=== PATIENT | female | born 1965 | race Caucasian/White ===

== ENCOUNTER 2018-08-14 12:36 | Outpatient (CLI) | payer OTHER, SELFPAY ==
[2018-08-14 14:06] LABS: Anion Gap 11.2 mmol/L (3-11); BUN 19 mg/dL (7-18); CO2 26.8 mmol/L (21.0-32.0); CREATININE 0.87 mg/dL (0.55-1.02); Calcium 9.3 mg/dL (8.5-10.1); Chloride 103 mmol/L (98-107); Glucose 132 mg/dL (70-100); Potassium 4.4 mmol/L (3.5-5.1); Sodium 141 mmol/L (136-145)
[2018-08-15 13:55] LABS: Tacrolimus 8.7 ng/ml
== END 2018-08-14 12:56 ==
PROVIDERS: PCP Family Medicine; Visit Provider Nurse Practitioner Adult Health
DX: Z94.1 Heart transplant status (principal)
CPT/HCPCS: 36415; 80048; 80197

== ENCOUNTER 2018-08-14 12:54 | Outpatient (REF) | payer OTHER, SELFPAY ==
--- NOTE | 2018-08-14 11:50 | PAPFT_PTH ---
PATIENT: Saman Segura LOC: [facility] U#:[id number] AGE/SX: 53/F ROOM: RE08/14/[address]: Zenaida Petersen : 1965 BED: DIS: 08/14/2018 SPEC #: [id number] RECD: 08/14/18 17:50 STATUS: YOSEF STALLWORTH #: [id number] JAMES: 08/14/18 11:[address]: Zenaida Petersen DEPT: REPLACED BY [facility] Cytology RECD BY: Gretchen Wolf ENTERED: 08/14/18 17:51 SP TYPE: PAPFT OTHR DR: Oswaldo Marquez MD Tissues: 1 - CX/ENDOCX FOR PAP SMEARS Procedures: PAP THIN PREP/UVM Screening HPV DNA PROBE Comments: [id number]
== END 2018-08-14 13:14 ==
LOC: LBN 12:54
PROVIDERS: PCP Family Medicine; Visit Provider Obstetrics & Gynecology
DX: Z12.4 Encounter for screening for malignant neoplasm of cervix (principal); Z11.51 Encounter for screening for human papillomavirus (HPV)
CPT/HCPCS: 88142; 87624

== ENCOUNTER 2018-08-20 01:32 | Outpatient (CLI) | payer OTHER, SELFPAY ==
--- NOTE | 2018-08-20 12:22 | DI.MAMMO_ITS ---
SYMPTOMS/DIAGNOSIS: SCREENING, Z12.31 MAMMOGRAM: Mammograms were interpreted according to the usual protocol including computer analysis with CAD system, tomosynthesis and C view imaging. The breasts are of moderate density with fairly symmetrical distribution of fibroglandular tissue. No dominant mass or clumped microcalcification is identified in either breast. Current examination is compared with the previous examinations including April 2017 and there has been no gross interval change in appearance in comparison with the previous studies. CONCLUSION: No specific evidence of malignancy at this time. Routine screening examinations are suggested at yearly intervals in this age group according to the ACS/ACR guidelines. Category 1, breast density category B. MQSA ASSESSMENT OF FINDINGS: Negative. Category 1. Patient will receive a letter notifying them of these results. BI-RADS category B. There are scattered areas of fibroglandular density.
== END 2018-08-20 01:52 ==
PROVIDERS: PCP Family Medicine; Visit Provider Obstetrics & Gynecology
DX: Z12.31 Encounter for screening mammogram for malignant neoplasm of breast (principal)
CPT/HCPCS: 77063; 77067

== ENCOUNTER 2018-08-26 00:37 | Outpatient (CLI) | payer OTHER, SELFPAY ==
--- NOTE | 2018-08-26 14:17 | DI.RAD_ITS ---
SYMPTOM/DIAGNOSIS: Z13.820, SCREENING FOR OSTEOPOROSIS DEXA SCAN: Routine examination was performed. Comparison 2011. Evaluation of the lateral view of the spine shows no compression deformities. Evaluation of the left hip shows a total T-score of 0.9 and a Z-score of 1.6. This compares with a total T-score of 1.0 from 2011. Evaluation of the lumbar spine shows a total T-score of 2 and Z-score of 3. This compares with a total T-score of 2.3 from 2011. These are within normal limits. No evidence of osteoporosis is present.
== END 2018-08-26 00:57 ==
PROVIDERS: PCP Family Medicine; Visit Provider Family Medicine
DX: Z13.820 Encounter for screening for osteoporosis (principal)
CPT/HCPCS: 77080

== ENCOUNTER 2019-01-09 10:30 | Outpatient (CLI) | payer OTHER, SELFPAY ==
[2019-01-09 10:59] LABS: Bilirubin Negative (Negative); Blood Trace-intact (Negative); Clarity Sl Cloudy; Glucose Negative (Negative); Ketones Negative (Negative); Leukocyte Esterase Small (Negative); Nitrite Positive (Negative); Urobilinogen 0.2 EU/dL (Up TO 0.2); pH 6.5 (5-8)
[2019-01-09 11:09] LABS: Epithelial Cells Few HPF (Negative); Other Cells Negative (Negative); WBC 20-50 HPF (0-5)
[2019-01-09 11:10] LABS: Bacteria Many HPF (Negative); C & S Indicated? C&S Done As Ordered; Casts Negative LPF (Negative); Crystals Negative HPF (Negative); Mucus Negative (Negative)
== END 2019-01-09 10:50 ==
PROVIDERS: PCP Family Medicine; Visit Provider Nurse Practitioner Adult Health
DX: Z94.1 Heart transplant status (principal)
CPT/HCPCS: 87077; 81003; 81015; 87086; 87186

== ENCOUNTER 2019-01-23 08:51 | Outpatient (CLI) | payer OTHER, SELFPAY ==
[2019-01-23 10:31] LABS: ALT 64 U/L (12-78); AST 32 U/L (15-37); Albumin 3.6 g/dL (3.4-5.0); Alkaline Phosphatase 79 U/L (46-116); BUN 17 mg/dL (7-18); Bilirubin, Total 0.3 mg/dL (0.2-1.0); CREATININE 1.05 mg/dL (0.55-1.02); Calcium 8.6 mg/dL (8.5-10.1); Chloride 102 mmol/L (98-107); Creatine Kinase 41 U/L (26-192); Estimated GFR 54.61 (mL/min/1.73m2); Glucose 161 mg/dL (70-100); Potassium 4.1 mmol/L (3.5-5.1); Sodium 140 mmol/L (136-145); Total Protein 6.9 g/dL (6.4-8.2)
== END 2019-01-23 09:11 ==
PROVIDERS: PCP Family Medicine; Visit Provider Nurse Practitioner Adult Health
DX: Z94.1 Heart transplant status (principal)
CPT/HCPCS: 36415; 80053; 82550

== ENCOUNTER 2019-02-06 10:29 | Outpatient (CLI) | payer OTHER, SELFPAY ==
[2019-02-06 12:02] LABS: Bilirubin Negative (Negative); Blood Negative (Negative); Clarity Clear; Glucose Negative (Negative); Ketones Negative (Negative); Leukocyte Esterase Negative (Negative); Nitrite Negative (Negative); Specific Gravity >= 1.030 (1.005-1.025); Urobilinogen 0.2 EU/dL (Up TO 0.2); pH 5.5 (5-8)
== END 2019-02-06 10:49 ==
PROVIDERS: PCP Family Medicine; Visit Provider Nurse Practitioner Adult Health
DX: Z94.1 Heart transplant status (principal)
CPT/HCPCS: 81003

== ENCOUNTER 2019-02-16 10:18 | Day surgery (SDC) | payer OTHER, SELFPAY ==
--- NOTE | 2019-02-16 08:02 | ENDO_ITS ---
Date of service: 02/16/19 Time of Service: 11:40 Endoscopy Report DATE OF PROCEDURE: 02/16/19 PRE-OP DIAGNOSIS: Hx of gastric ulcers POST-OP DIAGNOSIS: same PROCEDURE: EGD with biopsies SURGEON: Maggie Leger ANESTHESIA: other (general/ ASA 3/ Loretta Carbajal, RESEARCH NEUROPSYCHOLOGIST) ESTIMATED BLOOD LOSS: 3 PATHOLOGY: other (antrum bx and GE junction bx) COMPLICATIONS: None DISPOSITION: same day INDICATIONS: Mrs. Segura is a 53 year old female with chronic ulcers and history of cardiac transplant who came to the office for repeat EGD to follow her ulcers. This was requested by GI at [facility] in [place]. Risks, benefits and complications have been reviewed. Complications include but are not limited to bleeding, pain, perforation, sore throat, aspiration, and adverse reaction to the medications. Questions were entertained and answered to their satisfaction and they wished to proceed. No guarantees were given or implied. PROCEDURE START TIME: 11:40 PROCEDURE END TIME: 11:47 FINDINGS: Multiple shallow ulcers in the antrum and body of the stomach PROCEDURE DESCRIPTION: After informed consent was obtained the patient was take to the procedure room and placed in a supine position. Monitors were applied and a time out was done. The patients name, date of , procedure type, allergies to medications and metal in their body was reviewed. A bite block was placed and the patient was sedated. Once sedated and comfortable the gastroscope was advanced through the oropharynx which was grossly normal into the esophagus. The proximal and mid- esophagus were normal. In the distal esophagus there was mild inflammation noted. The scope was advanced into the stomach and through the pylorus into the 3rd portion of the duodenum. The duodenum was noted to be normal. The scope was retracted back into the stomach and biopsies were done to rule out H. pylori. There were again noted multiple shallow ulcers throughout the antrum and body. Biopsies were done. No acute bleeding was noted. The scope was retroflexed. The cardia and fundus were noted to be normal. There was again n oted a hiatal hernia. The scope was retracted back into the esophagus and biopsies were done of the GE junction to rule out Otero's. The Z line was regular. The GE junction was at 30 cm. The scope was removed and the patient was woken up and taken back to [facility] in stable condition. Follow up: with GI at [facility] and her transplant surgeon.
--- NOTE | 2019-02-16 08:02 | W.PM.DSUDISC ---
Discharge Plan Disposition Patient Disposition: HOME Condition: Good Discharge Details Reason For Visit: Follow up EGD Attending Provider: Maggie Leger Primary Care Provider: Oswaldo Marquez Home Meds and New Rx's Prescriptions: Continued zolpidem [Ambien] 5 MG tablet 5 mg PO HS PRNRF: 0 propranolol 20 MG tablet 40 mg PO BID Qty: 180 RF: 4 losartan 25 MG tablet 25 mg PO BID Qty: 60 RF: 11 prednisone 5 MG tablet 1.5 tab PO DAILY Qty: 135 RF: 0 meclizine 12.5 MG tablet 1 - 2 tab PO Q6H PRN Qty: 50 RF: 1 fsiqazn-mbfipvydf-fdrhkqppufsx 1 EACH capsule 2 tab-cap PO ONCE PRNQty: 30 RF: 5 mycophenolate sodium [Myfortic] 360 MG tablet,delayed release (DR/EC) 3 tab PO TID Qty: 270 RF: 0 tacrolimus 0.5 MG capsule 2.5 mg PO BID Qty: 180 RF: 4 acetaminophen [Tylenol] 325 MG tablet 500 mg PO PRN RF: 0 loperamide 2 MG capsule 2 mg PO PRN RF: 0 promethazine 12.5 MG tablet 12.5 mg PO PRN RF: 0 uctubrphgl-moqmbgnkatwst-hvhl 1 EACH tablet 1 ea PO PRN RF: 0 medroxyprogesterone [Provera] 10 MG tablet 10 mg PO PRN PRNRF: 0 baclofen 10 MG tablet 10 mg PO TID PRNQty: 30 RF: 2 ranitidine HCl [Zantac Maximum Strength] 150 MG tablet 150 mg PO HS Qty: 30 RF: 1 omeprazole magnesium 20 MG capsule,delayed release(DR/EC) 20 mg PO DAILY Qty: 30 RF: 1 amoxicillin 500 mg tablet 2,000 mg PO prior to dental wk Qty: 4 RF: 2 levothyroxine 75 mcg tablet 75 mcg PO DAILY Qty: 90 RF: 4 lorazepam 0.5 mg tablet 1 mg PO DAILY PRN (Reason: anxiety) Qty: 30 RF: 1 pravastatin 40 MG tablet 40 mg PO .QHS RF: 0 magnesium oxide 400 MG tablet 400 mg PO BID Qty: 30 RF: 0 cyclobenzaprine 10 MG tablet 10 mg PO Q8H PRN PRN (Reason: Pain) Qty: 14 RF: 0 Discharge Instructions Instructions: Upper Endoscopy (DC) Additional Instructions: Findings: small shallow ulcers Follow up: with GI at [facility] Please call if you develop: fevers >101.5 Nausea or Vomiting Abdominal pain that is not transient DAY SURGERY UNIT POST COLONOSCOPY INSTRUCTIONS 1. Because there will be medication in your system for the next 24 hours, you may feel a little sleepy. Your coordination will be affected. Therefore: a. Do not drive or operate dangerous equipment for 24 hours. b. Do not drink alcohol beverages for 24 hours (not even beer). c. Plan to go home and rest for the day. 2. Generally there are no restrictions on your activity after a day or so has gone by, but you may feel a bit fatigued for a few days. 3 After you arrive home you may have a light meal and return to a normal diet as you can tolerate it without feeling sick to your stomach. 4. After surgery, you may feel pain or discomfort. This should be only transient, but if it persists please contact your doctor. 5. If there are any questions regarding the findings of your procedure, please feel free to contact your doctor. 6. If you are unable to contact your doctor with a problem, contact the hospital at [phone]. 7. Continue all your regular medications unless directed otherwise. I understand the above instructions and have no questions. Signature of Patient or Responsible Adult Escort Date/Time Name of Responsible Adult Escort Signature of Nurse Date/Time Activity:: Activity as Tolerated Diet:: As Tolerated Discharge Orders Discharge Orders: Discharge Order (Routine); Ordered 02/16/19 Ordered By: Maggie Leger DS: Diagnosis Discharge Diagnosis (1) Gastroesophageal reflux disease: Status: Chronic (2) H/O esophagogastroduodenoscopy: Status: Chronic (3) Chronic gastric ulcer: Status: Acute
[2019-02-16 10:49] VITALS: BP 135/94; PULSE 83; RESP 18; TEMP 36.9; O2SAT 97
[2019-02-16] MEDS: Lactated Ringers 1,000 ML 80 ML IV (11:16)
--- NOTE | 2019-02-16 11:44 | BOWEL_PTH ---
PATIENT: Saman Segura LOC: [facility] U#:[id number] AGE/SX: 53/F ROOM: RE02/16/[address]: Maggie Leger MD : 1965 BED: DIS: 02/16/2019 SPEC #: [id number] RECD: 02/16/19 12:42 STATUS: YOSEF REQ #: [id number] JAMES: 02/16/19 11:[address]: Maggie Leger DEPT: Surgical Specimen RECD BY: Mai Vu ENTERED: 02/16/19 12:44 SP TYPE: Bowel OTHR DR: Oswaldo Marquez MD Tissues: 1 - BIOPSY BOWEL 2 - BIOPSY BOWEL Procedures: GROSS AND MICRO LEVEL 4 Comments: [id number]
[2019-02-16 14:15] VITALS: BP 120/79; PULSE 85; RESP 16; TEMP 36.9; O2SAT 97
== END 2019-02-16 12:45 | disposition home or self-care (01) ==
PROVIDERS: PCP Family Medicine; Visit Provider Surgery
PROC: 0DJ68ZZ Inspection of Stomach, Via Natural or Artificial Opening Endoscopic (ICD-10-PCS; CPT 43235; principal; 2019-02-16 11:00)
DX: K21.9 Gastro-esophageal reflux disease without esophagitis (principal); Z87.11 Personal history of peptic ulcer disease; Z95.812 Presence of fully implantable artificial heart; K44.9 Diaphragmatic hernia without obstruction or gangrene; K31.9 Disease of stomach and duodenum, unspecified; K25.3 Acute gastric ulcer without hemorrhage or perforation
CPT/HCPCS: 43239; 81025; 88305

== ENCOUNTER 2019-02-19 02:26 | Outpatient (CLI) | payer OTHER, SELFPAY ==
[2019-02-19 14:55] LABS: ALT 57 U/L (12-78); AST 32 U/L (15-37); Albumin 3.7 g/dL (3.4-5.0); Alkaline Phosphatase 85 U/L (46-116); Anion Gap 8.4 mmol/L (3-11); BUN 21 mg/dL (7-18); Bilirubin, Total 0.4 mg/dL (0.2-1.0); CO2 28.6 mmol/L (21.0-32.0); CREATININE 0.91 mg/dL (0.55-1.02); Chloride 102 mmol/L (98-107); Cholesterol 185 mg/dL (50-200); Glucose 215 mg/dL (70-100); HDL Cholesterol 48 mg/dL (40-60); LDL CHOLESTEROL 108 mg/dL (<100); Potassium 4.2 mmol/L (3.5-5.1); Sodium 139 mmol/L (136-145); Total Protein 6.8 g/dL (6.4-8.2); Triglyceride 334 mg/dL (30-150)
== END 2019-02-19 02:46 ==
PROVIDERS: PCP Family Medicine; Visit Provider Nurse Practitioner Adult Health
DX: Z94.1 Heart transplant status (principal)
CPT/HCPCS: 36415; 80053; 80061; 83721

== ENCOUNTER 2019-05-13 08:03 | Outpatient (CLI) | payer OTHER, SELFPAY ==
[2019-05-13 09:07] LABS: Bilirubin Negative (Negative); Blood Negative (Negative); Clarity Sl Cloudy; Glucose Negative (Negative); Ketones Negative (Negative); Leukocyte Esterase Negative (Negative); Nitrite Negative (Negative); Specific Gravity >= 1.030 (1.005-1.025); Urobilinogen 0.2 EU/dL (Up TO 0.2); pH 5.5 (5-8)
== END 2019-05-13 08:23 ==
PROVIDERS: PCP Family Medicine; Visit Provider Nurse Practitioner Adult Health
DX: Z94.1 Heart transplant status (principal)
CPT/HCPCS: 81003; 87086

== ENCOUNTER 2019-05-19 08:35 | Outpatient (CLI) | payer OTHER, SELFPAY ==
[2019-05-19 10:26] LABS: ALT 64 U/L (12-78); AST 31 U/L (15-37); Albumin 3.6 g/dL (3.4-5.0); Alkaline Phosphatase 67 U/L (46-116); Bilirubin, Total 0.4 mg/dL (0.2-1.0); Total Protein 6.5 g/dL (6.4-8.2)
[2019-05-19 10:44] LABS: Calculated LDL 119; Cholesterol 209 mg/dL (50-200); HDL Cholesterol 43 mg/dL (40-60); Triglyceride 236 mg/dL (30-150)
== END 2019-05-19 08:55 ==
PROVIDERS: PCP Family Medicine; Visit Provider Nurse Practitioner Adult Health
DX: Z94.1 Heart transplant status (principal)
CPT/HCPCS: 36415; 80061; 80076; 83721

== ENCOUNTER 2019-06-16 07:22 | Outpatient (CLI) | payer OTHER, SELFPAY ==
[2019-06-16 08:47] LABS: ALT 56 U/L (12-78); AST 29 U/L (15-37); Albumin 3.8 g/dL (3.4-5.0); Alkaline Phosphatase 67 U/L (46-116); Anion Gap 12.8 mmol/L (3-11); BUN 22 mg/dL (7-18); Bilirubin, Direct 0.12 mg/dL (0.00-0.20); Bilirubin, Total 0.5 mg/dL (0.2-1.0); CO2 24.2 mmol/L (21.0-32.0); Calcium 9.1 mg/dL (8.5-10.1); Chloride 106 mmol/L (98-107); Creatine Kinase 59 U/L (26-192); Glucose 128 mg/dL (70-100); Sodium 143 mmol/L (136-145); Total Protein 6.7 g/dL (6.4-8.2)
[2019-06-16 09:01] LABS: Calculated LDL 98 mg/dL; Cholesterol 190 mg/dL (50-200); HDL Cholesterol 46 mg/dL (40-60); Triglyceride 232 mg/dL (30-150)
== END 2019-06-16 07:42 ==
PROVIDERS: PCP Family Medicine; Visit Provider Nurse Practitioner Adult Health
DX: Z94.1 Heart transplant status (principal)
CPT/HCPCS: 36415; 80053; 80061; 80076; 82550; 83721

== ENCOUNTER 2019-07-03 07:50 | Outpatient (CLI) | payer OTHER, SELFPAY ==
--- NOTE | 2019-07-06 15:54 | HOLTER_ITS ---
DATE OF DICTATION: July 06, 2019 48-HOUR STUDY Baseline rhythm sinus. No supraventricular ectopy. No ventricular ectopy. No bradycardia. No symptoms. Average heart rate 91 bpm, range 81-116 bpm.
== END 2019-07-03 08:10 ==
PROVIDERS: PCP Family Medicine; Visit Provider Family Medicine
DX: Z94.1 Heart transplant status (principal)
CPT/HCPCS: 93225

== ENCOUNTER 2019-07-03 11:57 | Outpatient (CLI) | payer OTHER, SELFPAY ==
[2019-07-03 13:07] LABS: Abs Immature Grans 0.02 k/cumm (0.0-0.09); Absolute Basophil Count 0.02 k/cumm (0.0-0.2); Absolute Eosinophil Count 0.34 k/cumm (0.0-0.7); Absolute Lymphocyte Count 1.54 k/cumm (1.2-3.4); Absolute Monocyte Count 0.61 k/cumm (0.11-0.7); Absolute Neutrophil Count 4.45 k/cumm (1.2-6.7); Basophils % 0.3; Eosinophils % 4.9; HCT 40.3 % (36.0-46.0); HGB 13.4 g/dL (12.0-15.5); Immature Grans % 0.3; Lymphocytes % 22.1; Mean Corp. HGB Concentration 33.3 g/dL (32.0-36.0); Mean Corpuscular Hemoglobin 29.7 pg (27.0-33.0); Mean Corpuscular Volume 89.4 fL (80-95); Monocytes % 8.7; Neutrophils % 63.7; Platelet Count 287 x1000/uL (130-400); RBC 4.51 m/cumm (4.00-5.20); RBC Distribution Width 13.5 % (11.7-14.6); White Blood Cell Count 6.98 k/cumm (4.4-10.8)
[2019-07-03 13:33] LABS: Hemoglobin A1C 7.2 % (4.5-6.2)
[2019-07-03 13:40] LABS: ALT 70 U/L (12-78); AST 33 U/L (15-37); Albumin 3.9 g/dL (3.4-5.0); Alkaline Phosphatase 70 U/L (46-116); Anion Gap 10.7 mmol/L (3-11); BUN 17 mg/dL (7-18); Bilirubin, Total 0.4 mg/dL (0.2-1.0); C-Reactive Protein 0.62 mg/dL (0.0-0.3); CO2 25.3 mmol/L (21.0-32.0); CREATININE 0.88 mg/dL (0.55-1.02); Chloride 105 mmol/L (98-107); Glucose 141 mg/dL (70-100); Potassium 4.1 mmol/L (3.5-5.1); Sodium 141 mmol/L (136-145)
[2019-07-03 13:57] LABS: ESR 8 mm/hr (0-30)
== END 2019-07-03 12:17 ==
PROVIDERS: PCP Family Medicine; Visit Provider Emergency Medicine
DX: E11.9 Type 2 diabetes mellitus without complications (principal); E03.9 Hypothyroidism, unspecified; Z94.1 Heart transplant status
CPT/HCPCS: 36415; 80053; 85652; 83036; 84443; 85025; 86140

== ENCOUNTER 2019-07-06 12:38 | Outpatient (CLI) | payer OTHER, SELFPAY | END 2019-07-06 12:58 | PROVIDERS: PCP Family Medicine; Visit Provider Family Medicine | DX: Z94.1 Heart transplant status (principal) | CPT/HCPCS: 93226 ==

== ENCOUNTER 2019-07-13 07:45 | Outpatient (CLI) | payer OTHER, SELFPAY ==
[2019-07-13 09:17] LABS: ALT 68 U/L (12-78); AST 28 U/L (15-37); Albumin 3.8 g/dL (3.4-5.0); Alkaline Phosphatase 67 U/L (46-116); Bilirubin, Direct 0.11 mg/dL (0.00-0.20); Bilirubin, Total 0.4 mg/dL (0.2-1.0); Creatine Kinase 55 U/L (26-192); Total Protein 6.8 g/dL (6.4-8.2)
[2019-07-13 09:28] LABS: Calculated LDL 114 mg/dL; Cholesterol 194 mg/dL (50-200); HDL Cholesterol 44 mg/dL (40-60); Triglyceride 184 mg/dL (30-150)
== END 2019-07-13 08:05 ==
PROVIDERS: PCP Family Medicine; Visit Provider Nurse Practitioner Adult Health
DX: Z94.1 Heart transplant status (principal)
CPT/HCPCS: 36415; 80061; 80076; 82550; 83721

== ENCOUNTER 2019-09-03 01:22 | Outpatient (CLI) | payer OTHER, SELFPAY ==
[2019-09-03 10:47] LABS: ALT 50 U/L (14-59); AST 20 U/L (15-37); Albumin 3.8 g/dL (3.4-5.0); Alkaline Phosphatase 72 U/L (46-116); Anion Gap 9.2 mmol/L (3-11); BUN 22 mg/dL (7-18); Bilirubin, Total 0.4 mg/dL (0.2-1.0); CO2 28.8 mmol/L (21.0-32.0); CREATININE 0.99 mg/dL (0.55-1.02); Calcium 9.5 mg/dL (8.5-10.1); Calculated LDL 83 mg/dL; Chloride 104 mmol/L (98-107); Cholesterol 167 mg/dL (50-200); Estimated GFR 58.24 (mL/min/1.73m2); Glucose 119 mg/dL (70-100); HDL Cholesterol 55 mg/dL (40-60); Potassium 4.2 mmol/L (3.5-5.1); Sodium 142 mmol/L (136-145); Total Protein 6.8 g/dL (6.4-8.2); Triglyceride 149 mg/dL (30-150)
[2019-09-03 11:03] LABS: Creatine Kinase 58 U/L (26-192)
[2019-09-03 11:08] LABS: NT-proBNP 429 pg/mL
== END 2019-09-03 01:42 ==
PROVIDERS: Emergency Medicine; PCP Family Medicine; Visit Provider Nurse Practitioner Adult Health
DX: I50.9 Heart failure, unspecified (principal); Z94.1 Heart transplant status
CPT/HCPCS: 36415; 80053; 80061; 82550; 83880

== ENCOUNTER 2019-09-07 06:11 | Day surgery (SDC) | payer OTHER, SELFPAY ==
[2019-09-07 06:17] VITALS: BP 132/89; PULSE 83; RESP 16; TEMP 36.7; O2SAT 96
--- NOTE | 2019-09-07 06:33 | W.PM.HP.N ---
Date of service: 09/07/19 Time of Service: 06:33 Assessment and Plan Assessment and plan (1) Chronic gastric ulcer: Status: Acute Assessment and plan: A\\Chronic Gastric ulcers currently on Omeprazole 40 mg BID for 8 weeks per her School Occupational Therapist. P\\ EGD in Early September when she has finished an 8 week treatment of BID PPI If no ulcers or less ulcers will try to switch to Ranitidine 300 mg BID for 2 weeks and then do fasting blood work for pepsin. After lab work is done will try to either keep on BID Ranitidine or go back to PPI in the am and Ranitidine in the PM Risks, benefits and complications have been reviewed. Complications include but are not limited to bleeding, pain, perforation, sore throat, aspiration, and adverse reaction to the medications. Questions were entertained and answered to their satisfaction and they wished to proceed. No guarantees were given or implied. Qualifiers: Gastric ulcer complication status: without hemorrhage or perforation Qualified Code(s): K25.7 - Chronic gastric ulcer without hemorrhage or perforation History of Present Illness Narrative: Saman is back to see me today to discuss an EGD and possible Colonoscopy. She has been in contact with her School Occupational Therapist in [place] and he has placed her on Omeprazole 40 mg BID for 8 weeks to see if we can get the ulcers in her stomach to heal. He would like an EGD after that. He also would like to do a pepsin lab test off PPI if at all possible. There was also a questions as to whether she needs another colonoscopy. Her father had benign polyps on his first colonoscopy and then had 2 normal colonoscopies subsequently. There is one paternal aunt that was diagnosed with rectal cancer at age 90. Saman had a normal colonoscopy in 2013. She has had no bleeding or other worrisome symptoms. I don't think she needs another colonoscopy at this time. Saman continuous to work on trying to loose weight. Gastric bypass has been discussed and she has been approved for it but she is worried about absorption of her immunosupressant drugs for her heart. She has switched to a mostly vegan diet. She is working on not eating any dairy. We discussed cutting back on carbs but also not making her diet so restrictive that she will get discouraged and stop trying to loose weight. She walks 1.5 miles a day. We also discussed portion control and using a desert plate instead of a dinner plate. NO changes in her health since I last saw her in the office. Review of Systems Constitutional Constitutional: Denies fever(s) Cardiovascular Cardiovascular: Denies chest pain, Denies chest pain at rest, Denies chest pain with activity, Denies palpitations, Denies dyspnea and Denies dyspnea on exertion Respiratory Respiratory: Denies cough, Denies dyspnea and Denies dyspnea on exertion Endocrine Endocrine: Denies palpitations [facility] Medical History Cardiomyopathy (Resolved) cardiac transplant 01/04/12 - [facility] (Chronic) Right eye Chronic gastric ulcer (Acute ~02/16/19) Dizziness (Acute) GERD (gastroesophageal reflux disease) (Chronic) Hx of gastric ulcer (Acute) patient originally followed by [facility] for hx of gastric ulcers, EGD 08/28/2017 with CD showed erosive gastritis. 02/04/[address] Leger showed mild esophagitis. Dr Simmons referred to [facility] [place] C[place]RDE[place]S, done 03/28/[address] and [address] reflux[address] Arredondo, [facility] and [facility] surgery recommeds weight loss/possible gastric surgery. Dr Kevin from [facility] recommends repeat EGD, Dr Leger has agreed to repeat EGD. Hypothyroidism Migraine Surgical History cardiac transplant (01/04/12) Colonoscopy - [facility] 04/23/14; [facility] EGD - [facility] (08/28/17) [facility] EGD - [facility] (02/04/18) Dr Leger, mild esophagits H/O esophagogastroduodenoscopy (Chronic ~02/16/19) History of intraocular lens implant (Acute) Right eye S/P ear surgery (Acute) Family History Other Cancer Diabetes Social History Smoking/Tobacco Use Status: Never Alcohol Intake: never Drug use: Never Substance use type: does not use Seatbelt use: always Do you feel safe at home: Yes Do you feel safe in your relationship?: Yes Female Reproductive History Menstrual control method: other ( vasectomy) History History 3 Para Hx # Term Pregnancies 1 Multiple births Hx # Pregnancies Ectopic pregnancies AB induced Hx Number of Living Children AB spontaneous Meds Home Medications and Allergies Home Medications Medication Instructions Recorded Confirmed Type propranolol 40 mg PO BID #180 tab-cap 06/29/14 09/02/19 History prednisone 1.5 tab PO DAILY #135 tab-cap 12/22/14 09/02/19 History sqdntqy-qgvnbgvdw-gztkigympaux 2 tab-cap PO ONCE PRN #30 tab-cap 07/12/15 09/02/19 History meclizine 1 - 2 tab PO Q6H PRN #50 tab 07/12/15 09/02/19 History magnesium oxide 400 mg PO BID #30 tab 11/22/15 09/02/19 Rx mycophenolate sodium [Myfortic] 3 tab PO TID #270 tab 07/03/16 09/02/19 History tacrolimus 2.5 mg PO BID #180 cap 11/20/16 07/17/19 History acetaminophen [Tylenol] 500 mg PO PRN 03/28/17 09/02/19 History nbokqsrsod-dpyyqplzbnmwj-vaon 1 ea PO PRN 03/28/17 09/02/19 History loperamide 2 mg PO PRN 03/28/17 09/02/19 History promethazine 12.5 mg PO PRN 03/28/17 09/02/19 History cyclobenzaprine 10 mg PO Q8H PRN PRN #14 tab 07/15/17 09/02/19 Rx baclofen 10 mg PO TID PRN #30 tab-cap 07/18/17 09/02/19 History omeprazole magnesium 20 mg PO DAILY #30 cap 03/17/18 09/02/19 Rx amoxicillin 500 mg tablet 2,000 mg PO prior to dental wk #4 09/29/18 09/02/19 Rx tab-cap levothyroxine 75 mcg tablet 75 mcg PO DAILY #90 tab-cap 02/04/19 09/02/19 Rx lorazepam 0.5 mg tablet 1 mg PO DAILY PRN #30 tab-cap 02/06/19 09/02/19 History losartan 25 mg tablet 25 mg PO DAILY #60 tab-cap 07/17/19 09/02/19 History rosuvastatin 5 mg tablet 5 mg PO HS tab 07/17/19 09/02/19 History Allergies Allergy/AdvReac Type Severity Reaction Status Date / Time quinidine Allergy Intermediate Skin Rash Verified 09/02/19 12:42 chlorhexidine AdvReac Severe chemical Verified 09/02/19 12:42 burn azithromycin AdvReac Intermediate Can't take Verified 09/02/19 12:42 due to heart transplant patient lisinopril AdvReac Intermediate cough Verified 09/02/19 12:42 Exam HENMT Head: normocephalic and atraumatic Eyes Pupils: PERRL Resp Effort & Inspection: normal respiratory effort Auscultation: clear to auscultation bilaterally Cardio Rate: regular rate Rhythm: regular rhythm Results Last Vital Signs Temp 98.1 F 09/07/19 06:17 Pulse 83 09/07/19 06:17 Resp 16 09/07/19 06:17 BP 132/89 09/07/19 06:17 Pulse Ox 96 09/07/19 06:17
--- NOTE | 2019-09-07 06:37 | W.PM.ENDDOP ---
Date of service: 09/07/19 Time of Service: 07:43 Endoscopy Report DATE OF PROCEDURE: 09/07/19 PRE-OP DIAGNOSIS: Chronic ulcers POST-OP DIAGNOSIS: same PROCEDURE: EGD with bx SURGEON: Maggie Leger ANESTHESIA: other (General/ ASA 3/Gene Peterson, ROAD CROSSING GUARD) ESTIMATED BLOOD LOSS: 3 PATHOLOGY: other (Gastric Ulcer bx, GE junction bx) COMPLICATIONS: None DISPOSITION: same day INDICATIONS: Mrs. Segura is a pleasant 54 year old with a history of chronic Gastric ulcers treated with high doses of PPI therapy. She has had a Cardiac transplant and is seen at [facility] in [place]. Risks, benefits and complications have been reviewed. Complications include but are not limited to bleeding, pain, perforation, sore throat, aspiration, and adverse reaction to the medications. Questions were entertained and answered to their satisfaction and they wished to proceed. No guarantees were given or implied. PROCEDURE START TIME: 07:28 PROCEDURE END TIME: 07:34 FINDINGS: Continued shallow ulcers in the antrum Normal duodenum and slight inflammation of the esophagus PROCEDURE DESCRIPTION: After informed consent was obtained the patient was take to the procedure room and placed in a supine position. Monitors were applied and a time out was done. The patients name, date of , procedure type, allergies to medications and metal in their body was reviewed. A bite block was placed and the patient was sedated. Once sedated and comfortable the gastroscope was advanced through the oropharynx which was grossly normal into the esophagus. The proximal and mid-esophagus were normal. In the distal esophagus there was mild inflammation noted. The scope was advanced into the stomach and through the pylorus into the 3rd portion of the duodenum. The duodenum was noted to be normal. The scope was retracted back into the stomach and biopsies were done of a couple of the ulcers to rule out H. pylori. There were shallow small ulcers like before. The scope was retro-flexed. The cardia and fundus were noted to be normal. There was a very small hiatal hernia noted. The scope was retracted back into the esophagus and biopsies were done of the GE junction to rule out Otero's. The Z line was regular. The GE junction was at 33 cm. The scope was removed and the patient was woken up and taken back to [facility] in stable condition. Follow up: 1 year or earlier if you develop worsening symptoms.
--- NOTE | 2019-09-07 06:39 | W.PM.DSUDISC ---
Discharge Plan Disposition Patient Disposition: HOME Condition: Good Discharge Details Reason For Visit: Chronic Gastric Ulcers Attending Provider: Maggie Leger Primary Care Provider: Oswaldo Marquez Home Meds and New Rx's Prescriptions: Continued rosuvastatin [Crestor] 5 mg tablet 5 mg PO HS RF: 0 propranolol 20 MG tablet 40 mg PO BID Qty: 180 RF: 4 prednisone 5 MG tablet 1.5 tab PO DAILY Qty: 135 RF: 0 meclizine 12.5 MG tablet 1 - 2 tab PO Q6H PRN Qty: 50 RF: 1 yitlkpa-tfmrmtywo-xqjrqnmibotb 1 EACH capsule 2 tab-cap PO ONCE PRNQty: 30 RF: 5 mycophenolate sodium [Myfortic] 360 MG tablet,delayed release (DR/EC) 3 tab PO TID Qty: 270 RF: 0 tacrolimus [Prograf] 0.5 MG capsule 2.5 mg PO BID Qty: 180 RF: 4 acetaminophen [Tylenol] 325 MG tablet 500 mg PO PRN RF: 0 loperamide [Imodium A-D] 2 MG capsule 2 mg PO PRN RF: 0 promethazine 12.5 MG tablet 12.5 mg PO PRN RF: 0 crmiqvpbzg-llubnpopuphpk-rlnl 1 EACH tablet 1 ea PO PRN RF: 0 baclofen 10 MG tablet 10 mg PO TID PRNQty: 30 RF: 2 omeprazole magnesium 20 MG capsule,delayed release(DR/EC) 20 mg PO DAILY Qty: 30 RF: 1 amoxicillin 500 mg tablet 2,000 mg PO prior to dental wk Qty: 4 RF: 2 levothyroxine 75 mcg tablet 75 mcg PO DAILY Qty: 90 RF: 4 lorazepam 0.5 mg tablet 1 mg PO DAILY PRN (Reason: anxiety) Qty: 30 RF: 1 losartan 25 mg tablet 25 mg PO DAILY Qty: 60 RF: 11 magnesium oxide 400 MG tablet 400 mg PO BID Qty: 30 RF: 0 cyclobenzaprine 10 MG tablet 10 mg PO Q8H PRN PRN (Reason: Pain) Qty: 14 RF: 0 venlafaxine [Effexor XR] 37.5 mg Capsule,Extended Release 24hr 37.5 mg PO DAILY RF: 0 Discharge Instructions Instructions: Upper Endoscopy (DC) Additional Instructions: Findings: small small shallow ulcers. Biopsies done of a few Follow up: 1 year ? Please call if you develop: fevers >101.5 Nausea or Vomiting Abdominal pain that is not transient DAY SURGERY UNIT POST ENDOSCOPY INSTRUCTIONS 1. Because there will be medication in your system for the next 24 hours, you may feel a little sleepy. Your coordination will be affected. Therefore: a. Do not drive or operate dangerous equipment for 24 hours. b. Do not drink alcohol beverages for 24 hours (not even beer). c. Plan to go home and rest for the day. 2. Generally there are no restrictions on your activity after a day or so has gone by, but you may feel a bit fatigued for a few days. 3 After you arrive home you may have a light meal and return to a normal diet as you can tolerate it without feeling sick to your stomach. 4. After surgery, you may feel pain or discomfort. This should be only transient, but if it persists please contact your doctor. 5. If there are any questions regarding the findings of your procedure, please feel free to contact your doctor. 6. If you are unable to contact your doctor with a problem, contact the hospital at [phone]. 7. Continue all your regular medications unless directed otherwise. I understand the above instructions and have no questions. Signature of Patient or Responsible Adult Escort Date/Time Name of Responsible Adult Escort Signature of Nurse Date/Time Activity:: Activity as Tolerated Diet:: As Tolerated Discharge Orders Discharge Orders: Discharge Order (Routine); Ordered 09/07/19 Ordered By: Maggie Leger DS: Diagnosis Discharge Diagnosis (1) Chronic gastric ulcer: Status: Acute
[2019-09-07] MEDS: Lactated Ringers 1,000 ML 80 ML IV (06:49)
--- NOTE | 2019-09-07 07:33 | STOM_PTH ---
PATIENT: Saman Segura LOC: [facility] U#:[id number] AGE/SX: 54/F ROOM: RE09/07/[address]: Maggie Leger MD : 1965 BED: DIS: 09/07/2019 SPEC #: [id number] RECD: 09/07/19 12:38 STATUS: YOSEF RE #: [id number] JAMES: 09/07/19 07:[address]: Maggie Leger DEPT: Surgical Specimen RECD BY: Gretchen Wolf ENTERED: 09/07/19 12:39 SP TYPE: STOMACH OTHR DR: Oswaldo Marquez MD Tissues: 1 - STOMACH BIOPSY 2 - ESOPHAGUS BIOPSY Procedures: GROSS AND MICRO LEVEL 4 Comments: [id number]
[2019-09-07 08:15] VITALS: BP 118/86; PULSE 82; RESP 16; TEMP 36.5; O2SAT 96
== END 2019-09-07 08:20 | disposition home or self-care (01) ==
PROVIDERS: PCP Family Medicine; Visit Provider Surgery
PROC: 0DJ68ZZ Inspection of Stomach, Via Natural or Artificial Opening Endoscopic (ICD-10-PCS; CPT 43235; principal; 2019-09-07 07:30)
DX: K31.89 Other diseases of stomach and duodenum (principal); K21.0 Gastro-esophageal reflux disease with esophagitis; K25.7 Chronic gastric ulcer without hemorrhage or perforation; K44.9 Diaphragmatic hernia without obstruction or gangrene; Z94.1 Heart transplant status
CPT/HCPCS: 43239; 81025; 88305; NC; J2250; J3010

== ENCOUNTER 2019-09-11 09:43 | Outpatient (CLI) | payer OTHER, SELFPAY ==
[2019-09-11 13:15] LABS: Anion Gap 12.5 mmol/L (3-11); BUN 17 mg/dL (7-18); CO2 24.5 mmol/L (21.0-32.0); CREATININE 0.97 mg/dL (0.55-1.02); Calcium 9.3 mg/dL (8.5-10.1); Chloride 105 mmol/L (98-107); Estimated GFR 59.62 (mL/min/1.73m2); Glucose 127 mg/dL (70-100); Potassium 4.2 mmol/L (3.5-5.1); Sodium 142 mmol/L (136-145)
[2019-09-11 14:05] LABS: Hemoglobin A1C 6.8 % (4.5-6.2)
== END 2019-09-11 10:03 ==
PROVIDERS: PCP Family Medicine; Visit Provider Emergency Medicine
DX: E11.9 Type 2 diabetes mellitus without complications (principal)
CPT/HCPCS: 36415; 80048; 83036

== ENCOUNTER 2019-10-08 00:40 | Outpatient (CLI) | payer OTHER, SELFPAY ==
[2019-10-09 18:55] LABS: Gastrin 92 pg/mL
== END 2019-10-08 01:00 ==
PROVIDERS: PCP Family Medicine
DX: K27.9 Peptic ulcer, site unspecified, unspecified as acute or chronic, without hemorrhage or perforation (principal)
CPT/HCPCS: 36415; 82941

== ENCOUNTER 2019-12-22 07:00 | Outpatient (CLI) | payer OTHER, SELFPAY ==
[2019-12-22 14:11] LABS: Hemoglobin A1C 7.5 % (3.8-5.6)
== END 2019-12-22 07:20 ==
PROVIDERS: PCP Family Medicine; Visit Provider Emergency Medicine
DX: E03.9 Hypothyroidism, unspecified (principal); E11.9 Type 2 diabetes mellitus without complications
CPT/HCPCS: 36415; 83036; 84443

== ENCOUNTER 2020-01-13 01:20 | Outpatient (CLI) | payer OTHER, SELFPAY ==
[2020-01-13 07:26] LABS: BUN 18 mg/dL (7-18); CREATININE 0.89 mg/dL (0.55-1.02)
[2020-01-13] MEDS: Omnipaque 350 MG/ML 100 ML BTL IJ (08:23)
[2020-01-13] MEDS: Omnipaque 350 MG/ML 50 ML BTL PO (08:24)
--- NOTE | 2020-01-13 08:24 | DI.CT_ITS ---
EXAM: CT ABDOMEN PELVIS W CLINICAL HISTORY: LLQ ABD PAIN, CHRONIC ULCERS, R10.9 TECHNIQUE: Post IV and oral contrast. COMPARISON: No exams were available for comparison FINDINGS: The lung bases are clear. There are sternal wires. The heart is mildly enlarged. The liver shows mild fatty infiltration. There is a question of a gallstone. There is no gallbladder wall thickening or b iliary dilatation. The spleen, pancreas, adrenals and kidneys are unremarkable. No bowel dilatation o r inflammatory changes are seen. There is a moderate quantity of stool. The appendix appears normal. The uterus, ovaries and bladder appear normal. The aorta is normal in diameter. There are mild degene rative changes in the spine. There is thinning of the anterior abdominal wall above the level of the umbilicus. There is a tiny amount of fat at the umbilicus. IMPRESSION: No acute abnormality.
== END 2020-01-13 01:40 ==
PROVIDERS: PCP Family Medicine; Visit Provider Surgery
DX: R10.32 Left lower quadrant pain (principal); I51.7 Cardiomegaly; K76.0 Fatty (change of) liver, not elsewhere classified; K25.7 Chronic gastric ulcer without hemorrhage or perforation; Z13.89 Encounter for screening for other disorder
CPT/HCPCS: 84520; 74177; 82565; J3490; Q9967

== ENCOUNTER 2020-07-26 08:08 | Outpatient (CLI) | payer OTHER, SELFPAY ==
[2020-07-28 02:32] LABS: COVID-19 RT-PCR Result NEGATIVE (Negative)
== END 2020-07-26 08:28 ==
PROVIDERS: PCP Emergency Medicine; Visit Provider Emergency Medicine
DX: Z11.59 Encounter for screening for other viral diseases (principal); Z01.818 Encounter for other preprocedural examination
CPT/HCPCS: U0003

== ENCOUNTER 2020-09-02 22:02 | Outpatient (REF) | payer OTHER, SELFPAY ==
[2020-09-02 21:16] LABS: Anion Gap 12.4 mmol/L (3-11); BUN 27 mg/dL (7-18); CO2 24.6 mmol/L (21.0-32.0); CREATININE 1.09 mg/dL (0.55-1.02); Calcium 9.5 mg/dL (8.5-10.1); Chloride 102 mmol/L (98-107); Estimated GFR 51.92 (mL/min/1.73m2); Glucose 171 mg/dL (74-106); Potassium 3.8 mmol/L (3.5-5.1); Sodium 139 mmol/L (136-145)
[2020-09-02 21:26] LABS: Hemoglobin A1C 7.4 % (<5.7)
== END 2020-09-02 22:22 ==
LOC: LBN 22:02
PROVIDERS: PCP Emergency Medicine; Visit Provider Emergency Medicine
DX: E11.9 Type 2 diabetes mellitus without complications (principal); I10 Essential (primary) hypertension
CPT/HCPCS: 80048; 83036

== ENCOUNTER 2021-02-01 23:16 | Emergency (ER) | payer OTHER, SELFPAY ==
--- NOTE | 2021-02-01 01:27 | DI.RAD_ITS ---
EXAM: XR PORTABLE CHEST AP CLINICAL HISTORY: palpitations/SOB TECHNIQUE: 2D digital imaging was performed. COMPARISON: CR PORTABLE CHEST ONE VIEW from 10/03/2016 FINDINGS: MEDIASTINUM: Normal. HEART: Normal. PULMONARY VASCULATURE: Normal. LUNGS: Clear. PLEURAL SPACE: No pleural effusion or pneumothorax. BONE:Within normal limits for the patient's age. Sternal wires are in place. OTHER FINDINGS:Normal. IMPRESSION: No acute pulmonary findings. DATA REPOSITORY: RADIATION DOSE DELIVERED:
--- NOTE | 2021-02-01 23:15 | RT.EKG_ITS ---
APPROVED REPORT Exam: Resting ECG Patient Location: E HR:92 bpm ECG Measurements Heart Rate 92 AXIS OR 187 P 37 QRSd 86 QRS -26 QT 386 T 95 QTc 477 Conclusion Sinus rhythm...normal P axis, V-rate 60- 99 Inferior infarct, old...Q >35mS, II III aVF Nonspecific ST-T changes
[2021-02-01 23:22] VITALS: BP 166/108; PULSE 92; RESP 18; TEMP 35.7; O2SAT 98
--- NOTE | 2021-02-01 23:32 | W.ED.GENAD ---
Discharge Plan Disposition Patient Disposition: HOME Condition: Good Discharge Details Clinical Impression: Palpitations, Hyperglycemia due to type 2 diabetes mellitus Primary Care Provider: Rigoberto Styles ED Provider: Davonte Max [place] Meds and New Rx's Prescriptions: Continued rosuvastatin [Crestor] 5 mg tablet 5 mg PO HS RF: 0 propranolol 20 MG tablet 40 mg PO BID Qty: 180 RF: 4 prednisone 5 MG tablet 1.5 tab PO DAILY Qty: 135 RF: 0 meclizine 12.5 MG tablet 1 - 2 tab PO Q6H PRN Qty: 50 RF: 1 ztplszr-vionyttzd-ftecpkngsfml 1 EACH capsule 2 tab-cap PO ONCE PRNQty: 30 RF: 5 mycophenolate sodium [Myfortic] 360 MG tablet,delayed release (DR/EC) 3 tab PO BID Qty: 270 RF: 0 tacrolimus [Prograf] 0.5 MG capsule 1.5 mg PO BID Qty: 180 RF: 4 acetaminophen [Tylenol] 325 MG tablet 500 mg PO PRN RF: 0 loperamide [Imodium A-D] 2 MG capsule 2 mg PO PRN RF: 0 baclofen 10 MG tablet 10 mg PO TID PRNQty: 30 RF: 2 omeprazole magnesium 20 MG capsule,delayed release(DR/EC) 20 mg PO DAILY Qty: 30 RF: 1 lorazepam 0.5 mg tablet 1 mg PO DAILY PRN (Reason: anxiety) Qty: 30 RF: 1 losartan 25 mg tablet 25 mg PO DAILY Qty: 60 RF: 11 levothyroxine 75 mcg tablet 75 mcg PO DAILY Qty: 90 RF: 4 (DME) blood-glucose meter [OneTouch Verio Flex meter] Misc See Rx Instructions .ROUTE .MEDSUPPLY Qty: 1 RF: 0 (DME) OneTouch Verio test strips Strip See Rx Instructions .ROUTE .MEDSUPPLY Qty: 100 RF: 3 (DME) lancets [OneTouch Delica Plus Lancet] 33 gauge misc See Rx Instructions .ROUTE .MEDSUPPLY Qty: 100 RF: 3 ajbedsedml-elajyqyxwyadu-zffq 50-325-40 mg tablet 1 tab PO PRN Qty: 60 RF: 0 promethazine 12.5 mg tablet 12.5 mg PO PRN Qty: 60 RF: 0 amoxicillin 500 mg tablet 2,000 mg PO prior to dental wk Qty: 4 RF: 2 magnesium oxide 400 MG tablet 400 mg PO BID Qty: 30 RF: 0 cyclobenzaprine 10 MG tablet 10 mg PO Q8H PRN PRN (Reason: Pain) Qty: 14 RF: 0 medroxyprogesterone 10 mg Tablet 10 mg PO DAILY PRNRF: 0 prednisone 5 mg tablet 5 mg PO DAILY RF: 0 prednisone 2.5 mg tablet 2.5 mg PO DAILY RF: 0 ranitidine HCl 150 mg Tablet 150 mg PO HS RF: 0 calcium carbonate 500 mg calcium (1,250 mg) Tablet,Chewable 500 mg PO DAILY RF: 0 Discharge Instructions Instructions: Heart Palpitations (ED), Diabetic Hyperglycemia (ED) Additional Instructions: Laboratory studies other than glucose and magnesium look good. Your hemoglobin 1 AC is going higher as opposed to lower. You will need to follow-up with primary care for further management of your diabetes. EKG and cardiac enzymes look fine. Screening test for blood clot negative. Recommend rest and staying hydrated. Follow-up with primary care. Return to ED for any new or worsening symptoms especially fainting, shortness of breath, fever, chest pain. Referrals: Rigoberto Styles DO [Primary Care Provider] - Discharge Data Discharge Date/Time-TO BE ENTERED AT DEPARTURE: 02/02/21 04:36 Medical Decision Making Patient presenting to ED with fleeting episodes of palpitations, nausea, lightheadedness, need to take a deep breath as well as elevated blood sugar. Initial vital signs here show elevated blood pressure but normal saturations, afebrile with heart rate in the 90s. Her exam is unremarkable. Triage EKG is sinus rhythm with nonspecific ST changes present no old to compare. She is a cardiac transplant patient and therefore would not have chest pain if having ischemia but her symptoms are fleeting, she reports seconds only, and do not seem likely related to ischemia. Currently no shortness of breath, pleuritic chest pain with normal saturations so unlikely to be related to PE. Sugars at home reported above 350. Fingerstick here closer to 50. Plan is to place IV and give fluids, check labs, obtain portable chest x-ray. Patient laboratory studies significant for magnesium of 1.4 and glucose of 266 with a hemoglobin A1c of 8.9. Troponin negative. Age-adjusted D-dimer negative. Patient with normal vital signs and no evidence of arrhythmia on the monitor. A repeat EKG and troponin at 3 hours remain unchanged. Patient remains asymptomatic and feels fine after a liter of fluid as well as 2 g of magnesium. She will need follow-up with primary care due to her rising hemoglobin A1c. Return to ED for increasing shortness of breath, fever, chest pain, other concerns. Medical Records Medical records reviewed: Yes I reviewed the patient's medical records. Lab Data Lab results reviewed: Yes I reviewed the patient's lab results. ECG Data Attestation: I personally reviewed and interpreted this ECG (s) as follows: Prior ECG tracings: not available for review Interpretation: see EKG HPI General Mode of arrival: ambulatory. Date/Time Provider Initiated Documentation: 02/01/21 23:31. Limitations to Documentation: no limitations. Information obtained by: patient, RN notes reviewed and old records reviewed. HPI Narrative: Patient presents to the ED with palpitations and elevated blood sugar. Patient is status post cardiac transplant almost 10 years ago now. She is on daily prednisone as well as other immunosuppressive. She is diabetic but does not really tolerate Metformin all that well. Her last hemoglobin A1c was down around 7 so they were going to try to control it with diet and exercise. She had been doing relatively well overall except for the last month or so. Her blood sugars have been fluctuating quite a bit. Tonight she had 2 fleeting episodes of palpitations with associated lightheadedness and the feeling that she needed to take a deep breath. She had some nausea. She denies having any fever, cough, chest pain. She denies any GI symptoms. She denies any urinary symptoms. She does have hot flashes and is going through menopause. She last saw her transplant surgeon a little over a year ago. She has received her first Covid vaccination. Her blood sugar at home was up over 350. She decided to come in to be checked. Related Data Home Medications Medication Instructions Recorded Confirmed propranolol 40 mg PO BID #180 tab-cap 06/29/14 02/01/21 prednisone 1.5 tab PO DAILY #135 tab-cap 12/22/14 09/02/20 whxfsuq-epocpvxdj-kkppxhhvotki 2 tab-cap PO ONCE PRN #30 tab-cap 07/12/15 02/01/21 meclizine 1 - 2 tab PO Q6H PRN #50 tab 07/12/15 02/01/21 magnesium oxide 400 mg PO BID #30 tab 11/22/15 02/01/21 mycophenolate sodium [Myfortic] 3 tab PO BID #270 tab 07/03/16 02/01/21 tacrolimus [Prograf] 1.5 mg PO BID #180 cap 11/20/16 02/01/21 acetaminophen [Tylenol] 500 mg PO PRN 03/28/17 02/01/21 loperamide [Imodium A-D] 2 mg PO PRN 03/28/17 02/01/21 cyclobenzaprine 10 mg PO Q8H PRN PRN #14 tab 07/15/17 02/01/21 baclofen 10 mg PO TID PRN #30 tab-cap 07/18/17 02/01/21 omeprazole magnesium 20 mg PO DAILY #30 cap 03/17/18 02/01/21 lorazepam 0.5 mg tablet 1 mg PO DAILY PRN #30 tab-cap 02/06/19 02/01/21 losartan 25 mg tablet 25 mg PO DAILY #60 tab-cap 07/17/19 02/01/21 rosuvastatin 5 mg tablet 5 mg PO HS tab 07/17/19 02/01/21 levothyroxine 75 mcg tablet 75 mcg PO DAILY #90 tab-cap 03/29/20 02/01/21 blood-glucose meter #1 each 04/04/20 09/02/20 blood sugar diagnostic #100 each 06/15/20 09/02/20 lancets 33 gauge #100 each 06/15/20 09/02/20 ckwtkdnrio-tuiwqhpxpgacq-iejnroab 1 tab PO PRN #60 tab 11/29/20 02/01/21 50 mg-325 mg-40 mg tablet promethazine 12.5 mg tablet 12.5 mg PO PRN #60 tab 11/29/20 02/01/21 amoxicillin 500 mg tablet 2,000 mg PO prior to dental wk #4 01/31/21 02/01/21 tab-cap calcium carbonate 500 mg PO DAILY 02/01/21 02/01/21 medroxyprogesterone 10 mg PO DAILY PRN 02/01/21 02/01/21 prednisone 2.5 mg PO DAILY 02/01/21 02/01/21 prednisone 5 mg PO DAILY 02/01/21 02/01/21 ranitidine HCl 150 mg PO HS 02/01/21 02/01/21 Previous Rx's Medication Instructions Recorded magnesium oxide 400 mg PO BID #30 tab 11/22/15 cyclobenzaprine 10 mg PO Q8H PRN PRN #14 tab 07/15/17 omeprazole magnesium 20 mg PO DAILY #30 cap 03/17/18 levothyroxine 75 mcg tablet 75 mcg PO DAILY #90 tab-cap 03/29/20 blood-glucose meter #1 each 04/04/20 blood sugar diagnostic #100 each 06/15/20 lancets 33 gauge #100 each 06/15/20 paehxdbpmc-rylabkwglulnd-pfvnteur 1 tab PO PRN #60 tab 11/29/20 50 mg-325 mg-40 mg tablet promethazine 12.5 mg tablet 12.5 mg PO PRN #60 tab 11/29/20 amoxicillin 500 mg tablet 2,000 mg PO prior to dental wk #4 01/31/21 tab-cap Allergies Allergy/AdvReac Type Severity Reaction Status Date / Time quinidine Allergy Intermediate Skin Rash Verified 09/02/20 10:51 chlorhexidine AdvReac Severe chemical Verified 09/02/20 10:51 burn azithromycin AdvReac Intermediate Can't take Verified 09/02/20 10:51 due to heart transplant patient lisinopril AdvReac Intermediate cough Verified 09/02/20 10:51 General Stated Complaint: GenMedical ANNE: 3 Review of Systems Narrative: 09/14 Review of Systems completed and is negative except as stated above in HPI (Systems reviewed: Const, Eyes, ENT, Resp, CV, GI, , MSK, Skin, Neuro) [facility] Medical History (Updated 02/02/21 @ 03:44 by Davonte Max MD) Cardiomyopathy cardiac transplant 01/04/12 - [facility] Cataract Right eye Chronic gastric ulcer (~02/16/19) Diabetes mellitus Dizziness GERD (gastroesophageal reflux disease) Hx of gastric ulcer patient originally followed by [facility] for hx of gastric ulcers, EGD 08/28/2017 with CD showed erosive gastritis. 02/04/[address] Leger showed mild esophagitis. Dr Simmons referred to [facility] for CÁRDENAS, done 03/28/[address] and [address] reflux[address] Arredondo, [facility] surgery recommeds weight loss/possible gastric surgery. Dr Kevin from [facility] recommends repeat EGD, Dr Leger has agreed to repeat EGD. Hypothyroidism Migraine Surgical History (Updated 09/07/19 @ 06:41 by Maggie Leger MD) cardiac transplant (01/04/12) Colonoscopy - MAC 04/23/14; [facility] EGD - MAC (08/28/17) [facility] - [facility] (09/07/19) 2018-Dr Leger, mild esophagits 01/2019- chronic gastric ulcers History of intraocular lens implant Right eye S/P ear surgery Family History Other Cancer Diabetes Social History Smoking/Tobacco Use Status: Never Smoking risk assessment performed?: Yes Alcohol Intake: never Drug use: Never Substance use type: does not use Seatbelt use: always Do you feel safe at home: Yes Do you feel safe in your relationship?: Yes Female Reproductive History Menstrual control method: other ( vasectomy) History History 3 Para Hx # Term Pregnancies 1 Multiple births Hx # Pregnancies Ectopic pregnancies AB induced Hx Number of Living Children AB spontaneous Exam Narrative Exam Narrative: Const: Obese female in NAD. HEENT: NC/AT. Normal facial exam. Eyes: Normal conjunctiva and sclera. Neck: Supple. Trachea midline. Lungs: Normal respiratory effort. Lungs are clear. Cor: RRR without murmur/gallop. Good radial pulses. GI: Soft. NT/ND. No guarding or rebound. Neuro: A+O x 3. Normal speech, mentation, gait. Cranial nerves II - XII grossly intact. No gross motor or sensory deficit. Ext: No C/C/E. No calf tenderness. Skin: Warm and dry. Course Vital Signs Vital signs: Vital Signs Temperature 96.2 F L 02/01/21 23:22 Pulse 92 H 02/01/21 23:22 Respiratory Rate 18 02/01/21 23:22 Blood Pressure 166/108 H 02/01/21 23:22 Pulse Oximetry 98 02/01/21 23:22 Temperature 96.2 F L 02/01/21 23:22 Pulse 92 H 02/01/21 23:22 Respiratory Rate 18 02/01/21 23:22 Respiratory Effort Non-Labored 02/01/21 23:27 Blood Pressure 166/108 H 02/01/21 23:22 Blood Pressure Position Supine 02/01/21 23:22 Pulse Oximetry 98 02/01/21 23:22 Oxygen Delivery Method Room Air 02/01/21 23:22 Oxygen Flow Rate 0 02/01/21 23:22 Pain Level 0 02/01/21 23:22
[2021-02-01 23:39] VITALS: RESP 16
[2021-02-02] VITALS (38 sets, daily range): BP systolic 112–151; BP diastolic 71–94; PULSE 77–89; RESP 14–26; O2SAT 94–98
[2021-02-02 00:20] LABS: Abs Immature Grans 0.02 10^3/uL (0.0-0.06); Absolute Basophil Count 0.02 10^3/uL (0.0-0.2); Absolute Eosinophil Count 0.16 10^3/uL (0.0-0.7); Absolute Lymphocyte Count 1.75 10^3/uL (1.2-3.4); Absolute Monocyte Count 0.53 10^3/uL (0.1-0.8); Absolute Neutrophil Count 3.38 10^3/uL (1.2-6.7); Basophils % 0.3; Eosinophils % 2.7; HGB 12.3 g/dL (11.2-15.7); Immature Grans % 0.3; Lymphocytes % 29.9; MCH 29.3 pg (27.0-33.0); MCHC 33.2 % (32.0-36.0); MCV 88.1 fL (80-95); MPV 10.3 fL (8.0-11.0); Neutrophils % 57.8; Nucleated RBC 0 %; Platelet Count 248 10^3/uL (130-400); RDW-SD 41.9 fL; WBC 5.86 10^3/uL (4.4-10.8)
[2021-02-02] MEDS: Lactated Ringers 1,000 ML 1000 ML IV (00:30)
[2021-02-02 00:31] LABS: ALT 41 U/L (14-59); AST 25 U/L (15-37); Albumin 3.5 g/dL (3.4-5.0); Alkaline Phosphatase 95 U/L (46-116); Anion Gap 10.5 mmol/L (3-11); BUN 26 mg/dL (7-18); Bilirubin, Total 0.3 mg/dL (0.2-1.0); CO2 25.5 mmol/L (21.0-32.0); CREATININE 0.9 mg/dL (0.55-1.02); Calcium 9.2 mg/dL (8.5-10.1); Chloride 104 mmol/L (98-107); Glucose 266 mg/dL (74-106); Magnesium 1.4 mg/dL (1.8-2.4); Potassium 4.2 mmol/L (3.5-5.1); Sodium 140 mmol/L (136-145); Total Protein 6.9 g/dL (6.4-8.2)
[2021-02-02 00:32] LABS: Troponin I < 0.05 ng/mL (<0.06)
[2021-02-02 00:34] LABS: Bilirubin Negative (Negative); Blood Negative (Negative); Clarity Sl Cloudy (Clear); Glucose 500 mg/dL (Negative); Ketones Negative (Negative); Leukocyte Esterase Trace (Negative); Nitrite Negative (Negative); Specific Gravity >= 1.030 (1.005-1.025); Urobilinogen 0.2 EU/dL (Up TO 0.2); pH 5.5 (5-8)
[2021-02-02 00:36] LABS: Hemoglobin A1C 8.9 % (<5.7)
[2021-02-02 00:43] LABS: RBC 0-2 HPF (0-2)
[2021-02-02 00:44] LABS: Bacteria Few HPF (Negative); C & S Indicated? Yes; Casts Negative LPF (Negative); Crystals Negative HPF (Negative); Epithelial Cells Few HPF (Negative); Mucus Trace (Negative)
[2021-02-02] MEDS: MAGNESIUM SULFATE 2 GM/50 ML BAG IVPB (00:45)
[2021-02-02 00:47] LABS: D-Dimer 542 ng/mlFEU (<500)
--- NOTE | 2021-02-02 01:45 | DI.VRAD_ITS ---
PROCEDURE INFORMATION: Exam: XR Chest Exam date and time: 02/01/2021 11:58 PM Age: 55 years old Clinical indication: Shortness of breath TECHNIQUE: Imaging protocol: XR of the chest Views: 1 view. COMPARISON: CT CHEST FOR PULMONARY EMBOLUS 10/03/2016 12:45 PM FINDINGS: Lungs: Unremarkable. No consolidation. Pleural spaces: Unremarkable. No pleural effusion. No pneumothorax. Heart/Mediastinum: Unremarkable. No cardiomegaly. Bones/joints: Unremarkable. IMPRESSION: No acute findings. Dictated and Authenticated by: Jamie Hayes MD. Ordering:ALICE Arauz MD
--- NOTE | 2021-02-02 02:45 | RT.EKG_ITS ---
APPROVED REPORT Exam: Resting ECG Patient Location: E HR:78 bpm ECG Measurements Heart Rate 78 AXIS TN 182 P 36 QRSd 92 QRS -12 QT 386 T 96 QTc 440 Conclusion Sinus rhythm...normal P axis, V-rate 60- 99 Nonspecific T abnrm, anterolateral leads...T <-0.10mV, I aVL V2-V6 There are no significant changes compared to prior EKG performed on 02/01/2021 at 23:27.
[2021-02-02 03:38] LABS: Troponin I < 0.05 ng/mL (<0.06)
== END 2021-02-02 04:36 | disposition home or self-care (01) ==
PROVIDERS: Emergency Provider Emergency Medicine; PCP Emergency Medicine
DX: R00.2 Palpitations (principal); E11.65 Type 2 diabetes mellitus with hyperglycemia; E83.42 Hypomagnesemia
CPT/HCPCS: 36415; 36416; 80053; 82962; 87077; 93005; 96361; 96365; 96366; 99285; 71045; 81003; 81015; 83036; 83735; 84484; 85025; 85379; 87086; 87186; 93010

== ENCOUNTER 2021-02-03 11:23 | Outpatient (RCR) | payer OTHER, SELFPAY ==
--- NOTE | 2021-02-03 11:30 | HOLTER_ITS ---
APPROVED REPORT Exam Type: HOLTER MONITOR APPLICATION Reason for Test: palpita. heart transplant Patient Location: O Conclusion This is a 48-hour Holter monitor ordered for indication of palpitations. Patient was in normal sinus rhythm for the majority of the recording with an average heart rate of 89 bpm. There were no episodes of ectopy during the recording period. There were no episodes of atrial fibrillation, no pauses greater than 3 seconds and no evidence of hi gh degree heart block. There was 1 patient triggered event associated with sinus rhythm.
== END 2021-03-01 23:59 | disposition home or self-care (01) ==
LOC: RT 11:23
PROVIDERS: PCP Emergency Medicine; Visit Provider Emergency Medicine
DX: R00.2 Palpitations (principal); Z94.1 Heart transplant status
CPT/HCPCS: 93225; 93226

== ENCOUNTER 2021-02-03 14:01 | Outpatient (REF) | payer OTHER, SELFPAY ==
[2021-02-03 20:17] LABS: C-Reactive Protein 0.44 mg/dL (0.0-0.3); TSH 1.19 uIU/mL (0.36-3.74)
== END 2021-02-03 14:02 | disposition home or self-care (01) ==
LOC: LBN 14:01
PROVIDERS: PCP Emergency Medicine; Visit Provider Emergency Medicine
DX: E03.9 Hypothyroidism, unspecified (principal); R00.2 Palpitations
CPT/HCPCS: 84443; 86140

== ENCOUNTER 2021-04-17 02:04 | Outpatient (CLI) | payer OTHER, SELFPAY ==
--- NOTE | 2021-04-17 07:30 | DI.MAMMO_ITS ---
Exam(s) MAMMO SCREENING EXAM: MAMMO SCREENING CLINICAL HISTORY: screening,z12.39. TECHNIQUE: Bilateral full field digital CC and MLO mammographic images were obtained with 3D tomosyn thesis and utilizing computer aided detection (CAD). COMPARISON: Prior mammograms dating back to 2012, the most recent being August 2018. FINDINGS: Small benign-appearing nodular densities again noted in both breast as are benign microcalcifications in both breasts. There are no new spiculated masses nor malignant appearing microcalcification groups. There is no significant architectural distortion nor skin thickening-retraction. IMPRESSION: Benign findings. No radiographic evidence of malignancy. BI-RADS Category 2 - Benign Findings Breast Density - Category B - Scattered areas of fibroglandular density Breast density Category C or D implies that the patient has dense breast tissue. Dense breast tissue can make it harder to find cancer on a mammogram. Dense breast tissue is also associated with an incr eased risk of breast cancer. This information about the result of the mammogram report was provided to the patient to raise their awareness. Use this report when you speak with the patient about their risks for breast cancer, which includes their family history. At that time, you may recommend additional screening tests (Ultrasoun d or MRI) as these tests may add significant information. A negative radiographic report should not delay biopsy if a dominant or clinically suspicious mass is present. Up to ten percent of cancers are not identified on mammography. A negative report may reinforce clinical impression. Adenosis and dense breasts may obscure an underlying neoplasm. False positive reports average 6 to 10%. Patient will receive a letter notifying them of these results.
== END 2021-04-17 02:24 ==
PROVIDERS: PCP Emergency Medicine; Visit Provider Emergency Medicine
DX: Z12.31 Encounter for screening mammogram for malignant neoplasm of breast (principal)
CPT/HCPCS: 77063; 77067

== ENCOUNTER 2021-05-18 02:57 | Outpatient (CLI) | payer OTHER, SELFPAY ==
[2021-05-18 12:02] LABS: Calculated LDL 105 mg/dL (<100); Cholesterol 192 mg/dL (<200); HDL Cholesterol 50 mg/dL (40-60); Triglyceride 187 mg/dL (<150)
[2021-05-18 12:21] LABS: Anion Gap 10.6 mmol/L (3-11); BUN 19 mg/dL (7-18); CO2 26.4 mmol/L (21.0-32.0); Calcium 9.1 mg/dL (8.5-10.1); Chloride 107 mmol/L (98-107); Estimated GFR 57.35 (mL/min/1.73m2); Glucose 124 mg/dL (74-106); Potassium 4.2 mmol/L (3.5-5.1); Sodium 144 mmol/L (136-145); Vitamin B12 527 pg/mL (193-986)
== END 2021-05-18 02:58 | disposition home or self-care (01) ==
LOC: LBO 02:57
PROVIDERS: Nurse Practitioner Adult Health; PCP Emergency Medicine; Visit Provider Emergency Medicine
DX: I10 Essential (primary) hypertension (principal); E11.9 Type 2 diabetes mellitus without complications; E63.8 Other specified nutritional deficiencies
CPT/HCPCS: 36415; 80048; 80061; 82607; 83036

== ENCOUNTER 2021-06-30 11:06 | Outpatient (REF) | payer OTHER, SELFPAY ==
[2021-06-30 12:58] LABS: Bilirubin Negative (Negative); Blood Negative (Negative); Clarity Clear (Clear); Glucose Negative (Negative); Ketones Negative (Negative); Leukocyte Esterase Moderate (Negative); Nitrite Negative (Negative); Urobilinogen 0.2 EU/dL (Up TO 0.2); pH 5.5 (5-8)
[2021-06-30 13:05] LABS: Epithelial Cells Moderate HPF (Negative); RBC Negative HPF (0-2)
[2021-06-30 13:06] LABS: Bacteria Rare HPF (Negative); C & S Indicated? C&S Done As Ordered; Casts Negative LPF (Negative); Crystals Negative HPF (Negative); Mucus Negative (Negative); Other Cells Mod Transitional (Negative)
== END 2021-06-30 11:07 | disposition home or self-care (01) ==
LOC: LBN 11:06
PROVIDERS: PCP Emergency Medicine; Visit Provider Emergency Medicine
DX: R30.0 Dysuria (principal)
CPT/HCPCS: 81003; 81015; 87086

== ENCOUNTER 2021-07-18 03:32 | Outpatient (CLI) | payer OTHER, SELFPAY ==
[2021-07-18 09:50] LABS: Calculated LDL 72 mg/dL (<100); Cholesterol 163 mg/dL (<200); HDL Cholesterol 58 mg/dL (40-60); Triglyceride 168 mg/dL (<150)
== END 2021-07-18 03:33 | disposition home or self-care (01) ==
LOC: LBO 03:32
PROVIDERS: PCP Emergency Medicine; Visit Provider Nurse Practitioner Adult Health
DX: Z94.1 Heart transplant status (principal)
CPT/HCPCS: 36415; 80061

== ENCOUNTER 2021-09-29 01:27 | Outpatient (CLI) | payer OTHER, SELFPAY ==
[2021-09-29 13:06] LABS: Source Nasal/Nares
[2021-09-29 15:52] LABS: COVID-19 PCR Negative (Negative)
== END 2021-09-29 01:28 | disposition home or self-care (01) ==
LOC: LBO 01:27
PROVIDERS: PCP Emergency Medicine; Visit Provider Ophthalmology
DX: Z20.822 Contact with and (suspected) exposure to COVID-19 (principal); Z01.818 Encounter for other preprocedural examination
CPT/HCPCS: 87635

== ENCOUNTER 2021-10-02 08:03 | Day surgery (SDC) | payer OTHER, SELFPAY ==
[2021-10-02 08:20] VITALS: BP 136/104; PULSE 103; RESP 16; TEMP 36.4; O2SAT 98
[2021-10-02] MEDS: Tropicam./Phenyleph. (1/2.5%) 5 ML BTL OS ×3 (08:27→08:37)
--- NOTE | 2021-10-02 09:04 | ANES.PREOP_ITS ---
General Info Date of Service Date Performed: 10/02/21 Height: 5 ft 9 in Weight: 103.8 kg Body Mass Index (BMI): 33.7 Surgical Procedure: Operation Date: 10/02/21 10:40 Proposed Procedures Side Surgeon p Cataract Extraction with IOL Implant Left Anish Morales MD Meds Allergies and Home Medications Allergies Allergy/AdvReac Type Severity Reaction Status Date / Time quinidine Allergy Intermediate Skin Rash Verified 10/02/21 08:16 chlorhexidine AdvReac Severe chemical Verified 10/02/21 08:16 burn azithromycin AdvReac Intermediate Can't take Verified 10/02/21 08:16 due to heart transplant patient lisinopril AdvReac Intermediate cough Verified 10/02/21 08:16 metformin AdvReac Intermediate GI Verified 10/02/21 08:16 complaints pravastatin AdvReac Intermediate Myalgias Verified 10/02/21 08:16 Home Medication Medication Instructions Recorded propranolol 40 mg PO BID #180 tab-cap 06/29/14 gxuwhgz-aragfgafe-lmwdercbdabl 2 tab-cap PO ONCE PRN #30 tab-cap 07/12/15 meclizine 1 - 2 tab PO Q6H PRN #50 tab 07/12/15 magnesium oxide 400 mg PO BID #30 tab 11/22/15 mycophenolate sodium [Myfortic] 3 tab PO BID #270 tab 07/03/16 tacrolimus [Prograf] 1.5 mg PO BID #180 cap 11/20/16 acetaminophen [Tylenol] 500 mg PO PRN 03/28/17 omeprazole magnesium 20 mg PO DAILY #30 cap 03/17/18 blood-glucose meter #1 each 04/04/20 uibryfzcxw-vcnilfaresvyw-kapggavb 1 tab PO PRN #60 tab 11/29/20 50 mg-325 mg-40 mg tablet promethazine 12.5 mg tablet 12.5 mg PO PRN #60 tab 11/29/20 amoxicillin 500 mg tablet 2,000 mg PO prior to dental wk #4 01/31/21 tab-cap prednisone 2.5 mg PO DAILY 02/01/21 prednisone 5 mg PO DAILY 02/01/21 famotidine 10 mg tablet 10 mg PO DAILY 04/11/21 lorazepam 0.5 mg tablet 0.5 mg PO DAILY PRN #60 tab 04/11/21 losartan 25 mg tablet 25 mg PO DAILY #90 tab 04/11/21 rosuvastatin 5 mg tablet 2.5 mg PO HS tab 04/11/21 lancets 33 gauge #100 each 04/18/21 levothyroxine 75 mcg tablet 75 mcg PO DAILY #90 tab-cap 04/19/21 blood sugar diagnostic #100 each 05/12/21 semaglutide 0.25 mg SUBCUT QWEEK 09/07/21 Current Visit Medications: Current Medications Generic Name Dose Route Start Last Admin Trade Name Freq PRN Reason Stop Dose Admin Acetaminophen 1,000 mg 10/02/21 06:00 Acetaminophen 500 Mg Tab PO Q4H PRN PRN Miscellaneous Medication 0 ml 10/02/21 06:00 Prednisolone 1%, Moxifloxacin 0.5%, Nepafenac 0.1% 5ml Btl OS DIRECTED CLAUDETTE Miscellaneous Medication 0 ml 10/02/21 06:00 10/02/21 08:37 Tropicam./Phenyleph. (1/2.5%) 5 Ml Btl OS 1 drp DIRECTED CLAUDETTE Administration Tetracaine HCl 0 ml 10/02/21 06:00 Tetracaine 0.5% 4 Ml Btl OS DIRECTED CLAUDETTE PFSH Active Problems Active Problems: Problem Status Onset Code Gastroesophageal reflux disease K21.9 Primary cardiomyopathy I42.8 Panic attack F41.0 Obesity E66.9 Migraine 07/12/15 G43.909 Hypokalemia 04/13/09 E87.6 Hot flashes 02/21/16 R23.2 Heart transplant status 09/11/12 Z94.1 Depressive disorder F32.9 Congestive heart failure I50.9 Cardiomyopathy 03/26/13 I42.9 Cardiac arrhythmia I49.9 Anxiety F41.9 Acquired hypothyroidism 01/12/17 E03.9 H/O esophagogastroduodenoscopy ~02/16/19 Z98.890 Hyperglycemia due to type 2 diabetes mellitus E11.65 Cataract H26.9 Hypertension I10 Nuclear sclerotic cataract of left eye H25.12 Cortical cataract of left eye H26.9 Vegan diet Z78.9 Blurring of visual image of both eyes H53.8 Diabetes mellitus E11.9 Dizziness R42 Chronic gastric ulcer ~02/16/19 K25.7 Medical History Medical History Blurring of visual image of both eyes Cardiomyopathy cardiac transplant 01/04/12 - [facility] with PCP Jensen monson, last seen by wet process assistant head miller 01/2021 Cataract Right eye Chronic gastric ulcer (~02/16/19) Diabetes mellitus Dizziness GERD (gastroesophageal reflux disease) Hx of gastric ulcer patient originally followed by [facility] for hx of gastric ulcers, EGD 08/28/2017 with CD showed erosive gastritis. 02/04/[address] Leger showed mild esophagitis. Dr Simmons referred to [facility] for C[place]RDENAS, done 03/28/[address] and showed [address] reflux[address] Dr Arredondo, [facility] recommeds weight loss/possible gastric surgery. Dr Kevin from [facility] recommends repeat EGD, Dr Leger has agreed to repeat EGD. Hypothyroidism Migraine Palpitations while on trulicity Perforation of tympanic membrane (03/26/13) right, surgically repaired [facility] Vegan diet Surgical History Surgical History cardiac transplant (01/04/12) Colonoscopy - MAC 04/23/14; [facility] EGD - MAC (08/28/17) [facility] - [facility] (09/07/19) 2018-Dr Leger, mild esophagits 01/2019- chronic gastric ulcers History of intraocular lens implant Right eye S/P ear surgery Tobacco Smoking/Tobacco Use Status: Never Passive smoking exposure: Yes Second hand exposure: Yes Alcohol Alcohol Intake: never Substance Use Substance use: Never Substance use type: does not use Prental History History 3 Para Hx # Term Pregnancies 1 Multiple births Hx # Pregnancies Ectopic pregnancies AB induced Hx Number of Living Children AB spontaneous Vital Signs and Lab Results Vital Signs Most Recent Vital Signs in EMR: Most Recent Vital Signs Temp Pulse Resp BP Pulse Ox 36.4 C L 103 H 16 136/104 H 98 10/02/21 08:20 10/02/21 08:20 10/02/21 08:20 10/02/21 08:20 10/02/21 08:20 Lab Results Blood Type / Crossmatch: No Data to Display Complete Blood Count: No Data to Display Complete Metabolic Panel: No Data to Display Liver Function Panel: No Data to Display Coagulation Panel: No Data to Display Cardiac Panel: No Data to Display Arterial Blood Gas: No Data to Display Venous Blood Gas: No Data to Display Pancreas Panel: No Data to Display Thyroid Panel: No Data to Display Infectious Disease: Coronavirus (COVID-19)(PCR) Negative (Negative) 09/29/21 10:45 09/29/21 Coronavirus 2019 Source Nasal/Nares 09/29/21 10:45 09/29/21 Blood Cultures: No Data to Display Toxicology Panel: No Data to Display Imaging and Studies Imaging and Studies EKG Summary: Conclusion Sinus rhythm...normal P axis, V-rate 60- 99 Nonspecific T abnrm, anterolateral leads...T <-0.10mV, I aVL V2-V6 There are no significant changes compared to prior EKG performed on 02/01/2021 at 23:27. 02/02/21 Anesthesia Assessment and Plan Anesthesia History Personal History: No History of Anesthesia Complications Family History: No Family History of Anesthesia Complications Exercise Tolerance Exercise Tolerance: Metabolic Equivalents>4 Pertinent Negatives Pertinent Negatives: No Symptoms of GERD (Well controlled), No Major Cardiovascular Symptoms or Complaints, No Major Pulmonary Symptoms or Complaints and No History of CVA/TIA Cardiac & Pulmonary Exam Cardiac Exam: Normal S1/S2 Heart Sounds Pulmonary Exam: Clear Bilateral Breath Sounds Cardiac and Pulmonary Comment:: Heart transplant 2011, no issues since Airway Exam Known Difficult Airway: No Mallampati Class: 1 Mouth Opening: Normal (> 3cm) Thyromental Distance: Greater than 3 cm Neck Range of Motion: Full ROM Neck Circumference: Normal Teeth Condition: Normal Dentition ASA Classification ASA Score: ASA 2 Emergency Case?: No NPO Status NPO Status: NPO Clears >2 hours, Solids >8 hours Anesthesia Plan Resuscitation Status: Full Code Anesthesia Technique: MAC Anesthesia Airway Planned: Asleep Fiberoptic Monitors Used: Standard Monitors Preoperative Comments:: Plan MKO
[2021-10-02 09:07] VITALS: BMI 33.7
[2021-10-02] MEDS: Tetracaine 0.5% 4 ML BTL OS (09:31)
[2021-10-02] MEDS: Lidocaine 2% Jelly 6 ML SYR (09:32)
[2021-10-02] MEDS: Lidocaine 1% Pres-Free 5 ML VIAL (09:33)
[2021-10-02] MEDS: Balanced Salt Soln.-PLUS 500 ML BAG (09:34)
[2021-10-02] MEDS: Duovisc Viscoelastic System EACH 1 EACH (09:35)
[2021-10-02] MEDS: Povidone-Iodine Ophth 30 ML BTL (09:36)
[2021-10-02 09:56] VITALS: BP 120/89; PULSE 103; RESP 16; TEMP 36.4; O2SAT 97
--- NOTE | 2021-10-02 09:56 | W.PM.DSUDISC ---
Discharge Plan Disposition Patient Disposition: HOME Condition: Good Discharge Details Attending Provider: Anish Morales Primary Care Provider: Rigoberto Styles Home Meds and New Rx's Prescriptions: No Action famotidine 10 mg tablet 10 mg PO DAILY RF: 0 rosuvastatin [Crestor] 5 mg tablet 2.5 mg PO HS RF: 0 losartan 25 mg tablet 25 mg PO DAILY Qty: 90 RF: 3 lorazepam 0.5 mg tablet 0.5 mg PO DAILY PRN (Reason: anxiety) Qty: 60 RF: 2 Ozempic 0.25 mg or 0.5 mg(2 mg/1.5 mL) pen injector 0.25 mg subcut QWEEK RF: 0 propranolol 20 MG tablet 40 mg PO BID Qty: 180 RF: 4 meclizine 12.5 MG tablet 1 - 2 tab PO Q6H PRN Qty: 50 RF: 1 kssqtfd-vexwvhojl-dtzfgjevexos 1 EACH capsule 2 tab-cap PO ONCE PRNQty: 30 RF: 5 mycophenolate sodium [Myfortic] 360 MG tablet,delayed release (DR/EC) 3 tab PO BID Qty: 270 RF: 0 tacrolimus [Prograf] 0.5 MG capsule 1.5 mg PO BID Qty: 180 RF: 4 acetaminophen [Tylenol] 325 MG tablet 500 mg PO PRN RF: 0 omeprazole magnesium 20 MG capsule,delayed release(DR/EC) 20 mg PO DAILY Qty: 30 RF: 1 (DME) blood-glucose meter [OneTouch Verio Flex meter] Misc See Rx Instructions .ROUTE .MEDSUPPLY Qty: 1 RF: 0 brlwszqgif-lolpahikafcuk-mred 50-325-40 mg tablet 1 tab PO PRN Qty: 60 RF: 0 promethazine 12.5 mg tablet 12.5 mg PO PRN Qty: 60 RF: 0 amoxicillin 500 mg tablet 2,000 mg PO prior to dental wk Qty: 4 RF: 2 (DME) lancets [OneTouch Delica Plus Lancet] 33 gauge misc See Rx Instructions .ROUTE .MEDSUPPLY Qty: 100 RF: 3 levothyroxine 75 mcg tablet 75 mcg PO DAILY Qty: 90 RF: 4 (DME) OneTouch Verio test strips Strip See Rx Instructions .ROUTE .MEDSUPPLY Qty: 100 RF: 8 magnesium oxide 400 MG tablet 400 mg PO BID Qty: 30 RF: 0 prednisone 5 mg tablet 5 mg PO DAILY RF: 0 prednisone 2.5 mg tablet 2.5 mg PO DAILY RF: 0 Discharge Instructions Stand Alone Forms: Post-op Topical Cataract, Judson De La O (DSU) Discharge Orders Discharge Orders: Discharge Order (Routine); Ordered 10/02/21 Ordered By: Anish Morales DS: Diagnosis Discharge Diagnosis (1) Nuclear sclerotic cataract of left eye: Status: Resolved (2) Cortical cataract of left eye: Status: Resolved (3) Posterior subcapsular age-related cataract of left eye: Status: Resolved
--- NOTE | 2021-10-02 09:59 | W.PM.OP ---
Date of service: 10/02/21 Time of Service: 09:59 Operative Note Operative Note DATE OF PROCEDURE: 10/02/21 PRE-OP DIAGNOSIS: Nuclear/cortical/posterior subcapsular cataract, left eye POST-OP DIAGNOSIS: same PROCEDURE: Cataract extraction using phacoemulsification with intraocular lens implant, left eye SURGEON: Anish Morales ANESTHESIA TYPE: Local By Surgeon and MAC Refer to Anesthesia Record PATHOLOGY: none sent COMPLICATIONS: None Patient was transported to: same day Patient's condition: stable Implants: Sean [employer] Sean / [employer] Tecnis [id number] Indications: Progressive decreased vision due to cataract, left eye Procedure Description: CATARACT SURGERY OPERATIVE REPORT PREOPERATIVE DIAGNOSIS: 1. Nuclear/cortical/posterior subcapsular cataract, left eye POSTOPERATIVE DIAGNOSIS: Same OPERATION: 1. Cataract extraction using phacoemulsification with posterior chamber intraocular lens implant, left eye. IOL: IOL Navigation Officer/Model: Sean & Sean / JUAN R [employer]ecnis [id number] IOL Power: + 18.0 diopters IOL Serial Number: [id number] Optic Diameter: 6.0 mm Haptic/Overall Diameter: 13.0 mm PHACO INFO: [employer] Vision System with OZil and Active Fluidics Cumulative Dispersed Energy (CDE): 2.94 seconds SURGEON: Anish Morales MD, SYLWIA ANESTHESIA: Monitored A [facility] (MAC), with local sub-tenon's anesthetic infiltration COMPLICATIONS: None SPECIMENS: None INDICATIONS FOR PROCEDURE: The patient is a 56-year-old lady with history of diminished visual acuity in both eyes secondary to the development of nuclear/cortical/posterior subcapsular cataract in the left eye. She has previously undergone cataract surgery in the right eye. She is significantly symptomatic in her left eye that she desires cataract surgery and attempt to improve and maximize her vision. PROCEDURE: The correct surgical eye was identified and marked as the left eye and the pupil was dilated in the preoperative area using mydriatics and cycloplegics. The dilated pupil size was 8.0 mm. Oral sedation was administered in the form of an Imprimis MKO Melt (midazolam 3mg/ketamine 25mg/ondansetron 2mg). The patient was brought to the operating room where cardiopulmonary monitoring was instituted and surgical time-out was performed, confirming the correct operative eye and IOL power. Topical anesthesia was administered and ophthalmic povidone-iodine 5% was instilled into the conjunctival fornices. Lidocaine gel was applied to the cornea and the zahraa-ocular area was prepped with Betadine 10% solution and draped in the usual sterile fashion for intraocular surgery, including an aperture drape. A Tegaderm transparent film dressing was cut in half and used to cover the lashes and lid margins. Care was taken to sequester the lashes and lid margins under the Tegaderm dressing. A lid speculum was placed between the lids of the operative eye and the Nikolas-Wong operating microscope was maneuvered into position. Shaheen scissors were then used to make a conjunctival buttonhole approximately 6mm posterior to the limbus in the inferonasal quadrant. Blunt dissection was carried out to expose bare sclera, and a blunt-tipped sub-tenon?s anesthesia cannula was introduced and passed posteriorly along the globe where non-preserved plain lidocaine was injected into posterior sub-Tenon?s space. A sideport knife was used to make a paracentesis port superiorly/superiortemporally. Intraocular phenylephrine/lidocaine was injected int the anterior chamber.. The anterior chamber was filled with viscoelastic. A 2.4mm keratome knife was used to create a half-thickness groove at the limbus and then to construct a three-plane near-clear corneal tunnel extending 2.0mm into clear cornea at the 3:00 position. A flap was raised on the anterior capsule and capsulorhexis forceps were used to complete a continuous curvilinear capsulorhexis of 6.0 mm. Balanced salt solution was then used to perform cortical cleaving hydrodissection and nuclear hydrodelineation until the lens could be freely rotated within the capsular bag. The lens nucleus was then disassembled and removed within the capsular bag and iris plane using phacoemulsification. Residual cortical material was removed using the 45-degree angled silicone I/A tip with 0.3mm port. The posterior capsule was carefully polished to remove as much residual lens epithelial cells as safely possible. The capsular bag was then inflated and the anterior chamber deepened with viscoelastic. The lens implant described above was inserted into the capsular bag using the JUAN R [place] Injector. A Kuglen hook was used to dial the IOL into position. Residual viscoelastic was then removed first from posterior to the IOL, then from the anterior chamber using the I/A handpiece. The lens implant was noted to center nicely within the capsular bag. The incisions were stromally hydrated, and the anterior chamber was reformed using BSS. Then 0.5cc of moxifloxacin 1.0mg/ml were injected into the capsular bag and anterior chamber. The incisions were checked with a Weck spear and found to be secure. Several drops of ophthalmic povidone-iodine 5% were then applied to the eye followed by two drops of Imprimis combination prednisolone/moxifloxacin/nepafenac solution. The drapes were removed and a clear plastic protective eye shield was placed over the eye. The patient was then returned to Same Day Surgery in stable condition.
--- NOTE | 2021-10-02 10:12 | W.ANESPOSTOP ---
Postoperative Evaluation Date, Time and Location Date Performed: 10/02/21 Time Performed: 09:56 Patient Location: Day Surgery Unit Vital Signs Most Recent Imported Vital Signs: Most Recent Vital Signs Temp Pulse Resp BP Pulse Ox 36.4 C L 103 H 16 120/89 97 10/02/21 09:56 10/02/21 09:56 10/02/21 09:56 10/02/21 09:56 10/02/21 09:56 Pain Score Most Recent Pain Score: Most Recent Pain Score Pain Level 0 10/02/21 09:56 Assessment Mental Status: Awake (Alert & Oriented to Patient Baseline) Airway and Respiratory Function: Patent airway with normal (patient baseline) respiratory exam Cardiovascular Function: Hemodynamically Stable Hydration Status: Adequately Hydrated Nausea & Vomiting: No Nausea or Vomiting Pain: Pt. Denies Any Pain Peripheral Nerve Block: Patient did not receive a nerve block
[2021-10-02 10:22] VITALS: BP 125/93; PULSE 99; RESP 16; TEMP 36.6; O2SAT 99
== END 2021-10-02 10:27 | disposition home or self-care (01) ==
PROVIDERS: PCP Emergency Medicine; Visit Provider Ophthalmology
PROC: (CPT 66984; principal; 2021-10-02 10:30)
DX: H25.042 Posterior subcapsular polar age-related cataract, left eye (principal); E11.9 Type 2 diabetes mellitus without complications; I42.9 Cardiomyopathy, unspecified
CPT/HCPCS: 66984; V2632

== ENCOUNTER 2021-11-15 01:37 | Outpatient (CLI) | payer OTHER, SELFPAY ==
[2021-11-15 11:51] LABS: Anion Gap 8.6 mmol/L (3-11); BUN 22 mg/dL (7-18); CO2 29.4 mmol/L (21.0-32.0); CREATININE 1.1 mg/dL (0.55-1.02); Calcium 9.7 mg/dL (8.5-10.1); Chloride 105 mmol/L (98-107); Glucose 115 mg/dL (74-106); Potassium 4.1 mmol/L (3.5-5.1); Sodium 143 mmol/L (136-145)
[2021-11-15 11:59] LABS: Microalb ug/mg Crea 5.7 ug/mg Cr
== END 2021-11-15 01:38 | disposition home or self-care (01) ==
LOC: LBO 01:37
PROVIDERS: PCP Emergency Medicine; Visit Provider Emergency Medicine
DX: I10 Essential (primary) hypertension (principal); E11.65 Type 2 diabetes mellitus with hyperglycemia
CPT/HCPCS: 36415; 80048; 82043; 82570; 83036

== ENCOUNTER 2021-11-20 00:56 | Outpatient (CLI) | payer OTHER, SELFPAY ==
--- NOTE | 2021-11-20 07:30 | DI.RAD_ITS ---
Exam(s) XR LUMBAR SPINE COMPLETE EXAM: XR LUMBAR SPINE COMPLETE CLINICAL HISTORY: low back pain,M54.50. TECHNIQUE: 2D digital imaging was performed. COMPARISON: No exams were available for comparison FINDINGS: BONES: No fracture or destructive lesion. Vertebral bodies are unremarkable. Mild to moderate facet h ypertrophy L5-S1. Bilateral acetabular spurring. Mild spurring inferior SI joints. DISKS: Intervertebral disc spaces are maintained. Small endplate osteophytes. ALIGNMENT: Lumbar spinal alignment is within normal limits. SOFT TISSUE: Normal. IMPRESSION: Facet degenerative changes at L5-S1. Minimal degenerative disc changes. DATA REPOSITORY: RADIATION DOSE DELIVERED:
== END 2021-11-20 01:16 ==
PROVIDERS: PCP Emergency Medicine; Visit Provider Emergency Medicine
DX: M54.59 Other low back pain (principal); M47.812 Spondylosis without myelopathy or radiculopathy, cervical region; M53.3 Sacrococcygeal disorders, not elsewhere classified
CPT/HCPCS: 72110

== ENCOUNTER 2022-04-02 22:02 | Emergency (ER) | payer OTHER, SELFPAY ==
[2022-04-02] VITALS (25 sets, daily range): BP systolic 141–151; BP diastolic 92–104; PULSE 122–127; RESP 16; TEMP 37.7; O2SAT 95–100
--- NOTE | 2022-04-02 22:15 | RT.EKG_ITS ---
APPROVED REPORT Exam: Resting ECG Reason for Exam: chest pain Patient Location: E HR:126 bpm ECG Measurements Heart Rate 126 AXIS MN 177 P 39 QRSd 93 QRS -34 QT 286 T 123 QTc 415 Conclusion Sinus tachycardia...rate> 99 Probable LVH with secondary repol abnrm...multiple LVH criteria Inferior infarct, old...Q >35mS, II III aVF PHysician: Sinus tachycardia, no significant ST elevation. There is an inverted T wave in V2, as wel l as aVL, and slight less than a millimeter ST elevation in lead III. No depression. Comparison of EKG from 10/03/2016 demonstrates near identical findings. No evidence of STEMI.
--- NOTE | 2022-04-02 22:15 | DI.RAD_ITS ---
Exam(s) XR PORTABLE CHEST AP EXAM: XR PORTABLE CHEST AP CLINICAL HISTORY: covid +, heart transplant. TECHNIQUE: 2D digital imaging was performed. COMPARISON: CR,XR XR PORTABLE CHEST AP from 02/02/2021 FINDINGS: Single AP portable view. Sternotomy wires again noted. Heart size is upper normal. The mediastinum is not widened. Lungs are clear. No infiltrates nor obvious pleural effusions. Surgical clips are again noted the lateral left lung field. No obvious mass at this level. IMPRESSION: No acute pulmonary findings on this single AP portable view of the chest. Sternum I 1 DATA REPOSITORY: RADIATION DOSE DELIVERED: All CT scans at this facility use at least one of these dose optimization techniques: automated exposure control; mA and/or kV adjustment per patient size (includes targeted e xams where dose is matched to clinical indication); or iterative reconstruction.
--- NOTE | 2022-04-02 22:26 | ED.GENADUL_ITS ---
Discharge Plan Disposition Patient Disposition: STILL A PATIENT Condition: Stable Discharge Details Chief Complaint: GenMedical Clinical Impression: COVID-19, Myalgia Primary Care Provider: Yadira Holly ED Provider: Gregorio Shea Home Meds and New Rx's Prescriptions: No Action cyclobenzaprine 10 mg tablet 10 mg PO TID PRN (Reason: muscle spasm) Qty: 25 1RF famotidine 10 mg tablet 10 mg PO DAILY 0RF rosuvastatin [Crestor] 5 mg tablet 2.5 mg PO HS 0RF Ozempic 0.25 mg or 0.5 mg(2 mg/1.5 mL) pen injector 0.25 mg subcut QWEEK 0RF Rx Instructions: for 4 doses propranolol 20 MG tablet 40 mg PO BID Qty: 180 4RF meclizine 12.5 MG tablet 1 - 2 tab PO Q6H PRN Qty: 50 1RF dewaluy-wbnrrivcw-ikconlmelikq 1 EACH capsule 2 tab-cap PO ONCE PRNQty: 30 5RF Label Comments: makes her heart race Rx Instructions: MIDRIN 2 TABS ONSET OF GUIDO & 1 TAB EVERY HR UNTIL RELIEF MAX 5 CAP IN 12HR mycophenolate sodium [Myfortic] 360 MG tablet,delayed release (DR/EC) 3 tab PO BID Qty: 270 0RF tacrolimus [Prograf] 0.5 MG capsule 1.5 mg PO BID Qty: 180 4RF acetaminophen [Tylenol] 325 MG tablet 500 mg PO PRN 0RF omeprazole magnesium 20 MG capsule,delayed release(DR/EC) 20 mg PO DAILY Qty: 30 1RF (DME) blood-glucose meter [OneTouch Verio Flex meter] Misc See Rx Instructions .ROUTE .MEDSUPPLY Qty: 1 0RF Rx Instructions: As directed utvsoyqstm-vwxskppcesggk-aqwo 50-325-40 mg tablet 1 tab PO PRN Qty: 60 0RF promethazine 12.5 mg tablet 12.5 mg PO PRN Qty: 60 0RF amoxicillin 500 mg tablet 2,000 mg PO prior to dental wk Qty: 4 2RF levothyroxine 75 mcg tablet 75 mcg PO DAILY Qty: 90 4RF (DME) OneTouch Verio test strips Strip See Rx Instructions .ROUTE .MEDSUPPLY Qty: 100 8RF Rx Instructions: Now testing BID losartan 50 mg tablet 50 mg PO DAILY Qty: 90 3RF lorazepam 0.5 mg tablet 0.5 mg PO DAILY PRN (Reason: anxiety) Qty: 60 2RF (DME) lancets [OneTouch Delica Plus Lancet] 33 gauge misc See Rx Instructions .ROUTE .MEDSUPPLY Qty: 100 3RF Rx Instructions: As directed once daily magnesium oxide 400 MG tablet 400 mg PO BID Qty: 30 0RF prednisone 5 mg tablet 5 mg PO DAILY 0RF prednisone 2.5 mg tablet 2.5 mg PO DAILY 0RF Medical Decision Making Patient 56-year-old female with a past medical history of heart transplant surgery in 2011 (who is [facility]) (on tacrolimus, Myfortic, and prednisone daily), type 2 diabetes,GERD, hypothyroidism, presents today for evaluation of cough, chest pain, who is COVID-positive. Patient states that about 2 to 3 days ago her began getting sinus infection-like symptoms. And then 24 hours ago on Saturday afternoon/evening she began getting sinus-like infections, followed by a mild tightness in her chest. This evening she had chills, myalgias in all of her joints, continued mild dry cough, and feeling horrible. She has been taking Tylenol nuwblz-iud-kvwwj for her symptoms, but has been avoiding ibuprofen secondary to a contraindication after her transplant. She denies any hemoptysis, numbness or tingling, weakness, severe neck pain, tearing or ripping sensation in her chest. She denies any other complaints at this time. She was scheduled to receive the monoclonal antibody Infusion tomorrow, but felt that she needed to be evaluated before hand secondary to her symptoms. She has received the flu vaccine this past fall, she has received 4 COVID shots in total, including her 2 boosters. Physical exam demonstrates very minimal crackles in the bases. Mild tachycardia. Patient states that her heart rate is normally 100. Oxygenation excellent. No evidence of hypoxemia. Patient is certainly high risk secondary to her multiple comorbidities is being immunosuppressed and transplantation. However she does look notably well otherwise. We will rehydrate, give Ofirmev, confirm her COVID status, and start the monoclonal antibody infusion here tonight. We will give Bebtelovimab has this appears to be the most effective monoclonal antibody infusion at this point of the omicron surge. Will monitor closely and reassess. The patient will be signed out to my colleague Dr. Angel Philip for follow-up on labs, imaging, reassessment after infusion discussion of disposition. EKG 22: 38 Sinus tachycardia, no significant ST elevation. There is an inverted T wave in V2, as well as aVL, and slight less than a millimeter ST elevation in lead III. No depression. Comparison of EKG from 10/03/2016 demonstrates near identical findings. No evidence of STEMI. HPI General Date/Time Provider Initiated Documentation: 04/02/22 22:04 . HPI Narrative: Patient 56-year-old female with a past medical history of heart transplant surgery (who is [facility]) (on tacrolimus, Myfortic, and prednisone daily), type 2 diabetes,GERD, hypoth yroidism, presents today for evaluation of cough, chest pain, who is COVID- positive. Patient states that about 2 to 3 days ago her began getting sinus infection-like symptoms. And then 24 hours ago on Saturday afternoon/evening she began getting sinus-like infections, followed by a mild tightness in her chest. This evening she had chills, myalgias in all of her joints, continued mild dry cough, and feeling horrible. She has been taking Tylenol bumxps-rpo-pdbfp for her symptoms, but has been avoiding ibuprofen secondary to a contraindication after her transplant. She denies any hem optysis, numbness or tingling, weakness, severe neck pain, tearing or ripping sensation in her chest. She denies any other complaints at this time. She was scheduled to receive the monoclonal antibody infusion tomorrow, but felt that she needed to be evaluated before hand secondary to her symptoms. She has received the flu vaccine this past fall, she has received 4 COVID shots in total, including her 2 boosters. Related Data Home Medications Medication Instructions Recorded Confirmed propranolol 20 mg tablet 40 mg PO BID #180 tab-cap 06/29/14 12/26/21 gtlecdljhtktm-bhytyevrayvjt-kdrblemkonlra 2 tab-cap PO ONCE PRN #30 tab-cap 07/12/15 12/26/21 65 mg-100 mg-325 mg capsule meclizine 12.5 mg tablet 1 - 2 tab PO Q6H PRN #50 tab 07/12/15 12/26/21 magnesium oxide 400 mg (241.3 mg 400 mg PO BID #30 tab 11/22/15 12/26/21 magnesium) tablet mycophenolate sodium 360 mg 3 tab PO BID #270 tab 07/03/16 12/26/21 tablet,delayed release (Myfortic) tacrolimus 0.5 mg capsule, 1.5 mg PO BID #180 cap 11/20/16 12/26/21 immediate-release (Prograf) acetaminophen 325 mg tablet 500 mg PO PRN 03/28/17 12/26/21 (Tylenol) omeprazole magnesium 20 mg 20 mg PO DAILY #30 cap 03/17/18 12/26/21 capsule,delayed release blood-glucose meter (OneTouch #1 each 04/04/20 12/26/21 Verio Flex meter) suyxefcbtx-ydoifzmgwylxk-sasjzfem 1 tab PO PRN #60 tab 11/29/20 12/26/21 50 mg-325 mg-40 mg tablet promethazine 12.5 mg tablet 12.5 mg PO PRN #60 tab 11/29/20 12/26/21 amoxicillin 500 mg tablet 2,000 mg PO prior to dental wk #4 01/31/21 12/26/21 tab-cap prednisone 2.5 mg tablet 2.5 mg PO DAILY 02/01/21 12/26/21 prednisone 5 mg tablet 5 mg PO DAILY 02/01/21 12/26/21 famotidine 10 mg tablet 10 mg PO DAILY 04/11/21 12/26/21 rosuvastatin 5 mg tablet (Crestor) 2.5 mg PO HS tab 04/11/21 12/26/21 levothyroxine 75 mcg tablet 75 mcg PO DAILY #90 tab-cap 04/19/21 12/26/21 blood sugar diagnostic (OneTouch #100 each 05/12/21 12/26/21 Verio test strips) semaglutide (Ozempic) 0.25 mg SUBCUT QWEEK 09/07/21 12/26/21 cyclobenzaprine 10 mg tablet 10 mg PO TID PRN #25 tab 12/26/21 12/26/21 losartan 50 mg tablet 50 mg PO DAILY #90 tab 02/20/22 lorazepam 0.5 mg tablet 0.5 mg PO DAILY PRN #60 tab 02/27/22 lancets 33 gauge (OneTouch Delica #100 each 03/30/22 Plus Lancet) Previous Rx's Medication Instructions Recorded magnesium oxide 400 mg (241.3 mg 400 mg PO BID #30 tab 11/22/15 magnesium) tablet omeprazole magnesium 20 mg 20 mg PO DAILY #30 cap 03/17/18 capsule,delayed release blood-glucose meter (OneTouch #1 each 04/04/20 Verio Flex meter) xxppxwpsrn-zjezdquuhksod-onfuzmvk 1 tab PO PRN #60 tab 11/29/20 50 mg-325 mg-40 mg tablet promethazine 12.5 mg tablet 12.5 mg PO PRN #60 tab 11/29/20 amoxicillin 500 mg tablet 2,000 mg PO prior to dental wk #4 01/31/21 tab-cap levothyroxine 75 mcg tablet 75 mcg PO DAILY #90 tab-cap 04/19/21 blood sugar diagnostic (OneTouch #100 each 05/12/21 Verio test strips) cyclobenzaprine 10 mg tablet 10 mg PO TID PRN #25 tab 12/26/21 losartan 50 mg tablet 50 mg PO DAILY #90 tab 02/20/22 lorazepam 0.5 mg tablet 0.5 mg PO DAILY PRN #60 tab 02/27/22 lancets 33 gauge (OneTouch Delica #100 each 03/30/22 Plus Lancet) Allergies Allergy/AdvReac Type Severity Reaction Status Date / Time quinidine Allergy Intermediate Skin Rash Verified 12/26/21 10:41 chlorhexidine AdvReac Severe chemical Verified 12/26/21 10:41 burn azithromycin AdvReac Intermediate Can't take Verified 12/26/21 10:41 due to heart transplant patient lisinopril AdvReac Intermediate cough Verified 12/26/21 10:41 metformin AdvReac Intermediate GI Verified 12/26/21 10:41 complaints pravastatin AdvReac Intermediate Myalgias Verified 12/26/21 10:41 General Stated Complaint: GenMedical ANNE: 2 Review of Systems All systems reviewed & are unremarkable except as noted in HPI and below PFSH All Active Problems (Updated 04/02/22 @ 22:45 by Gregorio Shea DO) COVID-19 (Acute) Myalgia (Acute) Low back pain (Acute) Gastroesophageal reflux disease (Chronic) Primary cardiomyopathy (Acute) heart transplant 2011 [facility] Panic attack (Acute) Obesity (Acute) Migraine (Acute 07/12/15) Hypokalemia (Acute 04/13/09) Hot flashes (Acute 02/21/16) Heart transplant status (Acute 09/11/12) L-VAD IN PLACE Depressive disorder (Acute) Congestive heart failure (Acute) Cardiomyopathy (Acute 03/26/13) s/p heart transplant Cardiac arrhythmia (Acute) Anxiety (Acute) Acquired hypothyroidism (Acute 01/12/17) H/O esophagogastroduodenoscopy (Chronic ~02/16/19) Hyperglycemia due to type 2 diabetes mellitus (Acute) Cataract (Chronic) Hypertension (Chronic) Vegan diet (Acute) Blurring of visual image of both eyes (Acute) Diabetes mellitus (Chronic) Dizziness (Acute) Chronic gastric ulcer (Acute ~02/16/19) Medical History Cardiomyopathy cardiac transplant 01/04/12 - [facility] F/U with PCP Jensen monson, last seen by embedded systems designer 01/2021 Cataract Right eye GERD (gastroesophageal reflux disease) Hx of gastric ulcer patient originally followed by [facility] for hx of gastric ulcers, EGD 08/28/2017 with CD showed erosive gastritis. 02/04/[address] Leger showed mild esophagitis. Dr Simmons referred to [facility] [place] for CÁRDENAS, done 03/28/[address] Arredondo, [facility] General and GI surgery recommeds weight loss/possible gastric surgery. Dr Kevin from [facility] recommends repeat EGD, Dr Leger has agreed to repeat EGD. Hypothyroidism Migraine Palpitations while on trulicity Perforation of tympanic membrane (03/26/13) right, surgically repaired [facility] Surgical History cardiac transplant (01/04/12) Colonoscopy - [facility] 04/23/14; [facility] EGD - [facility] (08/28/17) [facility] EGD - [facility] (09/07/19) 2018-Dr Leger, mild esophagits 01/2019- chronic gastric ulcers History of intraocular lens implant Right eye S/P ear surgery Family History Other Cancer Diabetes Social History Smoking/Tobacco Use Status: Never Second Hand Exposure: Yes Smoking risk assessment performed?: Yes Alcohol Intake: never Drug use: Never Substance use type: does not use Caregiver/Support person: No Household members: spouse Housing: house Communication Needs: None Do you need help understanding health information?: Rarely Pets and animals: No Sexually active: Yes Do you think of yourself as: straight/heterosexual Current gender identity: female What is your relationship status?: How often do you talk on the phone with friends or family?: three or more times per week How often do you get together with friends or relatives?: three or more times per week Do you belong to any clubs or organized social groups?: no Panel score (0-1 are the most socially isolated patients): 2 What type of physical activity do you participate in: walking Duration: 30-45 minutes/day Frequency: 5-6 times per week Ly/Episcopal: Restorationist Seatbelt use: always Helmet use: Yes Helmet use: always Drive intox or ride w/intox cmv driver: No Do you feel safe at home: Yes Do you feel safe in your relationship?: Yes Female Reproductive History Menstrual control method: other ( vasectomy) History History 3 Para Hx # Term Pregnancies 1 Multiple births Hx # Pregnancies Ectopic pregnancies AB induced Hx Number of Living Children AB spontaneous Exam Narrative Exam Narrative: 1.Const: Well-nourished, Well-developed, appearing stated age 2.Eyes: PERRL, no conjunctival injection, and symmetrical lids. 3.ENT: Atraumatic external nose and ears. Moist MM. Neck: Symmetric, trachea midline, No thyromegaly. 4.CVS: +S1/S2, No murmurs or gallops. Peripheral pulses 2+ and equal in all extremities. Brisk capillary refill in all extremities. 5.RESP: Unlabored respiratory effort. Minimal crackles in the bases. No rhonchi 6.GI: Soft, Nontender/Nondistended, No hepatosplenomegaly. No guarding or rebound. 7.MSK: Normocephalic/Atraumatic, Extremities w/o deformity or ttp No cyanosis or clubbing, Normal movement of all extremities, no calf tenderness. 8.Skin: Warm, Dry. No rashes or lesions. 9.Neuro: belt sander II-XII grossly intact. Sensation grossly intact, no focal neurologic deficits. 10.Psych: (AAO) x3. Appropriate mood and affect Course Vital Signs Vital signs: Vital Signs Temperature 37.7 C H 04/02/22 22:11 Pulse 123 H 04/02/22 22:11 Respiratory Rate 16 04/02/22 22:11 Blood Pressure 151/102 H 04/02/22 22:11 Pulse Oximetry 99 04/02/22 22:11 Temperature 37.7 C H 04/02/22 22:11 Temperature Source Temporal Artery Scan 04/02/22 22:11 Pulse 123 H 04/02/22 22:11 Respiratory Rate 16 04/02/22 22:19 Respiratory Effort 04/02/22 22:19 Respiratory Depth Normal 04/02/22 22:19 Respiratory Pattern Normal 04/02/22 22:19 Blood Pressure 151/102 H 04/02/22 22:11 Pulse Oximetry 99 04/02/22 22:11 Oxygen Delivery Method Room Air 04/02/22 22:11 Oxygen Flow Rate 0 04/02/22 22:11 Pain Level 7 04/02/22 22:11 Lab/Test Results Lab/Test Results: 04/02/22 22:20 Blood Blood Culture - Pending 04/02/22 22:20 Blood Blood Culture - Pending
[2022-04-02 23:02] LABS: BE (Venous) 3 mmol/L (-2-3); HCO3 (Venous) 27 mmol/L (23-28); O2 Sat (Venous) 56 %; TCO2 (Venous) 25 mmol/L (24-29); pCO2 (Venous) 42 mmHg (41-51); pH (Venous) 7.42 (7.31-7.41); pO2 (Venous) 28 mmHg
[2022-04-02 23:14] LABS: Abs Immature Grans 0.02 10^3/uL (0.0-0.06); Absolute Basophil Count 0.01 10^3/uL (0.0-0.2); Absolute Eosinophil Count 0.13 10^3/uL (0.0-0.7); Absolute Lymphocyte Count 0.71 10^3/uL (1.2-3.4); Absolute Monocyte Count 0.71 10^3/uL (0.1-0.8); Basophils % 0.2; Eosinophils % 2.3; HCT 38.5 % (36.0-46.0); HGB 12.6 g/dL (11.2-15.7); Immature Grans % 0.4; Lymphocytes % 12.7; MCHC 32.7 % (32.0-36.0); MCV 89 fL (80-95); MPV 10.2 fL (8.0-11.0); Monocytes % 12.7; Neutrophils % 71.7; Platelet Count 220 10^3/uL (130-400); RBC 4.35 10^6/uL (3.93-5.22); RDW 13.2 % (11.7-14.6); RDW-SD 43.2 fL; WBC 5.58 10^3/uL (4.4-10.8)
[2022-04-02 23:21] LABS: ALT 38 U/L (14-59); AST 24 U/L (15-37); Alkaline Phosphatase 71 U/L (46-116); Anion Gap 11.5 mmol/L (3-11); BUN 13 mg/dL (7-18); Bilirubin, Total 0.4 mg/dL (0.2-1.0); CO2 26.5 mmol/L (21.0-32.0); Calcium 9.3 mg/dL (8.5-10.1); Chloride 103 mmol/L (98-107); Estimated GFR 57.15 (mL/min/1.73m2); Glucose 114 mg/dL (74-106); Lipase 110 U/L (73-393); Potassium 3.5 mmol/L (3.5-5.1); Sodium 141 mmol/L (136-145); Total Protein 7.3 g/dL (6.4-8.2); Troponin I < 50 ng/L (<or=60)
[2022-04-02 23:24] LABS: Source Nasopharynx
--- NOTE | 2022-04-02 23:33 | DI.VRAD_ITS ---
PROCEDURE INFORMATION: Exam: XR Chest Exam date and time: 04/02/2022 10:23 PM Age: 56 years old Clinical indication: Prior surgery; Patient HX: Covid positive, heart transplant 6+ months ago, TECHNIQUE: Imaging protocol: XR of the chest. Views: 1 view. COMPARISON: XR PORTABLE CHEST AP 02/02/2021 1:10 AM FINDINGS: Lungs: The lungs are clear and well aerated bilaterally. No consolidation or pulmonary edema. Pleural spaces: Unremarkable. No pleural effusion or pneumothorax. Heart/Mediastinum: Heart size is normal. The thoracic aorta is mildly tortuous. Cardiomediastinal contours are stable. Bones/joints: No suspicious osseous lesions. Previous median sternotomy. The IMPRESSION: No active disease in the chest. Dictated and Authenticated by: Dinah Avery MD. Ordering:DARRELL Perkins MD
[2022-04-02 23:41] LABS: NT-proBNP 349 pg/mL (<300)
[2022-04-02] MEDS: Normal Saline 1,000 ML 1000 ML IV (23:44)
[2022-04-02] MEDS: Ondansetron 4 MG/2 ML VIAL IVP (23:45)
[2022-04-02] MEDS: ACETAMINOPHEN 1,000 MG/100 ML BTL 400 MG IVPB (23:45)
[2022-04-03] VITALS (99 sets, daily range): BP systolic 124–144; BP diastolic 83–92; PULSE 115–122; O2SAT 93–98
[2022-04-03] LABS: Influenza A PCR Negative (Negative); Influenza B PCR Negative (Negative); RSV PCR Negative (Negative)
[2022-04-03 00:10] LABS: COVID-19 PCR Positive (Negative)
[2022-04-03 01:34] LABS: Troponin I < 50 ng/L (<or=60)
--- NOTE | 2022-04-03 01:36 | W.EDPROG ---
Date of service: 04/03/22 Time of Service: 01:37 Medical Decision Making Received signout from Dr. Shea. Please see his note regarding details of initial presentation, exam and plan of care. Patient's chest x-ray without focal infiltrate. Her laboratories showed a reassuring CBC and chemistries. Troponin negative x2. BNP of 349. Patient was positive for SARS-CoV-2 PCR. She is improved and feeling better. Will discharge to home Sign Out Sign Out Data: Sign Out Comment: COVID-positive, cardiac transplant patient, mild crackles in bases. Pending labs, troponin, monoclonal antibody infusion, and reassessment. Last updated by Gregorio Shea DO at 04/02/22 22:46 Discharge Plan Disposition Patient Disposition: HOME Condition: Stable Discharge Details Clinical Impression: COVID-19, Myalgia Primary Care Provider: Yadira Holly ED Provider: Angel Philip Home Meds and New Rx's Prescriptions: Continued cyclobenzaprine 10 mg tablet 10 mg PO TID PRN (Reason: muscle spasm) Qty: 25 1RF famotidine 10 mg tablet 10 mg PO DAILY 0RF rosuvastatin [Crestor] 5 mg tablet 2.5 mg PO HS 0RF Ozempic 0.25 mg or 0.5 mg(2 mg/1.5 mL) pen injector 0.25 mg subcut QWEEK 0RF Rx Instructions: for 4 doses propranolol 20 MG tablet 40 mg PO BID Qty: 180 4RF meclizine 12.5 MG tablet 1 - 2 tab PO Q6H PRN Qty: 50 1RF utwxipp-jzkdanxwa-yzhsdvbrqfah 1 EACH capsule 2 tab-cap PO ONCE PRNQty: 30 5RF Label Comments: makes her heart race Rx Instructions: MIDRIN 2 TABS ONSET OF GUIDO & 1 TAB EVERY HR UNTIL RELIEF MAX 5 CAP IN 12HR mycophenolate sodium [Myfortic] 360 MG tablet,delayed release (DR/EC) 3 tab PO BID Qty: 270 0RF tacrolimus [Prograf] 0.5 MG capsule 1.5 mg PO BID Qty: 180 4RF acetaminophen [Tylenol] 325 MG tablet 500 mg PO PRN 0RF omeprazole magnesium 20 MG capsule,delayed release(DR/EC) 20 mg PO DAILY Qty: 30 1RF (DME) blood-glucose meter [OneTouch Verio Flex meter] [facility] [place] See Rx Instructions .ROUTE .MEDSUPPLY Qty: 1 0RF Rx Instructions: As directed fwnybhepdr-jifmjpfudveiw-zlsp 50-325-40 mg tablet 1 tab PO PRN Qty: 60 0RF promethazine 12.5 mg tablet 12.5 mg PO PRN Qty: 60 0RF amoxicillin 500 mg tablet 2,000 mg PO prior to dental wk Qty: 4 2RF levothyroxine 75 mcg tablet 75 mcg PO DAILY Qty: 90 4RF (DME) OneTouch Verio test strips Strip See Rx Instructions .ROUTE .MEDSUPPLY Qty: 100 8RF Rx Instructions: Now testing BID losartan 50 mg tablet 50 mg PO DAILY Qty: 90 3RF lorazepam 0.5 mg tablet 0.5 mg PO DAILY PRN (Reason: anxiety) Qty: 60 2RF (DME) lancets [OneTouch Delica Plus Lancet] [facility] See Rx Instructions .ROUTE .MEDSUPPLY Qty: 100 3RF Rx Instructions: As directed once daily magnesium oxide 400 MG tablet 400 mg PO BID Qty: 30 0RF prednisone 5 mg tablet 5 mg PO DAILY 0RF prednisone 2.5 mg tablet 2.5 mg PO DAILY 0RF Discharge Instructions Instructions: Viral Syndrome (ED) Additional Instructions: Home to rest today. Please follow-up with your regular doctor in clinic for recheck. Resume all normal medications. Stand Alone Forms: COVID-19 Antibody Therapy
[2022-04-04 14:09] LABS: Tacrolimus 7.2 ng/mL (See Note)
== END 2022-04-03 01:58 | disposition home or self-care (01) ==
PROVIDERS: Student in an Organized Health Care Education/Training Program; Emergency Provider Emergency Medicine; PCP Family Medicine
DX: U07.1 COVID-19 (principal); M79.10 Myalgia, unspecified site; Z79.899 Other long term (current) drug therapy; R00.0 Tachycardia, unspecified
CPT/HCPCS: 80053; 82805; 83690; 87040; 87637; 93005; 96361; 96374; 96375; 99284; Q0222; 71045; 80197; 83880; 84484; 85025; 93010; J0131; J2405

== ENCOUNTER 2022-04-03 01:35 | Outpatient (CLI) | payer OTHER, SELFPAY | END 2022-04-03 01:36 | disposition home or self-care (01) | PROVIDERS: PCP Family Medicine; Visit Provider Family Medicine ==

== ENCOUNTER 2022-04-20 19:36 | Outpatient (REF) | payer OTHER, SELFPAY ==
[2022-04-22 14:34] LABS: COVID-19 RT-PCR UVMMC Result Positive (Negative)
== END 2022-04-20 19:37 | disposition home or self-care (01) ==
LOC: LBN 19:36
PROVIDERS: PCP Family Medicine; Visit Provider Family Medicine
DX: U07.1 COVID-19 (principal)
CPT/HCPCS: U0003

== ENCOUNTER → 2022-05-11 00:48 | Outpatient (CLI) | payer OTHER, SELFPAY ==
--- NOTE | 2022-05-11 07:15 | DI.DEXA_ITS ---
Exam(s) XR DEXA BONE DENSITY W/WO NICHOLAS EXAM: XR DEXA BONE DENSITY W/WO NICHOLAS CLINICAL HISTORY: screening for osteoporosis,menopausal disorder,n95.9,n95.1 TECHNIQUE: COMPARISON: Comparison examination is 08/26/2018. FINDINGS: Lateral Spine Image: Unremarkable. No compression deformities identified. Left hip: Total T-Score: 0.7. This compares to 0.9 on the prior examination. Total Z-Score: 1.5 T- and Z-scores: Within normal limits. Lumbar Spine: Total T-Score: 2.0. This is unchanged compared to the prior examination. Total Z-Score: 3.3 T- and Z-scores: Within normal limits. IMPRESSION: No evidence of osteoporosis.
== END ==
PROVIDERS: PCP Family Medicine; Visit Provider Family Medicine
DX: N95.1 Menopausal and female climacteric states (principal); N95.8 Other specified menopausal and perimenopausal disorders; Z13.820 Encounter for screening for osteoporosis
CPT/HCPCS: 77080

== ENCOUNTER 2022-06-01 02:04 | Outpatient (RCR) | payer OTHER, SELFPAY | END 2022-07-01 23:59 | disposition home or self-care (01) | LOC: INF 02:04 | PROVIDERS: PCP Family Medicine; Visit Provider Family Medicine | DX: Z29.8 Encounter for other specified prophylactic measures (principal); Z94.1 Heart transplant status | CPT/HCPCS: 96372; Q0221 ==

== ENCOUNTER 2022-06-21 01:37 | Outpatient (CLI) | payer OTHER, SELFPAY | END 2022-06-21 01:38 | disposition home or self-care (01) | LOC: LBO 01:37 | PROVIDERS: PCP Family Medicine; Visit Provider Nurse Practitioner Adult Health ==

== ENCOUNTER 2022-06-22 02:34 | Outpatient (CLI) | payer OTHER, SELFPAY | END 2022-06-22 02:35 | disposition home or self-care (01) | LOC: LBO 02:34 | PROVIDERS: PCP Family Medicine; Visit Provider Nurse Practitioner Adult Health ==

== ENCOUNTER 2022-06-25 04:12 | Outpatient (CLI) | payer OTHER, SELFPAY ==
[2022-06-25 16:59] LABS: Anion Gap 9.6 mmol/L (3-11); BUN 26 mg/dL (7-18); CO2 27.4 mmol/L (21.0-32.0); Calcium 9.9 mg/dL (8.5-10.1); Chloride 104 mmol/L (98-107); Estimated GFR 57.15 (mL/min/1.73m2); Glucose 128 mg/dL (74-106); Potassium 4.4 mmol/L (3.5-5.1); Sodium 141 mmol/L (136-145)
[2022-06-26 13:45] LABS: Tacrolimus 5.9 ng/mL (See Note)
== END 2022-06-25 04:13 | disposition home or self-care (01) ==
LOC: LBO 04:12
PROVIDERS: PCP Family Medicine; Visit Provider Nurse Practitioner Adult Health
DX: Z94.1 Heart transplant status (principal); Z51.81 Encounter for therapeutic drug level monitoring
CPT/HCPCS: 36415; 80048; 80197

== ENCOUNTER 2023-01-18 00:51 | Outpatient (CLI) | payer OTHER, SELFPAY ==
[2023-01-18 12:40] LABS: Calculated LDL 6 mg/dL (<100); Cholesterol 104 mg/dL (<200); HDL Cholesterol 66 mg/dL (40-60); Triglyceride 164 mg/dL (<150)
== END 2023-01-18 00:52 | disposition home or self-care (01) ==
LOC: LOS 00:51
PROVIDERS: PCP Family Medicine; Visit Provider Nurse Practitioner
DX: E78.5 Hyperlipidemia, unspecified (principal)
CPT/HCPCS: 36415; 80061

== ENCOUNTER 2023-04-11 02:46 | Outpatient (CLI) | payer OTHER, SELFPAY ==
[2023-04-11 12:26] LABS: Hemoglobin A1C 6.8 % (<5.7)
[2023-04-11 12:51] LABS: TSH (W/Ref FT4) 1.36 uIU/mL (0.36-3.74)
[2023-04-11 12:55] LABS: COMMENT (LAB VIEW ONLY) 287.77 mg/dL; Microalb ug/mg Crea 8.1 ug/mg Cr
== END 2023-04-11 02:47 | disposition home or self-care (01) ==
LOC: LOS 02:46
PROVIDERS: PCP Family Medicine; Visit Provider Family Medicine
DX: E11.65 Type 2 diabetes mellitus with hyperglycemia (principal); E03.9 Hypothyroidism, unspecified
CPT/HCPCS: 36415; 82043; 82570; 83036; 84443

== ENCOUNTER 2023-04-30 14:47 | Outpatient (REF) | payer OTHER, SELFPAY ==
--- NOTE | 2023-04-30 14:35 | PAPFT_PTH ---
PATIENT: Saman Segura LOC: [facility] U#:[id number] AGE/SX: 57/F ROOM: RE04/30/[address]: Yadira Holly : 1965 BED: DIS: 04/30/2023 SPEC #: [id number] RECD: 05/01/23 12:48 STATUS: YOSEF STALLWORTH #: [id number] JAMES: 04/30/23 14:[address]: Yadira Holly DEPT: [facility] Cytology RECD BY: Gretchen Wolf Tissues: 1 - CX/ENDOCX FOR PAP SMEARS Procedures: PAP THIN PREP/UVM Screening HPV DNA PROBE Comments: [id number]
== END 2023-04-30 14:48 | disposition home or self-care (01) ==
LOC: LBN 14:47
PROVIDERS: PCP Family Medicine; Visit Provider Family Medicine
DX: Z12.4 Encounter for screening for malignant neoplasm of cervix (principal); Z11.51 Encounter for screening for human papillomavirus (HPV)
CPT/HCPCS: 88142; 87624

== ENCOUNTER 2023-05-16 00:38 | Outpatient (CLI) | payer OTHER, SELFPAY ==
--- NOTE | 2023-05-16 10:26 | DI.MAMMO_ITS ---
Exam(s) MAMMO SCREENING EXAM: MAMMO SCREENING CLINICAL HISTORY: screening Z12.39 FOR BREAST CANCER. TECHNIQUE: Bilateral full field digital CC and MLO mammographic images were obtained with 3D tomosyn thesis and utilizing computer aided detection (CAD). COMPARISON: Prior mammograms were reviewed. FINDINGS: There has been no significant change in the appearance and distribution of the fibroglandular tissue. Small benign-appearing densities both breasts are unchanged prior studies There are no new spiculated masses nor malignant appearing microcalcification groups. There is no significant architectural distortion nor skin thickening-retraction. IMPRESSION: No radiographic evidence of malignancy. Stable benign findings. BI-RADS Category 2 - Benign Findings Breast Density - Category A - Almost entirely fatty Breast density Category C or D implies that the patient has dense breast tissue. Dense breast tissue can make it harder to find cancer on a mammogram. Dense breast tissue is also associated with an incr eased risk of breast cancer. This information about the result of the mammogram report was provided to the patient to raise their awareness. Use this report when you speak with the patient about their risks for breast cancer, which includes their family history. At that time, you may recommend additional screening tests (Ultrasoun d or MRI) as these tests may add significant information. A negative radiographic report should not delay biopsy if a dominant or clinically suspicious mass is present. Up to ten percent of cancers are not identified on mammography. A negative report may reinforce clinical impression. Adenosis and dense breasts may obscure an underlying neoplasm. False positive reports average 6 to 10%. Patient will receive a letter notifying them of these results.
== END 2023-05-16 00:58 ==
LOC: DI 00:38
PROVIDERS: PCP Family Medicine; Visit Provider Family Medicine
DX: Z12.31 Encounter for screening mammogram for malignant neoplasm of breast (principal)
CPT/HCPCS: 77063; 77067

== ENCOUNTER 2023-05-16 10:14 | Outpatient (REF) | payer OTHER, SELFPAY ==
[2023-05-16 11:08] LABS: Bilirubin Small (Negative); Blood Negative (Negative); Clarity Sl Cloudy (Clear); Glucose Negative (Negative); Ketones Negative (Negative); Leukocyte Esterase Trace (Negative); Nitrite Positive (Negative); Specific Gravity >= 1.030 (1.005-1.025); Urobilinogen 0.2 mg/dL (Up to 0.2)
[2023-05-16 11:16] LABS: Bacteria Many HPF (Negative); C & S Indicated? Yes; Casts 0-2 Hyaline LPF (Negative); Crystals Negative HPF (Negative); Epithelial Cells Few HPF (Negative); Mucus Negative (Negative); RBC Negative HPF (0-2)
== END 2023-05-16 10:15 | disposition home or self-care (01) ==
LOC: LBN 10:14
PROVIDERS: PCP Family Medicine; Visit Provider Nurse Practitioner Adult Health
DX: R82.998 Other abnormal findings in urine (principal); Z94.1 Heart transplant status
CPT/HCPCS: 87077; 81003; 81015; 87086; 87186

== ENCOUNTER 2023-07-23 14:21 | Outpatient (REF) | payer OTHER, SELFPAY ==
[2023-07-23 15:01] LABS: Bilirubin Negative (Negative); Blood Negative (Negative); Clarity Clear (Clear); Glucose Negative (Negative); Ketones Negative (Negative); Leukocyte Esterase Moderate (Negative); Nitrite Negative (Negative); Specific Gravity 1.015 (1.005-1.025); Urobilinogen 0.2 mg/dL (Up to 0.2); pH 5.5 (5-8)
[2023-07-23 15:08] LABS: Bacteria Moderate HPF (Negative); C & S Indicated? Yes; Casts Negative LPF (Negative); Crystals Negative HPF (Negative); Epithelial Cells Few HPF (Negative); Mucus Negative (Negative); RBC Negative HPF (0-2); WBC 20-50 HPF (0-5)
== END 2023-07-23 14:22 | disposition home or self-care (01) ==
LOC: LBN 14:21
PROVIDERS: PCP Family Medicine
DX: N39.0 Urinary tract infection, site not specified (principal); Z94.1 Heart transplant status
CPT/HCPCS: 87077; 81003; 81015; 87086; 87186

== ENCOUNTER 2023-08-16 03:02 | Outpatient (CLI) | payer OTHER, SELFPAY ==
[2023-08-16 09:58] LABS: Calculated LDL 39 mg/dL (<100); Cholesterol 137 mg/dL (<200); HDL Cholesterol 72 mg/dL (40-60); LDL CHOLESTEROL 52 mg/dL (<100); Triglyceride 133 mg/dL (<150)
== END 2023-08-16 03:03 | disposition home or self-care (01) ==
LOC: LBO 03:02
PROVIDERS: PCP Family Medicine
DX: E78.5 Hyperlipidemia, unspecified (principal)
CPT/HCPCS: 36415; 80061; 83721

== ENCOUNTER 2023-10-14 17:20 | Emergency (ER) | payer OTHER, SELFPAY ==
[2023-10-14] VITALS (31 sets, daily range): BP systolic 110–142; BP diastolic 80–121; PULSE 104–136; RESP 7–29; TEMP 36.6; O2SAT 94–99
--- NOTE | 2023-10-14 17:15 | RT.EKG_ITS ---
APPROVED REPORT Exam: Resting ECG Reason for Exam: high heart rate Patient Location: E HR:131 bpm ECG Measurements Heart Rate 131 AXIS IA [id number] P [id number] QRSd 89 QRS -22 QT 324 T 102 QTc 478 Conclusion Junctional tachycardia...absent P waves, rapid V-rate Inferior infarct, old...Q >35mS, II III aVF Nonspecific T abnormalities, lateral leads...T <-0.10mV, I aVL V5 V6
--- NOTE | 2023-10-14 17:28 | W.ED.GENAD ---
Discharge Plan Disposition Patient Disposition: Home Condition: Good Discharge Details Clinical Impression: Junctional rhythm, Palpitations, Chest pain Primary Care Provider: Yadira Holly ED Provider: Rodriguez Colon Home Meds and New Rx's Prescriptions: New diltiazem HCl 120 mg capsule,extended release 24hr 120 mg PO DAILY Qty: 30 0RF No Action famotidine 10 mg tablet 10 mg PO DAILY rosuvastatin [Crestor] 5 mg tablet 2.5 mg PO HS Repatha SureClick 140 mg/mL pen injector 140 mg subcut Q2W levothyroxine 75 mcg tablet 75 mcg PO DAILY Qty: 90 4RF propranolol 20 MG tablet 40 mg PO BID Qty: 180 jygwdug-vmxkripmt-xdxzyoxmrvxb 1 EACH capsule 2 tab-cap PO ONCE PRNQty: 30 Patient Comments: makes her heart race Rx Instructions: MIDRIN 2 TABS ONSET OF GUIDO & 1 TAB EVERY HR UNTIL RELIEF MAX 5 CAP IN 12HR mycophenolate sodium [Myfortic] 360 MG tablet,delayed release (DR/EC) 3 tab PO BID Qty: 270 tacrolimus [Prograf] 0.5 MG capsule 1.5 mg PO BID Qty: 180 acetaminophen [Tylenol] 325 MG tablet 500 mg PO PRN omeprazole magnesium 20 MG capsule,delayed release(DR/EC) 20 mg PO DAILY Qty: 30 1RF pasjulxdyc-wkaqdecukukca-vmmc 50-325-40 mg tablet 1 tab PO PRN Qty: 60 0RF promethazine 12.5 mg tablet 12.5 mg PO PRN Qty: 60 0RF amoxicillin 500 mg tablet 2,000 mg PO prior to dental wk Qty: 4 2RF losartan 50 mg tablet 50 mg PO DAILY Qty: 90 3RF (DME) lancets [OneTouch Delica Plus Lancet] 33 gauge misc See Rx Instructions .ROUTE .MEDSUPPLY Qty: 100 3RF Rx Instructions: As directed once daily (DME) blood-glucose meter [OneTouch Verio Flex meter] Misc See Rx Instructions .ROUTE .MEDSUPPLY Qty: 1 0RF Rx Instructions: As directed - check daily tirzepatide 7.5 mg/0.5 mL pen injector 7.5 mg subcut QWEEK Qty: 6 3RF (DME) OneTouch Verio test strips Strip See Rx Instructions .ROUTE .COMPLEX Qty: 100 6RF Dose Instruction: USE TO TEST TWICE A DAY Rx Instructions: USE TO TEST TWICE A DAY lorazepam 0.5 mg tablet 0.5 mg PO DAILY PRN (Reason: anxiety) Qty: 60 2RF magnesium oxide 400 MG tablet 400 mg PO BID Qty: 30 0RF prednisone 5 mg tablet 5 mg PO DAILY prednisone 2.5 mg tablet 2.5 mg PO DAILY Discharge Instructions Instructions: Heart Palpitations (ED) Additional Instructions: You were seen in the emergency department for a fast heart rate and palpitations or feeling her heartbeat. We performed labs and a chest x-ray as well as ultrasound of your heart at bedside that were unremarkable. You were originally in a abnormal heart rhythm with a very fast heart rate called a junctional rhythm. This did not get better with fluids and we gave you a medication called diltiazem and your heart went back into a more normal rhythm. We spoke to one of your still operator batch or continuous with the transplant team Dr. Coffey at [facility]. You are symptom-free and he recommended that we start you on diltiazem daily and to follow-up with them. They will call you tomorrow for follow-up appointment. This medication will help control your heart rate but it can affect your tacrolimus level so this may need to be adjusted which is why it is important for you to follow-up with your transplant team. Please return to the emergency department if you develop any recurrent symptoms that do not get better within a short period of time. Return to the emergency department if you have any other concerns. Follow-up with your primary care doctor additionally. Medical Decision Making 58-year-old female with above history is now presenting with fast heart rate. Had a heart transplant and says she is still taking all of her medications with no recent medication changes. Initial EKG is showing junctional tachycardia consistent with priors. Some ST segment changes in 2 3 and aVF but consistent with prior EKGs. Will send cardiac enzymes to evaluate for ACS. Will send broad labs look for electrolyte or metabolic derangements that could be contributing. Does not appear to be in acute heart failure at present but we will follow-up the chest x-ray and also send a proBNP. No focal signs of infection on exam but will get x-ray to look for pneumonia. No other focal signs of infection on this immunocompromise patient. Could have some mild dehydration and will get some IV fluids to see if this helps with her high heart rate. We will send levels of her tacrolimus and mycophenolate but will not get the results of these for days as they are send out. Will await initial testing and response to IV fluids and reevaluate. 845pm Labs and chest x-ray unremarkable. Ampom-fg-dqir bedside ultrasound of the heart unremarkable. Was originally in a junctional tachycardia. Tachycardia did not improve with IV fluids. Gave 2 doses of IV diltiazem and 1 oral dose and now consistently in sinus tachycardia between [address] Coffey with cardiology and cardiac transplant team at [facility]. Recommending starting the patient on 90 or 120 mg of diltiazem daily and having him follow-up tomorrow as this will affect her tacrolimus level. Patient is symptom-free now. Labs and work-up otherwise unremarkable. Will discharge with return precautions. Medical Records Medical records reviewed: Yes I reviewed the patient's medical records. Imaging Data Radiologic Study: Attestation: I personally reviewed and interpreted this imaging study as follows: Imaging: X-Ray (chest) Radiologist's impression: Chest x-ray unremarkable Lab Data Lab results reviewed: Yes I reviewed the patient's lab results. Labs: Labs grossly unremarkable ECG Data Attestation: I personally reviewed and interpreted this ECG (s) as follows: Prior ECG tracings: available for review Interpretation: Initial EKG with a junctional rhythm with a rate of 130. Some ST segment changes in the inferolateral leads but consistent with prior EKGs. After diltiazem the patient looks to be in a sinus tachycardia. Otherwise unremarkable EKG. HPI General Mode of arrival: ambulatory. Date/Time Provider Initiated Documentation: 10/14/23 17:25. Limitations to Documentation: no limitations. Information obtained by: patient. HPI Narrative: 58 year-old female with a past medical history of heart transplant surgery in 2011 (who is managed by the [facility] team) (on tacrolimus, Mycophenelate, and prednisone daily), type 2 diabetes,GERD, hypothyroidism, presents with fast heart rate. Says she had a dentist appointment today. She only takes 1 dose of oxygen amoxicillin before dental work. Took it and went to her dental appointment without complications and had a routine cleaning with no injections or medications administered. Went home and was well for a few hours. In the afternoon and around 2 or 230 he started to develop fluttering in her chest as if her heart was beating fast. Started develop some lightheadedness and dizziness with this. Subsequently developed some shortness of breath and chest pressure. Called her heart surgeon at [facility] and woman who referred her here. Says some of the symptoms have improved but says her heart still going really fast. Usually gets better if she lays down. Does not feel particularly dehydrated. No weight gain or weight loss. No leg pain, swelling, redness. No cough or fever. Related Data Home Medications Medication Instructions Recorded Confirmed propranolol 20 mg tablet 40 mg PO BID #180 tab-caps 06/29/14 10/14/23 ynyekbbopprzx-fnfdtkmxotpzi-bkdixfgiyxoyu 2 tab-cap PO ONCE PRN #30 tab-caps 07/12/15 10/14/23 65 mg-100 mg-325 mg capsule magnesium oxide 400 mg (241.3 mg 400 mg PO BID #30 tabs 11/22/15 10/14/23 magnesium) tablet mycophenolate sodium 360 mg 3 tab PO BID #270 tabs 07/03/16 10/14/23 tablet,delayed release (Myfortic) tacrolimus 0.5 mg capsule, 1.5 mg PO BID #180 caps 11/20/16 10/14/23 immediate-release (Prograf) acetaminophen 325 mg tablet 500 mg PO PRN 03/28/17 10/14/23 (Tylenol) omeprazole magnesium 20 mg 20 mg PO DAILY #30 caps 03/17/18 10/14/23 capsule,delayed release zpjcnawkhm-utmjuwsnvyskk-qeqjitvw 1 tab PO PRN #60 tabs 11/29/20 10/14/23 50 mg-325 mg-40 mg tablet promethazine 12.5 mg tablet 12.5 mg PO PRN #60 tabs 11/29/20 10/14/23 prednisone 2.5 mg tablet 2.5 mg PO DAILY 02/01/21 10/14/23 prednisone 5 mg tablet 5 mg PO DAILY 02/01/21 10/14/23 famotidine 10 mg tablet 10 mg PO DAILY 04/11/21 10/14/23 rosuvastatin 5 mg tablet (Crestor) 2.5 mg PO HS 04/11/21 10/14/23 amoxicillin 500 mg tablet 2,000 mg (4 x 500 mg) PO prior to 04/03/23 10/14/23 dental wk #4 tab-caps losartan 50 mg tablet 50 mg PO DAILY #90 tabs 04/22/23 10/14/23 evolocumab 140 mg/mL subcutaneous 140 mg subcut Q2W High cholesterol 04/30/23 10/14/23 pen injector (Hanna Calvin) levothyroxine 75 mcg tablet 75 mcg PO DAILY #90 tab-caps 04/30/23 10/14/23 lancets 33 gauge (OneTouch Delica #100 ea 05/23/23 Plus Lancet) blood-glucose meter (OneTouch #1 ea 06/10/23 Verio Flex Meter) tirzepatide 7.5 mg/0.5 mL 7.5 mg (0.5 mL) subcut QWEEK #6 mL 07/22/23 10/14/23 subcutaneous pen injector blood sugar diagnostic (OneTouch #100 strips 08/28/23 Verio test strips) lorazepam 0.5 mg tablet 0.5 mg PO DAILY PRN anxiety #60 09/30/23 10/14/23 tabs diltiazem HCl 120 mg 120 mg PO DAILY #30 caps 10/14/23 capsule,extended release 24 hr Previous Rx's Medication Instructions Recorded magnesium oxide 400 mg (241.3 mg 400 mg PO BID #30 tabs 11/22/15 magnesium) tablet omeprazole magnesium 20 mg 20 mg PO DAILY #30 caps 03/17/18 capsule,delayed release cjhgcpkgvq-gjjhwzdpkjhon-grfqxviq 1 tab PO PRN #60 tabs 11/29/20 50 mg-325 mg-40 mg tablet promethazine 12.5 mg tablet 12.5 mg PO PRN #60 tabs 11/29/20 amoxicillin 500 mg tablet 2,000 mg (4 x 500 mg) PO prior to 04/03/23 dental wk #4 tab-caps losartan 50 mg tablet 50 mg PO DAILY #90 tabs 04/22/23 levothyroxine 75 mcg tablet 75 mcg PO DAILY #90 tab-caps 04/30/23 lancets 33 gauge (OneTouch Delica #100 ea 05/23/23 Plus Lancet) blood-glucose meter (OneTouch #1 ea 06/10/23 Verio Flex Meter) tirzepatide 7.5 mg/0.5 mL 7.5 mg (0.5 mL) subcut QWEEK #6 mL 07/22/23 subcutaneous pen injector blood sugar diagnostic (OneTouch #100 strips 08/28/23 Verio test strips) lorazepam 0.5 mg tablet 0.5 mg PO DAILY PRN anxiety #60 09/30/23 tabs diltiazem HCl 120 mg 120 mg PO DAILY #30 caps 10/14/23 capsule,extended release 24 hr Allergies Allergy/AdvReac Type Severity Reaction Status Date / Time quinidine Allergy Intermediate Skin Rash Verified 04/30/23 13:57 chlorhexidine AdvReac Severe chemical Verified 04/30/23 13:57 burn azithromycin AdvReac Intermediate Can't take Verified 04/30/23 13:57 due to heart transplant patient lisinopril AdvReac Intermediate cough Verified 04/30/23 13:57 metformin AdvReac Intermediate GI Verified 04/30/23 13:57 complaints pravastatin AdvReac Intermediate Myalgias Verified 04/30/23 13:57 General Stated Complaint: Palpitatns ANNE: 2 Review of Systems Constitutional Constitutional: Denies chills, Denies fever(s) and Denies headache(s) Eyes Eyes: Denies change in vision ENT Ears, Nose, Mouth, and Throat: Denies headache(s) and Denies odynophagia Cardiovascular Cardiovascular: Reports chest pain, Reports rapid heart rate and Reports dyspnea Comments: dizzY Respiratory Respiratory: Reports dyspnea Gastrointestinal Gastrointestinal: Denies abdominal pain, Denies diarrhea, Reports nausea, Denies odynophagia and Denies vomiting Genitourinary Genitourinary: Denies dysuria Musculoskeletal Musculoskeletal: Denies myalgias Integumentary/Breasts Skin/Breast: Denies changing lesions Neurologic Neurologic: Denies behavioral changes and Denies headache(s) Psychiatric Psychiatric: Denies behavioral changes Endocrine Endocrine: Denies heat intolerance Hematologic/Lymphatic Hematologic/Lymphatic: Denies lymphadenopathy PFSH All Active Problems (Updated 10/14/23 @ 20:49 by Rodriguez Colon MD) Chest pain (Acute) Palpitations (Acute) Junctional rhythm (Acute) 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 Heart transplant status (Chronic 09/11/12) Managed at [facility] Hot flashes (Chronic 02/21/16) Managed by [facility]; side effects from venlafaxine, unable to use HRT. Migraine (Chronic 07/12/15) Obesity (Acute) Gastroesophageal reflux disease (Chronic) Medical History COVID-19 treated with [facility]AB through ER. Palpitations while on trulicity Perforation of tympanic membrane (03/26/13) right, surgically repaired [facility] Hx of gastric ulcer patient originally followed by [facility] for hx of gastric ulcers, EGD 08/28/2017 with CD showed erosive gastritis. 02/04/[address] Leger showed mild esophagitis. Dr Simmons referred to [facility] for CÁRDENAS, done 03/28/[address] Arredondo, [facility] General and GI surgery recommeds weight loss/possible gastric surgery. Dr Kevin from [facility] recommends repeat EGD, Dr Leger has agreed to repeat EGD. MAintained on omeprazole and famotidine. Cardiomyopathy cardiac transplant 01/04/12 - [facility] cardiomyopathy Surgical History Status post heart transplant (~2011) S/P ear surgery History of intraocular lens implant Both eyes EGD - [facility] (09/07/19) 2017-Dr Leger, mild esophagits 01/2019- chronic gastric ulcers Colonoscopy - [facility] 04/23/14; [facility] Family History Other Cancer Diabetes Social History Smoking/Tobacco Use Status: Never Second Hand Exposure: No Smoking risk assessment performed?: Yes Alcohol Intake: current Alcohol Intake frequency: holidays/special occasions only Drug use: Never Substance use type: does not use Caregiver/Support person: No Household members: spouse Housing: house Number of Children: 2 Communication Needs: None Do you need help understanding health information?: Rarely current occupation: disabled Pets and animals: No Sexually active: Yes Do you think of yourself as: straight/heterosexual Current gender identity: female What is your relationship status?: How often do you talk on the phone with friends or family?: three or more times per week How often do you get together with friends or relatives?: once per week How often do you attend adventism or jew services?: 1-3 times per year Do you belong to any clubs or organized social groups?: no Panel score (0-1 are the most socially isolated patients): 2 What type of physical activity do you participate in: walking Duration: 30-45 minutes/day Frequency: 3-4 times per week Ly/Lutheran: Jainism Seatbelt use: always Helmet use: Yes Helmet use: always Drive intox or ride w/intox delivery driver/customer service: No Do you feel safe at home: Yes Do you feel safe in your relationship?: Yes Additional Social history: Enjoys most things - tries to enjoy each day, spending time with family. Female Reproductive History Menstrual control method: other ( vasectomy) History History 3 Para Hx # Term Pregnancies 1 Multiple births Hx # Pregnancies Ectopic pregnancies AB induced Hx Number of Living Children AB spontaneous Exam Const General: cooperative Nutritional Appearance: average body habitus Orientation: alert, awake and oriented x3 HENMT Head: normal to inspection Ears: external ears normal Mouth: moist mucous membranes Eyes Pupils: PERRL EOM: EOM intact bilaterally and No nystagmus Neck Neck: full ROM and no tracheal deviation Chest Chest: normal inspection of the chest Resp Auscultation: clear to auscultation bilaterally Cardio Rate: tachycardic Rhythm: regular rhythm GI Inspection: normal to inspection Palpation: soft, no guarding, not rigid and nontender Back/Spine/Pelvis Back: No no CVA tenderness Thoracic/Lumbar Spine: thoracic and lumbar spine normal to inspection Skin General skin exam: no rashes or lesions noted Neuro General: patient alert, patient awake and patient oriented x3 Cranial Nerves: CN's II-XI intact bilaterally, PERRL and no nystagmus Cognition: normal cognition Motor: muscle tone normal throughout and strength 5/5 throughout Sensory Exam: no sensory deficits noted Extrem General: normal to inspection Course Vital Signs Vital signs: Vital Signs Temperature 36.6 C 10/14/23 17:23 Pulse 136 H 11/13/23 17:23 Respiratory Rate 20 10/14/23 17:23 Blood Pressure 134/106 H 10/14/23 17:23 Pulse Oximetry 98 10/14/23 17:23 Temperature 36.6 C 10/14/23 17:23 Temperature Source Skin 10/14/23 17:23 Pulse 136 H 10/14/23 17:23 Respiratory Rate 20 10/14/23 17:23 Blood Pressure 134/106 H 10/14/23 17:23 Blood Pressure Position Sitting 10/14/23 17:23 Pulse Oximetry 98 10/14/23 17:23 Oxygen Delivery Method Room Air 10/14/23 17:23 Oxygen Flow Rate 0 10/14/23 17:23 Pain Level 2 10/14/23 17:23 Critical Care Time Critical Care Time Critical Care Time: Yes Total Critical Care Time: 30 Attestation: IRodriguez, performed 30 minutes of critical care time exclusive of procedure time. Multiple doses of IV diltiazem given for rate control//arrhythmia. POCUS Exam (ED) Limited Cardiac Exam DATE OF EXAM: 10/14/23 TIME OF EXAM: 19:29 PROVIDER THAT PERFORMED THE STUDY: Rodriguez Colon IS THIS A REPEAT EXAM DURING THIS ENCOUNTER: no REASON FOR EXAM: Chest pain VISUALIZED STRUCTURES: Four Chambers VIEW OBTAINED: Apical 4-Chamber, Parasternal long-axis, Parasternal short-axis and Subxiphoid PERTINENT FINDINGS/IMPRESSION: No apparent abnormalities; no IVC inspiratory collapsability, No LV dysfunction, No pericardial effusion, No plethoric IVC, No RV dilation and No RV dysfunction Exam complete
--- NOTE | 2023-10-14 17:30 | DI.RAD_ITS ---
Exam(s) XR PORTABLE CHEST AP EXAM: XR PORTABLE CHEST AP CLINICAL HISTORY: chest pain TECHNIQUE: 2D digital imaging was performed. COMPARISON: CR,XR XR PORTABLE CHEST AP from 04/02/2022 FINDINGS: Leads overlie the chest. LUNGS: Clear. No pleural abnormality seen. HEART: Normal size. AORTA: Normal diameter. Mildly tortuous. BONES: Sternal wires. Soft tissues: Surgical clips over left chest. IMPRESSION: No acute findings. DATA REPOSITORY: RADIATION DOSE DELIVERED:
[2023-10-14] MEDS: Normal Saline 1,000 ML 1000 ML IV (17:45)
[2023-10-14 17:53] LABS: Abs Immature Grans 0.04 10^3/uL (0.0-0.06); Absolute Basophil Count 0.05 10^3/uL (0.0-0.2); Absolute Eosinophil Count 0.29 10^3/uL (0.0-0.7); Absolute Lymphocyte Count 2.04 10^3/uL (1.2-3.4); Absolute Monocyte Count 0.77 10^3/uL (0.1-0.8); Absolute Neutrophil Count 8.13 10^3/uL (1.2-6.7); Basophils % 0.4; Eosinophils % 2.6; HCT 42.2 % (36.0-46.0); HGB 13.6 g/dL (11.2-15.7); Immature Grans % 0.4; MCHC 32.2 % (32.0-36.0); MCV 87 fL (80-95); MPV 9.6 fL (8.0-11.0); Monocytes % 6.8; Neutrophils % 71.8; Platelet Count 330 10^3/uL (130-400); RBC 4.85 10^6/uL (3.93-5.22); RDW 13.8 % (11.7-14.6); RDW-SD 43.1 fL; WBC 11.32 10^3/uL (4.4-10.8)
[2023-10-14 18:07] LABS: Prothrombin Time 10.4 sec (9.1-11.1)
[2023-10-14 18:09] LABS: PHOSPHORUS 3.4 mg/dL (2.6-4.7)
[2023-10-14 18:16] LABS: ALT 27 U/L (14-59); AST 15 U/L (15-37); Albumin 4.1 g/dL (3.4-5.0); Alkaline Phosphatase 69 U/L (46-116); Anion Gap 9.9 mmol/L (3-11); BUN 26 mg/dL (7-18); Bilirubin, Total 0.5 mg/dL (0.2-1.0); CO2 27.1 mmol/L (21.0-32.0); CREATININE 1.1 mg/dL (0.55-1.02); Chloride 102 mmol/L (98-107); Estimated GFR 57.88 (mL/min/1.73m2); Glucose 120 mg/dL (74-106); Lipase 36 U/L (16-77); Magnesium 1.9 mg/dL (1.8-2.4); NT-proBNP 497 pg/mL (<300); Potassium 3.8 mmol/L (3.5-5.1); Sodium 139 mmol/L (136-145); Total Protein 7.7 g/dL (6.4-8.2); Troponin I < 50 ng/L (<or=60)
[2023-10-14] MEDS: dilTIAZem 25 MG/5 ML VIAL 20 MG IVP ×2 (18:30→19:22)
[2023-10-14 18:51] LABS: COVID-19 PCR Negative (Negative); Influenza A PCR Negative (Negative); Influenza B PCR Negative (Negative); RSV PCR Negative (Negative)
[2023-10-14 18:52] LABS: Source Nasopharynx
[2023-10-14] MEDS: dilTIAZem 30 MG TAB PO ×2 (19:22→20:55)
--- NOTE | 2023-10-14 20:00 | RT.EKG_ITS ---
APPROVED REPORT Exam: Resting ECG Reason for Exam: arrythmia Patient Location: E HR:106 bpm ECG Measurements Heart Rate 106 AXIS GA 87 P 30 QRSd 84 QRS -22 QT 419 T 143 QTc 558 Conclusion Sinus tachycardia...rate> 99 Inferior infarct, old...Q >35mS, II III aVF Abnrm T, consider ischemia, anterolateral lds...T <-0.20mV, I aVL V2-V6 Prolonged QT interval...QTc >510mS
[2023-10-14 20:50] LABS: Troponin I < 50 ng/L (<or=60)
[2023-10-16 13:40] LABS: Tacrolimus 6.4 ng/mL (See Note)
[2023-10-17 14:23] LABS: MPA Glucuronide 76 mcg/mL (35 - 100); Mycophenolic Acid 2.2 mcg/mL (1.0 - 3.5)
== END 2023-10-14 20:58 | disposition home or self-care (01) ==
PROVIDERS: Emergency Provider Student in an Organized Health Care Education/Training Program; PCP Family Medicine
DX: R07.9 Chest pain, unspecified (principal); R00.2 Palpitations; E11.9 Type 2 diabetes mellitus without complications; Z79.84 Long term (current) use of oral hypoglycemic drugs; I10 Essential (primary) hypertension; E03.9 Hypothyroidism, unspecified
CPT/HCPCS: 36415; 80053; 83690; 87637; 93005; 93308; 96361; 96374; 96376; 99284; 71045; 80180; 80197; 83735; 83880; 84100; 84484; 85025; 85610; 85730; 93010

== ENCOUNTER 2023-10-18 03:15 | Outpatient (CLI) | payer OTHER, SELFPAY ==
[2023-10-18 11:49] LABS: Calculated LDL 25 mg/dL (<100); Cholesterol 115 mg/dL (<200); HDL Cholesterol 62 mg/dL (40-60); Triglyceride 142 mg/dL (<150)
== END 2023-10-18 03:16 | disposition home or self-care (01) ==
PROVIDERS: PCP Family Medicine; Visit Provider Nurse Practitioner Adult Health
DX: E78.5 Hyperlipidemia, unspecified (principal)
CPT/HCPCS: 36415; 80061

== ENCOUNTER → 2024-05-14 00:11 | Outpatient (CLI) | payer OTHER, SELFPAY ==
--- NOTE | 2024-05-14 12:21 | DI.DEXA_ITS ---
Exam(s) XR DEXA BONE DENSITY W/WO NICHOLAS EXAM: XR DEXA BONE DENSITY W/WO NICHOLAS CLINICAL HISTORY: screening f/u Z78.0 MENOPAUSAL TECHNIQUE: COMPARISON: CR XR DEXA BONE DENSITY W/WO NICHOLAS from 05/11/2022 FINDINGS: Lateral Spine Image: Unremarkable. No compression deformities identified. Left hip: Total T-Score: 0.8. This compares to 0.7 on the prior examination. Total Z-Score: 1.7 T- and Z-scores: Within normal limits. Lumbar Spine: Total T-Score: 2.4. This compares to 2.0 on the prior examination. Total Z-Score: 3.8 T- and Z-scores: Within normal limits. IMPRESSION: No evidence of osteoporosis.
--- NOTE | 2024-05-14 12:21 | DI.RAD_ITS ---
Exam(s) XR HIP PELVIS ADULT BL EXAM: XR HIP PELVIS ADULT BL CLINICAL HISTORY: pelvis pain - SI joint M54.50 LOW BACK PAIN. TECHNIQUE: 2D digital imaging was performed of the pelvis and bilateral hips. Three images were obt ained. AP pelvis and lateral views of both hips were obtained. COMPARISON: No exams were available for comparison FINDINGS: BONES: No acute fracture is present. No bony destructive lesion is seen. JOINTS: No dislocation present. There are mild degenerative changes seen in the hips bilaterally glenny acterized by joint space narrowing and acetabular osteophytes. There are mild degenerative changes s een at the right sacroiliac joint. The symphysis pubis is unremarkable.. SOFT TISSUE: Normal. IMPRESSION: Degenerative changes of the hips bilaterally. DATA REPOSITORY: RADIATION DOSE DELIVERED:
== END ==
PROVIDERS: PCP Family Medicine; Visit Provider Family Medicine
DX: Z13.820 Encounter for screening for osteoporosis (principal); Z78.0 Asymptomatic menopausal state; M16.0 Bilateral primary osteoarthritis of hip
CPT/HCPCS: 73521; 77080

== ENCOUNTER 2024-05-28 22:41 | Emergency (ER) | payer OTHER, SELFPAY ==
[2024-05-28 23:19] VITALS: BP 171/131; PULSE 109; RESP 20; TEMP 36.3; O2SAT 97
[2024-05-28 23:29] VITALS: BP 128/95; O2SAT 99
--- NOTE | 2024-05-28 23:30 | RT.EKG_ITS ---
APPROVED REPORT Exam: Resting ECG Reason for Exam: pain Patient Location: E HR:104 bpm ECG Measurements Heart Rate 104 AXIS NM 189 P 23 QRSd 79 QRS -19 QT 354 T 73 QTc 466 Conclusion Sinus tachycardia...rate> 99 Inferior infarct, old...Q >35mS, II III aVF no ST segment or T wave abnormalities to suggest occlusive MD
[2024-05-28 23:52] LABS: Abs Immature Grans 0.03 10^3/uL (0.0-0.06); Absolute Basophil Count 0.02 10^3/uL (0.0-0.2); Absolute Eosinophil Count 0.22 10^3/uL (0.0-0.7); Absolute Lymphocyte Count 2.26 10^3/uL (1.2-3.4); Absolute Monocyte Count 0.72 10^3/uL (0.1-0.8); Absolute Neutrophil Count 5.09 10^3/uL (1.2-6.7); Basophils % 0.2 %; Eosinophils % 2.6 %; HCT 38.7 % (36.0-46.0); HGB 12.9 g/dL (11.2-15.7); Immature Grans % 0.4 %; Lymphocytes % 27.1 %; MCH 29.4 pg (27.0-33.0); MCHC 33.3 % (32.0-36.0); MCV 88 fL (80-95); MPV 9.6 fL (8.0-11.0); Monocytes % 8.6 %; Neutrophils % 61.1 %; Platelet Count 252 10^3/uL (130-400); RBC 4.39 10^6/uL (3.93-5.22); RDW 13.2 % (11.7-14.6); RDW-SD 42.3 fL; WBC 8.34 10^3/uL (4.4-10.8)
[2024-05-28 23:59] VITALS: PULSE 103; RESP 13; O2SAT 96
[2024-05-29] VITALS (26 sets, daily range): BP systolic 109–114; BP diastolic 82–86; PULSE 97–110; RESP 10–28; O2SAT 95–99
--- NOTE | 2024-05-29 00:05 | DI.CT_ITS ---
Exam(s) CT THORAX CTA EXAM: CT THORAX CTA CLINICAL HISTORY: right sided abd/chest pain radiating to back, HTN. TECHNIQUE: Imaging Protocol: Axial CT angiography was performed with multi-slice acquisition and mu lti-planar and/or 3D reconstructions. CONTRAST MATERIAL: Intravenous: Omnipaque 350 contrast volume:100 mL COMPARISON: CT CHEST FOR PULMONARY EMBOLUS from 10/03/[address] ABDOMEN PELVIS W from 01/13/2020 FINDINGS: Tracheobronchial tree: Patent where visualized. Pulmonary parenchyma: No consolidation or dominant measurable mass. Calcified granuloma are present. Pulmonary Arteries: Due to the timing of the bolus, the pulmonary arteries are inadequately opacified for pulmonary emboli evaluation. No large central pulmonary embolus is seen. Mediastinum and Tigist: No dominant adenopathy or fluid collection. The esophagus is unremarkable. Visualized thyroid gland: Unremarkable. Pleura: No effusion or pneumothorax. Heart: The heart is not dilated. No coronary artery calcifications are seen. No pericardial effusion. Aorta: Thoracic aorta non-dilated. No evidence of dissection. Upper abdomen: The gallbladder is distended. There is a small amount of pericholecystic fluid. Soft tissues: Unremarkable. Bones: Within normal limits for the patient's age.Sternal wires are in place. IMPRESSION: 1. No evidence of a thoracic aortic dissection or aneurysm. 2. No acute pulmonary process. 3. Distended gallbladder and mild pericholecystic fluid. Gallbladder ultrasound should be considered for further evaluation. RADIATION DOSE DELIVERED: 1,739.63mGy.cm Total DLP 1,739.63mGy.cm Total DLP DATA REPOSITORY: All CT scans at this facility are submitted to the National Radiology Data Registry (NRDR) Dose Index Registry (DIR) with the [employer] (ACR). RADIATION OPTIMIZATION: All CT scans at this facility use at least one of these dose optimization te chniques: automated exposure control; mA and/or kV adjustment per patient size (includes targeted exa ms where dose is matched to clinical indication); or iterative reconstruction.
--- NOTE | 2024-05-29 00:05 | DI.CT_ITS ---
Exam(s) CT ABDOMEN PELVIS W EXAM: CT ABDOMEN PELVIS W CLINICAL HISTORY: RUQ pain radiating to back TECHNIQUE: Imaging Protocol: Axial computed tomography images with coronal and sagittal reformatted images were created and reviewed. CONTRAST MATERIAL: Intravenous: Omnipaque 350 Contrast volume:100 mL Oral: No COMPARISON: CT CT ABDOMEN PELVIS W from 01/13/[address] [facility]AX CTA from 05/29/2024 FINDINGS: ABDOMEN: Liver: Normal density. No measurable mass. Portal, Superior Mesenteric, and Splenic Veins: Unremarkable. Gallbladder and Biliary Tract: The gallbladder is distended measuring 7 cm in diameter. There is gal lbladder wall thickening versus pericholecystic fluid present. No gallstones are present. There is no biliary ductal dilatation. Pancreas: Normal density, no abnormal calcifications or inflammatory process. Spleen: Normal. Adrenals: No masses seen. Kidneys: Normal size, contour and axis. No radiodense stones or obstructive uropathy. No masses seen. Abdominal Aorta: Abdominal portion non-dilated. Atherosclerotic calcification is present. Bowel: There is diverticulosis of the colon but no evidence of acute diverticulitis. Appendix is unr emarkable. No evidence of bowel obstruction or bowel wall thickening. Peritoneal Cavity: No ascites, collection or mesenteric inflammatory response. No free air. Lymph Nodes: Within normal limits. Bones: Within normal limits for the patient's age. Soft Tissues: There is a small fat containing umbilical hernia. There is a midline fat containing eid praumbilical hernia. PELVIS: Bladder: Symmetric distention, no gross wall thickening. Reproductive Organs: Unremarkable as visualized. Lymph Nodes: Within normal limits. Bones: Within normal limits for the patient's age. IMPRESSION: Hydropic gallbladder with gallbladder wall edema versus pericholecystic fluid. Gallbladder ultrasoun d is recommended for further evaluation. No cholelithiasis is seen. There is no biliary ductal dila tation. RADIATION DOSE DELIVERED: 1,739.63mGy.cm Total DLP DATA REPOSITORY: All CT scans at this facility are submitted to the National Radiology Data Registry (NRDR) Dose Index Registry (DIR) with the [employer] ([employer]). RADIATION OPTIMIZATION: All CT scans at this facility use at least one of these dose optimization te chniques: automated exposure control; mA and/or kV adjustment per patient size (includes targeted exa ms where dose is matched to clinical indication); or iterative reconstruction.
[2024-05-29] MEDS: Normal Saline - Diluent 50 ML VIAL IJ (00:17)
[2024-05-29] MEDS: Omnipaque 350 MG/ML 100 ML BTL IJ (00:18)
[2024-05-29 00:20] LABS: ALT 28 U/L (14-59); AST 13 U/L (15-37); Alkaline Phosphatase 69 U/L (46-116); BUN 28 mg/dL (7-18); CREATININE 1.2 mg/dL (0.55-1.02); Calcium 9.2 mg/dL (8.5-10.1); Chloride 106 mmol/L (98-107); Estimated GFR 52.14 (mL/min/1.73m2); Glucose 143 mg/dL (74-106); Magnesium 1.6 mg/dL (1.8-2.4); NT-proBNP 164 pg/mL (<300); Sodium 141 mmol/L (136-145); Total Protein 7.2 g/dL (6.4-8.2); Troponin I < 50 ng/L (< or =60)
[2024-05-29] MEDS: Acetaminophen 500 MG TAB 1000 MG PO (00:48)
[2024-05-29] MEDS: Cyclobenzaprine 10 MG TAB PO (00:49)
[2024-05-29] MEDS: Magnesium Gluconate 500 MG TAB PO (00:55)
[2024-05-29 01:01] LABS: Bilirubin Negative (Negative); Blood Negative (Negative); Clarity Sl Cloudy (Clear); Glucose Negative (Negative); Ketones Negative (Negative); Leukocyte Esterase Negative (Negative); Nitrite Positive (Negative); Urobilinogen 0.2 mg/dL (Up to 0.2); pH 5.5 (5-8)
[2024-05-29 01:06] LABS: Bacteria Few HPF (Negative); C & S Indicated? No/Sq. Contamination; Casts Negative LPF (Negative); Crystals Negative HPF (Negative); Epithelial Cells Many HPF (Negative); Mucus Negative (Negative); RBC Negative HPF (0-2)
--- NOTE | 2024-05-29 01:19 | DI.VRAD_ITS ---
PROCEDURE INFORMATION: Exam: CT Abdomen And Pelvis With Contrast Exam date and time: 05/29/2024 12:14 AM Age: 58 years old Clinical indication: Other: Ruq pain radiating to back TECHNIQUE: Imaging protocol: Computed tomography of the abdomen and pelvis with contrast. Contrast material: OMNI 350; Contrast volume: 100 ml; Contrast route: INTRAVENOUS (IV); COMPARISON: CT ABDOMEN PELVIS W 01/13/2020 8:24 AM FINDINGS: Liver: Normal. No mass. Gallbladder and biliary ducts: Distended gallbladder with gallbladder wall edema versus trace pericholecystic fluid. Pancreas: Normal. No ductal dilation. Spleen: Normal. No splenomegaly. Adrenal glands: Normal. No mass. Kidneys and ureters: Normal. No hydronephrosis. Stomach and bowel: Unremarkable. No obstruction. No mucosal thickening. Appendix: No evidence of appendicitis. Intraperitoneal space: Unremarkable. No free air. No significant fluid collection. Vasculature: Unremarkable. No abdominal aortic aneurysm. Lymph nodes: Unremarkable. No enlarged lymph nodes. Urinary bladder: Unremarkable as visualized. Reproductive: Unremarkable as visualized. Bones/joints: Unremarkable. No acute fracture. Soft tissues: Fat containing midline ventral hernia. IMPRESSION: Distended gallbladder with gallbladder wall edema versus trace pericholecystic fluid. Sonogram can be obtained for further evaluation if clinically warranted. Dictated and Authenticated by: Tiago Gold MD. Ordering:KARLO Feliz MD
--- NOTE | 2024-05-29 01:21 | DI.VRAD_ITS ---
PROCEDURE INFORMATION: Exam: CTA Chest With Contrast Exam date and time: 05/29/2024 12:14 AM Age: 58 years old Clinical indication: Pain; Right-sided; Additional info: Right sided abd/chest pain radiating to back, HTN TECHNIQUE: Imaging protocol: Computed tomographic angiography of the chest with contrast. Exam focused on the arteries. 3D rendering (Not supervised by radiologist): MIP and/or 3D reconstructed images were created by the technologist. Contrast material: OMNI 350; Contrast volume: 100 ml; Contrast route: INTRAVENOUS (IV); COMPARISON: CR XR PORTABLE CHEST AP 10/14/2023 6:42 PM FINDINGS: Pulmonary arteries: Normal. No pulmonary emboli. Aorta: Unremarkable. No aortic aneurysm. No aortic dissection. Lungs: Unremarkable. No consolidation. No masses. Pleural spaces: Unremarkable. No pneumothorax. No pleural effusion. Heart: Unremarkable. No cardiomegaly. No pericardial effusion. Lymph nodes: Unremarkable. No enlarged lymph nodes. Gallbladder and biliary ducts: Distended gallbladder with pericholecystic fluid versus gallbladder wall edema. Bones/joints: Status post median sternotomy. Soft tissues: Unremarkable. IMPRESSION: Distended gallbladder with pericholecystic fluid versus gallbladder wall edema. Dictated and Authenticated by: Tiago Gold MD. Ordering:KARLO Feliz MD
[2024-05-29] MEDS: Normal Saline 500 ML IV (01:30)
[2024-05-29 02:50] LABS: Lactate 1.5 mmol/L (0.6-1.4)
[2024-05-29 03:02] LABS: Lipase 46 U/L (16-77)
[2024-05-29 03:07] LABS: ALT 25 U/L (14-59); AST 13 U/L (15-37); Albumin 3.6 g/dL (3.4-5.0); Alkaline Phosphatase 64 U/L (46-116); Anion Gap 8.2 mmol/L (3-11); BUN 26 mg/dL (7-18); Bilirubin, Total 0.35 mg/dL (0.2-1.0); CO2 26.8 mmol/L (21.0-32.0); CREATININE 1.1 mg/dL (0.55-1.02); Calcium 8.8 mg/dL (8.5-10.1); Chloride 107 mmol/L (98-107); Estimated GFR 57.88 (mL/min/1.73m2); Glucose 99 mg/dL (74-106); Sodium 142 mmol/L (136-145); Total Protein 6.4 g/dL (6.4-8.2)
[2024-05-29 03:09] LABS: Troponin I < 50 ng/L (< or =60)
--- NOTE | 2024-05-29 03:25 | ED.GENADUL_ITS ---
Discharge Plan Disposition Patient Disposition: Home Condition: Good Discharge Details Clinical Impression: Back pain Primary Care Provider: Yadira Holly ED Provider: Trini Dominguez Home Meds and New Rx's Prescriptions: New cyclobenzaprine 5 mg tablet 5 mg PO TID PRNQty: 14 0RF Continued polyethylene glycol 3350 [Miralax] 17 gram/dose powder 17 g PO DAILY coenzyme Q10 [CoQ-10] 100 mg capsule 100 mg PO DAILY famotidine 10 mg tablet 10 mg PO DAILY Repatha SureClick 140 mg/mL pen injector 140 mg subcut Q2W aspirin 81 mg tablet,delayed release (DR/EC) 81 mg PO DAILY nystatin 100,000 unit/gram powder 1 applic topical BID Qty: 60 1RF propranolol 20 MG tablet 40 mg PO BID Qty: 180 ntqndcx-rjqmajqcs-ruvtjpigoebh 1 EACH capsule 2 tab-cap PO ONCE PRNQty: 30 Patient Comments: makes her heart race Rx Instructions: MIDRIN 2 TABS ONSET OF GUIDO & 1 TAB EVERY HR UNTIL RELIEF MAX 5 CAP IN 12HR mycophenolate sodium [Myfortic] 360 MG tablet,delayed release (DR/EC) 3 tab PO BID Qty: 270 tacrolimus [Prograf] 0.5 MG capsule 1.5 mg PO BID Qty: 180 acetaminophen [Tylenol] 325 MG tablet 500 mg PO PRN omeprazole magnesium 20 MG capsule,delayed release(DR/EC) 20 mg PO DAILY Qty: 30 1RF gbyvwclguc-fmxkisusgpvej-sxtk 50-325-40 mg tablet 1 tab PO PRN Qty: 60 0RF promethazine 12.5 mg tablet 12.5 mg PO PRN Qty: 60 0RF (DME) lancets [OneTouch Delica Plus Lancet] 33 gauge misc See Rx Instructions .ROUTE .MEDSUPPLY Qty: 100 3RF Rx Instructions: As directed once daily (DME) blood-glucose meter [OneTouch Verio Flex meter] Misc See Rx Instructions .ROUTE .MEDSUPPLY Qty: 1 0RF Rx Instructions: As directed - check daily (DME) OneTouch Verio test strips Strip See Rx Instructions .ROUTE .COMPLEX Qty: 100 6RF Dose Instruction: USE TO TEST TWICE A DAY Rx Instructions: USE TO TEST TWICE A DAY lorazepam 0.5 mg tablet 0.5 mg PO DAILY PRN (Reason: anxiety) Qty: 60 2RF cyclobenzaprine 10 mg tablet 10 mg PO TID PRN (Reason: muscle spasm) Qty: 25 1RF levothyroxine 75 mcg tablet 75 mcg PO DAILY Qty: 90 4RF tirzepatide 10 mg/0.5 mL pen injector 10 mg subcut QWEEK Qty: 2 5RF losartan 50 mg tablet 50 mg PO DAILY Qty: 90 3RF estradiol [Vivelle-Dot] 0.05 mg/24 hr patch semiweekly 1 patch transdermal .2xw Qty: 24 3RF progesterone micronized 200 mg capsule 200 mg PO QHS Qty: 14 12RF Rx Instructions: Take for 14 days each month. magnesium oxide 400 MG tablet 400 mg PO BID Qty: 30 0RF diltiazem HCl 120 mg capsule,extended release 24hr 120 mg PO DAILY Qty: 30 0RF prednisone 5 mg tablet 5 mg PO DAILY prednisone 2.5 mg tablet 2.5 mg PO DAILY tacrolimus 1 mg capsule 2 mg PO BID Discharge Instructions Instructions: Upper Back Pain ED Additional Instructions: Cyclobenzaprine up to eveyr 8 hours as needed for pain/spasm. Call your primary care doctor today to schedule an appointment for within the next 72 hours to follow up on your visit here. IT IS VERY IMPORTANT THAT YOU RETURN TO THE EMERGENCY DEPARTMENT IF YOUR PAIN WORSENS, YOU BEGIN VOMITING, OR GET A FEVER. Or if you have any other concerns. Referrals: Yadira Holly MD [Primary Care Provider] - [facility] General Mode of arrival: ambulatory . Date/Time Provider Initiated Documentation: 05/28/24 23:36 . Limitations to Documentation: no limitations . Information obtained by: patient . HPI Narrative: 58yo F with hx HTN, GERD, IBS, back pain, T2DM, and heart transplant (2/t congenital/genetic abnormality per pt) presenting for upper right abd/lower chest pain which radiates into her back. Pain started this evening after dinner and has been worsening. Pain is sharp, crampy, and feels like it starts in the back and radiates to her ribs and then to the substernal region. Some nausea, no vomiting. Did have diarrhea earlier this week, none since Saturday. No bowel movement in the last three days. She is otherwise in her usual state of health with no fevers, chills, rash, dysuria, hematuria, shortness of breath, LE edema, or other concerns. Related Data Home Medications Medication Instructions Recorded Confirmed propranolol 20 mg tablet 40 mg PO BID #180 tab-caps 06/29/14 05/29/24 vtuepbxojhykk-fzguvmlsinjbu-vryqzweuvhmrg 2 tab-cap PO ONCE PRN #30 tab-caps 07/12/15 05/29/24 65 mg-100 mg-325 mg capsule magnesium oxide 400 mg (241.3 mg 400 mg PO BID #30 tabs 11/22/15 05/29/24 magnesium) tablet mycophenolate sodium 360 mg 3 tab PO BID #270 tabs 07/03/16 05/29/24 tablet,delayed release (Myfortic) tacrolimus 0.5 mg capsule, 1.5 mg PO BID #180 caps 11/20/16 05/29/24 immediate-release (Prograf) acetaminophen 325 mg tablet 500 mg PO PRN 03/28/17 05/29/24 (Tylenol) omeprazole magnesium 20 mg 20 mg PO DAILY #30 caps 03/17/18 05/29/24 capsule,delayed release kqauzfbppv-gznnvwiadyndf-cqdsuwfv 1 tab PO PRN #60 tabs 11/29/20 05/29/24 50 mg-325 mg-40 mg tablet promethazine 12.5 mg tablet 12.5 mg PO PRN #60 tabs 11/29/20 05/29/24 prednisone 2.5 mg tablet 2.5 mg PO DAILY 02/01/21 05/29/24 prednisone 5 mg tablet 5 mg PO DAILY 02/01/21 05/29/24 famotidine 10 mg tablet 10 mg PO DAILY 04/11/21 05/29/24 evolocumab 140 mg/mL subcutaneous 140 mg subcut Q2W High cholesterol 04/30/23 05/29/24 pen injector (Hanna Calvin) lancets 33 gauge (OneTouch Delica #100 ea 05/23/23 05/06/24 Plus Lancet) blood-glucose meter (OneTouch #1 ea 06/10/23 05/06/24 Verio Flex Meter) blood sugar diagnostic (OneTouch #100 strips 08/28/23 05/29/24 Verio test strips) lorazepam 0.5 mg tablet 0.5 mg PO DAILY PRN anxiety #60 09/30/23 05/29/24 tabs diltiazem HCl 120 mg 120 mg PO DAILY #30 caps 10/14/23 05/29/24 capsule,extended release 24 hr cyclobenzaprine 10 mg tablet 10 mg PO TID PRN muscle spasm #25 10/22/23 05/29/24 tabs levothyroxine 75 mcg tablet 75 mcg PO DAILY #90 tab-caps 10/25/23 05/29/24 aspirin 81 mg tablet,delayed 81 mg PO DAILY 11/06/23 05/29/24 release nystatin 100,000 unit/gram topical 1 applic topical BID #60 grams 11/06/23 05/29/24 powder tirzepatide 10 mg/0.5 mL 10 mg (0.5 mL) subcut QWEEK #2 mL 03/16/24 05/29/24 subcutaneous pen injector losartan 50 mg tablet 50 mg PO DAILY #90 tabs 03/30/24 05/29/24 coenzyme Q10 100 mg capsule 100 mg PO DAILY 05/06/24 05/29/24 (CoQ-10) polyethylene glycol 3350 17 17 g PO DAILY 05/06/24 05/29/24 gram/dose oral powder (Miralax) estradiol 0.05 mg/24 hr semiweekly 1 patch transdermal .2xw #24 ea 05/13/24 05/29/24 transdermal patch (Vivelle-Dot) progesterone micronized 200 mg 200 mg PO QHS #14 caps 05/20/24 05/29/24 capsule cyclobenzaprine 5 mg tablet 5 mg PO TID PRN #14 tabs 05/29/24 tacrolimus 1 mg capsule, 2 mg PO BID 05/29/24 05/29/24 immediate-release Previous Rx's Medication Instructions Recorded magnesium oxide 400 mg (241.3 mg 400 mg PO BID #30 tabs 11/22/15 magnesium) tablet omeprazole magnesium 20 mg 20 mg PO DAILY #30 caps 03/17/18 capsule,delayed release witkarnmtl-paokgsafakcyj-obdrgwkm 1 tab PO PRN #60 tabs 11/29/20 50 mg-325 mg-40 mg tablet promethazine 12.5 mg tablet 12.5 mg PO PRN #60 tabs 11/29/20 lancets 33 gauge (OneBaldemaruch Delalexandria #100 ea 05/23/23 Plus Lancet) blood-glucose meter (OneTouch #1 ea 06/10/23 Verio Flex Meter) blood sugar diagnostic (OneTouch #100 strips 08/28/23 Verio test strips) lorazepam 0.5 mg tablet 0.5 mg PO DAILY PRN anxiety #60 09/30/23 tabs diltiazem HCl 120 mg 120 mg PO DAILY #30 caps 10/14/23 capsule,extended release 24 hr cyclobenzaprine 10 mg tablet 10 mg PO TID PRN muscle spasm #25 10/22/23 tabs levothyroxine 75 mcg tablet 75 mcg PO DAILY #90 tab-caps 10/25/23 nystatin 100,000 unit/gram topical 1 applic topical BID #60 grams 11/06/23 powder tirzepatide 10 mg/0.5 mL 10 mg (0.5 mL) subcut QWEEK #2 mL 03/16/24 subcutaneous pen injector losartan 50 mg tablet 50 mg PO DAILY #90 tabs 03/30/24 estradiol 0.05 mg/24 hr semiweekly 1 patch transdermal .2xw #24 ea 05/13/24 transdermal patch (Vivelle-Dot) progesterone micronized 200 mg 200 mg PO QHS #14 caps 05/20/24 capsule cyclobenzaprine 5 mg tablet 5 mg PO TID PRN #14 tabs 05/29/24 Allergies Allergy/AdvReac Type Severity Reaction Status Date / Time quinidine Allergy Intermediate Skin Rash Verified 05/29/24 00:32 chlorhexidine AdvReac Severe chemical Verified 05/29/24 00:32 burn azithromycin AdvReac Intermediate Can't take Verified 05/29/24 00:32 due to heart transplant patient lisinopril AdvReac Intermediate cough Verified 05/29/24 00:32 metformin AdvReac Intermediate GI Verified 05/29/24 00:32 complaints pravastatin AdvReac Intermediate Myalgias Verified 05/29/24 00:32 General Stated Complaint: Abd Prob ANNE: 3 Review of Systems Narrative: see HPI Exam Narrative Exam Narrative: General: Alert, well appearing, well nourished, in no acute distress. Head: Normocephalic, atraumatic Neck: Trachea midline, ?Neck supple. Cardiac: ?RRR, no murmurs appreciated Resp: No respiratory distress. CTAB. Back: Right mid- upper thoracic paraspinal muscle spasm, TTP. No midline tenderness. Chest: Right posterior/lateral ribs TTP. Abd: ?Soft, non-distended, nontender. negative Hines's. : ?No suprapubic tenderness. No CVA tenderness. Extremities: ?No deformities.? No peripheral edema. Neurologic: GCS 15. ? Moves all extremities freely against gravity Course Vital Signs Vital signs: Vital Signs Temperature 36.3 C L 05/28/24 23:19 Pulse 109 H 05/28/24 23:19 Respiratory Rate 20 05/28/24 23:19 Blood Pressure 171/131 H 05/28/24 23:19 Pulse Oximetry 97 05/28/24 23:19 Temperature 36.3 C L 05/28/24 23:19 Temperature Source Temporal Artery Scan 05/28/24 23:19 Pulse 109 H 05/28/24 23:19 Respiratory Rate 20 05/28/24 23:19 Respiratory Effort Normal 05/28/24 23:29 Blood Pressure 128/95 H 05/28/24 23:29 Blood Pressure Position Sitting 05/28/24 23:19 Pulse Oximetry 99 05/28/24 23:29 Oxygen Delivery Method Room Air 05/28/24 23:29 Oxygen Flow Rate 0 05/28/24 23:19 Pain Level 3 05/28/24 23:29 Lab/Test Results Lab/Test Results: Laboratory Tests Range/Units 05/28/24 05/29/24 05/29/24 23:44 00:50 02:45 WBC (4.4-10.8) 10^3/uL 8.34 RBC (3.93-5.22) 10^6/uL 4.39 Hgb (11.2-15.7) g/dL 12.9 Hct (36.0-46.0) % 38.7 MCV (80-95) fL 88 MCH (27.0-33.0) pg 29.4 MCHC (32.0-36.0) % 33.3 RDW (11.7-14.6) % 13.2 Plt Count (130-400) 10^3/uL 252 MPV (8.0-11.0) fL 9.6 Immature Gran % % 0.4 Neutrophils % % 61.1 Lymphocytes % % 27.1 Monocytes % % 8.6 Eosinophils % % 2.6 Basophils % % 0.2 Nucleated RBC % (0.0-0.3) % 0.0 Absolute Neutrophils (1.2-6.7) 10^3/uL 5.09 Absolute Lymphocytes (1.2-3.4) 10^3/uL 2.26 Absolute Monocytes (0.1-0.8) 10^3/uL 0.72 Absolute Eosinophils (0.0-0.7) 10^3/uL 0.22 Absolute Basophils (0.0-0.2) 10^3/uL 0.02 VBG Lactate (0.6-1.4) mmol/L 2.0 H 1.5 H Sodium (136-145) mmol/L 141 142 Potassium (3.5-5.1) mmol/L 4.0 4.0 Chloride (98-107) mmol/L 106 107 Carbon Dioxide (21.0-32.0) mmol/L 24.0 26.8 Anion Gap (3-11) mmol/L 11.0 8.2 BUN (7-18) mg/dL 28 H 26 H Creatinine (0.55-1.02) mg/dL 1.2 H 1.1 H Est GFR (CKD-EPI 2020) (mL/min/1.73m2) 52.14 57.88 Glucose (74-106) mg/dL 143 H 99 Calcium (8.5-10.1) mg/dL 9.2 8.8 Magnesium (1.8-2.4) mg/dL 1.6 L Total Bilirubin (0.2-1.0) mg/dL 0.40 0.35 AST (15-37) U/L 13 L 13 L ALT (14-59) U/L 28 25 Alkaline Phosphatase (46-116) U/L 69 64 Troponin I (< or =60) ng/L < 50 < 50 NT-Pro-B Natriuret Pep (<300) pg/mL 164 Total Protein (6.4-8.2) g/dL 7.2 6.4 Albumin (3.4-5.0) g/dL 4.0 3.6 Lipase (16-77) U/L 46 Urine Color (Yellow) Yellow Urine Clarity (Clear) Sl Cloudy Urine pH (5-8) 5.5 Ur Specific [place] (1.005-1.025) 1.010 Urine Protein (Neg-Trace) mg/dL Negative Urine Ketones (Negative) mg/dL Negative Urine Blood (Negative) Negative Urine Nitrite (Negative) Positive H Urine Bilirubin (Negative) Negative Urine Urobilinogen (Up to 0.2) mg/dL 0.2 Ur Leukocyte Esterase (Negative) Negative Urine RBC (0-2) HPF Negative Urine WBC (0-5) HPF 5-10 Ur Epithelial Cells (Negative) HPF Many Urine Crystals (Negative) HPF Negative Urine Bacteria (Negative) HPF Few Urine Casts (Negative) LPF Negative Urine Mucus (Negative) Negative Ur Culture Indicated? No/Sq. Contamination Urine Glucose (Negative) mg/dL Negative Medical Decision Making 58yo F with hx HTN, GERD, IBS, back pain, T2DM, and heart transplant (2/t congenital/genetic abnormality per pt) presenting for upper right abd/lower chest pain which radiates into her back. Hypertensive on arrival 171/131 with pulse in low 100's (pt states this HR is her baseline since transplant). Not overtly septic. Benign abdominal exam; does have some right mid/upper thoracic paraspinal muscle spasm and tenderness. This may be the etiology of her symptoms however given elevated blood pressure and complex medical hx on immunosuppressive medications will evaluate further with labs and imaging. Tyl enol and cyclobenzaprine for symptoms. -EKG with appropriate intervals, no ST segment or T wave abnormalities to suggest occluisve DC. -Labs reviewed as below, CBC reassuring with no leukokcytosis or anemia, CMP with normal LFTs, Mg slightly low (replacement ordered), troponin negative x 2 (would not further pursue ACS), lipase normal (not pancreatitis), lactate borderline at 2.0, UA not infected. Given hx heart transplant, will proceed cautiously with fluid resus; given 500cc IVFB. -CT independently reviewed, no aortic dissection, does have distended gallbladder with questionable wall thickening on my view, agree with radiology read below. On reassessment she reports feeling much better. Abdominal exam remains entirely benign with no RUQ tenderness and negative hines's. Unlikely cholecystits/cholangitis/etc. given this, however with CT findings could represent early cholecystitis; will repeat LFTs and lactate and reassess. May need to remain in department for morning US. -Repeat blood work again with reassuring LFTs, lactate improved at 1.5. Discussed with patient and offered to observe overnight with ultrasound in the morning; as she is feeling better she would prefer to go home and return if her symptoms worsen which is reasonable. Strict return precautions were reviewed. Discharged home; discharge instructions and return precautions were reviewed with patient who verbalized understanding. All questions were answered and she is in full agreement with the plan. Imaging Data Radiologic Study: Imaging: CT Scan Radiologist's impression: CTA thorax: IMPRESSION: Distended gallbladder with pericholecystic fluid versus gallbladder wall edema Abd/pelvis: IMPRESSION: Distended gallbladder with gallbladder wall edema versus trace pericholecystic fluid. Sonogram can be obtained for further evaluation if clinically warranted. Lab Data Lab results reviewed: Yes I reviewed the patient's lab results. Labs: Laboratory Tests Range/Units 05/28/24 05/29/24 05/29/24 23:44 00:50 02:45 WBC (4.4-10.8) 10^3/uL 8.34 RBC (3.93-5.22) 10^6/uL 4.39 Hgb (11.2-15.7) g/dL 12.9 Hct (36.0-46.0) % 38.7 MCV (80-95) fL 88 MCH (27.0-33.0) pg 29.4 MCHC (32.0-36.0) % 33.3 RDW (11.7-14.6) % 13.2 Plt Count (130-400) 10^3/uL 252 MPV (8.0-11.0) fL 9.6 Immature Gran % % 0.4 Neutrophils % % 61.1 Lymphocytes % % 27.1 Monocytes % % 8.6 Eosinophils % % 2.6 Basophils % % 0.2 Nucleated RBC % (0.0-0.3) % 0.0 Absolute Neutrophils (1.2-6.7) 10^3/uL 5.09 Absolute Lymphocytes (1.2-3.4) 10^3/uL 2.26 Absolute Monocytes (0.1-0.8) 10^3/uL 0.72 Absolute Eosinophils (0.0-0.7) 10^3/uL 0.22 Absolute Basophils (0.0-0.2) 10^3/uL 0.02 VBG Lactate (0.6-1.4) mmol/L 2.0 H 1.5 H Sodium (136-145) mmol/L 141 142 Potassium (3.5-5.1) mmol/L 4.0 4.0 Chloride (98-107) mmol/L 106 107 Carbon Dioxide (21.0-32.0) mmol/L 24.0 26.8 Anion Gap (3-11) mmol/L 11.0 8.2 BUN (7-18) mg/dL 28 H 26 H Creatinine (0.55-1.02) mg/dL 1.2 H 1.1 H Est GFR (CKD-EPI 2020) (mL/min/1.73m2) 52.14 57.88 Glucose (74-106) mg/dL 143 H 99 Calcium (8.5-10.1) mg/dL 9.2 8.8 Magnesium (1.8-2.4) mg/dL 1.6 L Total Bilirubin (0.2-1.0) mg/dL 0.40 0.35 AST (15-37) U/L 13 L 13 L ALT (14-59) U/L 28 25 Alkaline Phosphatase (46-116) U/L 69 64 Troponin I (< or =60) ng/L < 50 < 50 NT-Pro-B Natriuret Pep (<300) pg/mL 164 Total Protein (6.4-8.2) g/dL 7.2 6.4 Albumin (3.4-5.0) g/dL 4.0 3.6 Lipase (16-77) U/L 46 Urine Color (Yellow) Yellow Urine Clarity (Clear) Sl Cloudy Urine pH (5-8) 5.5 Ur Specific [place] (1.005-1.025) 1.010 Urine Protein (Neg-Trace) mg/dL Negative Urine Ketones (Negative) mg/dL Negative Urine Blood (Negative) Negative Urine Nitrite (Negative) Positive H Urine Bilirubin (Negative) Negative Urine Urobilinogen (Up to 0.2) mg/dL 0.2 Ur Leukocyte Esterase (Negative) Negative Urine RBC (0-2) HPF Negative Urine WBC (0-5) HPF 5-10 Ur Epithelial Cells (Negative) HPF Many Urine Crystals (Negative) HPF Negative Urine Bacteria (Negative) HPF Few Urine Casts (Negative) LPF Negative Urine Mucus (Negative) Negative Ur Culture Indicated? No/Sq. 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 Heart transplant status (Chronic 09/11/12) Managed at [facility] Hot flashes (Chronic 02/21/16) Managed by [facility] [place]; side effects from venlafaxine, unable to use HRT. Migraine (Chronic 07/12/15) Obesity (Acute) Gastroesophageal reflux disease (Chronic) Medical History (Updated 05/29/24 @ 03:46 by Trini Dominguez MD) COVID-19 treated with [facility] through ER. Palpitations while on trulicity Perforation of tympanic membrane (03/26/13) right, surgically repaired [facility] Hx of gastric ulcer patient originally followed by [facility] for hx of gastric ulcers, EGD 08/28/2017 with CD showed erosive gastritis. 02/04/[address] Leger showed mild esophagitis. Dr Simmons referred to [facility] for CÁRDENAS, done 03/28/[address] Arredondo, [facility] General and GI surgery recommeds weight loss/possible gastric surgery. Dr Kevin from [facility] recommends repeat EGD, Dr Leger has agreed to repeat EGD. MAintained on omeprazole and famotidine. Cardiomyopathy cardiac transplant 01/04/12 - [facility] Genetic cardiomyopathy Surgical History Status post heart transplant (~2011) S/P ear surgery History of intraocular lens implant Both eyes EGD - [facility] (09/07/19) 2017-Dr Leger, mild esophagits 01/2019- chronic gastric ulcers Colonoscopy - [facility] 04/23/14; [place] Family History Other Cancer Diabetes Social History Smoking/Tobacco Use Status: Never Second Hand Exposure: No Smoking risk assessment performed?: Yes Alcohol Intake: current Alcohol Intake frequency: holidays/special occasions only Drug use: Never Substance use type: does not use Caregiver/Support person: No Household members: spouse Housing: house Number of Children: 2 Communication Needs: None Do you need help understanding health information?: Rarely current occupation: disabled Pets and animals: No Sexually active: Yes Do you think of yourself as: straight/heterosexual Current gender identity: female What is your relationship status?: How often do you talk on the phone with friends or family?: three or more times per week How often do you get together with friends or relatives?: once per week How often do you attend episcopal or jain services?: 1-3 times per year Do you belong to any clubs or organized social groups?: no Panel score (0-1 are the most socially isolated patients): 2 What type of physical activity do you participate in: walking Duration: 30-45 minutes/day Frequency: 3-4 times per week Ly/Religious: Faith Seatbelt use: always Helmet use: Yes Helmet use: always Drive intox or ride w/intox delivery driver/supervisor: No Do you feel safe at home: Yes Do you feel safe in your relationship?: Yes Additional Social history: Enjoys most things - tries to enjoy each day, spending time with family. Female Reproductive History Menstrual control method: other ( vasectomy) Menopause type: natural Date of menopause: 04/01/18 History History 3 Para Hx # Term Pregnancies 1 Multiple births Hx # Pregnancies Ectopic pregnancies AB induced Hx Number of Living Children AB spontaneous
== END 2024-05-29 04:26 | disposition home or self-care (01) ==
PROVIDERS: Emergency Provider Student in an Organized Health Care Education/Training Program; PCP Family Medicine
DX: R10.11 Right upper quadrant pain (principal); M54.9 Dorsalgia, unspecified; R11.0 Nausea; K21.9 Gastro-esophageal reflux disease without esophagitis; R07.89 Other chest pain; Z94.1 Heart transplant status; Z87.11 Personal history of peptic ulcer disease
CPT/HCPCS: 36415; 71275; 80053; 83690; 93005; 96360; 96361; 99285; 74177; 81003; 81015; 83605; 83735; 83880; 84484; 85025; 93010; 99283; J3490

== ENCOUNTER 2024-08-28 05:59 | Day surgery (SDC) | payer OTHER, SELFPAY ==
--- NOTE | 2024-08-27 19:23 | W.PM.DSUDISC ---
Date of service: 08/28/24 Time of Service: 08:11 Discharge Plan Disposition Patient Disposition: Home Condition: Good Discharge Details Reason For Visit: screening colonocsopy Attending Provider: Kendall White Primary Care Provider: Yadira Holly Home Meds and New Rx's Prescriptions: Continued polyethylene glycol 3350 [Miralax] 17 gram/dose powder 17 g PO DAILY coenzyme Q10 [CoQ-10] 100 mg capsule 100 mg PO DAILY famotidine 10 mg tablet 10 mg PO DAILY Repatha SureClick 140 mg/mL pen injector 140 mg subcut Q2W aspirin 81 mg tablet,delayed release (DR/EC) 81 mg PO DAILY nystatin 100,000 unit/gram powder 1 applic topical BID Qty: 60 1RF propranolol 20 MG tablet 40 mg PO BID Qty: 180 agoiemg-lalxonajw-zghkpeshhain 1 EACH capsule 2 tab-cap PO ONCE PRNQty: 30 Patient Comments: makes her heart race Rx Instructions: MIDRIN 2 TABS ONSET OF GUIDO & 1 TAB EVERY HR UNTIL RELIEF MAX 5 CAP IN 12HR mycophenolate sodium [Myfortic] 360 MG tablet,delayed release (DR/EC) 3 tab PO BID Qty: 270 tacrolimus [Prograf] 0.5 MG capsule 1.5 mg PO BID Qty: 180 acetaminophen [Tylenol] 325 MG tablet 500 mg PO PRN oulnphsvfh-ojtqowkkgkwzr-bkrw 50-325-40 mg tablet 1 tab PO PRN Qty: 60 0RF promethazine 12.5 mg tablet 12.5 mg PO PRN Qty: 60 0RF (DME) blood-glucose meter [OneTouch Verio Flex meter] Misc See Rx Instructions .ROUTE .MEDSUPPLY Qty: 1 0RF Rx Instructions: As directed - check daily (DME) OneTouch Verio test strips Strip See Rx Instructions .ROUTE .COMPLEX Qty: 100 6RF Dose Instruction: USE TO TEST TWICE A DAY Rx Instructions: USE TO TEST TWICE A DAY cyclobenzaprine 10 mg tablet 10 mg PO TID PRN (Reason: muscle spasm) Qty: 25 1RF levothyroxine 75 mcg tablet 75 mcg PO DAILY Qty: 90 4RF losartan 50 mg tablet 50 mg PO DAILY Qty: 90 3RF estradiol [Vivelle-Dot] 0.05 mg/24 hr patch semiweekly 1 patch transdermal .2xw Qty: 24 3RF progesterone micronized 200 mg capsule 200 mg PO QHS Qty: 14 12RF Rx Instructions: Take for 14 days each month. omeprazole magnesium 20 mg capsule,delayed release(DR/EC) 20 mg PO DAILY Qty: 90 3RF (DME) lancets [OneTouch Delica Plus Lancet] 33 gauge misc See Rx Instructions .ROUTE .MEDSUPPLY Qty: 100 3RF Rx Instructions: As directed once daily lorazepam 0.5 mg tablet 0.5 mg PO DAILY PRN (Reason: anxiety) Qty: 60 2RF tirzepatide 10 mg/0.5 mL pen injector 10 mg subcut QWEEK Qty: 2 5RF magnesium oxide 400 MG tablet 400 mg PO BID Qty: 30 0RF diltiazem HCl 120 mg capsule,extended release 24hr 120 mg PO DAILY Qty: 30 0RF prednisone 5 mg tablet 5 mg PO DAILY prednisone 2.5 mg tablet 2.5 mg PO DAILY tacrolimus 1 mg capsule 2 mg PO BID cyclobenzaprine 5 mg tablet 5 mg PO TID PRNQty: 14 0RF Discontinued bisacodyl [Dulcolax (bisacodyl)] 5 mg tablet,delayed release (DR/EC) 5 mg PO ONCE Qty: 4 0RF Rx Instructions: Take per colonoscopy instructions provided by ordering providers office polyethylene glycol 3350 17 gram/dose powder 17 g PO ONCE Qty: 238 0RF Rx Instructions: Take per colonoscopy instructions provided by ordering providers office No Action bisacodyl 5 mg tablet,delayed release (DR/EC) PO Discharge Instructions Instructions: Gastritis, Diverticulosis Additional Instructions: Alejandra, we are able to complete your procedure today without any difficulty. Your upper endoscopy went very smoothly. Your esophagus, or swallowing pipe, is totally normal down to the connection of your stomach. Majority of your stomach also looks very healthy and normal. There is a little bit of inflammation at the bottom part of your stomach called the antrum. This is right before it connects into your small intestine. At least from the report I read before, it sounds like today's is much less compared to previously. I did do some biopsies here as we talked about beforehand, but I do not expect anything worrisome. I suspect this is really just a side effect of some of the medications that you have to take. Your colonoscopy also went very smoothly. You have a little bit of diverticulosis, which are little weak spots in the wall of the colon. They typically accumulate as we get older. Maintaining a diet that is rich in fiber, staying well-hydrated, and avoiding constipation are probably the best strategies to take care of it. I attached a little bit of information here about both gastritis as well as diverticulosis. The biopsies from her stomach will take about a week or 2 to get the results of, and the office will certainly be in touch once we have those available. If you need anything or have any questions in the meantime, please do not hesitate to call. 1. If tolerated, consume a soft, low fiber diet for 1-2 days. 2[address] Do not drive, drink alcohol, operate machinery, make critical decisions, or do activities that require coordination or balance for 24 hours. 3. Because air was put into your colon during the procedure, expelling air from your rectum (passing gas or farting) is normal. 4. You may not have a bowel movement for 1-3 days because of the colonoscopy prep. This is normal. 5. You may experience a sore throat for 24 to 48 hours. You may use throat lozenges or gargle with warm salt water to relieve the discomfort. 6. Because air was put into your stomach during the procedure, you may experience some belching. 7. Go directly to the emergency room if you notice any of the following: Develop chills (warm to touch), or if you have a thermometer and your temperature is above 101 Difficulty breathing or difficultly swallowing Persistent vomiting Severe abdominal pain, other than gas cramps Severe chest pain Black, tarry stools Any bleeding ? exceeding one tablespoon 8. Call your physician if the site where your intravenous was started becomes red, swollen, painful, and warm to touch. 9. Your physician has reviewed your pre-procedure medications. Please continue to take those medications as previously ordered. You will be given specific information/education regarding any changes to your medications before leaving. Activity:: Activity as Tolerated Diet:: As Tolerated Discharge Orders Discharge Orders: Discharge Order (Routine); Ordered 08/27/24 Ordered By: Kendall White DS: Diagnosis Discharge Diagnosis (1) Encounter for screening colonoscopy: Status: Acute Asessment and Plan: Mild gastroenteritis, will follow-up on biopsy results
--- NOTE | 2024-08-27 19:26 | W.COLOREPORT ---
Date of service: 08/28/24 Time of Service: 08:13 Colonoscopy Report Date of procedure: 08/28/24 Pre-op diagnosis general: screening colonoscopy and EGD Post-op diagnosis procedure note: other (Antral gastritis, diverticulosis) Procedure: EGD with biopsies and colonoscopy Surgeon: Kendall White Anesthesia Type: General:No Airway Estimated blood loss (mL): 5 Pathology: other (Random biopsies of gastric antrum and body to rule out Helicobacter pylori) Complications: None Disposition: same day Indications: Alejandra is a 59 year old woman who needs her next screening colonoscopy. She also has past medical history significant for peptic ulcer disease, with intermittent symptomatic dyspepsia, and perhaps a mild pill dysphagia. Prep: Miralax/Dulcolax Procedure Start Time: 07:36 Procedure End Time: 07:54 Retraction Time: 7 Findings: Mild gastric antritis, sigmoid diverticulosis Procedure Description: After the initiation of anesthesia, and with the assistance of a bite block, I advanced a standard gastroscope through the mouth past the hypopharynx and into the esophagus.? Under the direct vision of the scope, I advanced down the esophagus towards the stomach.? The upper, mid, and lower esophagus were all normal and healthy appearing. The GE junction and Z-line measured 36 cm from the incisors. Narrowband imaging was used. There was no evidence of any Otero's esophagus. I entered the stomach and insufflated into the rugae were obliterated. I performed retroflexion. There is no evidence of any hiatal hernia. The gastric cardia, fundus, and majority of the gastric body were all totally normal. There is a small amount of gastritis beginning right around the incisura angularis extending down towards the pylorus. There was no obvious discrete ulceration. I advanced through the pylorus without any difficulty into the duodenum. All of the duodenum was normal and healthy appearing. I brought the camera back up into the stomach and perform some random biopsies of the gastric antrum and body to rule out Helicobacter pylori. Biopsies were performed with cold forceps with minimal bleeding. Next, I emptied the stomach, brought the camera out along the length the esophagus 1 last time. No other abnormalities were appreciated. Next we moved Alejandra into the left lateral decubitus position. I began by performing an external anorectal exam.? Perineum and skin were normal, as was the anal verge.? There was no evidence of external hemorrhoids.? Next, I performed a digital rectal exam.? I did not appreciate any abnormal findings.? Next, I advanced a colonoscope into the rectal vault.? I performed retroflexion.? This appeared normal.? Using insufflation, I then advanced the colonoscope beyond the rectal folds and into the sigmoid colon before advancing towards the cecum.? The quality of the prep was excellent.? The scope was noted to be in the cecum by identification of the ileocecal valve and appendiceal orifice.? I then began withdrawing the colonoscope using repeated irrigation as necessary for full evaluation of the colonic mucosa. ?There was some sigmoid diverticulosis. Once the scope was withdrawn to the level of the rectum, great care was taken to examine portions of the rectal folds.? Finally, the scope was withdrawn and the patient was brought to the same-day surgery recovery unit as the anesthetic wore off. ?The findings and instructions were shared with the patient prior to discharge. [place] Bowel Prep [place] Bowel Prep Right Colon: 3 Left Colon: 3 Transverse Colon: 3 Total Score: 9
[2024-08-28 06:28] VITALS: BP 124/88; PULSE 100; RESP 16; TEMP 36.5; O2SAT 99
[2024-08-28] MEDS: Lactated Ringers 1,000 ML 80 ML IV (06:45)
--- NOTE | 2024-08-28 07:24 | W.ANESPRE ---
General Info Date of Service Date Performed: 08/28/24 Height: 5 ft 9 in Weight: 89.1 kg Body Mass Index (BMI): 29.0 Surgical Procedure: Operation Date: 08/28/24 07:35 Proposed Procedure Side Surgeon p Colonoscopy/Gastroscopy Kendall White MD Meds Allergies and Home Medications Allergies Allergy/AdvReac Type Severity Reaction Status Date / Time quinidine Allergy Intermediate Skin Rash Verified 08/28/24 06:19 chlorhexidine AdvReac Severe chemical Verified 08/28/24 06:19 burn azithromycin AdvReac Intermediate Can't take Verified 08/28/24 06:19 due to heart transplant patient lisinopril AdvReac Intermediate cough Verified 08/28/24 06:19 metformin AdvReac Intermediate GI Verified 08/28/24 06:19 complaints pravastatin AdvReac Intermediate Myalgias Verified 08/28/24 06:19 Home Medication ?Medication ?Instructions ?Recorded propranolol 20 mg tablet 40 mg PO BID #180 tab-caps 06/29/14 gufdjkhcplzle-eukywinvlvgix-uxqskognuxmxx 2 tab-cap PO ONCE PRN #30 tab-caps 07/12/15 65 mg-100 mg-325 mg capsule magnesium oxide 400 mg (241.3 mg 400 mg PO BID #30 tabs 11/22/15 magnesium) tablet mycophenolate sodium 360 mg 3 tab PO BID #270 tabs 07/03/16 tablet,delayed release (Myfortic) tacrolimus 0.5 mg capsule, 1.5 mg PO BID #180 caps 11/20/16 immediate-release (Prograf) acetaminophen 325 mg tablet 500 mg PO PRN 03/28/17 (Tylenol) trwddqizer-kzjxtearkivtp-jchpvfbq 1 tab PO PRN #60 tabs 11/29/20 50 mg-325 mg-40 mg tablet promethazine 12.5 mg tablet 12.5 mg PO PRN #60 tabs 11/29/20 prednisone 2.5 mg tablet 2.5 mg PO DAILY 02/01/21 prednisone 5 mg tablet 5 mg PO DAILY 02/01/21 famotidine 10 mg tablet 10 mg PO DAILY 04/11/21 evolocumab 140 mg/mL subcutaneous 140 mg subcut Q2W High cholesterol 04/30/23 pen injector (Repatha SureClick) blood-glucose meter (OneTouch #1 ea 07/10/23 Verio Flex Meter) blood sugar diagnostic ([facility] #100 strips 08/28/23 Verio test strips) diltiazem HCl 120 mg 120 mg PO DAILY #30 caps 10/14/23 capsule,extended release 24 hr cyclobenzaprine 10 mg tablet 10 mg PO TID PRN muscle spasm #25 10/22/23 tabs levothyroxine 75 mcg tablet 75 mcg PO DAILY #90 tab-caps 10/25/23 aspirin 81 mg tablet,delayed 81 mg PO DAILY 11/06/23 release nystatin 100,000 unit/gram topical 1 applic topical BID #60 grams 11/06/23 powder losartan 50 mg tablet 50 mg PO DAILY #90 tabs 03/30/24 coenzyme Q10 100 mg capsule 100 mg PO DAILY 05/06/24 (CoQ-10) polyethylene glycol 3350 17 17 g PO DAILY 05/06/24 gram/dose oral powder (Miralax) estradiol 0.05 mg/24 hr semiweekly 1 patch transdermal .2xw #24 ea 05/13/24 transdermal patch (Vivelle-Dot) progesterone micronized 200 mg 200 mg PO QHS #14 caps 05/20/24 capsule cyclobenzaprine 5 mg tablet 5 mg PO TID PRN #14 tabs 05/29/24 tacrolimus 1 mg capsule, 2 mg PO BID 05/29/24 immediate-release omeprazole magnesium 20 mg 20 mg PO DAILY #90 caps 06/16/24 capsule,delayed release lancets 33 gauge ([facility] #100 ea 06/18/24 Plus Lancet) lorazepam 0.5 mg tablet 0.5 mg PO DAILY PRN anxiety #60 06/18/24 tabs tirzepatide 10 mg/0.5 mL 10 mg (0.5 mL) subcut QWEEK #2 mL 08/11/24 subcutaneous pen injector bisacodyl 5 mg tablet,delayed mg PO 08/28/24 release Current Visit Medications: Current Medications Generic Name Dose Route Start Last Admin Trade Name Freq PRN Reason Stop Dose Admin Ringer's Solution 1,000 mls @ 80 mls/hr 08/28/24 06:00 08/28/24 06:45 IV 08/28/24 23:59 80 mls/hr INFUSION CLAUDETTE Administration IV Miscellaneous Supplies 1 each 08/28/24 06:00 Iv Access IV 08/28/24 23:59 DIRECTED CLAUDETTE Ondansetron HCl 4 mg 08/27/24 19:27 Ondansetron 4 Mg/2 Ml Vial IVP 09/26/24 19:26 Q4H PRN PRN Nausea / Vomiting Sodium Chloride 0 ml 08/28/24 06:00 Normal Saline Flush 10 Ml Syr IV 08/28/24 23:59 PRN PRN Sodium Chloride 0 ml 08/28/24 06:00 Normal Saline 10 Ml Vial IJ 08/28/24 23:59 DIRECTED PRN Sterile Water 0 ml 08/28/24 06:00 Water,Injection,Sterile 10 Ml Vial IJ 08/28/24 23:59 DIRECTED PRN PFSH Active Problems Active Problems: Problem Status Onset Code Encounter for screening colonoscopy Acute Z12.[address] scan, gallbladder Acute R93.2 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 Palpitations while on trulicity Perforation of tympanic membrane (03/26/13) right, surgically repaired [facility] Hx of gastric ulcer patient originally followed by [facility] for hx of gastric ulcers, EGD 08/28/2017 with CD showed erosive gastritis. 02/04/[address] Leger showed mild esophagitis. Dr Simmons referred to [facility] [place] for C[place]RDE[place]S, done 03/28/[address] reflux[address] Arredondo, [facility] General and GI surgery recommeds weight loss/possible gastric surgery. Dr Kevin from [facility] recommends repeat EGD, Dr Leger has agreed to repeat EGD. MAintained on omeprazole and famotidine. Cardiomyopathy cardiac transplant 01/04/12 - [facility] Surgical History Surgical History Status post heart transplant (~2011) S/P ear surgery History of intraocular lens implant Both eyes EGD - [facility] (09/07/19) 2018-Dr Leger, mild esophagits 01/2019- chronic gastric ulcers Colonoscopy - [facility] 04/23/14; [facility] Tobacco Smoking/Tobacco Use Status: Never Passive smoking exposure: No Second hand exposure: No Alcohol Alcohol Intake: current Alcohol intake frequency: holidays/special occasions only Substance Use Substance use: Never Substance use type: does not use Details: alcohol: unk Prental History History 3 Para Hx # Term Pregnancies 1 Multiple births Hx # Pregnancies Ectopic pregnancies AB induced Hx Number of Living Children AB spontaneous Vital Signs and Lab Results Vital Signs Most Recent Vital Signs in EMR: Most Recent Vital Signs Temp Pulse Resp BP Pulse Ox 36.5 C 100 H 16 124/88 99 08/28/24 06:28 08/28/24 06:28 08/28/24 06:28 08/28/24 06:28 08/28/24 06:28 Point of Care Results Point of Care Results: Finger Stick Blood Glucose 89 08/28/24 06:46 Lab Results Blood Type / Crossmatch: No Data to Display Complete Blood Count: No Data to Display Complete Metabolic Panel: No Data to Display Liver Function Panel: No Data to Display Coagulation Panel: No Data to Display Cardiac Panel: No Data to Display Arterial Blood Gas: No Data to Display Venous Blood Gas: No Data to Display Pancreas Panel: No Data to Display Thyroid Panel: No Data to Display Infectious Disease: No Data to Display Blood Cultures: No Data to Display Toxicology Panel: No Data to Display Imaging and Studies Imaging and Studies Study information below may be from another EMR and interpreted by another provider. Please see original notes in EMR for more complete details. EKG Summary: 05/28/24 Conclusion Sinus tachycardia...rate> 99 Inferior infarct, old...Q >35mS, II III aVF no ST segment or T wave abnormalities to suggest occlusive ID Conclusion Sinus rhythm...normal P axis, V-rate 60- 99 Nonspecific T abnrm, anterolateral leads...T <-0.10mV, I aVL V2-V6 There are no significant changes compared to prior EKG performed on 02/01/2021 at 23:27. 02/02/21 Anesthesia Assessment and Plan Anesthesia History Personal History: No History of Anesthesia Complications Family History: No Family History of Anesthesia Complications Exercise Tolerance Exercise Tolerance: Metabolic Equivalents>4 Pertinent Negatives Pertinent Negatives: No Symptoms of GERD, No Major Cardiovascular Symptoms or Complaints (S/P heart transplant) and No Major Pulmonary Symptoms or Complaints Cardiac & Pulmonary Exam Cardiac Exam: Normal S1/S2 Heart Sounds Pulmonary Exam: Clear Bilateral Breath Sounds Implantable Cardiac Device Does patient have a Pacemaker or an ICD?: No Airway Exam Known Difficult Airway: No Mallampati Class: 1 Mouth Opening: Normal (> 3cm) Thyromental Distance: Greater than 3 cm Neck Range of Motion: Full ROM Neck Circumference: Normal Teeth Condition: Normal Dentition ASA Classification ASA Score: ASA 3 Emergency Case?: No NPO Status NPO Status: NPO Clears >2 hours, Solids >8 hours Anesthesia Plan Resuscitation Status: Full Code Anesthesia Technique: General Anesthesia Airway Planned: Natural Airway Monitors Used: Standard Monitors
[2024-08-28 07:26] VITALS: BMI 29.0
--- NOTE | 2024-08-28 07:39 | STOM_PTH ---
PATIENT: Saman Segura LOC: [place] U#:[id number] AGE/SX: 59/F ROOM: RE08/28/[address]: Kendall White MD : 1965 BED: DIS: 08/28/2024 SPEC #: [id number] RECD: 08/28/24 11:51 STATUS: YOSEF RE #: [id number] JAMES: 08/28/24 07:[address]: Kendall White DEPT: Surgical Specimen RECD BY: Gretchen Wolf ENTERED: 08/28/24 11:55 SP TYPE: STOMACH OTHR DR: Yadira Holly Tissues: 1 - STOMACH BIOPSY 2 - STOMACH BIOPSY Procedures: GROSS AND MICRO LEVEL 4 IMMUNOPEROXIDASE STAIN Comments: [id number]
[2024-08-28 08:03] VITALS: BP 111/89; PULSE 94; RESP 15; TEMP 36.5; O2SAT 99
--- NOTE | 2024-08-28 08:24 | W.ANESPOSTOP ---
Postoperative Evaluation Date, Time and Location Date Performed: 08/28/24 Time Performed: 08:25 Patient Location: Day Surgery Unit Vital Signs Most Recent Imported Vital Signs: Most Recent Vital Signs Temp Pulse Resp BP Pulse Ox 36.5 C 94 H 15 111/89 99 08/28/24 08:03 08/28/24 08:03 08/28/24 08:03 08/28/24 08:03 08/28/24 08:03 Pain Score Most Recent Pain Score: Most Recent Pain Score Pain Level 0 08/28/24 08:03 Assessment Mental Status: Awake (Alert & Oriented to Patient Baseline) Airway and Respiratory Function: Patent airway with normal (patient baseline) respiratory exam Cardiovascular Function: Hemodynamically Stable Hydration Status: Adequately Hydrated Nausea & Vomiting: No Nausea or Vomiting Pain: Pt. Denies Any Pain Peripheral Nerve Block: Patient did not receive a nerve block
[2024-08-28 08:40] VITALS: BP 114/78; PULSE 96; RESP 15; TEMP 36.5; O2SAT 100
== END 2024-08-28 08:50 | disposition home or self-care (01) ==
LOC: SUR 06:01
PROVIDERS: PCP Family Medicine; Visit Provider Surgery
PROC: (CPT 45378; principal; 2024-08-28 07:30)
DX: Z12.11 Encounter for screening for malignant neoplasm of colon (principal); K57.30 Diverticulosis of large intestine without perforation or abscess without bleeding; K29.70 Gastritis, unspecified, without bleeding
CPT/HCPCS: 45378; 43239; 88305; 88361; J2704

== ENCOUNTER 2024-10-08 03:35 | Outpatient (CLI) | payer OTHER, SELFPAY ==
[2024-10-08 10:48] LABS: Abs Immature Grans 0.02 10^3/uL (0.0-0.06); Absolute Basophil Count 0.02 10^3/uL (0.0-0.2); Absolute Lymphocyte Count 1.87 10^3/uL (1.2-3.4); Absolute Monocyte Count 0.51 10^3/uL (0.1-0.8); Absolute Neutrophil Count 3.43 10^3/uL (1.2-6.7); Basophils % 0.3 %; Eosinophils % 4.9 %; HCT 37.7 % (36.0-46.0); HGB 12.6 g/dL (11.2-15.7); Immature Grans % 0.3 %; Lymphocytes % 30.4 %; MCH 30.2 pg (27.0-33.0); MCHC 33.4 % (32.0-36.0); MCV 90 fL (80-95); MPV 9.3 fL (8.0-11.0); Monocytes % 8.3 %; Neutrophils % 55.8 %; Platelet Count 233 10^3/uL (130-400); RBC 4.17 10^6/uL (3.93-5.22); RDW 13.1 % (11.7-14.6); WBC 6.15 10^3/uL (4.4-10.8)
[2024-10-08 11:33] LABS: ALT 24 U/L (14-59); AST 13 U/L (15-37); Albumin 3.5 g/dL (3.4-5.0); Alkaline Phosphatase 64 U/L (46-116); Anion Gap 9.4 mmol/L (3-11); BUN 21 mg/dL (7-18); Bilirubin, Total 0.41 mg/dL (0.2-1.0); CO2 27.6 mmol/L (21.0-32.0); CREATININE 1.1 mg/dL (0.55-1.02); Calcium 9.3 mg/dL (8.5-10.1); Chloride 109 mmol/L (98-107); Estimated GFR 57.52 (mL/min/1.73m2); Glucose 102 mg/dL (74-106); Magnesium 1.8 mg/dL (1.8-2.4); NT-proBNP 357 pg/mL (<300); Potassium 3.8 mmol/L (3.5-5.1); Sodium 146 mmol/L (136-145); Total Protein 6.9 g/dL (6.4-8.2)
[2024-10-09 12:59] LABS: Tacrolimus 6.4 ng/mL (See Note)
== END 2024-10-08 03:36 | disposition home or self-care (01) ==
PROVIDERS: PCP Family Medicine; Visit Provider Nurse Practitioner
DX: Z94.1 Heart transplant status (principal)
CPT/HCPCS: 36415; 80053; 80197; 83735; 83880; 85025

== ENCOUNTER 2024-12-20 05:10 | Emergency (ER) | payer OTHER, SELFPAY ==
[2024-12-20] VITALS (20 sets, daily range): BP systolic 111–145; BP diastolic 66–99; PULSE 29–130; RESP 12–36; TEMP 37.5–38.2; O2SAT 95–100
--- NOTE | 2024-12-20 05:15 | RT.EKG_ITS ---
APPROVED REPORT Exam: Resting ECG Reason for Exam: vomiting Patient Location: E HR:129 bpm ECG Measurements Heart Rate 129 AXIS RI 189 P 20 QRSd 83 QRS -31 QT 278 T 132 QTc 408 Conclusion Sinus tachycardia...rate> 99 Inferior infarct, old...Q >35mS, II III aVF Nonspecific T abnormalities, lateral leads...T <-0.10mV, I aVL V5 V6 Physician: no stemi, lead III pattern is identical to prior ekg's
--- NOTE | 2024-12-20 05:22 | W.ED.GENAD ---
Discharge Plan Disposition Patient Disposition: Home Condition: Good Discharge Details Clinical Impression: Gastroenteritis, Fever Primary Care Provider: Yadira Holly ED Provider: Gregorio Shea Home Meds and New Rx's Prescriptions: No Action polyethylene glycol 3350 [Miralax] 17 gram/dose powder 17 g PO DAILY coenzyme Q10 [CoQ-10] 100 mg capsule 100 mg PO DAILY famotidine 10 mg tablet 10 mg PO DAILY Repatha SureClick 140 mg/mL pen injector 140 mg subcut Q2W aspirin 81 mg tablet,delayed release (DR/EC) 81 mg PO DAILY nystatin 100,000 unit/gram powder 1 applic topical BID Qty: 60 1RF propranolol 20 MG tablet 40 mg PO BID Qty: 180 ydjjeaj-wzznhvfup-jwarxoitipic 1 EACH capsule 2 tab-cap PO ONCE PRNQty: 30 Patient Comments: makes her heart race Rx Instructions: MIDRIN 2 TABS ONSET OF GUIDO & 1 TAB EVERY HR UNTIL RELIEF MAX 5 CAP IN 12HR mycophenolate sodium [Myfortic] 360 MG tablet,delayed release (DR/EC) 3 tab PO BID Qty: 270 tacrolimus [Prograf] 0.5 MG capsule 1.5 mg PO BID Qty: 180 acetaminophen [Tylenol] 325 MG tablet 500 mg PO PRN imzvpfzvvk-aphsgqwuxueib-gdnq 50-325-40 mg tablet 1 tab PO PRN Qty: 60 0RF promethazine 12.5 mg tablet 12.5 mg PO PRN Qty: 60 0RF (DME) blood-glucose meter [OneTouch Verio Flex meter] Misc See Rx Instructions .ROUTE .MEDSUPPLY Qty: 1 0RF Rx Instructions: As directed - check daily (DME) OneTouch Verio test strips Strip See Rx Instructions .ROUTE .COMPLEX Qty: 100 6RF Dose Instruction: USE TO TEST TWICE A DAY Rx Instructions: USE TO TEST TWICE A DAY losartan 50 mg tablet 50 mg PO DAILY Qty: 90 3RF estradiol [Vivelle-Dot] 0.05 mg/24 hr patch semiweekly 1 patch transdermal .2xw Qty: 24 3RF omeprazole magnesium 20 mg capsule,delayed release(DR/EC) 20 mg PO DAILY Qty: 90 3RF (DME) lancets [OneTouch Delica Plus Lancet] 33 gauge misc See Rx Instructions .ROUTE .MEDSUPPLY Qty: 100 3RF Rx Instructions: As directed once daily lorazepam 0.5 mg tablet 0.5 mg PO DAILY PRN (Reason: anxiety) Qty: 60 2RF tirzepatide 10 mg/0.5 mL pen injector 10 mg subcut QWEEK Qty: 2 5RF progesterone micronized 200 mg capsule 200 mg PO QHS Qty: 42 3RF Rx Instructions: Take for 14 days each month. cyclobenzaprine 10 mg tablet 10 mg PO TID PRN (Reason: muscle spasm) Qty: 25 1RF levothyroxine 75 mcg tablet 75 mcg PO DAILY Qty: 90 3RF magnesium oxide 400 MG tablet 400 mg PO BID Qty: 30 0RF diltiazem HCl 120 mg capsule,extended release 24hr 120 mg PO DAILY Qty: 30 0RF bisacodyl 5 mg tablet,delayed release (DR/EC) 5 mg PO ONCE amoxicillin 500 mg capsule 2,000 mg PO .COMPLEX Rx Instructions: 2,000 mg orally prior to dental work; meclizine 12.5 mg tablet See Rx Instructions PO Q6H PRN Rx Instructions: 1-2 tablets orally every 6 hours, as needed; rosuvastatin [Crestor] 5 mg tablet 2.5 mg PO DAILY Rx Instructions: at bedtime calcium carbonate [Tums] 200 mg calcium (500 mg) tablet,chewable 200 mg PO DAILY baclofen 10 mg tablet 10 mg PO Q6H PRN (Reason: back spasms) loperamide 2 mg capsule 2 mg PO Q4H PRN Rx Instructions: administer after each loose stool until symptoms controlled; do not exceed 8 mg per 24 hrs prednisone 5 mg tablet 5 mg PO DAILY prednisone 2.5 mg tablet 2.5 mg PO DAILY tacrolimus 1 mg capsule 2 mg PO BID cyclobenzaprine 5 mg tablet 5 mg PO TID PRNQty: 14 0RF Discharge Instructions Instructions: Viral gastroenteritis in adults, Fever, Adult ED Additional Instructions: At this time there is a high likelihood that your symptoms and fever are secondary to a viral etiology. Thankfully at this time we do not see any evidence of a bacterial infection. We have sent blood cultures as a precaution though. Please stick with a bland and liquid diet for the next few days. Drink plenty of fluids and stay well-hydrated. Avoid greasy or fatty foods. Take a probiotic to help reduce diarrhea. Take the Zofran as needed for any return of nausea. If you notice any worsening of your symptoms, or any new symptoms such as vomiting, diarrhea, fever, chills, shortness of breath, chest pain, numbness, weakness, or fainting , please return immediately to the emergency department for reevaluation. Please follow up with your primary care provider as soon as possible for reassessment and reevaluation. As always, it was a pleasure participating in your medical care today. Referrals: Yadira Holly MD [Primary Care Provider] - [facility] General Date/Time Provider Initiated Documentation: 12/20/24 05:16. [facility] Narrative: This is a very pleasant 59-year-old female with past medical history of cardiac transplant on tacrolimus, hypothyroidism, cataracts, hypertension, GERD, presents today for nausea and vomiting. Patient states that she went to some family member's house yesterday, and they all had nausea and vomiting and diarrhea. This evening at around 8 PM the patient also began to experience nausea vomiting and diarrhea with generalized abdominal cramping. It continued throughout the night with multiple episodes, she was unable to keep anything down. She called EMS this morning for further evaluation. She is noted to be tachycardic and febrile, and she was given 4 mg of Zofran, 1000 mg of Ofirmev, and a 500 cc bag of normal saline was started. Patient states that after interventions she is starting to feel much better, but she still does have mild left lower quadrant cramping. She denies any blood in her stools or vomit. She denies any other complaints at this time. She denies any chest pain or shortness of breath. Related Data Home Medications ?Medication ?Instructions ?Recorded ?Confirmed propranolol 20 mg tablet 40 mg PO BID #180 tab-caps 06/29/14 12/20/24 vthaxvymrbzff-vznallniehluj-kkhbtevtzzxap 2 tab-cap PO ONCE PRN #30 tab-caps 07/12/15 12/20/24 65 mg-100 mg-325 mg capsule magnesium oxide 400 mg (241.3 mg 400 mg PO BID #30 tabs 11/22/15 12/20/24 magnesium) tablet mycophenolate sodium 360 mg 3 tab PO BID #270 tabs 07/03/16 12/20/24 tablet,delayed release (Myfortic) tacrolimus 0.5 mg capsule, 1.5 mg PO BID #180 caps 11/20/16 12/20/24 immediate-release (Prograf) acetaminophen 325 mg tablet 500 mg PO PRN 03/28/17 12/20/24 (Tylenol) ovmrhwdipv-yjarsvjvjawwj-cikdjtnz 1 tab PO PRN #60 tabs 11/29/20 12/20/24 50 mg-325 mg-40 mg tablet promethazine 12.5 mg tablet 12.5 mg PO PRN #60 tabs 11/29/20 12/20/24 prednisone 2.5 mg tablet 2.5 mg PO DAILY 02/01/21 12/20/24 prednisone 5 mg tablet 5 mg PO DAILY 02/01/21 12/20/24 famotidine 10 mg tablet 10 mg PO DAILY 04/11/21 12/20/24 evolocumab 140 mg/mL subcutaneous 140 mg subcut Q2W High cholesterol 04/30/23 12/20/24 pen injector ([employer]) blood-glucose meter (OneTouch #1 ea 06/10/23 09/02/24 Verio Flex Meter) blood sugar diagnostic (OneTouch #100 strips 08/28/23 09/02/24 Verio test strips) diltiazem HCl 120 mg 120 mg PO DAILY #30 caps 10/14/23 12/20/24 capsule,extended release 24 hr aspirin 81 mg tablet,delayed 81 mg PO DAILY 11/06/23 12/20/24 release nystatin 100,000 unit/gram topical 1 applic topical BID #60 grams 11/06/23 12/20/24 powder losartan 50 mg tablet 50 mg PO DAILY #90 tabs 03/30/24 12/20/24 coenzyme Q10 100 mg capsule 100 mg PO DAILY 05/06/24 12/20/24 (CoQ-10) polyethylene glycol 3350 17 17 g PO DAILY 05/06/24 12/20/24 gram/dose oral powder (Miralax) estradiol 0.05 mg/24 hr semiweekly 1 patch transdermal .2xw #24 ea 05/13/24 12/20/24 transdermal patch (Vivelle-Dot) cyclobenzaprine 5 mg tablet 5 mg PO TID PRN #14 tabs 05/29/24 12/20/24 tacrolimus 1 mg capsule, 2 mg PO BID 05/29/24 12/20/24 immediate-release omeprazole magnesium 20 mg 20 mg PO DAILY #90 caps 06/16/24 12/20/24 capsule,delayed release lancets 33 gauge ([facility] ea 06/18/24 09/02/24 Plus Lancet) lorazepam 0.5 mg tablet 0.5 mg PO DAILY PRN anxiety #60 06/18/24 12/20/24 tabs tirzepatide 10 mg/0.5 mL 10 mg (0.5 mL) subcut QWEEK #2 mL 08/11/24 12/20/24 subcutaneous pen injector bisacodyl 5 mg tablet,delayed 5 mg PO ONCE 08/28/24 12/20/24 release progesterone micronized 200 mg 200 mg PO QHS #42 caps 11/04/24 12/20/24 capsule cyclobenzaprine 10 mg tablet 10 mg PO TID PRN muscle spasm #25 11/11/24 12/20/24 tabs levothyroxine 75 mcg tablet 75 mcg PO DAILY #90 tab-caps 12/03/24 12/20/24 amoxicillin 500 mg capsule 2,000 mg PO .COMPLEX 12/20/24 12/20/24 baclofen 10 mg tablet 10 mg PO Q6H PRN back spasms 12/20/24 12/20/24 calcium carbonate (Tums) 200 mg PO DAILY 12/20/24 12/20/24 loperamide 2 mg capsule 2 mg PO Q4H PRN 12/20/24 12/20/24 meclizine 12.5 mg tablet See Rx Instructions PO Q6H PRN 12/20/24 12/20/24 rosuvastatin 5 mg tablet (Crestor) 2.5 mg PO DAILY 12/20/24 12/20/24 Previous Rx's ?Medication ?Instructions ?Recorded magnesium oxide 400 mg (241.3 mg 400 mg PO BID #30 tabs 11/22/15 magnesium) tablet tkprwyeoxb-twgepltjelcih-ldourwtk 1 tab PO PRN #60 tabs 11/29/20 50 mg-325 mg-40 mg tablet promethazine 12.5 mg tablet 12.5 mg PO PRN #60 tabs 11/29/20 blood-glucose meter (OneTouch #1 ea 06/10/23 Verio Flex Meter) blood sugar diagnostic ([facility] strips 08/28/23 Verio test strips) diltiazem HCl 120 mg 120 mg PO DAILY #30 caps 10/14/23 capsule,extended release 24 hr nystatin 100,000 unit/gram topical 1 applic topical BID #60 grams 11/06/23 powder losartan 50 mg tablet 50 mg PO DAILY #90 tabs 03/30/24 estradiol 0.05 mg/24 hr semiweekly 1 patch transdermal .2xw #24 ea 05/13/24 transdermal patch (Vivelle-Dot) cyclobenzaprine 5 mg tablet 5 mg PO TID PRN #14 tabs 05/29/24 omeprazole magnesium 20 mg 20 mg PO DAILY #90 caps 06/16/24 capsule,delayed release lancets 33 gauge ([employer] Delica #100 ea 06/18/24 Plus Lancet) lorazepam 0.5 mg tablet 0.5 mg PO DAILY PRN anxiety #60 06/18/24 tabs tirzepatide 10 mg/0.5 mL 10 mg (0.5 mL) subcut QWEEK #2 mL 08/11/24 subcutaneous pen injector progesterone micronized 200 mg 200 mg PO QHS #42 caps 11/04/24 capsule cyclobenzaprine 10 mg tablet 10 mg PO TID PRN muscle spasm #25 11/11/24 tabs levothyroxine 75 mcg tablet 75 mcg PO DAILY #90 tab-caps 12/03/24 Allergies Allergy/AdvReac Type Severity Reaction Status Date / Time quinidine Allergy Intermediate Skin Rash Verified 12/20/24 05:22 chlorhexidine AdvReac Severe chemical Verified 12/20/24 05:22 burn azithromycin AdvReac Intermediate Can't take Verified 12/20/24 05:22 due to heart transplant patient lisinopril AdvReac Intermediate cough Verified 12/20/24 05:22 metformin AdvReac Intermediate GI Verified 12/20/24 05:22 complaints pravastatin AdvReac Intermediate Myalgias Verified 12/20/24 05:22 General Stated Complaint: Nausea/Vomit/Diar ANNE: 3 Exam Narrative Exam Narrative: 1.Const: Well-nourished, Well-developed, appearing stated age 2.Eyes: PERRL, no conjunctival injection, and symmetrical lids. 3.ENT: Atraumatic external nose and ears. Dry MM. Neck: Symmetric, trachea midline, No thyromegaly. 4.CVS: +S1/S2, Peripheral pulses 2+ and equal in all extremities. Brisk capillary refill in all extremities. 5.RESP: Unlabored respiratory effort. Clear to auscultation bilaterally. No wheezes rales or rhonchi 6.GI: Soft, nondistended, no guarding or rebound, mild tenderness in the left lower quadrant. No right lower quadrant tenderness. 7.MSK: Normocephalic/Atraumatic, Extremities w/o deformity or ttp No cyanosis or clubbing, Normal movement of all extremities 8.Skin: Warm, Dry. No rashes or lesions. 9.Neuro: flight attendant/inflight manager II-XII grossly intact. Sensation grossly intact, no focal neurologic deficits. 10.Psych: (AAO) x3. Appropriate mood and affect Course Vital Signs Vital signs: Vital Signs Temperature 38.2 C H 12/20/24 05:12 Pulse 29 L 12/20/24 05:12 Respiratory Rate 20 12/20/24 05:12 Blood Pressure 123/81 12/20/24 05:12 Pulse Oximetry 100 12/20/24 05:12 Temperature 38.2 C H 12/20/24 05:19 Temperature Source Tympanic 12/20/24 05:19 Pulse 29 L 12/20/24 05:19 Respiratory Rate 20 12/20/24 05:19 Blood Pressure 123/81 12/20/24 05:19 Blood Pressure Position Supine 12/20/24 05:19 Pulse Oximetry 100 12/20/24 05:19 Oxygen Delivery Method Room Air 12/20/24 05:19 Oxygen Flow Rate 0 12/20/24 05:12 Pain Level 2 12/20/24 05:19 Lab/Test Results Lab/Test Results: 12/20/24 05:19 Blood Blood Culture - Pending 12/20/24 05:19 Blood Blood Culture - Pending Medical Decision Making This is a very pleasant 59-year-old female with past medical history of cardiac transplant on tacrolimus, hypothyroidism, cataracts, hypertension, GERD, presents today for nausea and vomiting. Patient states that she went to some family member's house yesterday, and they all had nausea and vomiting and diarrhea. This evening at around 8 PM the patient also began to experience nausea vomiting and diarrhea with generalized abdominal cramping. It continued throughout the night with multiple episodes, she was unable to keep anything down. She called EMS this morning for further evaluation. She is noted to be tachycardic and febrile, and she was given 4 mg of Zofran, 1000 mg of Ofirmev, and a 500 cc bag of normal saline was started. Patient states that after interventions she is starting to feel much better, but she still does have mild left lower quadrant cramping. She denies any blood in her stools or vomit. She denies any other complaints at this time. She denies any chest pain or shortness of breath. Exam demonstrates dry mucous membranes, mild left lower quadrant tenderness, no signs of an acute surgical abdomen though. Differential is highest for viral etiology or foodborne illness however COVID and influenza are certainly on the differential as is diverticulitis with her fever and left lower quadrant pain. Will get imaging, rehydrate, give Reglan, monitor closely and reassess. 6:30 AM Laboratory workup is returned, mild white count of 13.37, lactate elevated at 2.6. Electrolytes stable, BUN high at 29 with creatinine of 1.3. COVID flu and RSV are negative. Still pending urinalysis. On reassessment patient feels much better. Abdominal pain is notably improved. No more nausea or vomiting. CT scan results demonstrate no evidence of pneumonia or colitis. Mild fluid distention in the small and large bowel suggesting mild inflammation, but no evidence of diverticulitis. No signs of appendicitis. I still suspect viral etiology 7:42 AM Repeat lactate is downtrending, urinalysis is negative for infection, serial troponins are stable. Patient feels well. She tolerated p.o. She feels well would like to go home. I do feel that this is reasonable at this time. I had a long discussion with the patient regarding the importance of caution, and how she needs to continue to closely monitor her symptoms. If her fever or abdominal pain returns she should return for reassessment. Blood cultures have been sent. She will be contacted if these are positive. Patient will be discharged with some home Zofran. Discussed red flags for which to return. I have extensively reviewed the treatment plan and discharge instructions with the patient. I have addressed all patient concerns at this time. The patient was made aware of what symptoms to monitor for that would warrant a return to the emergency department. Discussed the plan with the patient, they demonstrate verbal understanding and agreement with our assessment and plan at this time. The documentation in this chart was dictated using [employer] dictation software. Please excuse any dictation errors. FINDINGS: Limitations: Mild motion artifact. Liver: No focal hepatic lesion identified. Gallbladder and biliary ducts: Distended gallbladder. Pancreas: No CT evidence for acute pancreatitis. Spleen: Mild splenomegaly. Adrenal glands: No mass. Kidneys and ureters: Lobulations in both kidneys. No hydronephrosis or CT evidence for pyelonephritis. Stomach and bowel: Thickening of the distal stomach commensurate with underdistention. No intestinal obstruction is evident. Fluid in nondilated small bowel, nonspecific. Fluid in the colon. Appendix: No evidence of appendicitis. Intraperitoneal space: No free air. Vasculature: No abdominal aortic aneurysm. Lymph nodes: Nonspecific mesenteric and retroperitoneal lymph nodes. Urinary bladder: No acute findings. Reproductive: No acute findings. Bones/joints: No pertinent acute abnormality seen. Soft tissues: Fat containing wide neck ventral hernia. IMPRESSION: 1. Fluid distension of small and large bowel, suggesting mild inflammation. 2. Additional findings as above. 3. Additional studies dictated separately. Thank you for allowing us to participate in the care of your patient. 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 Heart transplant status (Chronic 09/11/12) Managed at [facility] Hot flashes (Chronic 02/21/16) Managed by [facility]; side effects from venlafaxine, unable to use HRT. Migraine (Chronic 07/12/15) Obesity (Acute) Gastroesophageal reflux disease (Chronic) Medical History (Updated 12/20/24 @ 07:09 by Gregorio Shea DO) COVID-19 treated with [facility]AB through ER. Palpitations while on trulicity Perforation of tympanic membrane (03/26/13) right, surgically repaired [facility] Hx of gastric ulcer patient originally followed by [facility] for hx of gastric ulcers, EGD 08/28/2017 with CD showed erosive gastritis. 02/04/[address] Leger showed mild esophagitis. Dr Simmons referred to [facility] for C[facility]RDE[facility]S, done 03/28/[address] Arredondo, [facility] General and GI surgery recommeds weight loss/possible gastric surgery. Dr Kevin from [facility] recommends repeat EGD, Dr Legre has agreed to repeat EGD. MAintained on omeprazole and famotidine. Cardiomyopathy cardiac transplant 01/04/12 - [facility] Surgical History (Updated 08/28/24 @ 13:16 by Alcira Shields) History of colonoscopy (~08/28/24) H/O esophagogastroduodenoscopy (~08/28/24) Status post heart transplant (~2011) S/P ear surgery History of intraocular lens implant Both eyes EGD - [facility] (09/07/19) 2018-Dr Leger, mild esophagits 01/2019- chronic gastric ulcers Colonoscopy - [facility] 04/23/14; [facility] Family History Other Cancer Diabetes Social History Smoking/Tobacco Use Status: Never Second Hand Exposure: No Smoking risk assessment performed?: Yes Alcohol Intake: current Alcohol Intake frequency: holidays/special occasions only Drug use: Never Substance use type: does not use Details: alcohol: unk Caregiver/Support person: No Household members: spouse Housing: house Number of Children: 2 Communication Needs: None Do you need help understanding health information?: Rarely current occupation: disabled Pets and animals: No Sexually active: Yes Do you think of yourself as: straight/heterosexual Current gender identity: female What is your relationship status?: How often do you talk on the phone with friends or family?: three or more times per week How often do you get together with friends or relatives?: once per week How often do you attend quaker or sabianism services?: 1-3 times per year Do you belong to any clubs or organized social groups?: no Panel score (0-1 are the most socially isolated patients): 2 What type of physical activity do you participate in: walking Duration: 30-45 minutes/day Frequency: 3-4 times per week Ly/Orthodox: Mu-Ism Seatbelt use: always Helmet use: Yes Helmet use: always Drive intox or ride w/intox ross carrier driver: No Do you feel safe at home: Yes Do you feel safe in your relationship?: Yes Female Reproductive History Menstrual control method: other ( vasectomy) Menopause type: natural Date of menopause: 04/01/18 History History 3 Para Hx # Term Pregnancies 1 Multiple births Hx # Pregnancies Ectopic pregnancies AB induced Hx Number of Living Children AB spontaneous
[2024-12-20] MEDS: Metoclopramide 10 MG/2 ML VIAL IVP (05:32)
[2024-12-20] MEDS: Normal Saline 500 ML IV ×2 (05:33→07:07)
[2024-12-20 05:36] LABS: Abs Immature Grans 0.05 10^3/uL (0.0-0.06); Absolute Basophil Count 0.03 10^3/uL (0.0-0.2); Absolute Lymphocyte Count 0.63 10^3/uL (1.2-3.4); Absolute Monocyte Count 0.86 10^3/uL (0.1-0.8); Basophils % 0.2 %; Eosinophils % 1.9 %; HCT 44.1 % (36.0-46.0); HGB 14.4 g/dL (11.2-15.7); Immature Grans % 0.4 %; Lymphocytes % 4.7 %; MCH 29.9 pg (27.0-33.0); MCHC 32.7 % (32.0-36.0); MCV 92 fL (80-95); MPV 9.6 fL (8.0-11.0); Monocytes % 6.4 %; Neutrophils % 86.4 %; Platelet Count 255 10^3/uL (130-400); RBC 4.81 10^6/uL (3.93-5.22); RDW 13.2 % (11.7-14.6); RDW-SD 43.8 fL; WBC 13.37 10^3/uL (4.4-10.8)
[2024-12-20 05:37] LABS: Absolute Eosinophil Count 0.25 10^3/uL (0.0-0.7); Absolute Neutrophil Count 11.55 10^3/uL (1.2-6.7)
[2024-12-20 05:39] LABS: Lactate 2.6 mmol/L (0.6-1.4)
[2024-12-20 05:51] LABS: ALT 22 U/L (14-59); AST 10 U/L (15-37); Albumin 3.7 g/dL (3.4-5.0); Alkaline Phosphatase 80 U/L (46-116); Anion Gap 9.6 mmol/L (3-11); BUN 29 mg/dL (7-18); Bilirubin, Total 0.62 mg/dL (0.2-1.0); CO2 24.4 mmol/L (21.0-32.0); CREATININE 1.3 mg/dL (0.55-1.02); Chloride 110 mmol/L (98-107); Estimated GFR 47.08 (mL/min/1.73m2); Glucose 147 mg/dL (74-106); Lipase 23 U/L (<78); Potassium 4.8 mmol/L (3.5-5.1); Sodium 144 mmol/L (136-145); Total Protein 6.9 g/dL (6.4-8.2)
[2024-12-20 05:59] LABS: Troponin I 15 ng/L (<or=51)
[2024-12-20 06:13] LABS: COVID-19 PCR Negative (Negative); Influenza A PCR Negative (Negative); Influenza B PCR Negative (Negative); RSV PCR Negative (Negative)
[2024-12-20 06:14] LABS: Source Nasopharynx
--- NOTE | 2024-12-20 06:35 | DI.CT_ITS ---
Exam(s) CT CHEST/ABD/PEL W EXAM: CT CHEST/ABD/PEL W CLINICAL HISTORY: LLQ abd pain, hx of heart transplant, vomiting. TECHNIQUE: Imaging Protocol: Axial computed tomography images with coronal and sagittal reformatted images were created and reviewed. Computer aided detection (CAD) was utilized. CONTRAST MATERIAL: Intravenous: Omnipaque 350 Contrast volume:100 ml Oral: no COMPARISON: CT CT ABDOMEN PELVIS W from 05/29/2024 FINDINGS: CHEST: Tracheobronchial tree: Patent. Pulmonary parenchyma: No consolidation or dominant measurable mass. Dependent changes at the lung ba ses. Pleura: No effusion or pneumothorax. Mediastinum: Within normal limits. Aorta: Thoracic portion non-dilated. No significant atherosclerotic changes. Pulmonary arteries: No visible emboli. Heart: Cardiac transplant. Heart normal size. No pericardial effusion. Bones: Unremarkable for age. No lytic or blastic lesions.No compression fractures. Sternal wires. Soft tissues: Unremarkable. ABDOMEN and PELVIS: Mild exam mildly limited by motion. Liver: Normal density. No measurable mass. Gallbladder and biliary tract: The gallbladder is distended. There may be 1 or 2 small gallstones. No evidence of wall thickening. No biliary dilatation. No pericholecystic fluid. Pancreas: Normal density, no abnormal calcifications or inflammatory process. Spleen: Normal. Kidneys: Normal size, contour and axis. No radiodense stones. No obstructive uropathy. No suspicious masses seen. Adrenal glands: No masses seen. Aorta: Abdominal portion non-dilated. Lymph nodes: Within normal limits. Soft tissues: Dehiscence of the midline anterior abdominal wall. Bladder: Nearly empty. Unremarkable. Bowel: No obstruction or bowel wall thickening. Appendix normal. Moderate diverticulosis. No evid ence of diverticulitis. Some fluid in colon and portions of small bowel. No abnormal distension.. Peritoneal cavity: No ascites. No focal collection. No mesenteric inflammatory response. No free ai r. Bones: Unremarkable for age. Reproductive organs: Within normal limits. IMPRESSION: No acute abnormality in the chest. Fluid in nondistended colon could indicate diarrheal illness. No evidence of diverticulitis or wall thickening. The gallbladder is distended and there may be 1 or 2 stones are there is no wall thickening or perich olecystic fluid. No biliary dilatation. RADIATION DOSE DELIVERED: Total DLP DATA REPOSITORY: All CT scans at this facility are submitted to the National Radiology Data Registry (NRDR) Dose Index Registry (DIR) with the [employer] (ACR). RADIATION OPTIMIZATION: All CT scans at this facility use at least one of these dose optimization te chniques: automated exposure control; mA and/or kV adjustment per patient size (includes targeted exa ms where dose is matched to clinical indication); or iterative reconstruction.
[2024-12-20] MEDS: Normal Saline - Diluent 50 ML VIAL IJ (06:38)
[2024-12-20] MEDS: Omnipaque 350 MG/ML 100 ML BTL IJ (06:38)
--- NOTE | 2024-12-20 06:59 | DI.VRAD_ITS ---
PROCEDURE INFORMATION: Exam: CT Chest With Contrast; Diagnostic Exam date and time: 12/20/2024 6:24 AM Age: 59 years old Clinical indication: Other: Llq abd pain, HX of heart transplant, vomiting; Prior surgery; Surgery date: 6+ months; Surgery type: Heart transplant in 2011 TECHNIQUE: Imaging protocol: Diagnostic computed tomography of the chest with contrast. 3D rendering (Not supervised by radiologist): MIP and/or 3D reconstructed images were created by the technologist. Contrast material: OMNIPAQUE 350; Contrast volume: 100 ml; Contrast route: INTRAVENOUS (IV); COMPARISON: CT THORAX CTA 05/29/2024 12:14 AM FINDINGS: Lungs: Dependent changes are present in the lungs. Pleural spaces: No pleural effusion. Heart: Status post heart transplant. Lymph nodes: Nonspecific mediastinal lymph nodes. Vasculature: No thoracic aortic aneurysm. Bones/joints: No acute pertinent abnormality appreciated. Soft tissues: No acute pertinent abnormality appreciated. IMPRESSION: 1. No acute findings to explain reported symptoms. 2. Additional studies dictated separately. PROCEDURE INFORMATION: Exam: CT Abdomen And Pelvis With Contrast Exam date and time: 12/20/2024 6:24 AM Age: 59 years old Clinical indication: Other: Llq abd pain, HX of heart transplant, vomiting; Prior surgery; Surgery date: 6+ months; Surgery type: Heart transplant in 2011 TECHNIQUE: Imaging protocol: Computed tomography of the abdomen and pelvis with contrast. 3D rendering (Not supervised by radiologist): MIP and/or 3D reconstructed images were created by the technologist. Contrast material: OMNIPAQUE 350; Contrast volume: 100 ml; Contrast route: INTRAVENOUS (IV); COMPARISON: CT ABDOMEN PELVIS W 05/29/2024 12:14 AM FINDINGS: Limitations: Mild motion artifact. Liver: No focal hepatic lesion identified. Gallbladder and biliary ducts: Distended gallbladder. Pancreas: No CT evidence for acute pancreatitis. Spleen: Mild splenomegaly. Adrenal glands: No mass. Kidneys and ureters: Lobulations in both kidneys. No hydronephrosis or CT evidence for pyelonephritis. Stomach and bowel: Thickening of the distal stomach commensurate with underdistention. No intestinal obstruction is evident. Fluid in nondilated small bowel, nonspecific. Fluid in the colon. Appendix: No evidence of appendicitis. Intraperitoneal space: No free air. Vasculature: No abdominal aortic aneurysm. Lymph nodes: Nonspecific mesenteric and retroperitoneal lymph nodes. Urinary bladder: No acute findings. Reproductive: No acute findings. Bones/joints: No pertinent acute abnormality seen. Soft tissues: Fat containing wide neck ventral hernia. IMPRESSION: 1. Fluid distension of small and large bowel, suggesting mild inflammation. 2. Additional findings as above. 3. Additional studies dictated separately. Dictated and Authenticated by: Rasheeda Vasquez MD. Ordering:DARRELL Perkins MD
[2024-12-20 07:11] LABS: Troponin I 14 ng/L (<or=51)
[2024-12-20 07:23] LABS: Lactate 2.1 mmol/L (0.6-1.4)
[2024-12-20 07:29] LABS: Bilirubin Negative (Negative); Blood Negative (Negative); Clarity Sl Cloudy (Clear); Glucose Negative (Negative); Ketones Negative (Negative); Leukocyte Esterase Negative (Negative); Nitrite Negative (Negative); Urobilinogen 0.2 mg/dL (Up to 0.2)
[2024-12-20] MEDS: Ondansetron O.D.T. 4 MG TABEF, 3 TABS/BTL PO (07:58)
== END 2024-12-20 08:04 | disposition home or self-care (01) ==
PROVIDERS: Emergency Provider Student in an Organized Health Care Education/Training Program; PCP Family Medicine
DX: R11.2 Nausea with vomiting, unspecified (principal); K52.9 Noninfective gastroenteritis and colitis, unspecified; R50.9 Fever, unspecified; Z94.1 Heart transplant status; K21.9 Gastro-esophageal reflux disease without esophagitis
CPT/HCPCS: 36415; 74177; 80053; 83690; 87040; 87637; 93005; 96361; 96365; 99285; 71260; 81003; 83605; 84484; 85025; 93010; 99284; J2765; J3490

== ENCOUNTER 2025-01-10 14:24 | Inpatient (IN) | payer OTHER, SELFPAY ==
[2025-01-10] VITALS (94 sets, daily range): BP systolic 106–138; BP diastolic 76–99; PULSE 72–128; RESP 8–35; TEMP 36.3; O2SAT 96–100
--- NOTE | 2025-01-10 14:45 | RT.EKG_ITS ---
APPROVED REPORT Exam: Resting ECG Reason for Exam: Weakness Patient Location: E HR:102 bpm ECG Measurements Heart Rate 102 AXIS DE 189 P 40 QRSd 90 QRS -26 QT 352 T 53 QTc 459 Conclusion Sinus tachycardia...rate> 99 Inferior infarct, old...Q >35mS, II III aVF compared to prior 12/20/[address] segment or T wave abnormalities to suggest occlusive MD
--- NOTE | 2025-01-10 14:54 | ED.GENADUL_ITS ---
Discharge Plan Discharge Details Chief Complaint: Nausea/Vomit/Diar Primary Care Provider: Yadira Holly ED Provider: Maria Teresa Sanchez Home Meds and New Rx's Prescriptions: No Action polyethylene glycol 3350 [Miralax] 17 gram/dose powder 17 g PO DAILY coenzyme Q10 [CoQ-10] 100 mg capsule 100 mg PO DAILY famotidine 10 mg tablet 10 mg PO DAILY Repatha SureClick 140 mg/mL pen injector 140 mg subcut Q2W aspirin 81 mg tablet,delayed release (DR/EC) 81 mg PO DAILY nystatin 100,000 unit/gram powder 1 applic topical BID Qty: 60 1RF propranolol 20 MG tablet 40 mg PO BID Qty: 180 jthalbp-ggskuxdyq-vngglgmfseab 1 EACH capsule 2 tab-cap PO ONCE PRNQty: 30 Patient Comments: makes her heart race Rx Instructions: MIDRIN 2 TABS ONSET OF GUIDO & 1 TAB EVERY HR UNTIL RELIEF MAX 5 CAP IN 12HR mycophenolate sodium [Myfortic] 360 MG tablet,delayed release (DR/EC) 3 tab PO BID Qty: 270 tacrolimus [Prograf] 0.5 MG capsule 1.5 mg PO BID Qty: 180 acetaminophen [Tylenol] 325 MG tablet 500 mg PO PRN pbzoqpuimt-nzssbajmpnlqx-mokx 50-325-40 mg tablet 1 tab PO PRN Qty: 60 0RF promethazine 12.5 mg tablet 12.5 mg PO PRN Qty: 60 0RF (DME) blood-glucose meter [OneTouch Verio Flex meter] Misc See Rx Instructions .ROUTE .MEDSUPPLY Qty: 1 0RF Rx Instructions: As directed - check daily (DME) OneTouch Verio test strips Strip See Rx Instructions .ROUTE .COMPLEX Qty: 100 6RF Dose Instruction: USE TO TEST TWICE A DAY Rx Instructions: USE TO TEST TWICE A DAY omeprazole magnesium 20 mg capsule,delayed release(DR/EC) 20 mg PO DAILY Qty: 90 3RF (DME) lancets [OneTouch Delica Plus Lancet] [facility] See Rx Instructions .ROUTE .MEDSUPPLY Qty: 100 3RF Rx Instructions: As directed once daily lorazepam 0.5 mg tablet 0.5 mg PO DAILY PRN (Reason: anxiety) Qty: 60 2RF progesterone micronized 200 mg capsule 200 mg PO QHS Qty: 42 3RF Rx Instructions: Take for 14 days each month. cyclobenzaprine 10 mg tablet 10 mg PO TID PRN (Reason: muscle spasm) Qty: 25 1RF levothyroxine 75 mcg tablet 75 mcg PO DAILY Qty: 90 3RF estradiol [Vivelle-Dot] 0.05 mg/24 hr patch semiweekly 1 patch transdermal .2xw Qty: 8 0RF losartan 50 mg tablet 50 mg PO DAILY Qty: 90 3RF tirzepatide 10 mg/0.5 mL pen injector 10 mg subcut QWEEK Qty: 2 5RF magnesium oxide 400 MG tablet 400 mg PO BID Qty: 30 0RF diltiazem HCl 120 mg capsule,extended release 24hr 120 mg PO DAILY Qty: 30 0RF bisacodyl 5 mg tablet,delayed release (DR/EC) 5 mg PO ONCE amoxicillin 500 mg capsule 2,000 mg PO .COMPLEX Rx Instructions: 2,000 mg orally prior to dental work; meclizine 12.5 mg tablet See Rx Instructions PO Q6H PRN Rx Instructions: 1-2 tablets orally every 6 hours, as needed; rosuvastatin [Crestor] 5 mg tablet 2.5 mg PO DAILY Rx Instructions: at bedtime calcium carbonate [Tums] 200 mg calcium (500 mg) tablet,chewable 200 mg PO DAILY baclofen 10 mg tablet 10 mg PO Q6H PRN (Reason: back spasms) loperamide 2 mg capsule 2 mg PO Q4H PRN Rx Instructions: administer after each loose stool until symptoms controlled; do not exceed 8 mg per 24 hrs prednisone 5 mg tablet 5 mg PO DAILY prednisone 2.5 mg tablet 2.5 mg PO DAILY tacrolimus 1 mg capsule 2 mg PO BID cyclobenzaprine 5 mg tablet 5 mg PO TID PRNQty: 14 0RF HPI General Mode of arrival: ambulatory . Date/Time Provider Initiated Documentation: 01/10/25 14:26 . Limitations to Documentation: no limitations . Information obtained by: patient, family, RN notes reviewed and old records reviewed . HPI Narrative: 59-year-old female with a past medical history of heart transplant in 2011 presents to the ER after 3 weeks of ongoing diarrhea. Patient was seen here in the emergency department diagnosed with gastroenteritis 3 weeks ago and since then she reports continued diarrheal stools daily with nausea and increased acid reflux. She reports generalized crampy abdominal pain. Denies any chest pain or palpitations but does endorse dizziness and lightheadedness upon standing, she also reports that she has been taking Imodium double strength as directed with little to no relief. She describes yellow liquid diarrhea. She is immunosuppressed and does take immunosuppression medications for the heart transplant. Other past medical history include high cholesterol, hypertension, gastric ulcer. She denies any travel prior to her symptom onset but does endorse that she had some sick contacts with similar symptoms. Related Data Home Medications ?Medication ?Instructions ?Recorded ?Confirmed propranolol 20 mg tablet 40 mg PO BID #180 tab-caps 06/29/14 01/10/25 erjlfjgitxrcc-mnslbtpyonsdl-wlpyyhciyxdez 2 tab-cap PO ONCE PRN #30 tab-caps 07/12/15 01/10/25 65 mg-100 mg-325 mg capsule magnesium oxide 400 mg (241.3 mg 400 mg PO BID #30 tabs 11/22/15 01/10/25 magnesium) tablet mycophenolate sodium 360 mg 3 tab PO BID #270 tabs 07/03/16 01/10/25 tablet,delayed release (Myfortic) tacrolimus 0.5 mg capsule, 1.5 mg PO BID #180 caps 11/20/16 01/10/25 immediate-release (Prograf) acetaminophen 325 mg tablet 500 mg PO PRN 03/28/17 01/10/25 (Tylenol) qjsjpsnrte-awowqzfumebdj-kmpbqeqi 1 tab PO PRN #60 tabs 11/29/20 01/10/25 50 mg-325 mg-40 mg tablet promethazine 12.5 mg tablet 12.5 mg PO PRN #60 tabs 11/29/20 01/10/25 prednisone 2.5 mg tablet 2.5 mg PO DAILY 02/01/21 01/10/25 prednisone 5 mg tablet 5 mg PO DAILY 02/01/21 01/10/25 famotidine 10 mg tablet 10 mg PO DAILY 04/11/21 01/10/25 evolocumab 140 mg/mL subcutaneous 140 mg subcut Q2W High cholesterol 04/30/23 01/10/25 pen injector (Hanna Casianoick) blood-glucose meter (OneTouch #1 ea 06/10/23 01/10/25 Verio Flex Meter) blood sugar diagnostic (OneTouch #100 strips 08/28/23 01/10/25 Verio test strips) diltiazem HCl 120 mg 120 mg PO DAILY #30 caps 10/14/23 01/10/25 capsule,extended release 24 hr aspirin 81 mg tablet,delayed 81 mg PO DAILY 11/06/23 01/10/25 release nystatin 100,000 unit/gram topical 1 applic topical BID #60 grams 11/06/23 01/10/25 powder coenzyme Q10 100 mg capsule 100 mg PO DAILY 05/06/24 01/10/25 (CoQ-10) polyethylene glycol 3350 17 17 g PO DAILY 05/06/24 01/10/25 gram/dose oral powder (Miralax) cyclobenzaprine 5 mg tablet 5 mg PO TID PRN #14 tabs 05/29/24 01/10/25 tacrolimus 1 mg capsule, 2 mg PO BID 05/29/24 01/10/25 immediate-release omeprazole magnesium 20 mg 20 mg PO DAILY #90 caps 06/16/24 01/10/25 capsule,delayed release lancets 33 gauge ([facility] #100 ea 06/18/24 01/10/25 Plus Lancet) lorazepam 0.5 mg tablet 0.5 mg PO DAILY PRN anxiety #60 06/18/24 01/10/25 tabs bisacodyl 5 mg tablet,delayed 5 mg PO ONCE 08/28/24 01/10/25 release progesterone micronized 200 mg 200 mg PO QHS #42 caps 11/04/24 01/10/25 capsule cyclobenzaprine 10 mg tablet 10 mg PO TID PRN muscle spasm #25 11/11/24 01/10/25 tabs amoxicillin 500 mg capsule 2,000 mg PO .COMPLEX 12/20/24 01/10/25 baclofen 10 mg tablet 10 mg PO Q6H PRN back spasms 12/20/24 01/10/25 calcium carbonate (Tums) 200 mg PO DAILY 12/20/24 01/10/25 loperamide 2 mg capsule 2 mg PO Q4H PRN 12/20/24 01/10/25 meclizine 12.5 mg tablet See Rx Instructions PO Q6H PRN 12/20/24 01/10/25 rosuvastatin 5 mg tablet (Crestor) 2.5 mg PO DAILY 12/20/24 01/10/25 levothyroxine 75 mcg tablet 75 mcg PO DAILY #90 tab-caps 12/29/24 01/10/25 estradiol 0.05 mg/24 hr semiweekly 1 patch transdermal .2xw #8 ea 01/04/25 01/10/25 transdermal patch (Vivelle-Dot) losartan 50 mg tablet 50 mg PO DAILY #90 tabs 01/04/25 01/10/25 tirzepatide 10 mg/0.5 mL 10 mg (0.5 mL) subcut QWEEK #2 mL 01/07/25 01/10/25 subcutaneous pen injector Previous Rx's ?Medication ?Instructions ?Recorded magnesium oxide 400 mg (241.3 mg 400 mg PO BID #30 tabs 11/22/15 magnesium) tablet lvkirwhqtb-yimntnwlcwnqs-uudvafer 1 tab PO PRN #60 tabs 11/29/20 50 mg-325 mg-40 mg tablet promethazine 12.5 mg tablet 12.5 mg PO PRN #60 tabs 11/29/20 blood-glucose meter (OneTouch #1 ea 06/10/23 Verio Flex Meter) blood sugar diagnostic (OneTouch #100 strips 08/28/23 Verio test strips) diltiazem HCl 120 mg 120 mg PO DAILY #30 caps 10/14/23 capsule,extended release 24 hr nystatin 100,000 unit/gram topical 1 applic topical BID #60 grams 11/06/23 powder cyclobenzaprine 5 mg tablet 5 mg PO TID PRN #14 tabs 05/29/24 omeprazole magnesium 20 mg 20 mg PO DAILY #90 caps 06/16/24 capsule,delayed release lancets 33 gauge (OneTouch Delica #100 ea 06/18/24 Plus Lancet) lorazepam 0.5 mg tablet 0.5 mg PO DAILY PRN anxiety #60 06/18/24 tabs progesterone micronized 200 mg 200 mg PO QHS #42 caps 11/04/24 capsule cyclobenzaprine 10 mg tablet 10 mg PO TID PRN muscle spasm #25 11/11/24 tabs levothyroxine 75 mcg tablet 75 mcg PO DAILY #90 tab-caps 12/29/24 estradiol 0.05 mg/24 hr semiweekly 1 patch transdermal .2xw #8 ea 01/04/25 transdermal patch (Vivelle-Dot) losartan 50 mg tablet 50 mg PO DAILY #90 tabs 01/04/25 tirzepatide 10 mg/0.5 mL 10 mg (0.5 mL) subcut QWEEK #2 mL 01/07/25 subcutaneous pen injector Allergies Allergy/AdvReac Type Severity Reaction Status Date / Time quinidine Allergy Intermediate Skin Rash Verified 01/10/25 14:33 chlorhexidine AdvReac Severe chemical Verified 01/10/25 14:33 burn azithromycin AdvReac Intermediate Can't take Verified 01/10/25 14:33 due to heart transplant patient lisinopril AdvReac Intermediate cough Verified 01/10/25 14:33 metformin AdvReac Intermediate GI Verified 01/10/25 14:33 complaints pravastatin AdvReac Intermediate Myalgias Verified 01/10/25 14:33 General Stated Complaint: Nausea/Vomit/Diar ANNE: 3 Review of Systems All systems reviewed & are unremarkable except as noted in HPI and below Constitutional Constitutional: Reports as per HPI, Reports lethargy, Reports poor appetite and Reports weakness ENT Ears, Nose, Mouth, and Throat: Reports dizziness Gastrointestinal Gastrointestinal: Reports abdominal pain, Reports cramping, Reports dyspepsia, Reports heartburn, Reports diarrhea, Reports loose stools, Reports nausea and Reports vomiting Neurologic Neurologic: Reports dizziness and Reports weakness Exam Narrative Exam Narrative: Constitutional: Alert and oriented x3. Appears stated age. Normal body habitus. Head: Normocephalic, no trauma. Eyes: Pupils PERRL, Red reflex noted, EOM's intact. Eyelids symmetrical without lesions, discharge, or swelling. ENT: Bilateral TM's WNL, External ear normal to inspection, no mastoid TTP, swelling, or erythema, Nasal turbinates WNL, no nasal discharge. Normal dentition, Posterior pharynx WNL, no exudate. Chest: RRR, Normal S1, S2, distal pulses intact. Resp: Lungs clear to auscultation bilaterally, no wheezes, rales, or rhonchi. Abdomen: Soft, non-distended, Normoactive bowel sounds all 4 quads. Left lower quadrant tenderness with palpation, no masses or guarding palpated. Musculoskeletal: Normal gait, Moves all 4 extremities without difficulty. Skin: No suspicious rashes or lesions. Capillary refill less than 2 sec. Neurologic: Cranial nerves II-XII intact. Alert and oriented x 3. Motor: No deficits noted. Sensory: Intact bilaterally all 4 extremities. Hematologic/Lymphatic: No ecchymosis, no lymphadenopathy. Course Vital Signs Vital signs: Vital Signs Temperature 36.3 C L 01/10/25 14:28 Pulse 72 01/10/25 14:28 Respiratory Rate 20 01/10/25 14:28 Blood Pressure 131/83 01/10/25 14:28 Pulse Oximetry 98 01/10/25 14:28 Temperature 36.3 C L 01/10/25 14:28 Temperature Source Oral 01/10/25 14:28 Pulse 72 01/10/25 14:28 Respiratory Rate 20 01/10/25 14:28 Blood Pressure 131/83 01/10/25 14:28 Blood Pressure Position Sitting 01/10/25 14:28 Pulse Oximetry 98 01/10/25 14:28 Oxygen Delivery Method Room Air 01/10/25 14:28 Oxygen Flow Rate 0 01/10/25 14:28 Pain Level 3 01/10/25 14:28 Lab/Test Results Lab/Test Results: 01/10/25 14:46 Blood Blood Culture - Pending 01/10/25 14:46 Blood Blood Culture - Pending Medical Decision Making 59-year-old female with a past medical history of heart transplant in 2011 presents to the ER after 3 weeks of ongoing diarrhea. Patient was seen here in the emergency department diagnosed with gastroenteritis 3 weeks ago and since then she reports continued diarrheal stools daily with nausea and increased acid reflux. She reports generalized crampy abdominal pain. Denies any chest pain or palpitations but does endorse dizziness and lightheadedness upon standing, she also reports that she has been taking Imodium double strength as directed with little to no relief. She describes yellow liquid diarrhea. She is immunosuppressed and does take immunosuppression medications for the heart transplant. Other past medical history include high cholesterol, hypertension, gastric ulcer. She denies any travel prior to her symptom onset but does endorse that she had some sick contacts with similar symptoms. Workup ordered including CBC CMP serial troponins, EKG, lipase, urinalysis, Blood Cultures, and lactate as patient is immunosuppressed. CT abdomen pelvis with IV contrast ordered. Patient does have some left lower quadrant abdominal pain. She did have a CT on the when she was seen here prior which showed some moderate diverticulosis. CT ordered to rule out diverticulitis. EKG was reviewed by Dr. Deidre Dominguez ER attending, old EKG available for review. Does have some inverted P waves and 2 3 and aVF. Care to be handed off to oncoming provider JOSE Perez pending labs imaging and further evaluation. Discussed patient case in details with him he verbalized understanding. Medical Records Medical records reviewed: Yes I reviewed the patient's medical records. 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 Heart transplant status (Chronic 09/11/12) Managed at [facility] Hot flashes (Chronic 02/21/16) Managed by [facility]; side effects from venlafaxine, unable to use HRT. Migraine (Chronic 07/12/15) Obesity (Acute) Gastroesophageal reflux disease (Chronic) Medical History COVID-19 treated with [facility]AB through ER. Palpitations while on trulicity Perforation of tympanic membrane (03/26/13) right, surgically repaired [facility] Hx of gastric ulcer patient originally followed by [facility] for hx of gastric ulcers, EGD 08/28/2017 with CD showed erosive gastritis. 02/04/[address] Leger showed mild esophagitis. Dr Simmons referred to [facility] for CÁRDENAS, done 03/28/[address] and [address] reflux[address] Arredondo, [facility] General and GI surgery recommeds weight loss/possible gastric surgery. Dr Kevin from [facility] recommends repeat EGD, Dr Leger has agreed to repeat EGD. MAintained on omeprazole and famotidine. Cardiomyopathy cardiac transplant 01/04/12 - [facility] cardiomyopathy Surgical History History of colonoscopy (~08/28/24) H/O esophagogastroduodenoscopy (~08/28/24) Status post heart transplant (~2011) S/P ear surgery History of intraocular lens implant Both eyes EGD - [facility] (09/07/19) 2018-Dr Leger, mild esophagits 01/2019- chronic gastric ulcers Colonoscopy - [facility] 04/23/14; [facility] Family History Other Cancer Diabetes Social History Smoking/Tobacco Use Status: Never Second Hand Exposure: No Smoking risk assessment performed?: Yes Alcohol Intake: current Alcohol Intake frequency: holidays/special occasions only Drug use: Never Substance use type: does not use Details: alcohol: unk Caregiver/Support person: No Household members: spouse Housing: house Number of Children: 2 Communication Needs: None Do you need help understanding health information?: Rarely current occupation: disabled Pets and animals: No Sexually active: Yes Do you think of yourself as: straight/heterosexual Current gender identity: female What is your relationship status?: How often do you talk on the phone with friends or family?: three or more times per week How often do you get together with friends or relatives?: once per week How often do you attend latter-day or mormonism services?: 1-3 times per year Do you belong to any clubs or organized social groups?: no Panel score (0-1 are the most socially isolated patients): 2 What type of physical activity do you participate in: walking Duration: 30-45 minutes/day Frequency: 3-4 times per week Ly/Taoism: Evangelical Seatbelt use: always Helmet use: Yes Helmet use: always Drive 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
--- NOTE | 2025-01-10 15:00 | DI.CT_ITS ---
Exam(s) CT ABDOMEN PELVIS W EXAM: CT ABDOMEN PELVIS W CLINICAL HISTORY: LLQ abd pain, Diarrhea. TECHNIQUE: Imaging Protocol: Axial computed tomography images with coronal and sagittal reformatted images were created and reviewed CONTRAST MATERIAL: Intravenous: Omnipaque-350 100cc Oral: None COMPARISON: CT CT CHEST/ABD/PEL W from 12/20/2024 FINDINGS: VISUALIZED LUNG BASES: No nodules nor pleural effusions evident. Sternotomy wires noted. ABDOMEN: There is no ascites. LIVER: There are no focal hepatic lesions evident. No dilated intrahepatic ducts. GALLBLADDER/BILIARY: Subtle density which is noncalcified noted on the dependent wall the gallbladder , similar location the previous. Either noncalcified gallstone or polyp. CBD is not dilated. PANCREAS: No evidence of pancreatic mass nor dilatation of the pancreatic duct. SPLEEN: Spleen is not enlarged. No obvious intrasplenic lesions. Splenic and portal veins are paten t. ADRENALS: There are no significant adrenal masses. KIDNEYS:No cysts evident. No solid renal masses. No calculi nor hydronephrosis.. ABDOMINAL AORTA: Abdominal aorta is not enlarged. LYMPH NODES:There is no retroperitoneal nor paraaortic adenopathy. ABDOMINAL WALL: Anterior abdominal wall midline supraumbilical hernia mesh repair. No abnormal colle ctions in this region. No inguinal hernias evident. GI: There is fluid seen in nondilated small bowel loops as well as within the right-side of the colon . No bowel obstruction, free air, nor abscess. Appendix appears unremarkable. PELVIS: GI: No evidence of appendicitis.There diverticuli in the descending-left colon and sigmoid. No obvio us acute diverticulitis. LYMPH NODES: There is no intrapelvic nor inguinal adenopathy. REPRODUCTIVE: Uterus appears unremarkable. No abnormal adnexal findings. No free fluid in the pelvi s. URINARY BLADDER: Collapsed. OSSEOUS: No fractures and no significant osseous lesions. IMPRESSION: 1. Subtle noncalcified density on the dependent wall the gallbladder unchanged in position from prior CT scan of 12/20/2024 in either representing a small noncalcified gallstone or polyp at this level. Recommend follow-up ultrasound for added specificity concerning this gallbladder finding on CT scan. There is no CT evidence of acute cholecystitis nor significant dilatation of the biliary tree. 2. There are diverticuli in the left side of the colon and sigmoid. No obvious acute diverticulitis. Also no evidence of appendicitis. 3. Other findings as above. RADIATION DOSE DELIVERED: 479.46mGy.cm Total DLP DATA REPOSITORY: All CT scans at this facility are submitted to the National Radiology Data Registry (NRDR) Dose Index Registry (DIR) with the [employer] (ACR). RADIATION OPTIMIZATION: All CT scans at this facility use at least one of these dose optimization te chniques: automated exposure control; mA and/or kV adjustment per patient size (includes targeted exa ms where dose is matched to clinical indication); or iterative reconstruction.
[2025-01-10 15:04] LABS: Abs Immature Grans 0.03 10^3/uL (0.0-0.06); Absolute Basophil Count 0.01 10^3/uL (0.0-0.2); Absolute Eosinophil Count 0.11 10^3/uL (0.0-0.7); Absolute Lymphocyte Count 1.62 10^3/uL (1.2-3.4); Absolute Monocyte Count 0.68 10^3/uL (0.1-0.8); Absolute Neutrophil Count 7.18 10^3/uL (1.2-6.7); Basophils % 0.1 %; Eosinophils % 1.1 %; HCT 40.6 % (36.0-46.0); HGB 13.2 g/dL (11.2-15.7); Immature Grans % 0.3 %; Lymphocytes % 16.8 %; MCH 29.6 pg (27.0-33.0); MCHC 32.5 % (32.0-36.0); MCV 91 fL (80-95); MPV 9.9 fL (8.0-11.0); Monocytes % 7.1 %; Neutrophils % 74.6 %; Platelet Count 261 10^3/uL (130-400); RBC 4.46 10^6/uL (3.93-5.22); RDW 13.6 % (11.7-14.6); RDW-SD 45.4 fL; WBC 9.63 10^3/uL (4.4-10.8)
[2025-01-10] MEDS: Ondansetron 4 MG/2 ML VIAL IVP (15:05)
[2025-01-10 15:24] LABS: Troponin I 17 ng/L (<or=51)
[2025-01-10 15:32] LABS: ALT 100 U/L (14-59); AST 32 U/L (15-37); Albumin 4.2 g/dL (3.4-5.0); Alkaline Phosphatase 84 U/L (46-116); Anion Gap 10.3 mmol/L (3-11); BUN 33 mg/dL (7-18); Bilirubin, Total 0.62 mg/dL (0.2-1.0); CO2 22.7 mmol/L (21.0-32.0); CREATININE 1.4 mg/dL (0.55-1.02); Calcium 9.4 mg/dL (8.5-10.1); Chloride 111 mmol/L (98-107); Estimated GFR 43.07 (mL/min/1.73m2); Glucose 141 mg/dL (74-106); Lipase 17 U/L (<78); Magnesium 1.1 mg/dL (1.8-2.4); Potassium 3.3 mmol/L (3.5-5.1); Sodium 144 mmol/L (136-145); Total Protein 7.1 g/dL (6.4-8.2)
[2025-01-10] MEDS: Pantoprazole 40 MG VIAL IVP (15:46)
[2025-01-10] MEDS: Omnipaque 350 MG/ML 100 ML BTL IJ (16:07)
[2025-01-10] MEDS: Normal Saline - Diluent 50 ML VIAL IJ (16:08)
[2025-01-10 16:18] LABS: Troponin I 15 ng/L (<or=51)
[2025-01-10 16:26] LABS: Bacteria Negative HPF (Negative); Bilirubin Moderate (Negative); Blood Negative (Negative); C & S Indicated? No; Clarity Clear (Clear); Crystals Negative HPF (Negative); Epithelial Cells Negative HPF (Negative); Glucose Negative (Negative); Ketones 15 mg/dL (Negative); Leukocyte Esterase Negative (Negative); Mucus Negative (Negative); Nitrite Negative (Negative); RBC Negative HPF (0-2); Specific Gravity >= 1.030 (1.005-1.025); Urobilinogen 0.2 mg/dL (Up to 0.2); WBC Negative HPF (0-5); pH 5.5 (5-8)
[2025-01-10 16:52] LABS: C Diff PCR Negative (Negative)
[2025-01-10] MEDS: Potassium Chloride 20 MEQ TABCR 40 MEQ PO (16:57)
[2025-01-10] MEDS: MAGNESIUM SULFATE 2 GM/50 ML BAG IV_INF ×2 (16:57→19:29)
[2025-01-10] MEDS: POTASSIUM CHLORIDE 10 MEQ/100 ML BAG 100 MEQ IV_INF ×2 (16:57→19:29)
[2025-01-10] MEDS: Normal Saline 500 ML 1000 ML IV (16:58)
--- NOTE | 2025-01-10 17:53 | DI.VRAD_ITS ---
PROCEDURE INFORMATION: Exam: CT Abdomen And Pelvis With Contrast Exam date and time: 01/10/2025 4:09 PM Age: 59 years old Clinical indication: Nausea and other: Diarrhea; Abdominal pain; Localized; Left lower quadrant (llq); Llq abd pain, diarrhea TECHNIQUE: Imaging protocol: Computed tomography of the abdomen and pelvis with contrast. COMPARISON: CT CHEST/ABD/PEL W 12/20/2024 6:24 AM FINDINGS: Lungs: Lung bases are clear. Pleural spaces: No pleural effusion. Heart: Normal heart size. No pericardial effusion. Previous open-heart surgical bypass. Diaphragm: Previous anterior diaphragmatic hernia repair with mesh. This is along the region of the anterior and inferior cardiac structures. There is slight elevation of the hemidiaphragm at this location without recurrent hernia suggested. Liver: Diffuse fatty liver change of moderate severity. Gallbladder and biliary ducts: Small calcified gallstone. No acute biliary tract findings. Pancreas: Moderate pancreatic atrophy. No acute change. Spleen: The spleen is normal in size, contour and attenuation. Adrenal glands: The adrenal glands are normal in size and contour bilaterally. Kidneys and ureters: No acute renal changes. Small right inferior parapelvic renal cysts.No further imaging follow-up of the renal cysts is recommended based on MIPS criteria. Stomach and bowel: Gastric morphology is unremarkable. No edema. No gastric outlet obstruction.Small bowel loops are normal in course and caliber. There is no mucosal edema or bowel wall thickening. No obstructive features.The colon contains formed fecal material. There is no bowel wall thickening. No inflammatory features. No obstruction. No large bowel edema or colitis. Diverticulosis without acute diverticulitis. Paucity of fecal material in the left colon. Some liquid right colonic contents are noted. Appendix: No evidence of appendicitis. Intraperitoneal space: Unremarkable. No free air. No significant fluid collection. Vasculature: Unremarkable. No abdominal aortic aneurysm. Lymph nodes: Unremarkable. No enlarged lymph nodes. Urinary bladder: Urinary bladder is poorly distended. No acute findings. Reproductive: The uterus and adnexa are unremarkable in appearance. There are no dominant adnexal cysts or masslike features. There are no inflammatory features. No uterine mass evident. Bones/joints: Unremarkable. No acute fracture. Soft tissues: Abdominal wall soft tissues are unremarkable. Minor fat containing umbilical hernia without acute change. Previous ventral abdominal wall hernia repair. Mild recurrent hernia with fat. No strangulation. IMPRESSION: 1. No bowel edema or acute inflammatory features. No eagle colitis. No bowel obstruction. 2. Fatty liver. 3. Previous open-heart surgery. Previous anterior diaphragmatic hernia repair with mesh. No recurrent hernia evident. 4. Pancreatic atrophy. 5. Gallstone. No acute biliary tract findings. Dictated and Authenticated by: John Frank MD. Orderin Laura Morel MD
--- NOTE | 2025-01-10 18:00 | RT.EKG_ITS ---
APPROVED REPORT Exam: Resting ECG Reason for Exam: arrhythmia Patient Location: E HR:101 bpm ECG Measurements Heart Rate 101 AXIS ID 185 P 24 QRSd 84 QRS -27 QT 382 T 38 QTc 495 Conclusion Sinus tachycardia...rate> 99 Inferior infarct, old...Q >35mS, II III aVF borderline QTc prolongation P waves now upright I, II compared to prior earlier today no ST segment or T wave abnormalities to suggest occlusive [place]
--- NOTE | 2025-01-10 18:07 | W.EDPROG ---
Date of service: 01/10/25 Time of Service: 18:07 Medical Decision Making This dictation utilizes [id number] dictation software and may contain unedited grammatical errors. Patient seen in signout from Elvira Estrada NP, please see her complete note. Essentially this 59-year-old female has had a prolonged course of a diarrheal illness for at least 3 weeks, is now having weakness, fatigue, yellow liquid stools reports 15 bowel movements a day and nausea without vomiting and mild crampy abdominal pain. She is a heart transplant patient and is immunosuppressed on tacrolimus, she has pending stool studies as well as troponins and CT at time of signout. Patients' medical history: Immune suppressed, heart transplant patient, history of gastric ulcer, type 2 diabetes mellitus, obesity, hypertension. Family and social history: Noncontributory. Pertinent exam findings / vital signs include benign abdomen, benign cardiopulmonary exam, nontoxic vitals and afebrile. Differential / pathologies of concern include colitis, diverticulitis, C. difficile, bacterial gastroenteritis, ACS. Diagnostic studies of: -Studies reviewed, troponins are pending, CT pending. -Stool studies resulted negative, no C. difficile, no stool occult blood -CBC shows mild neutrophilia without overt leukocytosis and no left shift -CMP shows potassium of 3.3, no other actionable abnormality -Magnesium is markedly low at 1.1 -UA is benign -Serial troponins negative -CT shows no acute pathology in the abdomen or pelvis Interventions of: -Consulted with [facility]s heart transplant attending Dr. Graves as the patient did have several brief runs of what appears to be torsades and V. tach. -4 g IV magnesium, 10 mEq potassium IV, 40 mEq p.o. potassium ED Course/Assessment/Plan: 59-year-old female presents with 3 weeks of diarrhea, has marked hypomagnesemia and had some dangerous life-threatening arrhythmias observed here in the department 1 appeared to be torsades de Pointes, as well as V. tach, there is no acute pathology seen on the CT to explain her symptoms and her C. difficile is negative, I did speak with [facility] heart transplant attending who recommends transfer which was accepted. He recommends Imodium, giving further magnesium. -1800hrs, patient appeared to have some runs of possible Vtach with some possible Torsades <1sec, is currently receiving magnesium infusion, pads placed. Findings not consistent with persistent V. tach, torsades, ACS, diverticulitis, perforated viscus. Disposition of arrhythmia, hypomagnesemia, intractable diarrhea. Patient verbalized understanding of the plan and return to ED criteria and engaged in shared decision making. Medical Records Medical records reviewed: Yes I reviewed the patient's medical records. Imaging Data Radiologic Study: Attestation: I personally reviewed and interpreted this imaging study as follows: Imaging: CT Scan Radiologist's impression: Exam: CT Abdomen And Pelvis With Contrast Exam date and time: 01/10/2025 4:09 PM Age: 59 years old Clinical indication: Nausea and other: Diarrhea; Abdominal pain; Localized; Left lower quadrant (llq); Llq abd pain, diarrhea TECHNIQUE: Imaging protocol: Computed tomography of the abdomen and pelvis with contrast. COMPARISON: CT CHEST/ABD/PEL W 12/20/2024 6:24 AM FINDINGS: Lungs: Lung bases are clear. Pleural spaces: No pleural effusion. Heart: Normal heart size. No pericardial effusion. Previous open-heart surgical bypass. Diaphragm: Previous anterior diaphragmatic hernia repair with mesh. This is along the region of the anterior and inferior cardiac structures. There is slight elevation of the hemidiaphragm at this location without recurrent hernia suggested. Liver: Diffuse fatty liver change of moderate severity. Gallbladder and biliary ducts: Small calcified gallstone. No acute biliary tract findings. Pancreas: Moderate pancreatic atrophy. No acute change. Spleen: The spleen is normal in size, contour and attenuation. Adrenal glands: The adrenal glands are normal in size and contour bilaterally. Kidneys and ureters: No acute renal changes. Small right inferior parapelvic renal cysts.No further imaging follow-up of the renal cysts is recommended based on MIPS criteria. Stomach and bowel: Gastric morphology is unremarkable. No edema. No gastric outlet obstruction.Small bowel loops are normal in course and caliber. There is no mucosal edema or bowel wall thickening. No obstructive features.The colon contains formed fecal material. There is no bowel wall thickening. No inflammatory features. No obstruction. No large bowel edema or colitis. Diverticulosis without acute diverticulitis. Paucity of fecal material in the left colon. Some liquid right colonic contents are noted. Appendix: No evidence of appendicitis. Intraperitoneal space: Unremarkable. No free air. No significant fluid collection. Vasculature: Unremarkable. No abdominal aortic aneurysm. Lymph nodes: Unremarkable. No enlarged lymph nodes. Urinary bladder: Urinary bladder is poorly distended. No acute findings. Reproductive: The uterus and adnexa are unremarkable in appearance. There are no dominant adnexal cysts or masslike features. There are no inflammatory features. No uterine mass evident. Bones/joints: Unremarkable. No acute fracture. Soft tissues: Abdominal wall soft tissues are unremarkable. Minor fat containing umbilical hernia without acute change. Previous ventral abdominal wall hernia repair. Mild recurrent hernia with fat. No strangulation. IMPRESSION: 1. No bowel edema or acute inflammatory features. No eagle colitis. No bowel obstruction. 2. Fatty liver. 3. Previous open-heart surgery. Previous anterior diaphragmatic hernia repair with mesh. No recurrent hernia evident. 4. Pancreatic atrophy. 5. Gallstone. No acute biliary tract findings. Dictated and Authenticated by: John Frank MD. Lab Data Lab results reviewed: Yes I reviewed the patient's lab results. Labs: 01/10/25 17:18 Blood Blood Culture - Pending 01/10/25 16:47 Blood Blood Culture - Pending 01/10/25 15:50 Stool Stool Occult Blood ([facility]) - Final Laboratory Tests Range/Units 01/10/25 01/10/25 14:55 15:50 WBC (4.4-10.8) 10^3/uL 9.63 RBC (3.93-5.22) 10^6/uL 4.46 Hgb (11.2-15.7) g/dL 13.2 Hct (36.0-46.0) % 40.6 MCV (80-95) fL 91 MCH (27.0-33.0) pg 29.6 MCHC (32.0-36.0) % 32.5 RDW (11.7-14.6) % 13.6 Plt Count (130-400) 10^3/uL 261 MPV (8.0-11.0) fL 9.9 Immature Gran % % 0.3 Neutrophils % % 74.6 Lymphocytes % % 16.8 Monocytes % % 7.1 Eosinophils % % 1.1 Basophils % % 0.1 Nucleated RBC % (0.0-0.3) % 0.0 Absolute Neutrophils (1.2-6.7) 10^3/uL 7.18 H Absolute Lymphocytes (1.2-3.4) 10^3/uL 1.62 Absolute Monocytes (0.1-0.8) 10^3/uL 0.68 Absolute Eosinophils (0.0-0.7) 10^3/uL 0.11 Absolute Basophils (0.0-0.2) 10^3/uL 0.01 VBG Lactate (<or=2.0) mmol/L 1.0 Sodium (136-145) mmol/L 144 Potassium (3.5-5.1) mmol/L 3.3 L Chloride (98-107) mmol/L 111 H Carbon Dioxide (21.0-32.0) mmol/L 22.7 Anion Gap (3-11) mmol/L 10.3 BUN (7-18) mg/dL 33 H Creatinine (0.55-1.02) mg/dL 1.4 H Est GFR (CKD-EPI 2020) (mL/min/1.73m2) 43.07 Glucose (74-106) mg/dL 141 H Calcium (8.5-10.1) mg/dL 9.4 Magnesium (1.8-2.4) mg/dL 1.1 L Total Bilirubin (0.2-1.0) mg/dL 0.62 AST (15-37) U/L 32 ALT (14-59) U/L 100 H Alkaline Phosphatase (46-116) U/L 84 Troponin I (<or=51) ng/L 17 15 Total Protein (6.4-8.2) g/dL 7.1 Albumin (3.4-5.0) g/dL 4.2 Lipase (<78) U/L 17 Urine Color (Yellow) Yellow Urine Clarity (Clear) Clear Urine pH (5-8) 5.5 Ur Specific [place] (1.005-1.025) >= 1.030 H Urine Protein (Neg-Trace) mg/dL 100 H Urine Ketones (Negative) mg/dL 15 H Urine Blood (Negative) Negative Urine Nitrite (Negative) Negative Urine Bilirubin (Negative) Moderate H Urine Urobilinogen (Up to 0.2) mg/dL 0.2 Ur Leukocyte Esterase (Negative) Negative Urine RBC (0-2) HPF Negative Urine WBC (0-5) HPF Negative Ur Epithelial Cells (Negative) HPF Negative Urine Crystals (Negative) HPF Negative Urine Bacteria (Negative) HPF Negative Urine Mucus (Negative) Negative Ur Culture Indicated? No Urine Glucose (Negative) mg/dL Negative Stl C.difficile Tox PCR (Negative) Negative Quality:SDOH Health Related Social Needs: No Data to Display Discharge Plan Disposition Patient Disposition: Transfer-Acute Inpatient Care Specific Acute Inpt Facility: Other Condition: Stable Discharge Details Clinical Impression: Arrhythmia, Hypomagnesemia, Intractable diarrhea Primary Care Provider: Yadira Holly ED Provider: Gregorio Malloy Home Meds and New Rx's Prescriptions: No Action polyethylene glycol 3350 [Miralax] 17 gram/dose powder 17 g PO DAILY coenzyme Q10 [CoQ-10] 100 mg capsule 100 mg PO DAILY famotidine 10 mg tablet 10 mg PO DAILY Repatha SureClick 140 mg/mL pen injector 140 mg subcut Q2W aspirin 81 mg tablet,delayed release (DR/EC) 81 mg PO DAILY nystatin 100,000 unit/gram powder 1 applic topical BID Qty: 60 1RF propranolol 20 MG tablet 40 mg PO BID Qty: 180 hqdiplp-dgxypuykj-bsbfghyygehj 1 EACH capsule 2 tab-cap PO ONCE PRNQty: 30 Patient Comments: makes her heart race Rx Instructions: MIDRIN 2 TABS ONSET OF GUIDO & 1 TAB EVERY HR UNTIL RELIEF MAX 5 CAP IN 12HR mycophenolate sodium [Myfortic] 360 MG tablet,delayed release (DR/EC) 3 tab PO BID Qty: 270 tacrolimus [Prograf] 0.5 MG capsule 1.5 mg PO BID Qty: 180 acetaminophen [Tylenol] 325 MG tablet 500 mg PO PRN gsiqwuxvff-tgotvxvzbhdmt-dylr 50-325-40 mg tablet 1 tab PO PRN Qty: 60 0RF promethazine 12.5 mg tablet 12.5 mg PO PRN Qty: 60 0RF (DME) blood-glucose meter [OneTouch Verio Flex meter] Misc See Rx Instructions .ROUTE .MEDSUPPLY Qty: 1 0RF Rx Instructions: As directed - check daily (DME) OneTouch Verio test strips Strip See Rx Instructions .ROUTE .COMPLEX Qty: 100 6RF Dose Instruction: USE TO TEST TWICE A DAY Rx Instructions: USE TO TEST TWICE A DAY omeprazole magnesium 20 mg capsule,delayed release(DR/EC) 20 mg PO DAILY Qty: 90 3RF (DME) lancets [OneTouch Delica Plus Lancet] 33 gauge misc See Rx Instructions .ROUTE .MEDSUPPLY Qty: 100 3RF Rx Instructions: As directed once daily lorazepam 0.5 mg tablet 0.5 mg PO DAILY PRN (Reason: anxiety) Qty: 60 2RF progesterone micronized 200 mg capsule 200 mg PO QHS Qty: 42 3RF Rx Instructions: Take for 14 days each month. cyclobenzaprine 10 mg tablet 10 mg PO TID PRN (Reason: muscle spasm) Qty: 25 1RF levothyroxine 75 mcg tablet 75 mcg PO DAILY Qty: 90 3RF estradiol [Vivelle-Dot] 0.05 mg/24 hr patch semiweekly 1 patch transdermal .2xw Qty: 8 0RF losartan 50 mg tablet 50 mg PO DAILY Qty: 90 3RF tirzepatide 10 mg/0.5 mL pen injector 10 mg subcut QWEEK Qty: 2 5RF magnesium oxide 400 MG tablet 400 mg PO BID Qty: 30 0RF diltiazem HCl 120 mg capsule,extended release 24hr 120 mg PO DAILY Qty: 30 0RF bisacodyl 5 mg tablet,delayed release (DR/EC) 5 mg PO ONCE amoxicillin 500 mg capsule 2,000 mg PO .COMPLEX Rx Instructions: 2,000 mg orally prior to dental work; meclizine 12.5 mg tablet See Rx Instructions PO Q6H PRN Rx Instructions: 1-2 tablets orally every 6 hours, as needed; rosuvastatin [Crestor] 5 mg tablet 2.5 mg PO DAILY Rx Instructions: at bedtime calcium carbonate [Tums] 200 mg calcium (500 mg) tablet,chewable 200 mg PO DAILY baclofen 10 mg tablet 10 mg PO Q6H PRN (Reason: back spasms) loperamide 2 mg capsule 2 mg PO Q4H PRN Rx Instructions: administer after each loose stool until symptoms controlled; do not exceed 8 mg per 24 hrs prednisone 5 mg tablet 5 mg PO DAILY prednisone 2.5 mg tablet 2.5 mg PO DAILY tacrolimus 1 mg capsule 2 mg PO BID cyclobenzaprine 5 mg tablet 5 mg PO TID PRNQty: 14 0RF
--- NOTE | 2025-01-10 18:22 | W.EDPROG ---
Date of service: 01/10/25 Time of Service: 18:10 Medical Decision Making Nursing concerned for potential VT/torsades on monitor. I reviewed telemetry, short <5 sec episode, difficult to tell artifact vs torsades. Pt was reportedly not symptomatic with this. Magnesium replacement is already running IV for Mg of 1.1. On lab review potassium noted to be 3.3, pt has already received K replacement. Repeat EKG requested and shows borderline QTc prolongation, P waves now upright in leads I & II compared to prior EKG earlier today. Magnesium replacement continued and patient placed on Zoll as a precaution. Lab Data Lab results reviewed: Yes I reviewed the patient's lab results. Labs: 01/10/25 17:18 Blood Blood Culture - Pending 01/10/25 16:47 Blood Blood Culture - Pending 01/10/25 15:50 Stool Stool Occult Blood ([facility]) - Final Laboratory Tests Range/Units 01/10/25 01/10/25 01/10/25 14:55 15:50 17:42 WBC (4.4-10.8) 10^3/uL 9.63 RBC (3.93-5.22) 10^6/uL 4.46 Hgb (11.2-15.7) g/dL 13.2 Hct (36.0-46.0) % 40.6 MCV (80-95) fL 91 MCH (27.0-33.0) pg 29.6 MCHC (32.0-36.0) % 32.5 RDW (11.7-14.6) % 13.6 Plt Count (130-400) 10^3/uL 261 MPV (8.0-11.0) fL 9.9 Immature Gran % % 0.3 Neutrophils % % 74.6 Lymphocytes % % 16.8 Monocytes % % 7.1 Eosinophils % % 1.1 Basophils % % 0.1 Nucleated RBC % (0.0-0.3) % 0.0 Absolute Neutrophils (1.2-6.7) 10^3/uL 7.18 H Absolute Lymphocytes (1.2-3.4) 10^3/uL 1.62 Absolute Monocytes (0.1-0.8) 10^3/uL 0.68 Absolute Eosinophils (0.0-0.7) 10^3/uL 0.11 Absolute Basophils (0.0-0.2) 10^3/uL 0.01 VBG Lactate (<or=2.0) mmol/L 1.0 Sodium (136-145) mmol/L 144 Potassium (3.5-5.1) mmol/L 3.3 L Chloride (98-107) mmol/L 111 H Carbon Dioxide (21.0-32.0) mmol/L 22.7 Anion Gap (3-11) mmol/L 10.3 BUN (7-18) mg/dL 33 H Creatinine (0.55-1.02) mg/dL 1.4 H Est GFR (CKD-EPI 2020) (mL/min/1.73m2) 43.07 Glucose (74-106) mg/dL 141 H Calcium (8.5-10.1) mg/dL 9.4 Magnesium (1.8-2.4) mg/dL 1.1 L Total Bilirubin (0.2-1.0) mg/dL 0.62 AST (15-37) U/L 32 ALT (14-59) U/L 100 H Alkaline Phosphatase (46-116) U/L 84 Troponin I (<or=51) ng/L 17 15 Total Protein (6.4-8.2) g/dL 7.1 Albumin (3.4-5.0) g/dL 4.2 Lipase (<78) U/L 17 Urine Color (Yellow) Yellow Urine Clarity (Clear) Clear Urine pH (5-8) 5.5 Ur Specific [place] (1.005-1.025) >= 1.030 H Urine Protein (Neg-Trace) mg/dL 100 H Urine Ketones (Negative) mg/dL 15 H Urine Blood (Negative) Negative Urine Nitrite (Negative) Negative Urine Bilirubin (Negative) Moderate H Urine Urobilinogen (Up to 0.2) mg/dL 0.2 Ur Leukocyte Esterase (Negative) Negative Urine RBC (0-2) HPF Negative Urine WBC (0-5) HPF Negative Ur Epithelial Cells (Negative) HPF Negative Urine Crystals (Negative) HPF Negative Urine Bacteria (Negative) HPF Negative Urine Mucus (Negative) Negative Ur Culture Indicated? No Urine Glucose (Negative) mg/dL Negative Stl C.difficile Tox PCR (Negative) Negative COVID-19 Source Nasopharynx SARS-CoV-2 (PCR) (Negative) Negative Influenza Type A (PCR) (Negative) Negative Influenza Type B (PCR) (Negative) Negative RSV (PCR) (Negative) Negative Range/Units 01/10/25 18:25 WBC (4.4-10.8) 10^3/uL RBC (3.93-5.22) 10^6/uL Hgb (11.2-15.7) g/dL Hct (36.0-46.0) % MCV (80-95) fL MCH (27.0-33.0) pg MCHC (32.0-36.0) % RDW (11.7-14.6) % Plt Count (130-400) 10^3/uL MPV (8.0-11.0) fL Immature Gran % % Neutrophils % % Lymphocytes % % Monocytes % % Eosinophils % % Basophils % % Nucleated RBC % (0.0-0.3) % Absolute Neutrophils (1.2-6.7) 10^3/uL Absolute Lymphocytes (1.2-3.4) 10^3/uL Absolute Monocytes (0.1-0.8) 10^3/uL Absolute Eosinophils (0.0-0.7) 10^3/uL Absolute Basophils (0.0-0.2) 10^3/uL VBG Lactate (<or=2.0) mmol/L Sodium (136-145) mmol/L Potassium (3.5-5.1) mmol/L Chloride (98-107) mmol/L Carbon Dioxide (21.0-32.0) mmol/L Anion Gap (3-11) mmol/L BUN (7-18) mg/dL Creatinine (0.55-1.02) mg/dL Est GFR (CKD-EPI 2020) (mL/min/1.73m2) Glucose (74-106) mg/dL Calcium (8.5-10.1) mg/dL Magnesium (1.8-2.4) mg/dL Total Bilirubin (0.2-1.0) mg/dL AST (15-37) U/L ALT (14-59) U/L Alkaline Phosphatase (46-116) U/L Troponin I (<or=51) ng/L 15 Total Protein (6.4-8.2) g/dL Albumin (3.4-5.0) g/dL Lipase (<78) U/L Urine Color (Yellow) Urine Clarity (Clear) Urine pH (5-8) Ur Specific [place] (1.005-1.025) Urine Protein (Neg-Trace) mg/dL Urine Ketones (Negative) mg/dL Urine Blood (Negative) Urine Nitrite (Negative) Urine Bilirubin (Negative) Urine Urobilinogen (Up to 0.2) mg/dL Ur Leukocyte Esterase (Negative) Urine RBC (0-2) HPF Urine WBC (0-5) HPF Ur Epithelial Cells (Negative) HPF Urine Crystals (Negative) HPF Urine Bacteria (Negative) HPF Urine Mucus (Negative) Ur Culture Indicated? Urine Glucose (Negative) mg/dL Stl C.difficile Tox PCR (Negative) COVID-19 Source SARS-CoV-2 (PCR) (Negative) Influenza Type A (PCR) (Negative) Influenza Type B (PCR) (Negative) RSV (PCR) (Negative) Quality:SDOH Health Related Social Needs: No Data to Display Discharge Plan Discharge Details Chief Complaint: Nausea/Vomit/Diar Primary Care Provider: Yadira Holly ED Provider: Gregorio Malloy Home Meds and New Rx's Prescriptions: No Action polyethylene glycol 3350 [Miralax] 17 gram/dose powder 17 g PO DAILY coenzyme Q10 [CoQ-10] 100 mg capsule 100 mg PO DAILY famotidine 10 mg tablet 10 mg PO DAILY Repatha SureClick 140 mg/mL pen injector 140 mg subcut Q2W aspirin 81 mg tablet,delayed release (DR/EC) 81 mg PO DAILY nystatin 100,000 unit/gram powder 1 applic topical BID Qty: 60 1RF propranolol 20 MG tablet 40 mg PO BID Qty: 180 atucerk-awblwblux-jcrrsbpicqlh 1 EACH capsule 2 tab-cap PO ONCE PRNQty: 30 Patient Comments: makes her heart race Rx Instructions: MIDRIN 2 TABS ONSET OF [place] & 1 TAB EVERY HR UNTIL RELIEF MAX 5 CAP IN 12HR mycophenolate sodium [Myfortic] 360 MG tablet,delayed release (DR/EC) 3 tab PO BID Qty: 270 tacrolimus [Prograf] 0.5 MG capsule 1.5 mg PO BID Qty: 180 acetaminophen [Tylenol] 325 MG tablet 500 mg PO PRN iehbiigsho-zdvxnobdjbcfd-vdgv 50-325-40 mg tablet 1 tab PO PRN Qty: 60 0RF promethazine 12.5 mg tablet 12.5 mg PO PRN Qty: 60 0RF (DME) blood-glucose meter [OneTouch Verio Flex meter[place] [facility] [place] Instructions .ROUTE .MEDSUPPLY Qty: 1 0RF Rx Instructions: As directed - check daily (DME) OneTouch Verio test strips Strip See Rx Instructions .ROUTE .COMPLEX Qty: 100 6RF Dose Instruction: USE TO TEST TWICE A DAY Rx Instructions: USE TO TEST TWICE A DAY omeprazole magnesium 20 mg capsule,delayed release(DR/EC) 20 mg PO DAILY Qty: 90 3RF (DME) lancets [OneTouch Delica Plus Lancet] 33 gauge [facility] See Rx Instructions .ROUTE .MEDSUPPLY Qty: 100 3RF Rx Instructions: As directed once daily lorazepam 0.5 mg tablet 0.5 mg PO DAILY PRN (Reason: anxiety) Qty: 60 2RF progesterone micronized 200 mg capsule 200 mg PO QHS Qty: 42 3RF Rx Instructions: Take for 14 days each month. cyclobenzaprine 10 mg tablet 10 mg PO TID PRN (Reason: muscle spasm) Qty: 25 1RF levothyroxine 75 mcg tablet 75 mcg PO DAILY Qty: 90 3RF estradiol [Vivelle-Dot] 0.05 mg/24 hr patch semiweekly 1 patch transdermal .2xw Qty: 8 0RF losartan 50 mg tablet 50 mg PO DAILY Qty: 90 3RF tirzepatide 10 mg/0.5 mL pen injector 10 mg subcut QWEEK Qty: 2 5RF magnesium oxide 400 MG tablet 400 mg PO BID Qty: 30 0RF diltiazem HCl 120 mg capsule,extended release 24hr 120 mg PO DAILY Qty: 30 0RF bisacodyl 5 mg tablet,delayed release (DR/EC) 5 mg PO ONCE amoxicillin 500 mg capsule 2,000 mg PO .COMPLEX Rx Instructions: 2,000 mg orally prior to dental work; meclizine 12.5 mg tablet See Rx Instructions PO Q6H PRN Rx Instructions: 1-2 tablets orally every 6 hours, as needed; rosuvastatin [Crestor] 5 mg tablet 2.5 mg PO DAILY Rx Instructions: at bedtime calcium carbonate [Tums] 200 mg calcium (500 mg) tablet,chewable 200 mg PO DAILY baclofen 10 mg tablet 10 mg PO Q6H PRN (Reason: back spasms) loperamide 2 mg capsule 2 mg PO Q4H PRN Rx Instructions: administer after each loose stool until symptoms controlled; do not exceed 8 mg per 24 hrs prednisone 5 mg tablet 5 mg PO DAILY prednisone 2.5 mg tablet 2.5 mg PO DAILY tacrolimus 1 mg capsule 2 mg PO BID cyclobenzaprine 5 mg tablet 5 mg PO TID PRNQty: 14 0RF
[2025-01-10 18:36] LABS: COVID-19 PCR Negative (Negative); Influenza A PCR Negative (Negative); Influenza B PCR Negative (Negative); RSV PCR Negative (Negative)
[2025-01-10] MEDS: Magnesium Oxide 400 MG TAB PO (18:36)
[2025-01-10 18:46] LABS: Troponin I 15 ng/L (<or=51)
[2025-01-10 18:51] LABS: Source Nasopharynx
[2025-01-10] MEDS: Loperamide 2 MG CAP PO (19:29)
[2025-01-10] MEDS: Acetaminophen 500 MG TAB 1000 MG PO (23:36)
[2025-01-11] VITALS (84 sets, daily range): BP systolic 102–147; BP diastolic 64–93; PULSE 96–110; RESP 8–32; TEMP 37.1; O2SAT 92–100
[2025-01-11] MEDS: Ondansetron 4 MG/2 ML VIAL (00:32)
[2025-01-11] MEDS: Omeprazole 20 MG CAPCR PO (09:44)
[2025-01-11] MEDS: Levothyroxine 75 MCG TAB PO (09:44)
[2025-01-11] MEDS: Tacrolimus 0.5 MG CAP 1.5 MG PO (09:44)
[2025-01-11] MEDS: Aspirin 81 MG CHEW PO (09:44)
[2025-01-11] MEDS: Propranolol 40 MG TAB PO (09:45)
[2025-01-11] MEDS: dilTIAZem CD 120 MG CAPCR PO (09:45)
[2025-01-11] MEDS: Magnesium Oxide 400 MG TAB PO ×2 (09:51→22:36)
[2025-01-11] MEDS: predniSONE 5 MG TAB 7.5 MG PO (09:51)
--- NOTE | 2025-01-11 17:28 | ED.PROG_ITS ---
Date of service: 01/11/25 Time of Service: 17:28 Medical Decision Making Patient was in the emergency department on my shift. She had been accepted to [facility] She did not yet have a bed. I reached out to daytime hospitalist Dr. Hawkins requesting hospitalization. Evening emergency provider Dr. Dominguez will follow-up. Quality:[facility] Health Related Social Needs: No Data to Display Discharge Plan Disposition Patient Disposition: Transfer-Acute Inpatient Care Specific Acute Inpt Facility: Other Condition: Stable Discharge Details Clinical Impression: Arrhythmia, Hypomagnesemia, Intractable diarrhea Primary Care Provider: Yadira Holly ED Provider: Gregorio Malloy Home Meds and New Rx's Prescriptions: No Action polyethylene glycol 3350 [Miralax] 17 gram/dose powder 17 g PO DAILY coenzyme Q10 [CoQ-10] 100 mg capsule 100 mg PO QHS famotidine 10 mg tablet 10 mg PO QHS Repatha SureClick 140 mg/mL pen injector 140 mg subcut Q2W aspirin 81 mg tablet,delayed release (DR/EC) 81 mg PO DAILY nystatin 100,000 unit/gram powder 1 applic topical BID Qty: 60 1RF propranolol 20 MG tablet 40 mg PO BID Qty: 180 gghdukz-swkjtkcwn-hyvxaihnploc 1 EACH capsule 2 tab-cap PO ONCE PRNQty: 30 Patient Comments: makes her heart race Rx Instructions: MIDRIN 2 TABS ONSET OF GUIDO & 1 TAB EVERY HR UNTIL RELIEF MAX 5 CAP IN 12HR mycophenolate sodium [Myfortic] 360 MG tablet,delayed release (DR/EC) 3 tab PO BID Qty: 270 tacrolimus [Prograf] 0.5 MG capsule 1.5 mg PO BID Qty: 180 acetaminophen [Tylenol] 325 MG tablet 500 mg PO PRN munyvqoqxi-fhyewapzwblmy-vzrj 50-325-40 mg tablet 1 tab PO PRN Qty: 60 0RF promethazine 12.5 mg tablet 12.5 mg PO PRN Qty: 60 0RF (DME) blood-glucose meter [OneTouch Verio Flex meter] Misc See Rx Instructions .ROUTE .MEDSUPPLY Qty: 1 0RF Rx Instructions: As directed - check daily (DME) OneTouch Verio test strips Strip See Rx Instructions .ROUTE .COMPLEX Qty: 100 6RF Dose Instruction: USE TO TEST TWICE A DAY Rx Instructions: USE TO TEST TWICE A DAY omeprazole magnesium 20 mg capsule,delayed release(DR/EC) 20 mg PO DAILY Qty: 90 3RF (DME) lancets [OneTouch Delica Plus Lancet] 33 gauge misc See Rx Instructions .ROUTE .MEDSUPPLY Qty: 100 3RF Rx Instructions: As directed once daily lorazepam 0.5 mg tablet 0.5 mg PO DAILY PRN (Reason: anxiety) Qty: 60 2RF progesterone micronized 200 mg capsule 200 mg PO QHS Qty: 42 3RF Rx Instructions: Take for 14 days each month. cyclobenzaprine 10 mg tablet 10 mg PO TID PRN (Reason: muscle spasm) Qty: 25 1RF levothyroxine 75 mcg tablet 75 mcg PO DAILY Qty: 90 3RF estradiol [Vivelle-Dot] 0.05 mg/24 hr patch semiweekly 1 patch transdermal .2xw Qty: 8 0RF tirzepatide 10 mg/0.5 mL pen injector 10 mg subcut QWEEK Qty: 2 5RF magnesium oxide 400 MG tablet 400 mg PO BID Qty: 30 0RF diltiazem HCl 120 mg capsule,extended release 24hr 120 mg PO DAILY Qty: 30 0RF bisacodyl 5 mg tablet,delayed release (DR/EC) 5 mg PO ONCE amoxicillin 500 mg capsule 2,000 mg PO .COMPLEX Rx Instructions: 2,000 mg orally prior to dental work; meclizine 12.5 mg tablet See Rx Instructions PO Q6H PRN Rx Instructions: 1-2 tablets orally every 6 hours, as needed; rosuvastatin [Crestor] 5 mg tablet 2.5 mg PO DAILY Rx Instructions: at bedtime calcium carbonate [Tums] 200 mg calcium (500 mg) tablet,chewable 200 mg PO DAILY baclofen 10 mg tablet 10 mg PO Q6H PRN (Reason: back spasms) loperamide 2 mg capsule 2 mg PO Q4H PRN Rx Instructions: administer after each loose stool until symptoms controlled; do not exceed 8 mg per 24 hrs losartan 50 mg tablet 50 mg PO QHS prednisone 5 mg tablet 5 mg PO DAILY prednisone 2.5 mg tablet 2.5 mg PO DAILY tacrolimus 1 mg capsule 2 mg PO BID cyclobenzaprine 5 mg tablet 5 mg PO TID PRNQty: 14 0RF
[2025-01-11] MEDS: Loperamide 2 MG CAP (17:33)
--- NOTE | 2025-01-11 19:06 | ED.PROG_ITS ---
Date of service: 01/11/25 Time of Service: 17:15 Medical Decision Making Assumed care of patient at 1715. On chart review patient initially presented for 3 weeks of diarrhea with N/V. HypoK and HypoMg. Hx heart transplant. While in the ED had ? vtach/torsades on the monitor. Pt was accepted to [facility] and pending bed assignment, transplant attending recommended immodium and additional Mg. Dr. Brownlee off-going ED physician request [facility] hospitalist admit patent in the meantime as she has now been here for >24 hours; Dr. Hawkins deferred admission to overnight hospitalist. I spoke with Dr. Leung hospitalist who requested that prior to accepting patient I re-discuss with [facility] to confirm that they still wanted to take patient and request management recommendations in the meantime. Spoke with Dr. Graves at [facility]; advised continued immodium, electrolyte monitoring and repletion, telemetry, confirmed pt would still benefit from transfer if she has having ongoing diarrhea. Dr. Leung accepts patient. Awaiting admission orders and transfer upstairs. Quality:[facility] Health Related Social Needs: No Data to Display Discharge Plan Disposition Patient Disposition: Transfer-Acute Inpatient Care Specific Acute Inpt Facility: Other Condition: Stable Discharge Details Clinical Impression: Arrhythmia, Hypomagnesemia, Intractable diarrhea Primary Care Provider: Yadira Holly ED Provider: Trini Dominguez Home Meds and New Rx's Prescriptions: No Action polyethylene glycol 3350 [Miralax] 17 gram/dose powder 17 g PO DAILY coenzyme Q10 [CoQ-10] 100 mg capsule 100 mg PO QHS famotidine 10 mg tablet 10 mg PO QHS Repatha SureClick 140 mg/mL pen injector 140 mg subcut Q2W aspirin 81 mg tablet,delayed release (DR/EC) 81 mg PO DAILY nystatin 100,000 unit/gram powder 1 applic topical BID Qty: 60 1RF propranolol 20 MG tablet 40 mg PO BID Qty: 180 eopfkqp-uktzazbjh-xcheigsvelle 1 EACH capsule 2 tab-cap PO ONCE PRNQty: 30 Patient Comments: makes her heart race Rx Instructions: MIDRIN 2 TABS ONSET OF GUIDO & 1 TAB EVERY HR UNTIL RELIEF MAX 5 CAP IN 12HR mycophenolate sodium [Myfortic] 360 MG tablet,delayed release (DR/EC) 3 tab PO BID Qty: 270 tacrolimus [Prograf] 0.5 MG capsule 1.5 mg PO BID Qty: 180 acetaminophen [Tylenol] 325 MG tablet 500 mg PO PRN nbtkwivohw-pedeyxuhnxcna-zcmv 50-325-40 mg tablet 1 tab PO PRN Qty: 60 0RF promethazine 12.5 mg tablet 12.5 mg PO PRN Qty: 60 0RF (DME) blood-glucose meter [OneTouch Verio Flex meter] [facility] See Rx Instructions .ROUTE .MEDSUPPLY Qty: 1 0RF Rx Instructions: As directed - check daily (DME) OneTouch Verio test strips Strip See Rx Instructions .ROUTE .COMPLEX Qty: 100 6RF Dose Instruction: USE TO TEST TWICE A DAY Rx Instructions: USE TO TEST TWICE A DAY omeprazole magnesium 20 mg capsule,delayed release(DR/EC) 20 mg PO DAILY Qty: 90 3RF (DME) lancets [OneTouch Delica Plus Lancet] [facility] See Rx Instructions .ROUTE .MEDSUPPLY Qty: 100 3RF Rx Instructions: As directed once daily lorazepam 0.5 mg tablet 0.5 mg PO DAILY PRN (Reason: anxiety) Qty: 60 2RF progesterone micronized 200 mg capsule 200 mg PO QHS Qty: 42 3RF Rx Instructions: Take for 14 days each month. cyclobenzaprine 10 mg tablet 10 mg PO TID PRN (Reason: muscle spasm) Qty: 25 1RF levothyroxine 75 mcg tablet 75 mcg PO DAILY Qty: 90 3RF estradiol [Vivelle-Dot] 0.05 mg/24 hr patch semiweekly 1 patch transdermal .2xw Qty: 8 0RF tirzepatide 10 mg/0.5 mL pen injector 10 mg subcut QWEEK Qty: 2 5RF magnesium oxide 400 MG tablet 400 mg PO BID Qty: 30 0RF diltiazem HCl 120 mg capsule,extended release 24hr 120 mg PO DAILY Qty: 30 0RF bisacodyl 5 mg tablet,delayed release (DR/EC) 5 mg PO ONCE amoxicillin 500 mg capsule 2,000 mg PO .COMPLEX Rx Instructions: 2,000 mg orally prior to dental work; meclizine 12.5 mg tablet See Rx Instructions PO Q6H PRN Rx Instructions: 1-2 tablets orally every 6 hours, as needed; rosuvastatin [Crestor] 5 mg tablet 2.5 mg PO DAILY Rx Instructions: at bedtime calcium carbonate [Tums] 200 mg calcium (500 mg) tablet,chewable 200 mg PO DAILY baclofen 10 mg tablet 10 mg PO Q6H PRN (Reason: back spasms) loperamide 2 mg capsule 2 mg PO Q4H PRN Rx Instructions: administer after each loose stool until symptoms controlled; do not exceed 8 mg per 24 hrs losartan 50 mg tablet 50 mg PO QHS prednisone 5 mg tablet 5 mg PO DAILY prednisone 2.5 mg tablet 2.5 mg PO DAILY tacrolimus 1 mg capsule 2 mg PO BID cyclobenzaprine 5 mg tablet 5 mg PO TID PRNQty: 14 0RF
--- NOTE | 2025-01-11 19:22 | W.PM.HP.N ---
Date of service: 01/11/25 Time of Service: 19:22 Assessment and Plan Assessment and plan (1) Intractable diarrhea: Start date: 01/11/25 Status: Acute Assessment and plan: This is a 59-year-old lady who has had intractable diarrhea over the last 3 weeks now presenting with question of torsades de point of V. tach which was asymptomatic with severe hypomagnesemia which is being repleted and mild hypokalemia which also has been corrected. She is pending transfer to [facility] to her transplant team for further evaluation. He was in the ED more than a day and we did reach out again to [facility] as to whether she needs to be inpatient transfer and they wanted to maintain that status. She will be observed in ICU because of her questionable V. tach as we correct her electrolyte abnormalities and attempt to slow her diarrhea. Stool evaluation have been sent and she does not have C. difficile. She is not on antibiotics. She is a full code. (2) Arrhythmia: Start date: 01/11/25 Status: Acute Assessment and plan: Question of torsade the point V. tach but no recurrence. Continue close observation ICU pending transfer for this patient who has a transplanted heart of greater than a decade. (3) Hypomagnesemia: Start date: 01/11/25 Status: Acute Assessment and plan: Continue IV repletion and follow-up labs. (4) Hypokalemia: Start date: 01/11/25 Status: Acute Assessment and plan: IV repletion as needed and follow-up lab. (5) Chronic hyperglycemia: Status: Chronic Assessment and plan: Glucometer measurements before meals and at bedtime with short acting insulin coverage with of increase hyperglycemia on stress dose steroids. (6) Hypertension: Status: Chronic Assessment and plan: Continue outpatient medical therapy. (7) Acquired hypothyroidism: Status: Chronic Assessment and plan: Continue outpatient supplement and follow-up TSH. (8) Heart transplant status: Status: Chronic Assessment and plan: Continue immunosuppressants and monitor cardiac status pending transfer. Stress dose steroids with patient usually on prednisone orally. Patient had negative troponins. (9) Gastroesophageal reflux disease: Status: Chronic Assessment and plan: Continue famotidine and omeprazole as per outpatient meds. History of Present Illness History of Present Illness Chief Complaint: 3 weeks of diarrhea with some nausea, fatigue and weakness Narrative: This is a 59-year-old female patient who had an idiopathic cardiomyopathy requiring cardiac transplant 2012 having failed implantable defibrillators x 3. This was performed in [facility] the patient accepted to [facility] pending bed availability. She continues to have loose stools but this is improving on Lomotil. In the ED she was treated with potassium and magnesium repletion and will have further magnesium repletion if continues to be low. She presently is not having nausea and feels much more comfortable. She is chronically on prednisone will be placed on stress dose IV steroids. Her usual outpatient medication will be continued with immunosuppressants and thyroid supplement. We will also monitor her glucometers with insulin coverage while hospitalized. The patient will be transferred to [facility] once bed is available. With a question of torsades de point V. tach in the ED the patient will be monitored in the ICU. She is a full code. Review of Systems Narrative: 13 point review of systems otherwise unrevealing or stable. 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 Heart transplant status (Chronic 09/11/12) Managed at [facility] Hot flashes (Chronic 02/21/16) Managed by [facility]; side effects from venlafaxine, unable to use HRT. Migraine (Chronic 07/12/15) Obesity (Acute) Gastroesophageal reflux disease (Chronic) Medical History COVID-19 treated with MAB through ER. Palpitations while on trulicity Perforation of tympanic membrane (03/26/13) right, surgically repaired [facility] Hx of gastric ulcer patient originally followed by [facility] for hx of gastric ulcers, EGD 08/28/2017 with CD showed erosive gastritis. 02/04/[address] Leger showed mild esophagitis. Dr Simmons [place] [facility] [place], done 03/28/[address] and [address] reflux[address] Dr Arredondo, [facility] General and GI surgery recommeds weight loss/possible gastric surgery. Dr Kevin from [facility] recommends repeat EGD, Dr Leger has agreed to repeat EGD. MAintained on omeprazole and famotidine. Cardiomyopathy cardiac transplant 01/04/12 - [facility] Genetic cardiomyopathy Surgical History History of colonoscopy (~08/28/24) H/O esophagogastroduodenoscopy (~08/28/24) Status post heart transplant (~2011) S/P ear surgery History of intraocular lens implant Both eyes EGD - [facility] (09/07/19) 2018-Dr Leger, mild esophagits 01/2019- chronic gastric ulcers Colonoscopy - [facility] 04/23/14; [facility] Family History Other Cancer Diabetes Social History Smoking/Tobacco Use Status: Never Second Hand Exposure: No Smoking risk assessment performed?: Yes Alcohol Intake: current Alcohol Intake frequency: holidays/special occasions only Drug use: Never Substance use type: does not use Details: alcohol: unk Caregiver/Support person: No Household members: spouse Housing: house Number of Children: 2 Communication Needs: None Do you need help understanding health information?: Rarely current occupation: disabled Pets and animals: No Sexually active: Yes Do you think of yourself as: straight/heterosexual Current gender identity: female What is your relationship status?: How often do you talk on the phone with friends or family?: three or more times per week How often do you get together with friends or relatives?: once per week How often do you attend bahai or congregation services?: 1-3 times per year Do you belong to any clubs or organized social groups?: no Panel score (0-1 are the most socially isolated patients): 2 What type of physical activity do you participate in: walking Duration: 30-45 minutes/day Frequency: 3-4 times per week Ly/Mormonism: Catholic Seatbelt use: always Helmet use: Yes Helmet use: always Drive intox or ride w/intox newspaper delivery driver: No Do you feel safe at home: Yes Do you feel safe in your relationship?: Yes Female Reproductive History Menstrual control method: other ( vasectomy) Menopause type: natural Date of menopause: 04/01/18 History History 3 Para Hx # Term Pregnancies 1 Multiple births Hx # Pregnancies Ectopic pregnancies AB induced Hx Number of Living Children AB spontaneous Meds Allergies and Home Medications Allergies Allergy/AdvReac Type Severity Reaction Status Date / Time quinidine Allergy Intermediate Skin Rash Verified 01/10/25 14:33 chlorhexidine AdvReac Severe chemical Verified 01/10/25 14:33 burn azithromycin AdvReac Intermediate Can't take Verified 01/10/25 14:33 due to heart transplant patient lisinopril AdvReac Intermediate cough Verified 01/10/25 14:33 metformin AdvReac Intermediate GI Verified 01/10/25 14:33 complaints pravastatin AdvReac Intermediate Myalgias Verified 01/10/25 14:33 Home Medications ?Medication ?Instructions ?Recorded ?Confirmed ?Type propranolol 20 mg tablet 40 mg PO BID #180 tab-caps 06/29/14 01/10/25 History cxdaxvkjsneub-upwmjedzbyakj-axbvgmevszkro 2 tab-cap PO ONCE PRN #30 tab-caps 07/12/15 01/10/25 History 65 mg-100 mg-325 mg capsule magnesium oxide 400 mg (241.3 mg 400 mg PO BID #30 tabs 11/22/15 01/10/25 Rx magnesium) tablet mycophenolate sodium 360 mg 3 tab PO BID #270 tabs 07/03/16 01/10/25 History tablet,delayed release (Myfortic) tacrolimus 0.5 mg capsule, 1.5 mg PO BID #180 caps 11/20/16 01/10/25 History immediate-release (Prograf) acetaminophen 325 mg tablet 500 mg PO PRN 03/28/17 01/10/25 History (Tylenol) sfmtckbbgz-erkignawpoizd-vsxiyiiq 1 tab PO PRN #60 tabs 11/29/20 01/10/25 Rx 50 mg-325 mg-40 mg tablet promethazine 12.5 mg tablet 12.5 mg PO PRN #60 tabs 11/29/20 01/10/25 Rx prednisone 2.5 mg tablet 2.5 mg PO DAILY 02/01/21 01/10/25 History prednisone 5 mg tablet 5 mg PO DAILY 02/01/21 01/10/25 History famotidine 10 mg tablet 10 mg PO QHS 04/11/21 01/11/25 History evolocumab 140 mg/mL subcutaneous 140 mg subcut Q2W High cholesterol 04/30/23 01/10/25 History pen injector (Hanna Calvin) blood-glucose meter (OneTouch #1 ea 06/10/23 01/10/25 Rx Verio Flex Meter) blood sugar diagnostic (OneTouch #100 strips 08/28/23 01/10/25 Rx Verio test strips) diltiazem HCl 120 mg 120 mg PO DAILY #30 caps 10/14/23 01/10/25 Rx capsule,extended release 24 hr aspirin 81 mg tablet,delayed 81 mg PO DAILY 11/06/23 01/10/25 History release nystatin 100,000 unit/gram topical 1 applic topical BID #60 grams 11/06/23 01/10/25 Rx powder coenzyme Q10 100 mg capsule 100 mg PO QHS 05/06/24 01/11/25 History (CoQ-10) polyethylene glycol 3350 17 17 g PO DAILY 05/06/24 01/10/25 History gram/dose oral powder (Miralax) cyclobenzaprine 5 mg tablet 5 mg PO TID PRN #14 tabs 05/29/24 01/10/25 Rx tacrolimus 1 mg capsule, 2 mg PO BID 05/29/24 01/10/25 History immediate-release omeprazole magnesium 20 mg 20 mg PO DAILY #90 caps 06/16/24 01/10/25 Rx capsule,delayed release lancets 33 gauge (OneTouch Francheska #100 ea 06/18/24 01/10/25 Rx Plus Lancet) lorazepam 0.5 mg tablet 0.5 mg PO DAILY PRN anxiety #60 06/18/24 01/10/25 Rx tabs bisacodyl 5 mg tablet,delayed 5 mg PO ONCE 08/28/24 01/10/25 History release progesterone micronized 200 mg 200 mg PO QHS #42 caps 11/04/24 01/10/25 Rx capsule cyclobenzaprine 10 mg tablet 10 mg PO TID PRN muscle spasm #25 11/11/24 01/10/25 Rx tabs amoxicillin 500 mg capsule 2,000 mg PO .COMPLEX 12/20/24 01/10/25 History baclofen 10 mg tablet 10 mg PO Q6H PRN back spasms 12/20/24 01/10/25 History calcium carbonate (Tums) 200 mg PO DAILY 12/20/24 01/10/25 History loperamide 2 mg capsule 2 mg PO Q4H PRN 12/20/24 01/10/25 History meclizine 12.5 mg tablet See Rx Instructions PO Q6H PRN 12/20/24 01/10/25 History rosuvastatin 5 mg tablet (Crestor) 2.5 mg PO DAILY 12/20/24 01/10/25 History levothyroxine 75 mcg tablet 75 mcg PO DAILY #90 tab-caps 12/29/24 01/10/25 Rx estradiol 0.05 mg/24 hr semiweekly 1 patch transdermal .2xw #8 ea 01/04/25 01/10/25 Rx transdermal patch (Vivelle-Dot) tirzepatide 10 mg/0.5 mL 10 mg (0.5 mL) subcut QWEEK #2 mL 01/07/25 01/10/25 Rx subcutaneous pen injector losartan 50 mg tablet 50 mg PO QHS 01/11/25 01/11/25 History Exam Narrative Exam Narrative: General: Patient appears appropriate or younger than stated age, alert and oriented x 3 and in no acute distress. HEENT: Normocephalic, eyes with pupils equal and react to light symmetrically, extraocular movement intact and sclera anicteric. Oropharynx is moist mucosa and good dentition. Neck: Supple without JVD. Back: Normal posture without CVA tenderness. Lungs: Clear to oscillation percussion with no focal rales or rhonchi. Normal vesicular breath sounds with normal inspiratory to expiratory phase ratio and no wheeze. Breast: Exam deferred. Heart: Regular rate and rhythm with distant heart sounds, no murmurs or gallops appreciated. Abdomen: Normal contour, soft nontender to palpation with no palpable hepatosplenomegaly. Bowel sounds positive slightly hyperactive in all quadrants. No focalizing tenderness, guarding or rebound. Genitalia/rectal: Exam deferred. Extremities: No clubbing, cyanosis or pitting edema. Peripheral pulses intact. Skin: Normal color, warm and dry. Neuro: Cranial nerves II through XII gross intact, no focalized motor deficits. No tremor. Psych: Normal affect and mood. No abnormal thought processes. Remote memory intact. Results Imaging Imaging Studies: EXAM: CT ABDOMEN PELVIS W CLINICAL HISTORY: LLQ abd pain, Diarrhea. TECHNIQUE: Imaging Protocol: Axial computed tomography images with coronal and sagittal reformatted images were created and reviewed CONTRAST MATERIAL: Intravenous: Omnipaque-350 100cc Oral: None COMPARISON: CT CT CHEST/ABD/PEL W from 12/20/2024 FINDINGS: VISUALIZED LUNG BASES: No nodules nor pleural effusions evident. Sternotomy wires noted. ABDOMEN: There is no ascites. LIVER: There are no focal hepatic lesions evident. No dilated intrahepatic ducts. GALLBLADDER/BILIARY: Subtle density which is noncalcified noted on the dependent wall the gallbladder, similar location the previous. Either noncalcified gallstone or polyp. CBD is not dilated. PANCREAS: No evidence of pancreatic mass nor dilatation of the pancreatic duct. SPLEEN: Spleen is not enlarged. No obvious intrasplenic lesions. Splenic and portal veins are patent. ADRENALS: There are no significant adrenal masses. KIDNEYS:No cysts evident. No solid renal masses. No calculi nor hydronephrosis.. ABDOMINAL AORTA: Abdominal aorta is not enlarged. LYMPH NODES:There is no retroperitoneal nor paraaortic adenopathy. ABDOMINAL WALL: Anterior abdominal wall midline supraumbilical hernia mesh repair. No abnormal collections in this region. No inguinal hernias evident. GI: There is fluid seen in nondilated small bowel loops as well as within the right-side of the colon. No bowel obstruction, free air, nor abscess. Appendix appears unremarkable. PELVIS: GI: No evidence of appendicitis.There diverticuli in the descending-left colon and sigmoid. No obvious acute diverticulitis. LYMPH NODES: There is no intrapelvic nor inguinal adenopathy. REPRODUCTIVE: Uterus appears unremarkable. No abnormal adnexal findings. No free fluid in the pelvis. URINARY BLADDER: Collapsed. OSSEOUS: No fractures and no significant osseous lesions. IMPRESSION: 1. Subtle noncalcified density on the dependent wall the gallbladder unchanged in position from prior CT scan of 12/20/2024 in either representing a small noncalcified gallstone or polyp at this level. Recommend follow-up ultrasound for added specificity concerning this gallbladder finding on CT scan. There is no CT evidence of acute cholecystitis nor significant dilatation of the biliary tree. 2. There are diverticuli in the left side of the colon and sigmoid. No obvious acute diverticulitis. Also no evidence of appendicitis. 3. Other findings as above. Labs 01/10/25 14:55 01/11/25 19:54 Last Vital Signs Temp 36.3 C L 01/10/25 15:07 Pulse 100 H 01/11/25 14:05 Resp 20 01/11/25 14:40 BP 147/64 H 01/11/25 14:05 Pulse Ox 99 01/11/25 14:05 Time Spent Time spent with Patient: >75 minutes Time was spent: preparing to see the patient(eg.review tests), obtaining and/or reviewing separately otained hiistory, ordering medications,tests, procedures, referring, communicating with other health respiratory care specialist, indepentently interpreting results, counseling the patient and care coordination
[2025-01-11 20:13] LABS: BUN 24 mg/dL (7-18); CREATININE 1.1 mg/dL (0.55-1.02); Calcium 8.1 mg/dL (8.5-10.1); Chloride 115 mmol/L (98-107); Estimated GFR 57.52 (mL/min/1.73m2); Glucose 124 mg/dL (74-106); Magnesium 1.4 mg/dL (1.8-2.4); Potassium 3.9 mmol/L (3.5-5.1); Sodium 143 mmol/L (136-145)
[2025-01-11 20:28] LABS: TSH (W/Ref FT4) 0.62 uIU/mL (0.36-3.74)
[2025-01-11] MEDS: Normal Saline Flush 10 ML SYR IVP ×2 (22:40→23:06)
[2025-01-11] MEDS: MAGNESIUM SULFATE 4 GM/100 ML BAG IV_INF (23:05)
[2025-01-11 23:28] LABS: Campylobacter PCR Negative (Negative); Salmonella PCR Negative (Negative); Shiga Toxin PCR Negative (Negative); Shigella/Enteroinvasive Ecoli Negative (Negative)
[2025-01-11] MEDS: Hydrocortisone SOD SUC. 100 MG VIAL IVP (23:52)
[2025-01-12] VITALS (60 sets, daily range): BP systolic 103–117; BP diastolic 65–87; PULSE 94–115; RESP 0–31; TEMP 36.4–37; O2SAT 90–100
[2025-01-12] MEDS: Heparin 5,000 UNITS/ML VIAL 5000 UNITS SC ×2 (00:03→08:54)
[2025-01-12] MEDS: Losartan 50 MG TAB PO ×2 (00:06→20:58)
[2025-01-12] MEDS: Propranolol 20 MG TAB 40 MG PO ×3 (00:08→20:57)
[2025-01-12] MEDS: Tacrolimus 0.5 MG CAP 1.5 MG PO ×3 (00:12→20:59)
[2025-01-12] MEDS: Propranolol 40 MG TAB PO (00:13)
[2025-01-12] MEDS: Loperamide 2 MG CAP PO ×2 (00:20→07:39)
--- NOTE | 2025-01-12 04:05 | W.PC.ACHO ---
Registration Status: Primary Language: Preferred Language: ED Information & Data Chief Complaint Nausea/Vomit/Diar 01/10/25 14:57 Triage Note Pt has had ongoing and 01/10/25 14:28 continual diarrhea for several weeks. Had been dx with gastroenteritis. Pt reports weakness, fatigue, yellow stool. 15 BMs today. Pt reports nausea but no vomiting. Has crampy pains in abdomen 02/08. Heart transplant pt from [facility] in 2011. Immunosuppressed. Medical / Surgical History (Last Reviewed 01/11/25 @ 19:22 by Gene Leung) COVID-19 Palpitations Perforation of tympanic membrane (03/26/13) Hx of gastric ulcer Cardiomyopathy (Last Reviewed 01/11/25 @ 19:22 by Gene Leung) History of colonoscopy (~08/28/24) H/O esophagogastroduodenoscopy (~08/28/24) Status post heart transplant (~2011) S/P ear surgery History of intraocular lens implant EGD - MAC (09/07/19) Colonoscopy - MAC Most Recent Vital Signs Temperature 37.1 C 01/11/25 21:33 Temperature Source Temporal Artery Scan 01/11/25 21:33 Pulse 102 H 01/11/25 21:33 Pulse 104 H 01/11/25 14:40 Respiratory Rate 26 H 01/11/25 21:33 Respiratory Effort Normal, Non-Labored 01/11/25 21:33 Respiratory Depth Normal 01/11/25 21:33 Respiratory Pattern Normal 01/11/25 21:33 Blood Pressure 107/80 01/11/25 21:33 Blood Pressure Mean 89 01/11/25 21:33 Blood Pressure Position Supine 01/11/25 21:33 Pulse Oximetry 97 01/11/25 21:33 Oxygen Delivery Method Room Air 01/11/25 21:33 Oxygen Flow Rate 0 01/11/25 21:33 Pain Level 0 01/10/25 15:07 Allergies quinidine Allergy (Intermediate, Verified 01/10/25 14:33) Skin Rash chlorhexidine Adverse Reaction (Severe, Verified 01/10/25 14:33) chemical burn azithromycin Adverse Reaction (Intermediate, Verified 01/10/25 14:33) Can't take due to heart transplant patient CAN'T TAKE DUE TO HEART TRANSPLANT PT lisinopril Adverse Reaction (Intermediate, Verified 01/10/25 14:33) cough metformin Adverse Reaction (Intermediate, Verified 01/10/25 14:33) GI complaints pravastatin Adverse Reaction (Intermediate, Verified 01/10/25 14:33) Myalgias Active Medications Generic Name Dose Route Start Last Admin Trade Name Freq PRN Reason Stop Dose Admin Diltiazem HCl 60 mg 01/11/25 21:33 01/11/25 23:38 Diltiazem 60 Mg Tab PO Not Given BID CLAUDETTE Heparin Sodium (Porcine) 5,000 units 01/11/25 22:00 01/12/25 00:03 Heparin 5,000 Units/Ml Vial SC 5,000 units Q8H CLAUDETTE Administration Hydrocortisone 100 mg 01/11/25 22:00 01/11/25 23:52 Hydrocortisone Sod Suc. 100 Mg Vial IVP 100 mg Q8H CLAUDETTE Administration Insulin Aspart 0 units 01/11/25 22:00 01/12/25 00:08 Insulin Aspart 300 Units/3 Ml Pen SC Not Given 0800,1200,1700,2200 [facility] Protocol Loperamide HCl 2 mg 01/11/25 21:33 01/12/25 00:20 Loperamide 2 Mg Cap PO 2 mg Q4H PRN PRN Administration Losartan Potassium 50 mg 01/11/25 22:00 01/12/25 00:06 Losartan 50 Mg Tab PO 50 mg HS CLAUDETTE Administration Magnesium Oxide 400 mg 01/11/25 21:33 01/11/25 22:36 Magnesium Oxide 400 Mg Tab PO 400 mg BID CLAUDETTE Administration Nystatin 0 gm 01/11/25 21:33 01/11/25 23:38 Nystatin Powder 15 Gm Jar TP Not Given BID CLAUDETTE Propranolol HCl 40 mg 01/11/25 21:33 01/12/25 00:08 Propranolol 20 Mg Tab PO 40 mg BID CLAUDETTE Administration Sodium Chloride 0 ml 01/10/25 20:00 01/11/25 23:37 Normal Saline Flush 10 Ml Syr IVP Not Given BID [facility] IV IV Catheter Type [] Saline Lock IV Catheter Type [Left Saline Lock Antecubital] IV Catheter Gauge [] 22 IV Catheter Gauge [Left 18 Antecubital] Diet Orders Category Date Time Status Diabetes Consistent CHO/Heart Healthy [DIET] Nutrition 01/12/25 Breakfast Active Diagnostics 01/12/25 01/11/25 01/11/25 Range/Units 05:35 21:33 19:54 WBC Pending RBC Pending Hgb Pending Hct Pending MCV Pending MCH Pending MCHC Pending RDW Pending Plt Count Pending MPV Pending PT Pending INR Pending Sodium Pending 143 (136-145) mmol/L Potassium Pending 3.9 (3.5-5.1) mmol/L Chloride Pending 115 H (98-107) mmol/L Carbon Dioxide Pending 20.0 L (21.0-32.0) mmol/L Anion Gap Pending 8.0 (3-11) mmol/L BUN Pending 24 H (7-18) mg/dL Creatinine Pending 1.1 H (0.55-1.02) mg/dL Est GFR (CKD-EPI 2020) Pending 57.52 (mL/min/1.73m2) Glucose Pending 124 H (74-106) mg/dL Calcium Pending 8.1 L (8.5-10.1) mg/dL Magnesium Pending 1.4 L (1.8-2.4) mg/dL Total Bilirubin Pending AST Pending ALT Pending Alkaline Phosphatase Pending Total Protein Pending Albumin Pending TSH 0.62 (0.36-3.74) uIU/mL 01/10/25 17:18 Blood Culture - Preliminary Blood NO GROWTH 24 HOURS 01/10/25 16:47 Blood Culture - Preliminary Blood NO GROWTH 24 HOURS [facility] Documentation Fingerstick Glucose Start: 01/11/25 21:33 Freq: AC & HS Status: Active Protocol: Activity Type Activity Date Activity User E-sign Co-sign Detail Recorded Client Recorded Date Recorded By Document 01/11/25 23:51 BKG DAEMON(3) [id number] 01/11/25 23:51 BKG DAEMON(4) Intake and Output - 24 Hour Total 01/10/25 14:24 thru 01/11/25 21:33 Intake Total 800 Balance 800 Weight 81.3 kg Intake: IV 800 Other: Stool Characteristics Liquid Falls Risk Assessment History of Falls No History 01/11/25 21:33 Contributing Factors No Factors 01/10/25 15:14 Ambulatory Aids Independent 01/11/25 21:33 Tubes/Lines W/no contributing factors 01/11/25 21:33 Gait Evaluation No gait disturbance 01/10/25 15:14 Cognition No cognitive impairment 01/11/25 21:33 Fall Total Score 10 01/11/25 21:33 Level of Risk Standard/Low Risk 01/11/25 21:33 Problems (Last Reviewed 01/11/25 @ 19:22 by Gene Leung) Hypokalemia (Acute 04/13/09) Chronic hyperglycemia (Chronic) Intractable diarrhea (Acute) Hypomagnesemia (Acute) Arrhythmia (Acute) Hypertension (Chronic) Acquired hypothyroidism (Chronic 01/12/17) Heart transplant status (Chronic 09/11/12) Gastroesophageal reflux disease (Chronic) v v v v v v v v v Sending and/or Receiving Nurses: Please use comment section below to note any information pertinent to the patient hand-off not included above. Information / Comments: Report received from: Donnell Thomason RN all questions answered: yes
[2025-01-12 06:42] LABS: HCT 34.8 % (36.0-46.0); HGB 11.8 g/dL (11.2-15.7); MCH 30.3 pg (27.0-33.0); MCHC 33.9 % (32.0-36.0); MCV 90 fL (80-95); MPV 10.6 fL (8.0-11.0); Platelet Count 231 10^3/uL (130-400); RBC 3.89 10^6/uL (3.93-5.22); RDW 13.7 % (11.7-14.6); RDW-SD 44.6 fL; WBC 5.69 10^3/uL (4.4-10.8)
[2025-01-12 06:51] LABS: Prothrombin Time 9.8 sec (9.1-11.1)
[2025-01-12 07:07] LABS: ALT 85 U/L (14-59); AST 23 U/L (15-37); Albumin 3.5 g/dL (3.4-5.0); Alkaline Phosphatase 79 U/L (46-116); Anion Gap 10.7 mmol/L (3-11); BUN 27 mg/dL (7-18); Bilirubin, Total 0.37 mg/dL (0.2-1.0); CO2 19.3 mmol/L (21.0-32.0); CREATININE 1.1 mg/dL (0.55-1.02); Chloride 111 mmol/L (98-107); Estimated GFR 57.52 (mL/min/1.73m2); Glucose 146 mg/dL (74-106); Magnesium 2.6 mg/dL (1.8-2.4); Potassium 4.5 mmol/L (3.5-5.1); Sodium 141 mmol/L (136-145); Total Protein 6.2 g/dL (6.4-8.2)
[2025-01-12] MEDS: Omeprazole 20 MG CAPCR PO (07:34)
[2025-01-12] MEDS: Levothyroxine 75 MCG TAB PO (07:34)
[2025-01-12] MEDS: Hydrocortisone SOD SUC. 100 MG VIAL IVP (08:54)
[2025-01-12] MEDS: Aspirin E.C. 81 MG TABEC PO (08:56)
[2025-01-12] MEDS: Calcium Carbonate *TUMS* 500 MG CHEW 200 MG PO (08:56)
[2025-01-12] MEDS: Magnesium Oxide 400 MG TAB PO (08:57)
[2025-01-12] MEDS: Normal Saline Flush 10 ML SYR IVP ×4 (09:01→20:59)
--- NOTE | 2025-01-12 09:29 | PGE_ITS ---
Date of Service Date of service: 01/12/25 Time of Service: 09:29 Assessment and Plan Assessment and plan (1) Intractable diarrhea: Start date: 01/11/25 Status: Acute Assessment and plan: This is a 59-year-old lady who has had intractable diarrhea over the last 3 weeks admitted question of torsades/V. tach Per history started with acute gastroenteritis, but has continued. May be related to her immune suppression. Stool evaluation have been sent including ova and parasites, bacterial pathogens, and C. difficile. She has not been on antibiotics. She is at risk for exocrine pancreatic insufficiency, will send elastase. Lactose-free diet in case this is contributing. She can try solids if she would like. (2) Arrhythmia: Start date: 01/11/25 Status: Acute Assessment and plan: Question of torsades/V. tach on presentation a/w low Mg/K+ and diarrhea, has not recurred. high risk with h/o transplanted heart of greater than a decade. (3) Hypomagnesemia: Start date: 01/11/25 Status: Acute Assessment and plan: Now improved, stop oral Mg as this can make stools worse. (4) Hypokalemia: Start date: 01/11/25 Status: Acute Assessment and plan: IV repletion as needed, now imrpoved. (5) Chronic hyperglycemia: Status: Chronic Assessment and plan: Looks like she has type 2 DM, not sure why this isn't her diagnosis. Fingersticks Glucometer measurements before meals and at bedtime with short acting insulin coverage She can use the outpatient GLP-1 if she brings it in. watchs for increase hyperglycemia on stress dose steroids. (6) Heart transplant status: Status: Chronic Assessment and plan: Continue immunosuppressants and monitor cardiac status pending transfer. Given stress dose steroids with patient usually on prednisone orally, will cut dose as she was not in adrenal crisis Had negative troponins. Awaiting bed at [facility]. If diarrhea improves and no recurrence of arrythmia, we may be able to discharge from here. (7) Gastroesophageal reflux disease: Status: Chronic Assessment and plan: Continue famotidine and omeprazole as per outpatient meds. H/o gastric ulcer. (8) DVT prophylaxis: Status: Acute Assessment and plan: enoxaparin Subjective Subjective Patient reports: no new complaints, tolerating liquids well and diarrhea; denies nausea, vomiting, shortness of breath or fever Interval history since last seen: 24 hr: No further cardiac events She is still having loose stools. Has had these for 3 weeks, started evaluation as outpatient. Never had fever, truly painful stools, or blood in the stool. Just loose. Hasn't had chest pain or palpitations or dizzy spells. Exam Narrative Exam Narrative: General: Alert and oriented x 3 and in no acute distress. Lungs: CTAB, nl effort Heart: Regular rate and rhythm with distant heart sounds, no murmurs or gallops appreciated. ABD: +BS, soft, NT/ND, no masses/HSM Extremities: No clubbing, cyanosis or pitting edema. Peripheral pulses intact. Skin: Normal color, warm and dry. Objective Last Vital Signs Temp 37.1 C 01/11/25 21:33 Pulse 104 H 01/12/25 08:01 Resp 21 01/12/25 08:20 BP 113/87 01/12/25 08:00 Pulse Ox 99 01/12/25 08:01 Laboratory Results - last 24 hr 01/11/25 01/12/25 19:54 05:15 WBC 5.69 RBC 3.89 L Hgb 11.8 Hct 34.8 L MCV 90 MCH 30.3 MCHC 33.9 RDW 13.7 Plt Count 231 MPV 10.6 PT 9.8 INR 1.0 Sodium 143 141 Potassium 3.9 4.5 Chloride 115 H 111 H Carbon Dioxide 20.0 L 19.3 L Anion Gap 8.0 10.7 BUN 24 H 27 H Creatinine 1.1 H 1.1 H Est GFR (CKD-EPI 2020) 57.52 57.52 Glucose 124 H 146 H Calcium 8.1 L 9.0 Magnesium 1.4 L 2.6 H Total Bilirubin 0.37 AST 23 ALT 85 H Alkaline Phosphatase 79 Total Protein 6.2 L Albumin 3.5 TSH 0.62 Time Spent with Patient Time Spent with Patient: 35-49 minutes Time was spent: preparing to see the patient(eg.review tests), obtaining and/or reviewing separately otained hiistory, ordering medications,tests, procedures, referring, communicating with other health physician primary care sports medicine, indepentently interpreting results, counseling the patient and care coordination
--- NOTE | 2025-01-12 09:43 | INITIAL_ITS ---
Date of service: 01/12/25 Time of Service: 09:43 Care Management Initial Assmt Initial Assessment Reason for Hospitalization: diarrhea and possible [place]ors[place] pointe ventricular arrhythmia Functional Status/Living Situation Patient Presentation: Alejandra was sitting up in bed when CM met with her. She was very pleasant in interaction and engaged well with CM. Alejandra lives in a single family home in [place] with her Davonte. She has 2 children who live in [place] but are not in the immediate area. Alejandra explained that they keep in contact and are a close family. 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 She is independent at baseline and does not receive any community services. Alejandra had a heart transplant on 01/04/2012 at [facility] in [place]. She was admitted yesterday to [facility] with intractable diarrhea that has plagued her for as month. This has resulted in electrolyte imbalances and cardiac arrhythmias. Efforts are underway to have her transferred to [place] however there have been no beds available. Town of Residence: [place] Resides with: Spouse (Davonte) Significant Other/Family: [facility] Employment Status: Retired Instrumental Activities of Daily Living (ADLs): Independent Medications Medication Management: No Issues/Barriers identified Physical Functioning/Mobility Assistive Device: none Advance Directives Advance Directives: Do you have an Advance Directive: Y 01/08/20 16:48 AD On File at [facility]: Y 01/08/20 16:48 Date Asked 01/10/25 01/10/25 14:25 AD Date Reviewed 01/11/25 01/11/25 21:39 COLST On File at [facility] COLST Date Scanned Code Status Resuscitation Status Full Code Insurance Coverage/Financial Issues Insurance: [facility] Resources Care Team Visit Care Team Role Provider Type Yadira Holly MD Primary Care Provider [facility] STAFF PHYSICIAN Trini Dominguez MD Emergency Provider [facility] STAFF PHYSICIAN Oswaldo Hawkins Admit Provider [facility] STAFF PHYSICIAN Attending Provider Discharge Potential Discharge Needs: Surgical F/U Appt Anticipated Barriers to Discharge: Bed availability Patient/Family Education Needs: Review discharge instructions, discuss Ask Me Three Transportation: EMS Plan: The current plan is for Alejandra to transfer to [place] where her heart transplant was performed. She will follow up with her surgeons and plan of care and transport via EMS. CM will follow and continue to support discharge planning. Social Determinants of Health Screening Social Determinants of Health last assessed: 01/13/25 Will the Patient Participate in the Screening?: Yes Do you worry about having a steady place to live?: no Problems where you live: no known problems In the past 12 months, have you had to go without electric, gas, oil or water in your home?: no Have you or anyone in your house had to go without enough food to eat?: no Has lack of transportation kept you from medical appointments or from doing things needed for daily living?: no Has anyone in your life made you feel unsafe or unsupported?: no How hard is it for you to pay for the very basics like food, housing, medical care, and heating? Would you say it is:: Not hard at all Do you want help finding or keeping work or a job?: I do not need or want help If for any reason you need help with day-to-day activities such as bathing, preparing meals, shopping, managing finances, etc., do you get the help you need?: I don?t need any help How often do you feel lonely or isolated from those around you?: Never Do you speak a language other than Georgian at home?: No Does the patient want assistance with any of the above?: No PFSH All Active Problems (Updated 01/12/25 @ 09:43 by Oswaldo Hawkins) DVT prophylaxis (Acute) Hypokalemia (Acute 04/13/09) Chronic hyperglycemia (Chronic) Intractable diarrhea (Acute) Hypomagnesemia (Acute) Arrhythmia (Acute) Fever (Acute) Gastroenteritis (Acute) Abnormal CT scan, gallbladder (Acute) 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 Heart transplant status (Chronic 09/11/12) Managed at [facility] Hot flashes (Chronic 02/21/16) Managed by [facility]; side effects from venlafaxine, unable to use HRT. Migraine (Chronic 07/12/15) Obesity (Acute) Gastroesophageal reflux disease (Chronic) Medical History COVID-19 treated with MAB through ER. Palpitations while on trulicity Perforation of tympanic membrane (03/26/13) right, surgically repaired [facility] Hx of gastric ulcer patient originally followed by [facility] for hx of gastric ulcers, EGD 08/28/2017 with CD showed erosive gastritis. 02/04/[address] Leger showed mild esophagitis. Dr Simmons referred to [facility] for CÁRDENAS, done 03/28/[address] Arredondo, [facility] General and GI surgery recommeds weight loss/possible gastric surgery. Dr Kevin from [facility] recommends repeat EGD, Dr Leger has agreed to repeat EGD. MAintained on omeprazole and famotidine. Cardiomyopathy cardiac transplant [facility]/04/12 [facility] Genetic cardiomyopathy Surgical History History of colonoscopy (~08/28/24) H/O esophagogastroduodenoscopy (~08/28/24) Status post heart transplant (~2011) S/P ear surgery History of intraocular lens implant Both eyes EGD - MAC (09/07/19) 2018-Dr Leger, mild esophagits 01/2019- chronic gastric ulcers Colonoscopy - MAC 04/23/14; [facility] Family History Other Cancer Diabetes Social History Smoking/Tobacco Use Status: Never Second Hand Exposure: No Smoking risk assessment performed?: Yes Alcohol Intake: current Alcohol Intake frequency: holidays/special occasions only Drug use: Never Substance use type: does not use Details: alcohol: unk Caregiver/Support person: No Household members: spouse Housing: house Number of Children: 2 Communication Needs: None Do you need help understanding health information?: Rarely current occupation: disabled Pets and animals: No Sexually active: Yes Do you think of yourself as: straight/heterosexual Current gender identity: female What is your relationship status?: How often do you talk on the phone with friends or family?: three or more times per week How often do you get together with friends or relatives?: once per week How often do you attend faith or religion services?: 1-3 times per year Do you belong to any clubs or organized social groups?: no Panel score (0-1 are the most socially isolated patients): 2 What type of physical activity do you participate in: walking Duration: 30-45 minutes/day Frequency: 3-4 times per week Ly/Presybeterian: Shinto Seatbelt use: always Helmet use: Yes Helmet use: always Drive intox or ride w/intox dedicated driver: No Do you feel safe at home: Yes Do you feel safe in your relationship?: Yes Female Reproductive History Menstrual control method: other ( vasectomy) Menopause type: natural Date of menopause: 04/01/18 History History 3 Para Hx # Term Pregnancies 1 Multiple births Hx # Pregnancies Ectopic pregnancies AB induced Hx Number of Living Children AB spontaneous
[2025-01-12] MEDS: dilTIAZem CD 120 MG CAPCR PO (09:50)
--- NOTE | 2025-01-12 09:51 | PDOC.CMIN ---
Date of service: 01/12/25 Time of Service: 09:51 Care Management Initial Assmt Advance Directives Advance Directives: Do you have an Advance Directive: Y 01/08/20 16:48 AD On File at [facility]: Y 01/08/20 16:48 Date Asked 01/10/25 01/10/25 14:25 AD Date Reviewed 01/11/25 01/11/25 21:39 COLST On File at [facility] COLST Date Scanned Code Status Resuscitation Status Full Code Care Team Visit Care Team Role Provider Type Yadira Holly MD Primary Care Provider [facility] STAFF PHYSICIAN Trini Dominguez MD Emergency Provider [facility] STAFF PHYSICIAN Oswaldo Hawkins Admit Provider [facility] STAFF PHYSICIAN Attending Provider Social Determinants of Health Screening Social Determinants of Health last assessed: 01/12/25 Will the Patient Participate in the Screening?: Yes Do you worry about having a steady place to live?: yes Problems where you live: no known problems In the past 12 months, have you had to go without electric, gas, oil or water in your home?: no Have you or anyone in your house had to go without enough food to eat?: no Has lack of transportation kept you from medical appointments or from doing things needed for daily living?: no Has anyone in your life made you feel unsafe or unsupported?: no How hard is it for you to pay for the very basics like food, housing, medical care, and heating? Would you say it is:: Not hard at all Do you want help finding or keeping work or a job?: I do not need or want help If for any reason you need help with day-to-day activities such as bathing, preparing meals, shopping, managing finances, etc., do you get the help you need?: I don?t need any help How often do you feel lonely or isolated from those around you?: Never Do you speak a language other than Pashto at home?: No Does the patient want assistance with any of the above?: No Health Related Social Needs Health related social needs: housing instability, housed, with risk of homelessness (Z59.811) PFSH All Active Problems (Updated 01/12/25 @ 09:43 by Oswaldo Hawkins) DVT prophylaxis (Acute) Hypokalemia (Acute 04/13/09) Chronic hyperglycemia (Chronic) Intractable diarrhea (Acute) Hypomagnesemia (Acute) Arrhythmia (Acute) Fever (Acute) Gastroenteritis (Acute) Abnormal CT scan, gallbladder (Acute) 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 Heart transplant status (Chronic 09/11/12) Managed at [facility] Hot flashes (Chronic 02/21/16) Managed by [facility]; side effects from venlafaxine, unable to use HRT. Migraine (Chronic 07/12/15) Obesity (Acute) Gastroesophageal reflux disease (Chronic) Medical History COVID-19 treated with MAB through ER. Palpitations while on trulicity Perforation of tympanic membrane (03/26/13) right, surgically repaired [facility] Hx of gastric ulcer patient originally followed by [facility] for hx of gastric ulcers, EGD 08/28/2017 with CD showed erosive gastritis. 02/04/[address] Leger showed mild esophagitis. Dr Simmons referred to [facility] for C[place]RDENAS, done 03/28/[address] and [address] reflux[address] Dr Arredondo, [facility] General and GI surgery recommeds weight loss/possible gastric surgery. Dr Kevin from [facility] recommends repeat EGD, Dr Leger has agreed to repeat EGD. MAintained on omeprazole and famotidine. Cardiomyopathy cardiac transplant 01/04/12 - [facility] Genetic cardiomyopathy Surgical History History of colonoscopy (~08/28/24) H/O esophagogastroduodenoscopy (~08/28/24) Status post heart transplant (~2011) S/P ear surgery History of intraocular lens implant Both eyes EGD - MAC (09/07/19) 2017-Dr Leger, mild esophagits 01/2019- chronic gastric ulcers Colonoscopy - MAC 04/23/14; [facility] Family History Other Cancer Diabetes Social History (Reviewed 01/12/25 @ 05:43 by Gene Tatum Smoking/Tobacco Use Status: Never Second Hand Exposure: No Smoking risk assessment performed?: Yes Alcohol Intake: current Alcohol Intake frequency: holidays/special occasions only Drug use: Never Substance use type: does not use Details: alcohol: unk Caregiver/Support person: No Household members: spouse Housing: house Number of Children: 2 Communication Needs: None Do you need help understanding health information?: Rarely current occupation: disabled Pets and animals: No Sexually active: Yes Do you think of yourself as: straight/heterosexual Current gender identity: female What is your relationship status?: How often do you talk on the phone with friends or family?: three or more times per week How often do you get together with friends or relatives?: once per week How often do you attend hindu or mormonism services?: 1-3 times per year Do you belong to any clubs or organized social groups?: no Panel score (0-1 are the most socially isolated patients): 2 What type of physical activity do you participate in: walking Duration: 30-45 minutes/day Frequency: 3-4 times per week Ly/Latter Day: Catholic Seatbelt use: always Helmet use: Yes Helmet use: always Drive intox or ride w/intox wheat combine driver: No Do you feel safe at home: Yes Do you feel safe in your relationship?: Yes Female Reproductive History Menstrual control method: other ( vasectomy) Menopause type: natural Date of menopause: 04/01/18 History History 3 Para Hx # Term Pregnancies 1 Multiple births Hx # Pregnancies Ectopic pregnancies AB induced Hx Number of Living Children AB spontaneous
[2025-01-12] MEDS: Enoxaparin 40 MG/0.4 ML SYR SC (16:31)
[2025-01-12] MEDS: Hydrocortisone SOD SUC. 100 MG VIAL 50 MG IVP (16:32)
[2025-01-12] MEDS: Famotidine 20 MG TAB 10 MG PO (20:57)
[2025-01-13] MEDS: Hydrocortisone SOD SUC. 100 MG VIAL 50 MG IVP ×2 (00:59→08:15)
[2025-01-13 02:58] VITALS: BP 122/90; PULSE 92; RESP 17; TEMP 36.2; O2SAT 98
[2025-01-13] MEDS: Levothyroxine 75 MCG TAB PO (04:55)
[2025-01-13 06:57] LABS: Magnesium 1.9 mg/dL (1.8-2.4)
[2025-01-13 06:59] LABS: Anion Gap 11.2 mmol/L (3-11); BUN 26 mg/dL (7-18); CO2 19.8 mmol/L (21.0-32.0); CREATININE 1.1 mg/dL (0.55-1.02); Calcium 9.2 mg/dL (8.5-10.1); Chloride 111 mmol/L (98-107); Estimated GFR 57.52 (mL/min/1.73m2); Glucose 153 mg/dL (74-106); Potassium 3.4 mmol/L (3.5-5.1); Sodium 142 mmol/L (136-145)
[2025-01-13 08:05] VITALS: BP 106/83; PULSE 101; RESP 17; TEMP 36.8; O2SAT 99
[2025-01-13] MEDS: dilTIAZem CD 120 MG CAPCR PO (08:12)
[2025-01-13] MEDS: Omeprazole 20 MG CAPCR PO (08:13)
[2025-01-13] MEDS: Calcium Carbonate *TUMS* 500 MG CHEW PO (08:13)
[2025-01-13] MEDS: Tacrolimus 0.5 MG CAP 1.5 MG PO ×2 (08:14→22:26)
[2025-01-13] MEDS: Loperamide 2 MG CAP PO (08:14)
[2025-01-13] MEDS: Aspirin E.C. 81 MG TABEC PO (08:14)
[2025-01-13] MEDS: Propranolol 20 MG TAB 40 MG PO ×2 (08:14→22:27)
[2025-01-13] MEDS: Normal Saline Flush 10 ML SYR IVP ×4 (08:15→22:26)
[2025-01-13] MEDS: Potassium Chloride 20 MEQ TABCR 40 MEQ PO (09:11)
[2025-01-13] MEDS: MAGNESIUM SULFATE 1 GM/100 ML BAG IV_INF (09:36)
[2025-01-13 12:20] VITALS: BP 102/77; PULSE 96; RESP 18; TEMP 36.6; O2SAT 97
[2025-01-13 15:38] VITALS: BP 96/71; PULSE 93; RESP 18; TEMP 36.6; O2SAT 100
--- NOTE | 2025-01-13 15:55 | W.PM.PROGNOT ---
Date of Service Date of service: 01/13/25 Time of Service: 15:55 Assessment and Plan Assessment and plan (1) Intractable diarrhea: Start date: 01/11/25 Status: Acute Assessment and plan: This is a 59-year-old lady who has had intractable diarrhea over the last 3 weeks admitted question of torsades/V. tach Per history started with acute gastroenteritis, but has continued. May be related to her immune suppression. Stool evaluation have been sent including ova and parasites, bacterial pathogens, and C. difficile. She has not been on antibiotics. She is at risk for exocrine pancreatic insufficiency, sent elastase. Lactose-free diet in case this is contributing. Did not tolerate progressing diet. Per transplant team, with immune modulators patients can have prolonged diarrhea from norovirus. This would make sense with her history. Get PCR. (2) Arrhythmia: Start date: 01/11/25 Status: Acute Assessment and plan: Question of torsades/V. tach on presentation a/w low Mg/K+ and diarrhea, has not recurred. high risk with h/o transplanted heart of greater than a decade. Continue telemetry. Pending transfer to [facility] (3) Hypomagnesemia: Start date: 01/11/25 Status: Acute Assessment and plan: Now improved, stop oral Mg as this can make stools worse. (4) Hypokalemia: Start date: 01/11/25 Status: Acute Assessment and plan: IV repletion as needed, try oral today as mildly low again. 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 Fingersticks Glucometer measurements before meals and at bedtime with short acting insulin coverage She can use the outpatient GLP-1 if she brings it in. watchs for increase hyperglycemia on stress dose steroids. (6) Heart transplant status: Status: Chronic Assessment and plan: Continue immunosuppressants and monitor cardiac status pending transfer. Given stress dose steroids with patient usually on prednisone orally, but was never in adrenal crisis Transition back to oral steroids Had negative troponins. Awaiting bed at [facility]. If diarrhea improves and no recurrence of arrythmia, consider d/c home, but worse today. (7) Gastroesophageal reflux disease: Status: Chronic Assessment and plan: Continue famotidine and omeprazole as per outpatient meds. H/o gastric ulcer. (8) DVT prophylaxis: Status: Acute Assessment and plan: enoxaparin Subjective Subjective Patient reports: vomiting; denies fever Interval history since last seen: Was feeling better yesterday, trying to take more food/fluids orally, but later in evening/overnight had increased crampy pain and loose stools. no blood. She is tired, feels like life force leaving her. She has no pain or palpitations. stomach a little queasy, but no vomiting. Exam Narrative Exam Narrative: General: Alert and oriented x 3 and in no acute distress. Lungs: CTAB, nl effort Heart: Regular rate and rhythm with distant heart sounds, no murmurs or gallops appreciated. ABD: +BS, soft, NT/ND, no masses/HSM Extremities: No clubbing, cyanosis or pitting edema. Peripheral pulses intact. Skin: Normal color, warm and dry. Objective Last Vital Signs Temp 36.6 C 01/13/25 15:38 Pulse 93 H 01/13/25 15:38 Resp 18 01/13/25 15:38 BP 96/71 L 01/13/25 15:38 Pulse Ox 100 01/13/25 15:38 Laboratory Results - last 24 hr 01/10/25 01/13/25 01/13/25 16:24 05:35 06:17 Sodium 142 Potassium 3.4 L D Chloride 111 H Carbon Dioxide 19.8 L Anion Gap 11.2 H BUN 26 H Creatinine 1.1 H Est GFR (CKD-EPI 2020) 57.52 Glucose 153 H Calcium 9.2 Magnesium 1.9 Stool Campylobacter PCR Negative Stool Salmonella PCR Negative Stool Shigella PCR Negative Shiga Toxin (PCR) Negative Time Spent with Patient Time Spent with Patient: 35-49 minutes Time was spent: preparing to see the patient(eg.review tests), obtaining and/or reviewing separately otained hiistory, ordering medications,tests, procedures, referring, communicating with other health long term acute care registered nurse, indepentently interpreting results, counseling the patient and care coordination
[2025-01-13] MEDS: Enoxaparin 40 MG/0.4 ML SYR SC (16:30)
--- NOTE | 2025-01-13 18:02 | PDOC.CMPRO ---
Date of service: 01/13/25 Time of Service: 18:02 Care Management Progress Note Progress Note Text Progress Note Text: Alejandra was sitting up in a chair when CM met with her. She was smiling and appeared to be in good spirits. Alejandra is still waiting to be transferred to [facility] in [place]. She has not had any more episodes of ventricular arrhythmia (Torsades de pointe) and has no cardiac symptoms. Alejandra does still have diarrhea however and her electrolytes continue to be affected. Today she received IV potassium and magnesium replacements. She will likley remain at [facility] until a bed is secured to enable close monitoring and continued treatment of her electrolyte abnormalities. CM will follow. Discharge Potential Discharge Needs: Other (transfer to tertiary) Anticipated Barriers to Discharge: Bed availability Patient/Family Education Needs: Review discharge instructions, discuss Ask Me Three Transportation: EMS Social Determinants of Health Screening Social Determinants of Health last assessed: 01/13/25 Will the Patient Participate in the Screening?: Yes Do you worry about having a steady place to live?: no Problems where you live: no known problems In the past 12 months, have you had to go without electric, gas, oil or water in your home?: no Have you or anyone in your house had to go without enough food to eat?: no Has lack of transportation kept you from medical appointments or from doing things needed for daily living?: no Has anyone in your life made you feel unsafe or unsupported?: no How hard is it for you to pay for the very basics like food, housing, medical care, and heating? Would you say it is:: Not hard at all Do you want help finding or keeping work or a job?: I do not need or want help If for any reason you need help with day-to-day activities such as bathing, preparing meals, shopping, managing finances, etc., do you get the help you need?: I don?t need any help How often do you feel lonely or isolated from those around you?: Never Do you speak a language other than Grenadian at home?: No Does the patient want assistance with any of the above?: No Health Related Social Needs Health related social needs: housing instability, housed, with risk of homelessness (Z59.811)
[2025-01-13 21:00] VITALS: BP 106/74; PULSE 92; RESP 18; TEMP 36.3; O2SAT 99
[2025-01-13] MEDS: Losartan 50 MG TAB PO (22:26)
[2025-01-13] MEDS: Famotidine 20 MG TAB 10 MG PO (22:27)
[2025-01-13 23:27] VITALS: BP 98/75; PULSE 90; RESP 16; TEMP 36.2; O2SAT 99
[2025-01-14 03:30] VITALS: BP 93/66; PULSE 91; RESP 15; TEMP 36.8; O2SAT 96
[2025-01-14] MEDS: Levothyroxine 75 MCG TAB PO (05:31)
[2025-01-14] MEDS: Hamamelis Leaf/Glycerin 100 EACH BOX PR (05:31)
[2025-01-14 07:08] LABS: Anion Gap 11.7 mmol/L (3-11); BUN 26 mg/dL (7-18); CO2 19.3 mmol/L (21.0-32.0); CREATININE 1.2 mg/dL (0.55-1.02); Calcium 9.1 mg/dL (8.5-10.1); Chloride 114 mmol/L (98-107); Estimated GFR 51.82 (mL/min/1.73m2); Glucose 78 mg/dL (74-106); Magnesium 1.7 mg/dL (1.8-2.4); Potassium 3.3 mmol/L (3.5-5.1); Sodium 145 mmol/L (136-145)
[2025-01-14 07:35] VITALS: BP 102/66; PULSE 95; RESP 16; TEMP 36.9; O2SAT 93
[2025-01-14] MEDS: Calcium Carbonate *TUMS* 500 MG CHEW PO (09:37)
[2025-01-14] MEDS: Propranolol 20 MG TAB 40 MG PO ×2 (09:39→20:10)
[2025-01-14] MEDS: Aspirin E.C. 81 MG TABEC PO (09:39)
[2025-01-14] MEDS: predniSONE 5 MG TAB 7.5 MG PO (09:39)
[2025-01-14] MEDS: dilTIAZem CD 120 MG CAPCR PO (09:40)
[2025-01-14] MEDS: Omeprazole 20 MG CAPCR PO (09:40)
[2025-01-14] MEDS: Tacrolimus 0.5 MG CAP 1.5 MG PO ×2 (09:42→20:09)
[2025-01-14] MEDS: Normal Saline Flush 10 ML SYR IVP ×3 (09:42→20:11)
--- NOTE | 2025-01-14 10:06 | CMPROGNOTE_ITS ---
Date of service: 01/14/25 Time of Service: 10:06 Care Management Progress Note Progress Note Text Progress Note Text: Alejandra was sitting up in a chair when CM met with her. She had just been told that [facility] in [place] finally has a bed for her. The nursing washing and screening plant supervisor is working on coordinating transportation. Unfortunately there is inclement weather in the area (snow and ice) so arranging EMS transport will be a challenge. Alejandra reported that she is really appreciative of the care she has received and that she has felt safe in our care. Discharge Potential Discharge Needs: PCP F/U Appt Anticipated Barriers to Discharge: Bed availability (still waiting for a bed in [place]) Patient/Family Education Needs: Review discharge instructions, discuss Ask Me Three Transportation: Private vehicle Plan: The current plan is for Alejandra to transfer to [place] where her heart transplant was performed. She will follow up with her surgeons and plan of care and transport via EMS. CM will follow and continue to support discharge planning. Social Determinants of Health Screening Social Determinants of Health last assessed: 01/14/25 Will the Patient Participate in the Screening?: Yes Do you worry about having a steady place to live?: no Problems where you live: no known problems In the past 12 months, have you had to go without electric, gas, oil or water in your home?: no Have you or anyone in your house had to go without enough food to eat?: no Has lack of transportation kept you from medical appointments or from doing things needed for daily living?: no Has anyone in your life made you feel unsafe or unsupported?: no How hard is it for you to pay for the very basics like food, housing, medical care, and heating? Would you say it is:: Not hard at all Do you want help finding or keeping work or a job?: I do not need or want help If for any reason you need help with day-to-day activities such as bathing, preparing meals, shopping, managing finances, etc., do you get the help you need?: I don?t need any help How often do you feel lonely or isolated from those around you?: Never Do you speak a language other than Tajik at home?: No Does the patient want assistance with any of the above?: No
[2025-01-14 11:31] VITALS: BP 98/68; PULSE 90; RESP 16; TEMP 36.8; O2SAT 99
[2025-01-14 14:47] VITALS: BP 96/70; PULSE 93; RESP 16; TEMP 37.2; O2SAT 95
--- NOTE | 2025-01-14 14:50 | CHAPLAIN ---
Alejandra explained that she is here waiting to be transferred to [place] to a larger hospital for care since she had a heart transplant several years ago. Yesterday, there were over 20 people waiting for a bed, and today, Alejandra said, she's number [phone], so she is getting closer being transferred. She is in touch with family by phone. I explained my role and offered support.
[2025-01-14] MEDS: Potassium Chloride 20 MEQ TABCR 40 MEQ PO (15:16)
[2025-01-14] MEDS: MAGNESIUM SULFATE 1 GM/100 ML BAG IV_INF (15:17)
--- NOTE | 2025-01-14 15:17 | W.PM.DS.N ---
Date of service: 01/14/25 Time of Service: 15:17 DS: Diagnosis Discharge Diagnosis (1) Intractable diarrhea: Status: Acute (2) Arrhythmia: Status: Acute (3) Hypomagnesemia: Status: Acute (4) Hypokalemia: Status: Acute (5) Chronic hyperglycemia: Status: Chronic (6) Heart transplant status: Status: Chronic (7) Gastroesophageal reflux disease: Status: Chronic (8) DVT prophylaxis: Status: Acute Discharge Plan Disposition Patient Disposition: Transfer-Acute Inpatient Care Specific Acute Inpt Facility: Other Condition: Stable Discharge Details Reason For Visit: Intractable diarrhea, Torsades, Hypomagnesemia, Hy Admit Date/Time: 01/11/25 19:54 Admit Provider: Oswaldo Hawkins Attending Provider: Carleen Blankenship Primary Care Provider: Yadira Holly Hospital Course Hospital Course: Diagnosis: Intractable diarrhea, hypomagnesemia, possible torsades de pointes, hypokalemia, heart transplant history Transfer to: [facility], Dr. Gregg Guzman, Cardiology Disposition: Stable, transfer via EMS History of Present Illness: The patient is a 59-year-old female with a past medical history of heart transplant in 2011, hypertension, high cholesterol, gastric ulcer, and type 2 diabetes mellitus. She presents to the ER with three weeks of persistent diarrhea, nausea, and increased acid reflux. Despite being initially diagnosed with gastroenteritis in the ER, her symptoms have not improved, and she has experienced daily yellow liquid diarrhea, crampy abdominal pain, dizziness, and lightheadedness upon standing. The patient is immunosuppressed due to her heart transplant and has been on tacrolimus for the past several years. She reports taking Imodium double strength with minimal relief. She denies chest pain, palpitations, or vomiting. She had sick contacts prior to the onset of her symptoms. Workup: Lab Results: CBC: WBC 5.69, Hgb 11.8 CMP: Potassium 3.3 (corrected with IV potassium), low magnesium (1.1, corrected with IV magnesium) - today potassium 3.3 (40 meq oral given) magnesium 1.7 (1 gm IV given) Urinalysis: Normal Troponins: Negative Stool Studies: Negative for C. difficile and occult blood CT Abdomen/Pelvis: No acute pathology identified; moderate diverticulosis noted EKG: Inverted P waves in leads II, III, aVF; borderline QTc prolongation on repeat. Telemetry: Brief episodes of possible V. tach or torsades de pointes, asymptomatic. Interventions: Magnesium Repletion: 4g IV magnesium administered in ED Potassium Repletion: 10 mEq IV potassium and 40 mEq oral potassium in ED Imodium: Administered to control diarrhea Telemetry: Ongoing monitoring for arrhythmias Consultation: [facility] heart transplant attending, Dr. Graves, for recommendations on further management. Clinical Course: During her stay in the ED, the patient exhibited brief episodes of V. tach and torsades de pointes, which were asymptomatic. She received magnesium and potassium repletion. Stool studies showed no evidence of C. difficile, and imaging did not indicate acute abdominal pathology. The patient remains stable but continues to experience persistent diarrhea, which has been slightly improved with the use of Imodium. Today she has had five liquid bowel movements despite imodium. There is no blood in her stool. C difficile is negative, shiga toxin negative, shigella, salmonella, campylobacter negative, stool for norovirus, stool ova and parasite is pending, Stool studies are pending. Plan: Transfer to [facility]: To continue management under her transplant team. Monitoring in the ICU due to history of arrhythmias (V. tach, torsades de pointes). Continue electrolyte monitoring and repletion (magnesium, potassium). Reassess diarrhea management; continue Imodium. Maintain immunosuppressants (tacrolimus) and manage with IV steroids due to chronic prednisone use. Medications: Continue immunosuppressants (tacrolimus). Continue thyroid supplementation. Administer insulin as needed for blood sugar control. Electrolyte Repletion: Continue IV magnesium and potassium replacement as necessary. Cardiology: Ongoing monitoring for arrhythmias. Transfer Logistics: Patient will be transferred to [facility]. EMS transfer planned. The patient verbalized understanding of the plan and agrees to the transfer. The patient is a full code. Discharge Instructions: The patient has been informed of her condition and the plan for transfer to [facility]. I spoke with Dr. Corral at [facility] who accepts the patient in transport. The patient also has a bed assigned to her. Home Meds and New Rx's Prescriptions: Continued polyethylene glycol 3350 [Miralax] 17 gram/dose powder 17 g PO DAILY coenzyme Q10 [CoQ-10] 100 mg capsule 100 mg PO QHS famotidine 10 mg tablet 10 mg PO QHS Repatha SureClick 140 mg/mL pen injector 140 mg subcut Q2W aspirin 81 mg tablet,delayed release (DR/EC) 81 mg PO DAILY nystatin 100,000 unit/gram powder 1 applic topical BID Qty: 60 1RF ktckwol-rhhnmxvmy-cspnfuonizbw 1 EACH capsule 2 tab-cap PO ONCE PRNQty: 30 Patient Comments: makes her heart race Rx Instructions: MIDRIN 2 TABS ONSET OF GUIDO & 1 TAB EVERY HR UNTIL RELIEF MAX 5 CAP IN 12HR mycophenolate sodium [Myfortic] 360 MG tablet,delayed release (DR/EC) 3 tab PO BID Qty: 270 tacrolimus [Prograf] 0.5 MG capsule 1.5 mg PO BID Qty: 180 acetaminophen [Tylenol] 325 MG tablet 500 mg PO PRN rsodtadpmb-nphnskhpashlm-apqv 50-325-40 mg tablet 1 tab PO PRN Qty: 60 0RF (DME) blood-glucose meter [OneTouch Verio Flex meter] Misc See Rx Instructions .ROUTE .MEDSUPPLY Qty: 1 0RF Rx Instructions: As directed - check daily (DME) OneTouch Verio test strips Strip See Rx Instructions .ROUTE .COMPLEX Qty: 100 6RF Dose Instruction: USE TO TEST TWICE A DAY Rx Instructions: USE TO TEST TWICE A DAY (DME) lancets [OneTouch Delica Plus Lancet] 33 gauge [facility] See Rx Instructions .ROUTE .MEDSUPPLY Qty: 100 3RF Rx Instructions: As directed once daily lorazepam 0.5 mg tablet 0.5 mg PO DAILY PRN (Reason: anxiety) Qty: 60 2RF progesterone micronized 200 mg capsule 200 mg PO QHS Qty: 42 3RF Rx Instructions: Take for 14 days each month. cyclobenzaprine 10 mg tablet 10 mg PO TID PRN (Reason: muscle spasm) Qty: 25 1RF levothyroxine 75 mcg tablet 75 mcg PO DAILY Qty: 90 3RF estradiol [Vivelle-Dot] 0.05 mg/24 hr patch semiweekly 1 patch transdermal .2xw Qty: 8 0RF tirzepatide 10 mg/0.5 mL pen injector 10 mg subcut QWEEK Qty: 2 5RF magnesium oxide 400 MG tablet 400 mg PO BID Qty: 30 0RF diltiazem HCl 120 mg capsule,extended release 24hr 120 mg PO DAILY Qty: 30 0RF bisacodyl 5 mg tablet,delayed release (DR/EC) 5 mg PO ONCE amoxicillin 500 mg capsule 2,000 mg PO .COMPLEX Rx Instructions: 2,000 mg orally prior to dental work; meclizine 12.5 mg tablet See Rx Instructions PO Q6H PRN Rx Instructions: 1-2 tablets orally every 6 hours, as needed; rosuvastatin [Crestor] 5 mg tablet 2.5 mg PO DAILY Rx Instructions: at bedtime calcium carbonate [Tums] 200 mg calcium (500 mg) tablet,chewable 200 mg PO DAILY baclofen 10 mg tablet 10 mg PO Q6H PRN (Reason: back spasms) loperamide 2 mg capsule 2 mg PO Q4H PRN Rx Instructions: administer after each loose stool until symptoms controlled; do not exceed 8 mg per 24 hrs losartan 50 mg tablet 50 mg PO QHS propranolol 40 mg tablet 40 mg PO BID omeprazole 20 mg capsule,delayed release(DR/EC) 20 mg PO DAILY promethazine 12.5 mg tablet 12.5 mg PO Q4H PRN PRN Rx Instructions: q 4-6h prn migraine prednisone 5 mg tablet 5 mg PO DAILY prednisone 2.5 mg tablet 2.5 mg PO DAILY tacrolimus 1 mg capsule 2 mg PO BID cyclobenzaprine 5 mg tablet 5 mg PO TID PRNQty: 14 0RF Discharge Instructions Activity:: Activity as Tolerated Equipment/Supplies:: No Equipment Needed Diet:: As Tolerated Discharge Orders Discharge Orders: Discharge Order (Routine); Ordered 01/15/25 Ordered By: Carleen Blankenship DS: Summary Time Spent with Patient providing and/or coordinating discharge services: Greater than 30 minutes Status at Discharge Functional status at discharge: independent ambulation Overall status at discharge: patient is progressing back to baseline Mental Status: mental status grossly normal Speech and Movement: speech and movement normal Mood: congruent mood Affect: normal affect Quality:SDOH Health Related Social Needs: Health related social needs housing instability, housed, with risk of homelessness (Z59.811) Exam Narrative Exam Narrative: General: Alert and oriented x 3 and in no acute distress. Lungs: CTAB, nl effort Heart: Regular rate and rhythm with distant heart sounds, no murmurs or gallops appreciated. ABD: +BS, soft, NT/ND, no masses/HSM Extremities: No clubbing, cyanosis or pitting edema. Peripheral pulses intact. Skin: Normal color, warm and dry. Psych Mental Status: mental status grossly normal Speech and Movement: speech and movement normal Mood: congruent mood Affect: normal affect DS: Data Vitals/I&O Vitals and I&O: Vital Signs Temperature 37.2 C 01/14/25 14:47 Temperature Source Temporal Artery Scan 01/14/25 11:31 Pulse 93 H 01/14/25 14:47 Pulse 101 H 01/12/25 15:00 Respiratory Rate 16 01/14/25 14:47 Respiratory Effort Normal, Non-Labored 01/11/25 21:33 Respiratory Depth Normal 01/11/25 21:33 Respiratory Pattern Normal 01/11/25 21:33 Blood Pressure 96/70 L 01/14/25 14:47 Blood Pressure Mean 94 01/12/25 15:00 Blood Pressure Position Supine 01/11/25 21:33 Pulse Oximetry 95 01/14/25 14:47 Oxygen Delivery Method Room Air 01/14/25 14:47 Oxygen Flow Rate 0 01/14/25 14:47 Pain Level 0 01/14/25 03:30 Intake & Output 01/13/25 01/14/25 01/14/25 23:59 11:59 23:59 Intake Total 220 / 320 210 / 210 Balance 220 / -180 210 / 210 Intake: IV Oral 220 / 220 200 / 200 Other: Urine Color Yellow Yellow Yellow Urine Appearance Clear Clear Urine Odor Normal Normal Comment per pt voided x2 per pt voided x1 Stool Size Small Stool Characteristics Liquid Data Completed and Pending Labs on day of discharge: Labs from last 24 hours 01/14/25 01/13/25 06:00 17:06 Sodium 145 Potassium 3.3 L Chloride 114 H Carbon Dioxide 19.3 L Anion Gap 11.7 H BUN 26 H Creatinine 1.2 H Est GFR (CKD-EPI 2020) 51.82 Glucose 78 Calcium 9.1 Magnesium 1.7 L Stool Norovirus GI (PCR) Pending Stool Norovirus GII (PCR) Pending Preliminary micro results at discharge 01/10/25 17:18 Blood Culture - Preliminary Blood NO GROWTH 72 HOURS 01/10/25 16:47 Blood Culture - Preliminary Blood NO GROWTH 72 HOURS PFSH All Active Problems (Updated 01/12/25 @ 09:43 by Oswaldo Hawkins) DVT prophylaxis (Acute) Hypokalemia (Acute 04/13/09) Chronic hyperglycemia (Chronic) Intractable diarrhea (Acute) Hypomagnesemia (Acute) Arrhythmia (Acute) Fever (Acute) Gastroenteritis (Acute) Abnormal CT scan, gallbladder (Acute) 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 Heart transplant status (Chronic 09/11/12) Managed at [facility] Hot flashes (Chronic 02/21/16) Managed by [facility]; side effects from venlafaxine, unable to use HRT. Migraine (Chronic 07/12/15) Obesity (Acute) Gastroesophageal reflux disease (Chronic) Medical History COVID-19 treated with [facility] through ER. Palpitations while on trulicity Perforation of tympanic membrane (03/26/13) right, surgically repaired [facility] Hx of gastric ulcer patient originally followed by [facility] for hx of gastric ulcers, EGD 08/28/2017 with CD showed erosive gastritis. 02/04/[address] Leger showed mild esophagitis. Dr Simmons referred to [facility] for CÁRDENAS, done 03/28/[address] Arredondo, [facility] General and GI surgery recommeds weight loss/possible gastric surgery. Dr Kevin from [facility] recommends repeat EGD, Dr Leger has agreed to repeat EGD. MAintained on omeprazole and famotidine. Cardiomyopathy cardiac transplant 01/04/12 - [facility] Surgical History History of colonoscopy (~08/28/24) H/O esophagogastroduodenoscopy (~08/28/24) Status post heart transplant (~2011) S/P ear surgery History of intraocular lens implant Both eyes EGD - [facility] (09/07/19) 2017-Dr Leger, mild esophagits 01/2019- chronic gastric ulcers Colonoscopy - [facility] 04/23/14; [facility] Family History Other Cancer Diabetes Social History Smoking/Tobacco Use Status: Never Second Hand Exposure: No Smoking risk assessment performed?: Yes Alcohol Intake: current Alcohol Intake frequency: holidays/special occasions only Drug use: Never Substance use type: does not use Details: alcohol: unk Caregiver/Support person: No Household members: spouse Housing: house Number of Children: 2 Communication Needs: None Do you need help understanding health information?: Rarely current occupation: disabled Pets and animals: No Sexually active: Yes Do you think of yourself as: straight/heterosexual Current gender identity: female What is your relationship status?: How often do you talk on the phone with friends or family?: three or more times per week How often do you get together with friends or relatives?: once per week How often do you attend orthodoxy or amish services?: 1-3 times per year Do you belong to any clubs or organized social groups?: no Panel score (0-1 are the most socially isolated patients): 2 What type of physical activity do you participate in: walking Duration: 30-45 minutes/day Frequency: 3-4 times per week Ly/Jain: Caodaism Seatbelt use: always Helmet use: Yes Helmet use: always Drive intox or ride w/intox van cdl driver: No Do you feel safe at home: Yes Do you feel safe in your relationship?: Yes Female Reproductive History Menstrual control method: other ( vasectomy) Menopause type: natural Date of menopause: 04/01/18 History History 3 Para Hx # Term Pregnancies 1 Multiple births Hx # Pregnancies Ectopic pregnancies AB induced Hx Number of Living Children AB spontaneous Time Spent with Patient Time Spent with Patient: 70-84 minutes4 Time was spent: preparing to see the patient(eg.review tests), ordering medications,tests, procedures, referring, communicating with other health career and technology education teacher, indepentently interpreting results, counseling the patient and care coordination
[2025-01-14] MEDS: Enoxaparin 40 MG/0.4 ML SYR SC (16:23)
--- NOTE | 2025-01-14 18:06 | NUR.NOTE ---
Nursing Note: Pt had requested her bag of supplements and personal medications from the pharmacy be brought up d/t her impending tx to [place]. Shethen took her mounjaro out of the bag, used it and wanted the bag brought back to pharmacy so that her could pick it up tomorrow. Pharmacy notified.
[2025-01-14] MEDS: Losartan 50 MG TAB PO (20:10)
[2025-01-14] MEDS: Famotidine 20 MG TAB 10 MG PO (20:10)
[2025-01-14 22:46] VITALS: BP 107/74; PULSE 89; RESP 18; TEMP 37; O2SAT 96
[2025-01-15 04:09] VITALS: BP 90/67; PULSE 102; RESP 18; TEMP 37; O2SAT 95
[2025-01-15] MEDS: Levothyroxine 75 MCG TAB PO (05:32)
[2025-01-15] MEDS: Meclizine 12.5 MG TAB PO (06:36)
[2025-01-15] MEDS: Rosuvastatin 5 MG TAB 2.5 MG PO (06:36)
[2025-01-15] MEDS: Tacrolimus 0.5 MG CAP 1.5 MG PO (06:37)
[2025-01-15] MEDS: Aspirin E.C. 81 MG TABEC PO (06:37)
[2025-01-15] MEDS: Calcium Carbonate *TUMS* 500 MG CHEW PO (06:37)
[2025-01-15] MEDS: Omeprazole 20 MG CAPCR PO (06:37)
[2025-01-15] MEDS: predniSONE 5 MG TAB 7.5 MG PO (06:37)
--- NOTE | 2025-01-15 15:34 | PDOC.CMDIS ---
Date of service: 01/15/25 Time of Service: 15:34 LACE Index Scoring Tool Questions: Length of Stay (in days): 4 - 6 Was the patient admitted via the E.D.?: Yes Comorbidities: Diabetes w/o Complication E.D. Visits: 2 Answers: Total Score: 10 Risk of Readmission: High Risk Care Management Discharge Plan Reason for Hospitalization: diarrhea and dehydration with ventricular arrhythmia Discharge Plan: Alejandra is being transferred to [facility] in [place]. She will follow up with the facility providers and plan of care and transport via EMS coordinated by the nursing supervisor compounding and finishing. Patient/Family Education Needs: Review of discharge instructions, limitations, follow up plan and discuss Ask Me Three Services Needed at Discharge: Transportation SDOH Health Related Social Needs: Health related social needs housing instability, housed, with risk of homelessness (Z59.811)
[2025-01-15 17:02] LABS: Calprotectin 66.6 mcg/g
[2025-01-17 18:37] LABS: Norovirus G1 PCR Negative (Negative); Norovirus G2 PCR Positive (Negative)
[2025-01-20 08:07] LABS: Pancreatic Elastase, F 188 mcg/g
== END 2025-01-15 07:25 | disposition short-term general hospital (02) | DRG 392 ==
LOC: ER 01-11 18:04 → ICU 01-11 21:27 → MS 01-12 16:11
PROVIDERS: Family Medicine; Registered Nurse Emergency; Admitting Provider Family Medicine; Emergency Provider Student in an Organized Health Care Education/Training Program; PCP Family Medicine; Responsible Provider Nurse Practitioner Family; Visit Provider Nurse Practitioner Family
DX: K52.9 Noninfective gastroenteritis and colitis, unspecified (principal); Z94.1 Heart transplant status; I47.21 Torsades de pointes; E83.42 Hypomagnesemia; E87.6 Hypokalemia; E03.9 Hypothyroidism, unspecified; K21.9 Gastro-esophageal reflux disease without esophagitis; Z79.621 Long term (current) use of calcineurin inhibitor; E11.65 Type 2 diabetes mellitus with hyperglycemia; I10 Essential (primary) hypertension; F41.9 Anxiety disorder, unspecified; G43.909 Migraine, unspecified, not intractable, without status migrainosus; Z87.11 Personal history of peptic ulcer disease; E78.00 Pure hypercholesterolemia, unspecified
CPT/HCPCS: 00123; 36415; 80048; 80053; 83690; 85027; 87040; 87493; 87505; 87637; 87798; 93005; 96365; 96366; 96375; 96376; 99285; J1650; 74177; 81003; 81015; 82272; 82656; 83605; 83735; 83993; 84443; 84484; 85025; 85610; 87177; 93010; 99223; 99233; 99239; J1644; J1720; J1815; J2405; J2470; J3475; J3480; J3490; J7512

== ENCOUNTER 2025-01-28 02:58 | Outpatient (CLI) | payer OTHER, SELFPAY ==
[2025-01-29 13:19] LABS: Tacrolimus 6.4 ng/mL (See Note)
== END 2025-01-28 02:59 | disposition home or self-care (01) ==
PROVIDERS: PCP Family Medicine; Visit Provider Family Medicine
DX: Z94.1 Heart transplant status (principal)
CPT/HCPCS: 36415; 80197

== ENCOUNTER 2025-02-11 02:34 | Outpatient (CLI) | payer OTHER, SELFPAY ==
[2025-02-15 09:54] LABS: Measles IgG Antibody Positive (See Note)
== END 2025-02-11 02:35 | disposition home or self-care (01) ==
PROVIDERS: PCP Family Medicine; Visit Provider Nurse Practitioner
DX: Z94.1 Heart transplant status (principal)
CPT/HCPCS: 36415; 86765

== ENCOUNTER 2025-03-11 02:31 | Outpatient (CLI) | payer OTHER, SELFPAY ==
[2025-03-11 13:17] LABS: ALT 31 U/L (14-59); AST 14 U/L (15-37); Albumin 3.6 g/dL (3.4-5.0); Alkaline Phosphatase 87 U/L (46-116); Anion Gap 8.7 mmol/L (3-11); BUN 17 mg/dL (7-18); Bilirubin, Total 0.4 mg/dL (0.2-1.0); CO2 27.3 mmol/L (21.0-32.0); Calcium 9.4 mg/dL (8.5-10.1); Calculated LDL 74 mg/dL (<100); Chloride 111 mmol/L (98-107); Cholesterol 146 mg/dL (<200); Estimated GFR 64.49 (mL/min/1.73m2); Glucose 96 mg/dL (74-106); HDL Cholesterol 50 mg/dL (>or=50); Potassium 3.3 mmol/L (3.5-5.1); Sodium 147 mmol/L (136-145); Total Protein 6.8 g/dL (6.4-8.2); Triglyceride 111 mg/dL (<150)
[2025-03-11 13:25] LABS: Microalb ug/mg Crea 6.9 ug/mg Cr
[2025-03-12 11:10] LABS: Measles IgG Antibody Positive (See Note)
[2025-03-12 13:48] LABS: Tacrolimus 7.8 ng/mL (See Note)
== END 2025-03-11 02:32 | disposition home or self-care (01) ==
LOC: LBO 02:31
PROVIDERS: Nurse Practitioner; PCP Family Medicine; Visit Provider Family Medicine
DX: E11.9 Type 2 diabetes mellitus without complications (principal); E11.65 Type 2 diabetes mellitus with hyperglycemia; Z94.1 Heart transplant status
CPT/HCPCS: 36415; 80053; 80061; 80197; 82043; 82570; 86765

== ENCOUNTER 2025-03-25 02:16 | Outpatient (CLI) | payer OTHER, SELFPAY ==
[2025-03-26 13:52] LABS: Tacrolimus 6.7 ng/mL (See Note)
== END 2025-03-25 02:17 | disposition home or self-care (01) ==
PROVIDERS: PCP Family Medicine; Visit Provider Nurse Practitioner
DX: Z94.1 Heart transplant status (principal)
CPT/HCPCS: 36415; 80197

== ENCOUNTER 2025-04-01 03:58 | Outpatient (CLI) | payer OTHER, SELFPAY ==
[2025-04-01 10:53] LABS: Abs Immature Grans 0.04 10^3/uL (0.0-0.06); Absolute Basophil Count 0.03 10^3/uL (0.0-0.2); Absolute Eosinophil Count 0.16 10^3/uL (0.0-0.7); Absolute Lymphocyte Count 1.88 10^3/uL (1.2-3.4); Absolute Monocyte Count 0.75 10^3/uL (0.1-0.8); Absolute Neutrophil Count 5.57 10^3/uL (1.2-6.7); Basophils % 0.4 %; Eosinophils % 1.9 %; HCT 36.8 % (36.0-46.0); Immature Grans % 0.5 %; Lymphocytes % 22.3 %; MCH 29.1 pg (27.0-33.0); MCHC 32.6 % (32.0-36.0); MCV 89 fL (80-95); MPV 9.2 fL (8.0-11.0); Monocytes % 8.9 %; Platelet Count 276 10^3/uL (130-400); RBC 4.12 10^6/uL (3.93-5.22); RDW 13.3 % (11.7-14.6); RDW-SD 43.7 fL; WBC 8.43 10^3/uL (4.4-10.8)
[2025-04-01 11:15] LABS: ALT 33 U/L (14-59); AST 18 U/L (15-37); Albumin 3.5 g/dL (3.4-5.0); Alkaline Phosphatase 79 U/L (46-116); Anion Gap 8.8 mmol/L (3-11); BUN 18 mg/dL (7-18); Bilirubin, Total 0.4 mg/dL (0.2-1.0); CO2 27.2 mmol/L (21.0-32.0); Calcium 9.5 mg/dL (8.5-10.1); Chloride 108 mmol/L (98-107); Estimated GFR 64.49 (mL/min/1.73m2); Glucose 91 mg/dL (74-106); Magnesium 1.5 mg/dL (1.8-2.4); NT-proBNP 330 pg/mL (<300); Potassium 3.4 mmol/L (3.5-5.1); Sodium 144 mmol/L (136-145); Total Protein 6.7 g/dL (6.4-8.2)
== END 2025-04-01 03:59 | disposition home or self-care (01) ==
PROVIDERS: PCP Family Medicine; Visit Provider Nurse Practitioner Adult Health
DX: Z94.1 Heart transplant status (principal)
CPT/HCPCS: 36415; 80053; 80197; 83735; 83880; 85025

== ENCOUNTER 2025-06-29 02:53 | Outpatient (CLI) | payer OTHER, SELFPAY ==
--- NOTE | 2025-06-29 07:15 | DI.MAMMO_ITS ---
Exam(s) MAMMO SCREENING EXAM: MAMMO SCREENING CLINICAL HISTORY: screening, Z12.39. TECHNIQUE: Bilateral full field digital CC and MLO mammographic images were obtained with 3D tomosynthesis and utilizing computer aided detection (CAD). COMPARISON: Prior mammograms dating back to 2017 were reviewed. FINDINGS: There has been no significant change in the appearance and distribution of the fibroglandular tissue. Asymmetric density in the left breast located 12 cm in from the nipple on the CC view is unchanged from prior mammograms and therefore benign. There are no new spiculated masses nor new malignant appearing microcalcification groups. There is no significant architectural distortion nor skin thickening-retraction. IMPRESSION: No radiographic evidence of malignancy. BI-RADS Category 2 - Benign Findings Breast Density - Category B - There are scattered areas of fibroglandular density. Breast density Category C or D implies that the patient has dense breast tissue. Dense breast tissue can make it harder to find cancer on a mammogram. Dense breast tissue is also associated with an increased risk of breast cancer. This information about the result of the mammogram report was provided to the patient to raise their awareness. Use this report when you speak with the patient about their risks for breast cancer, which includes their family history. At that time, you may recommend additional screening tests (Ultrasound or MRI) as these tests may add significant information. A negative radiographic report should not delay biopsy if a dominant or clinically suspicious mass is present. Up to ten percent of cancers are not identified on mammography. A negative report may reinforce clinical impression. Adenosis and dense breasts may obscure an underlying neoplasm. False positive reports average 6 to 10%. Patient will receive a letter notifying them of these results.
== END 2025-06-29 03:13 ==
LOC: DI 02:53
PROVIDERS: PCP Family Medicine; Visit Provider Family Medicine
DX: Z12.31 Encounter for screening mammogram for malignant neoplasm of breast (principal); R92.323 Mammographic fibroglandular density, bilateral breasts
CPT/HCPCS: 77063; 77067

== ENCOUNTER 2025-08-05 14:50 | Outpatient (CLI) | payer OTHER, SELFPAY ==
[2025-08-05 15:04] LABS: Abs Immature Grans 0.02 10^3/uL (0.0-0.06); HCT 37.6 % (36.0-46.0); HGB 12.2 g/dL (11.2-15.7); Immature Grans % 0.3 %; MCH 28.9 pg (27.0-33.0); MCHC 32.4 % (32.0-36.0); MCV 89 fL (80-95); MPV 10.1 fL (8.0-11.0); Platelet Count 250 10^3/uL (130-400); RBC 4.22 10^6/uL (3.93-5.22); RDW 14.6 % (11.7-14.6); RDW-SD 47.9 fL; WBC 6.62 10^3/uL (4.4-10.8)
[2025-08-05 16:04] LABS: ALT 23 U/L (14-59); AST 13 U/L (15-37); Albumin 3.7 g/dL (3.4-5.0); Alkaline Phosphatase 76 U/L (46-116); Anion Gap 8.9 mmol/L (3-11); BUN 18 mg/dL (7-18); Bilirubin, Total 0.3 mg/dL (0.2-1.0); CO2 25.1 mmol/L (21.0-32.0); Calcium 9.0 mg/dL (8.5-10.1); Chloride 106 mmol/L (98-107); Estimated GFR 72.73 (mL/min/1.73m2); Glucose 148 mg/dL (74-106); Magnesium 1.8 mg/dL (1.8-2.4); Potassium 4.4 mmol/L (3.5-5.1); Sodium 140 mmol/L (136-145); Total Protein 6.8 g/dL (6.4-8.2)
== END 2025-08-05 14:51 | disposition home or self-care (01) ==
LOC: LBO 14:53
PROVIDERS: PCP Family Medicine; Visit Provider Internal Medicine Cardiovascular Disease
DX: R00.2 Palpitations (principal)
CPT/HCPCS: 36415; 80053; 83735; 85025

== ENCOUNTER 2025-10-08 02:56 | Outpatient (CLI) | payer OTHER, SELFPAY ==
[2025-10-08 12:04] LABS: Abs Immature Grans 0.02 10^3/uL (0.0-0.06); HCT 39.0 % (36.0-46.0); HGB 12.4 g/dL (11.2-15.7); Immature Grans % 0.3 %; MCH 29.0 pg (27.0-33.0); MCHC 31.8 % (32.0-36.0); MCV 91 fL (80-95); MPV 9.5 fL (8.0-11.0); Platelet Count 252 10^3/uL (130-400); RBC 4.28 10^6/uL (3.93-5.22); RDW 13.2 % (11.7-14.6); RDW-SD 44.1 fL; WBC 6.16 10^3/uL (4.4-10.8)
[2025-10-08 12:40] LABS: ALT 20 U/L (14-59); AST 12 U/L (15-37); Albumin 3.4 g/dL (3.4-5.0); Alkaline Phosphatase 72 U/L (46-116); Anion Gap 7.3 mmol/L (3-11); BUN 16 mg/dL (7-18); Bilirubin, Total 0.3 mg/dL (0.2-1.0); CO2 28.7 mmol/L (21.0-32.0); Calcium 9.0 mg/dL (8.5-10.1); Chloride 106 mmol/L (98-107); Estimated GFR 83.78 (mL/min/1.73m2); Glucose 114 mg/dL (74-106); Magnesium 1.9 mg/dL (1.8-2.4); NT-proBNP 270 pg/mL (<300); Potassium 3.8 mmol/L (3.5-5.1); Sodium 142 mmol/L (136-145); Total Protein 6.7 g/dL (6.4-8.2)
== END 2025-10-08 02:57 | disposition home or self-care (01) ==
PROVIDERS: PCP Family Medicine; Visit Provider Nurse Practitioner
DX: Z94.1 Heart transplant status (principal)
CPT/HCPCS: 36415; 80053; 80197; 83735; 83880; 85025

== ENCOUNTER 2025-10-22 00:20 | Outpatient (CLI) | payer OTHER, SELFPAY ==
[2025-10-22 15:55] LABS: Anion Gap 10 mmol/L (3-11); BUN 18 mg/dL (9-23); CO2 26.0 mmol/L (20.0-31.0); Calcium 8.8 mg/dL (8.3-10.6); Chloride 109 mmol/L (98-107); Glucose 84 mg/dL (74-106); Potassium 3.8 mmol/L (3.5-5.1); Sodium 145 mmol/L (136-145)
== END 2025-10-22 00:21 | disposition home or self-care (01) ==
PROVIDERS: PCP Family Medicine; Visit Provider Nurse Practitioner Adult Health
DX: Z94.1 Heart transplant status (principal)
CPT/HCPCS: 36415; 80048; 80197; 83880